=== PATIENT | female | born 1985 | race Caucasian/White ===

== ENCOUNTER 2022-05-04 09:18 | Emergency (ER) | payer BC, SELFPAY ==
[2022-05-04] VITALS (9 sets, daily range): BP systolic 116–139; BP diastolic 72–85; PULSE 73–83; RESP 12–21; TEMP 36.2; O2SAT 98–100
--- NOTE | 2022-05-04 09:31 | ED.ALLEREA ---
HPI - Allergic Reaction General Chief complaint: Allergic Reaction Stated complaint: hives Time Seen by Provider: 05/04/22 09:23 History of Present Illness HPI narrative: 36-year-old female presents to the emergency room for evaluation of sudden onset rash. Patient states her symptoms began last night and her face, she took Benadryl and then noticed the rash spread to her chest and extremities. Patient denies any shortness of breath difficulty breathing or oropharyngeal swelling. Patient does admit that she began taking Wellbutrin 3 weeks ago, and that her primary care physician increased her dose on Wednesday. Patient took 1 dose of Benadryl this morning with no symptom resolution. Related Data Home Medications Medication Instructions Recorded Confirmed bupropion HCl 150 mg 24 hr tablet, 150 mg PO QAM 04/29/22 04/29/22 extended release cyanocobalamin (vitamin B-12) 100 mcg subcut MONTHLY 04/29/22 04/29/22 1,000 mcg/mL injection solution etonogestrel 68 mg subdermal 1 implant subdermal ONCE 04/29/22 04/29/22 implant (Nexplanon) magnesium oxide,aspartate,citr mg PO 04/29/22 04/29/22 Allergies Allergy/AdvReac Type Severity Reaction Status Date / Time Sulfa (Sulfonamide Allergy Mild Unknown Verified 04/29/22 09:57 Antibiotics) Penicillins Allergy Unknown Unknown Verified 04/29/22 09:57 Review of Systems Review of Systems: CONSTITUTIONAL: Denies fever, chills, or sweats. EYES: Denies visual changes, redness, or discharge. ENT: Denies rhinorrhea, congestion, sore throat, or otalgia. CARDIOVASCULAR: Denies chest pain, palpitations, or edema. RESPIRATORY: Denies cough or dyspnea. GASTROINTESTINAL: Denies abdominal pain, nausea, vomiting, or diarrhea. GENITOURINARY: Denies dysuria or hematuria. SKIN: Reports rash MUSCULOSKELETAL: Denies back pain, joint pain, or myalgia. NEUROLOGIC: Denies headache, numbness, dizziness, or weakness. PSYCHIATRIC: Denies anxiety or depression. 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 HEAD: Normocephalic, atraumatic. EYES: Conjunctivae normal, PERRLA and EOMI. ENT: External nose normal, Nares clear, no rhinorrhea or epistaxis. Mucous membranes moist. Oropharynx without tonsillar hypertrophy exudate or other lesions. NECK: Supple. No adenopathy or masses. CHEST: Clear to auscultation. No respiratory distress. No wheezes rales or rhonchi. No tenderness. HEART: Regular rate and rhythm. No murmur heard. Normal peripheral pulses. EXTREMITIES: Normal range of motion. No edema. No clubbing or cyanosis SKIN: Urticaria noted to neck, chest, abdomen, upper and lower extremities NEURO: No focal deficits. Alert and oriented x3. MAEW. CN's II-XI intact bilaterally, normal gait PSYCH: Cooperative. Normal mood and affect. Course Vital Signs Vital signs: Vital Signs Temperature 36.2 C L 05/04/22 09:25 Pulse Rate 83 05/04/22 09:25 Respiratory Rate 14 05/04/22 09:25 Blood Pressure 139/85 05/04/22 09:25 Pulse Oximetry 100 05/04/22 09:25 Oxygen Delivery Room Air 05/04/22 09:25 Temperature 36.2 C L 05/04/22 09:25 Pulse Rate 77 05/04/22 10:15 Respiratory Rate 12 05/04/22 10:15 Blood Pressure 121/78 05/04/22 09:46 Pulse Oximetry 10
[2022-05-04] MEDS: SODIUM CHLORIDE 0.9% IV 1,000 ML 999 ML IV CONT (10:06)
[2022-05-04] MEDS: diphenhydrAMINE HCl INJ 50 MG/ML VIAL 25 MG IV PUSH (10:10)
[2022-05-04] MEDS: methylPREDNISolone SOD SUCC 125 MG VIAL IV PUSH (10:10)
[2022-05-04] MEDS: FAMOTIDINE 20 MG/2 ML VIAL IV PUSH (10:11)
== END 2022-05-04 11:12 | disposition home or self-care (01) ==
PROVIDERS: Emergency Provider Nurse Practitioner Family; PCP Nurse Practitioner Family
DX: L50.0 Allergic urticaria (principal); Z87.891 Personal history of nicotine dependence
CPT/HCPCS: 96361; 96374; 96375; 99284; J1200; J2930; J7030

== ENCOUNTER 2022-09-11 13:12 | Emergency (ER) | payer BC, SELFPAY ==
--- NOTE | 2022-09-11 13:29 | ED.URI ---
HPI - URI/Sore Throat General Chief Complaint: Upper Respiratory Infection Stated Complaint: sinus pressure, nausea, dizziness Time Seen by Provider: 09/11/22 14:28 Source: patient and RN notes reviewed Mode of arrival: ambulatory Limitations: no limitations History of Present Illness HPI Narrative: 37-year-old female presents concern for 2 week history of sinus drainage, cough, pressure, headache. Reports she is again having pressure above her left eye, she started having left dental pain. She thought she had a dental infection so she went to the dentist, he said she does not have a dental infection. She reports she called her ENT today and was unable to get an appointment and while she was here she was notified a center in [facility], she has not started that yet. She reports recent chills, denies fever MD elicited complaint: cough and sore throat Related Data Home Medications Medication Instructions Recorded Confirmed bupropion HCl 150 mg 24 hr tablet, 150 mg PO QAM 04/29/22 04/29/22 extended release cyanocobalamin (vitamin B-12) 100 mcg subcut MONTHLY 04/29/22 04/29/22 1,000 mcg/mL injection solution etonogestrel 68 mg subdermal 1 implant subdermal ONCE 04/29/22 04/29/22 implant (Nexplanon) magnesium oxide,aspartate,citr mg PO 04/29/22 04/29/22 epinephrine 0.3 mg/0.3 mL 09/11/22 injection, auto-injector (Auvi-Q) Allergies Allergy/AdvReac Type Severity Reaction Status Date / Time Sulfa (Sulfonamide Allergy Mild Unknown Verified 09/11/22 13:48 Antibiotics) Penicillins Allergy Unknown Unknown Verified 09/11/22 13:48 Review of Systems Review of Systems: CONSTITUTIONAL: Reports malaise, chills. Denies sweats, or fever. EYES: Denies visual changes, redness, or discharge. ENT: Reports rhinorrhea, congestion, sinus pain, left facial pressure and pain, left dental pain. Denies otalgia and sore throat. CARDIOVASCULAR: Denies chest pain, palpitations, or edema. RESPIRATORY: Reports cough. Denies dyspnea. GASTROINTESTINAL: Denies abdominal pain, nausea, vomiting, diarrhea SKIN: Denies rash or itching. MUSCULOSKELETAL: Denies myalgia. NEUROLOGIC: He reports headache. 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 There is no relevant family history pertinent to the presenting complaint 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 HEAD: Normocephalic EYES: PERRLA, conjunctivae clear ENT: Nares clear, turbinates edematous and erythematous, green discharge, sinus tenderness. Mucous membranes moist. TM pearly finney with dull light reflex bilaterally; no tragal tenderness. Oropharynx not erythematous without lesions. Tonsils not enlarged and without exudate, no drooling, no hoarseness, no trismus, uvula midline. NECK: Supple. No lymphadenopathy CHEST: Clear to auscultation, breath sounds equal. No wheezing, rhonchi, rales, or stridor. No respiratory distress, speaks in full sentences. HEART: Regular rate and rhythm. No murmur heard. SKIN: Warm, dry, no rash. NEURO: Alert and oriented x3. PSYCH: Normal mood and affect
[2022-09-11 13:39] VITALS: BP 136/78; PULSE 79; RESP 12; TEMP 37.8; O2SAT 100
== END 2022-09-11 14:42 | disposition home or self-care (01) ==
PROVIDERS: Emergency Provider Nurse Practitioner
DX: J32.9 Chronic sinusitis, unspecified (principal); J40 Bronchitis, not specified as acute or chronic
CPT/HCPCS: 99213; G0463

== ENCOUNTER 2022-10-06 17:34 | Emergency (ER) | payer BC, SELFPAY ==
--- NOTE | ~2022-10-06 | XR_ITS ---
EXAM: XR shoulder RT min 2V DATE: 10/06/2022 18:10 HISTORY: rt shoulder pain X 2 DAYS, SHARP PAIN RADIATING TO FINGERS . COMPARISON: None available. FINDINGS: Normal mineralization. No fracture or dislocation. No lytic or blastic lesion. Mild degene rative change at the AC joint and glenohumeral joint. No erosion or periosteal change. Amorphous calc ification at the tip of the acromion at the origin of the deltoid musculature, likely calcific tendin itis. IMPRESSION: No acute osseous finding in the right shoulder. Reviewed, dictated and finalized at location K. [employer]OR[employer] FORMULATOR
[2022-10-06 17:36] VITALS: BP 146/98; PULSE 80; RESP 18; TEMP 36.6; O2SAT 100
[2022-10-06 20:09] VITALS: BP 148/87; PULSE 79; RESP 18; O2SAT 98
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
[2022-10-06] MEDS: KETOROLAC (*BKC) 60 MG/2 ML VIAL IM (21:11)
[2022-10-06 21:16] VITALS: BP 111/69; PULSE 69; RESP 18; TEMP 36.6; O2SAT 99
== END 2022-10-06 21:17 | disposition home or self-care (01) ==
PROVIDERS: Emergency Provider Physician Assistant; PCP Nurse Practitioner Family
DX: S43.401A Unspecified sprain of right shoulder joint, initial encounter (principal); X50.0XXA Overexertion from strenuous movement or load, initial encounter
CPT/HCPCS: 73030; 96372; 99283; A4565; J1885

== ENCOUNTER 2023-04-05 18:19 | Emergency (ER) | payer OTHER, SELFPAY ==
--- NOTE | ~2023-04-05 | XR_ITS ---
AP, oblique, and lateral views of the left great toe CLINICAL HISTORY: Injury FINDINGS: No fracture or dislocation seen. Joint spaces are preserved. Soft tissues are unremarkable. IMPRESSION: No significant abnormality seen. Reviewed, dictated and finalized at location .
--- NOTE | 2023-04-05 18:36 | ED.LOWEXIN ---
HPI - Extremity Injury (Lower) General Chief Complaint: Extremity Injury, Lower Stated Complaint: left great toe injury Time Seen by Provider: 04/05/23 18:30 History of Present Illness HPI Narrative: Patient presents to the emergency department from home. She was playing outside with her kids when one of her children dropped a PVC pipe on her first great toe of the left foot. Injury happened an hour and half prior to arrival. She has not taken anything for pain prior to arrival. Patient did place ice on the toe. She wants to ensure that it is not broken. Patient denies all other injuries. She is generally healthy. Very pleasant and exam is in no distress. No deformity on exam mild first toe tenderness Related Data Home Medications Medication Instructions Recorded Confirmed bupropion HCl 150 mg 24 hr tablet, 150 mg PO QAM 04/29/22 04/29/22 extended release cyanocobalamin (vitamin B-12) 100 mcg subcut MONTHLY 04/29/22 04/29/22 1,000 mcg/mL injection solution etonogestrel 68 mg subdermal 1 implant subdermal ONCE 04/29/22 04/29/22 implant (Nexplanon) magnesium oxide,aspartate,citr mg PO 04/29/22 04/29/22 epinephrine 0.3 mg/0.3 mL 09/11/22 injection, auto-injector (Auvi-Q) Allergies Allergy/AdvReac Type Severity Reaction Status Date / Time Sulfa (Sulfonamide Allergy Mild Unknown Verified 10/06/22 17:39 Antibiotics) Penicillins Allergy Unknown Unknown Verified 10/06/22 17:39 Review of Systems Review of Systems: All systems reviewed & are unremarkable except as noted in HPI and below 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 HEAD: Normocephalic, atraumatic. ENT: Nares clear, no rhinorrhea or epistaxis. Mucous membranes moist. NECK: Normal ROM CHEST: No respiratory distress. EXTREMITIES: Normal range of motion. Mild tenderness left first toe, no deformity or bruising SKIN: Warm, dry, no rash. NEURO: No focal deficits. Alert and oriented x3. PSYCH: Normal mood and affect. Course Course Emergency Course: X-ray result pending however upon evaluation by myself no obvious fracture noted. Will order ibuprofen Discharge Plan Discharge Clinical Impression: Crush injury of toe Patient Disposition: Home, Self-Care Condition: Stable Instructions: Antibiotic Form, Foot Contusion (ED) Additional Instructions: Ibuprofen and Tylenol for pain Keep foot elevated Ice for swelling and pain Follow-up with your primary care provider for persistent discomfort for possible repeat x-rays Prescriptions: No Action epinephrine [Auvi-Q] 0.3 mg/0.3 mL auto-injector pseudoephedrine HCl [12 Hour Decongestant] 120 mg tablet extended release 120 mg PO Q12H PRN (Reason: nasal congestion) Qty: 12 0RF promethazine-DM 6.25-15 mg/5 mL syrup 5 ml PO Q4-6H PRN (Reason: cough) Qty: 120 0RF magnesium oxide,aspartate,citr 400 mg magnesium capsule PO bupropion HCl 150 mg tablet extended release 24 hr 150 mg PO QAM cyanocobalamin (vitamin B-12) 1,000 mc
[2023-04-05] MEDS: IBUPROFEN 600 MG TABLET PO (19:02)
[2023-04-05 19:30] VITALS: BP 137/73; PULSE 86; RESP 20; O2SAT 99
== END 2023-04-05 19:25 | disposition home or self-care (01) ==
PROVIDERS: Emergency Provider Emergency Medicine; PCP Nurse Practitioner Family
DX: S97.112A Crushing injury of left great toe, initial encounter (principal); W20.8XXA Other cause of strike by thrown, projected or falling object, initial encounter
CPT/HCPCS: 73660; 99283; A9270

== ENCOUNTER 2023-07-27 09:41 | Outpatient (CLI) | payer OTHER, SELFPAY ==
--- NOTE | ~2023-07-27 | MMUS_ITS ---
EXAMINATION: MM diagnostic nilo BI w tio, US breast LT limited HISTORY: Left breast pain TECHNIQUE: Additional 3-D tomosynthesis images of the breasts were performed and synthetic 2-D images were generated. CAD analysis was submitted and interpreted. High resolution Limited left breast ultr asound was performed. COMPARISON: 01/31/2021 BREAST PARENCHYMAL COMPOSITION: Breast composed of scattered areas of fibroglandular density FINDINGS: MAMMOGRAPHIC FINDINGS: The breasts are stable. There are benign intramammary lymph nodes bilaterally. The lymph node in the upper outer quadrant of the left breast is slightly increased in size, although there is retention of normal fatty hilum. ULTRASOUND: Limited left breast ultrasound: There is a normal 9 mm lymph node at 2:00, 6 cm from the nipple corre sponding to the mammographic finding. No suspicious masses in the left breast to suggest malignancy. IMPRESSION: 1. No evidence for malignancy in either breast. 2. Routine yearly screening mammogram and regular clinical breast examination are recommended. BI-RADS Category 2: Benign finding(s). Reviewed, dictated and finalized at location L. ETING TEAM LEAD IMPRESSION: 1. No evidence for malignancy in either breast. 2. Routine yearly screening mammogram and regular clinical breast examination a re recommended. BI-RADS Category 2: Benign finding(s).
== END 2023-07-27 09:42 ==
LOC: MICIMG 09:42
PROVIDERS: PCP Nurse Practitioner Family; Visit Provider Nurse Practitioner
DX: N64.4 Mastodynia (principal)
CPT/HCPCS: 76642; 77062; 77066; G0279

== ENCOUNTER 2024-02-04 16:06 | Emergency (ER) | payer OTHER, SELFPAY ==
--- NOTE | 2024-02-04 16:09 | ED.URI ---
HPI - URI/Sore Throat General Chief Complaint: Upper Respiratory Infection Stated Complaint: stuffy nose,cough,fatigue,congestion Time Seen by Provider: 02/04/24 16:37 Source: patient, RN notes reviewed and old records reviewed Mode of arrival: ambulatory Limitations: no limitations History of Present Illness HPI Narrative: 38-year-old female presents to the [facility] with complaints of stuffy nose, cough, fatigue and congestion, decreased smell and taste. Symptoms started Wednesday, 3 days ago Related Data Home Medications Medication Instructions Recorded Confirmed bupropion HCl 150 mg 24 hr tablet, 150 mg PO QAM 04/29/22 02/04/24 extended release cyanocobalamin (vitamin B-12) 100 mcg subcut MONTHLY 04/29/22 02/04/24 1,000 mcg/mL injection solution etonogestrel 68 mg subdermal 1 implant subdermal ONCE 04/29/22 02/04/24 implant (Nexplanon) magnesium aspart,citrate,oxide 400 mg PO DAILY 04/29/22 02/04/24 epinephrine 0.3 mg/0.3 mL 0.3 ml IM ONCE allergic reaction 09/11/22 02/04/24 injection, auto-injector (Auvi-Q) Allergies Allergy/AdvReac Type Severity Reaction Status Date / Time Sulfa (Sulfonamide Allergy Mild Unknown Verified 02/04/24 16:13 Antibiotics) Penicillins Allergy Unknown Unknown Verified 02/04/24 16:13 Review of Systems Review of Systems: All systems reviewed & are unremarkable except as noted in HPI and below Constitutional: Constitutional: Reports no additional constitutional complaints Eyes: Eyes: Reports no additional eye complaints ENT: Reports as per HPI Cardiovascular: Cardiovascular: Reports no additional cardiovascular complaints, Denies chest pain and Denies dyspnea Respiratory: Respiratory: Reports no additional respiratory complaints, Denies chest congestion, Denies cough and Denies dyspnea Gastrointestinal: Gastrointestinal: Reports no additional gastrointestinal complaints, Denies abdominal pain, Denies nausea and Denies vomiting Musculoskeletal: Musculoskeletal: Reports no additional musculoskeletal complaints Integumentary/Breasts: Skin/Breast: Reports system reviewed and no additional complaints, except as docu Neurologic: Reports system reviewed and no additional complaints, except as documented Psychiatric: Psychiatric: Reports no additional psychiatric complaints Allergic/Immunologic: Allergic/Immunologic: Reports no additional allergic/immunologic complaints PMFSH Past Medical History Medical History No pertinent past medical history Surgical History Surgical History History of cardiac radiofrequency ablation (RFA) History of nasal surgery History of tonsillectomy Family History Family History Father Hypertension Mother Cancer Depression Anxiety Grandparent Diabetes mellitus Grandparent Alcoholism Cancer Social History Social History Smoking status: Never smoker Smoking end date: 08/02/12 Alcohol intake: never Substance use: never Living arrangements: with family Occupation/Education: occupation 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 There is no relevant family history pertinent to the patient complaint. Exam Const: General: cooperative, healthy appearing, comfortable, no acute distress, well developed, alert and well nourished Nutritional Appearance: well nourished Orientation/consciousness: patient oriented x3 Limitations: no limitations HENMT: Head: normal to inspection Ears: hearing grossly normal bilaterally, external ears normal, TM's normal bilaterally, EAC's normal, mastoids normal and no periauricular adenopathy Face/Nose/Sinus: Normal external nos
[2024-02-04 16:27] VITALS: BP 122/73; PULSE 71; RESP 16; TEMP 36.4; O2SAT 100
[2024-02-04 16:52] LABS: EDINFLUASCREEN Negative; EDINFLUBSCREEN Negative
== END 2024-02-04 16:50 | disposition home or self-care (01) ==
PROVIDERS: Emergency Provider Nurse Practitioner
DX: J06.9 Acute upper respiratory infection, unspecified (principal); Z20.822 Contact with and (suspected) exposure to COVID-19; Z87.891 Personal history of nicotine dependence
CPT/HCPCS: 87426; 87804; 99213; G0463

== ENCOUNTER 2024-05-23 13:01 | Emergency (ER) | payer OTHER, SELFPAY ==
--- NOTE | ~2024-05-23 | XR_ITS ---
EXAMINATION: XR chest 2V DATE: 05/23/2024 14:15 INDICATION: 2 days of cough. Pneumonia exposure. TECHNIQUE: PA and lateral views of the chest were obtained. COMPARISON: None FINDINGS: The lungs are clear with no focal airspace opacities, pulmonary edema, pleural effusion or pneumothor ax. The cardiomediastinal silhouette is normal. Cholecystectomy clips in the right upper quadrant. IMPRESSION: 1. No acute cardiopulmonary disease. Reviewed, dictated and finalized at location A.
[2024-05-23 13:23] VITALS: BP 127/73; PULSE 72; RESP 16; TEMP 37; O2SAT 100
--- NOTE | 2024-05-23 13:56 | ED.URI ---
HPI - URI/Sore Throat General Chief Complaint: Upper Respiratory Infection Stated Complaint: Sore Throat/Cough Time Seen by Provider: 05/23/24 13:56 Source: patient, RN notes reviewed and old records reviewed Mode of arrival: ambulatory Limitations: no limitations History of Present Illness HPI Narrative: 38-year-old female presents to the [facility] with complaints of a sore throat and cough that started on Wednesday, 2 days ago. Patient is concerned because her children had pneumonia. Onset (ago): day(s) (2) Treatments prior to arrival: none Related Data Home Medications Medication Instructions Recorded Confirmed bupropion HCl 150 mg 24 hr tablet, 150 mg PO QAM 04/29/22 05/23/24 extended release cyanocobalamin (vitamin B-12) 100 mcg subcut MONTHLY 04/29/22 05/23/24 1,000 mcg/mL injection solution etonogestrel 68 mg subdermal 1 implant subdermal ONCE 04/29/22 05/23/24 implant (Nexplanon) magnesium aspart,citrate,oxide 400 mg PO DAILY 04/29/22 05/23/24 epinephrine 0.3 mg/0.3 mL 0.3 ml IM ONCE allergic reaction 09/11/22 05/23/24 injection, auto-injector (Auvi-Q) Allergies Allergy/AdvReac Type Severity Reaction Status Date / Time Sulfa (Sulfonamide Allergy Mild Unknown Verified 05/23/24 13:03 Antibiotics) Penicillins Allergy Unknown Unknown Verified 05/23/24 13:03 Review of Systems Review of Systems: All systems reviewed & are unremarkable except as noted in HPI and below Constitutional: Constitutional: Reports no additional constitutional complaints ENT: Reports as per HPI and Reports sore throat Cardiovascular: Cardiovascular: Reports no additional cardiovascular complaints, Denies chest pain and Denies dyspnea Respiratory: Respiratory: Reports as per HPI, Denies chest congestion, Reports cough and Denies dyspnea Gastrointestinal: Gastrointestinal: Reports no additional gastrointestinal complaints, Denies abdominal pain, Denies nausea and Denies vomiting Musculoskeletal: Musculoskeletal: Reports no additional musculoskeletal complaints Integumentary/Breasts: Skin/Breast: Reports system reviewed and no additional complaints, except as docu PMFSH Past Medical History Medical History No pertinent past medical history Surgical History Surgical History History of cardiac radiofrequency ablation (RFA) History of nasal surgery History of tonsillectomy Family History Family History Father Hypertension Mother Cancer Depression Anxiety Grandparent Diabetes mellitus Grandparent Alcoholism Cancer Social History Social History Smoking status: Never smoker Smoking end date: 08/02/12 Alcohol intake: never Substance use: never Living arrangements: with family Occupation/Education: occupation 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 There is no relevant family history pertinent to the patient complaint. Exam Const: General: cooperative, healthy appearing, comfortable, no acute distress, well developed, alert and well nourished Nutritional Appearance: well nourished Orientation/consciousness: patient oriented x3 Limitations: no limitations HENMT: Head: normal to inspection Ears: hearing grossly normal bilaterally, external ears normal, TM's normal bilaterally, EAC's normal, mastoids normal and no periauricular adenopathy Face/Nose/Sinus: Normal external nose present, normal facial exam and face symmetric Face and sinus: normal facial exam and face symmetric Mouth: Yes Normal oral and palatal mucosa present, Yes lip normal and Yes tongue normal Throat: uvula midline, postnasal drainage and no uvular edema Eyes:
[2024-05-23 14:07] LABS: EDCOVIDSCREEN Negative (Negative); EDINFLUASCREEN Negative (Negative); EDINFLUBSCREEN Negative (Negative)
== END 2024-05-23 14:35 | disposition home or self-care (01) ==
PROVIDERS: Emergency Provider Nurse Practitioner
DX: J06.9 Acute upper respiratory infection, unspecified (principal); Z20.822 Contact with and (suspected) exposure to COVID-19
CPT/HCPCS: 71046; 87426; 87804; 99213; G0463

== ENCOUNTER 2024-12-07 10:03 | Outpatient (CLI) | payer OTHER, SELFPAY ==
--- NOTE | ~2024-12-07 | CT_ITS ---
CT sinus wo con Ordering provider: Brynn Cervantes MD History: . J32.2 - Chronic ethmoidal sinusitis . Comparison: None. Technique: Thin slice Scans CT of the paranasal sinuses was performed with coronal and sagittal refor matted images. No IV contrast. . Automated exposure control and iterative reconstruction technique w ere employed. The dose-length product was 284.29 mGy-cm. Findings: NASAL SEPTUM: Mild right nasal septal deviation. 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 Otherwise, Normal. PARANASAL SINUSES: Bilateral maxillary and ethmoid sinus disease. Otherwise, Well aerated. VISUALIZED MASTOIDS: Normal as visualized. Possible dehiscent right superior semicircular canal. Clin ical correlation advised. BONES: Normal. SUPERFICIAL SOFT TISSUES/VISUALIZED BRAIN PARENCHYMA: Normal. IMPRESSION: Bilateral maxillary sinus disease. Mild right nasal septal deviation. Obliterated both ostiomeatal complexes. Reviewed, dictated and finalized at location A.
--- OUTSIDE RECORDS SUMMARY | 2024-12-07 10:22 | XMS_ITS | Clinical Summary ---
Author Organization [facility] Address [address] [place] [address] Care Team Providers Care Sterile Supervisor Name Role Phone Unavailable Primary Care Provider Unavailabl e Immunizations Immunization Administration Dates Next Due Covid-19, Mrna, Lnp-s, Pf, 30 Mcg/0.3 Ml Dose (P fizer) 04/24/2021 Social History Tobacco Use Types Packs/Day Years Used Date Smoking Tobacco: Never Assessed Comments Unknown Sex and Gender Information Value Date Recorded Sex Assigned at Not on file Legal Sex Female 2:06 PM CDT Gender Identity Not on file Sexual Orientation Not on file Plan of Treatment Health Maintenance Due Date Last Done Comments Hepatitis C Virus (HCV) Screening 1986 TdaP Immunization 1986 Hepatitis B Immunization (1 of 3 - 19+ 3-dose series) 2005 Influenza Immunization (#1) 2024 SARS-COV-2 Immunization (2023- season) 2024 04/24/2021 Respiratory Syncytial Virus (RSV) Immunization (Adult) (1 - 1-dose 75+ series) 2061 Meningococcal Immunization (ACWY) Aged Out No longer eligible based on patient's age to complete this topic Pneumococcal Immunization Combined Aged Out No longer eligible based on patient's age to complete this topic Rotavirus Immunization Aged Out No lo nger eligible based on patient's age to complete this topic
--- OUTSIDE RECORDS SUMMARY | 2024-12-07 10:22 | XMS_ITS | Clinical Summary ---
Author Organization [facility] Address [address] [place] [address] Care Team Providers Care Events And Promotions Assistant Name Role Phone Sol Arvizu MD Primary Care Provider Source Comments [facility],non-owned Affiliates and Associated Physician Practices is amultiple site organization consisting of ambulatory clinics and hospital sitesin [place], [place], [place] and [place]. This disclosure is being madepursuant to the Care Everywhere program and may not contain all information available regarding this patient. Last updated 18.[facility] Allergies Active Allergy Reactions Criticality Noted Date Comments Penicillins Urticaria Medium 04/19/2019 Sulfa Drugs Urticaria Medium 04/01/2016 Medications * Be aware that medications may not be up to date on this document. Alwaysverify current medications with the patient. Vit-Fe Fumarate-FA ( VITAMIN) 28-0.8 MG tabletIndicatio ns: Take 1 tablet by mouth once daily Reasons: Active magnesium oxide (MAG-OX) 400 MG tabletIndicatio ns:palpitations Take 400 mg by mouth once daily Reasons: palpitations Active [place]-3 Fatty Acids (FISH OIL) 1000 MG capsule Take 1,000 mg by mouth Active Inulin (FIBER CHOICE FRUITY BITES PO)Indications: Constipation Take 2 tablets by mouth Reasons: Constipation Active Active Problems Problem Noted Date Diagnosed Date Elevated liver enzymes 05/17/2019 Overview (05/17/2019): Reports intermittent history of elevated liver enzymes this . Following with GI and primary OB. Shares that GI suggested a scope procedure under anesthesia but her symptoms with the biliary duct and stones have not been problematic, so she has not done this procedure. Care everywhere review: 04/05/19 CMP: ALT: 57, AST: 45, t bili: 0.4, creatinine: 0.6, BUN: 9 Assessment & Plan (05/17/2019 10:19 AM CDT): Reports intermittent history of elevated liver enzymes this . Following with GI and primary OB. Shares that GI suggested a scope procedure under anesthesia, but her symptoms with the biliary duct and stones have not been problematic, so she has not done this procedure. Mild flare only in April, has significantly changed her diet. She shares that she has had an acute Hepatitis work up for this problem and it was negative. She denies any rashes, RUQ abdominal pain, or jaundice. Plan: If Clinical Biochemist would like us to follow her for this ongoing, we certainly will. Roberta shares that it is hard for her to have two offices to see for care. Please let us know if you would like our continued management of her . Sent with order for CMP. Instructed to always seek evaluation if having recurrence of symptoms. reports history of decreased platelets 9 Assessment & Plan (05/17/2019 12:22 PM CDT): Reports today history of platelets in the 110-120,000 range currently; states she has had lower platelets outside of too. No current labs to review. Denies history of autoimmune disorder or clotting disorder. Care everywhere review: CBC 04/05/19: H/H/P: 12.2/36.1/125 Platelets noted on 03/2017: 150,000 Plan: Sent with order for CBC today. If you would like our input with this reported history, please let us know. I have also encouraged Roberta to let us know if she plans to follow up, given she shares two places for care and it is quite difficult with her work schedule. Reviewed possibility of gestational thrombocytopenia, but she states it happens outside of also, although normal platelet count noted in 03/2017. History of chorioamnionitis 04/19/2019 Overview (05/03/2019): Baseline GC/ chlamydia/trich negative 2013 (records reviewed): GBS positive. Was ruptured for 11 hr. Had internal monitoring placed. Maternal fever in labor [100.7]. Treated with ampicillin & gentamicin. Apgars 9/9. blood culture (drawn on 1st day of life) was negative. Placental evaluation (2013): Severe acute chorioamnionitis, severe acute funisitis. Microscopy significant for moderate intervillous fibrin deposition, neutrophils in the membranes and Pershing's jelly of the umbilical cord. Assessment & Plan (05/17/2019 10:33 AM CDT): Baseline GC/ chlamydia/trich negative 2013 (records reviewed): GBS positive. Was ruptured for 11 hr. Had internal monitoring placed. Maternal fever in labor [100.7]. Treated with ampicillin & gentamicin. Apgars 9/9. blood culture (drawn on 1st day of life) was negative. Placental evaluation (2013): Severe acute chorioamnionitis, severe acute funisitis. Microscopy significant for moderate intervillous fibrin deposition, neutrophils in the membranes and Pershing's jelly of the umbilical cord. Plan: Reviewed today that her history of chorioamnionitis was an acute process during that labor and delivery. Reassurance given that unlikely to be a recurrent event this . Reviewed Group B strep, how it is assessed and treated. Encouraged to seek evaluation for any changes in vaginal discharge, or suspicion of leakage of amniotic fluid. Recommend to minimize labor interventions that can promote the occurrence of chorioamnionitis during labor. Assessment & Plan (04/19/2019 12:57 PM CDT): Requesting patient records from [facility] from 2012 Will give final recommendations at follow-up consultation session after records have been received Supervision of high-risk of elie collier 04/11/2019 Overview (04/11/2019): Negative sequential screen Obesity affecting , antepartum 04/11/20 19 Assessment & Plan (04/19/2019 12:56 PM CDT): Recommend serial growth every four weeks Immunizations Immunization Administration Dates Next Due INFLUENZA VACCINE, QUADR. (F LUZONE; FLULAVAL; FLUARIX; AFLURIA QUADRIVALENT; 6MO+), 0.5 ML (IIV4) 05/31/2023 MMR 04/08/2016 TDAP (7yrs+) 04/08/2016 VARICELLA 04/08/2016 Family History Medical History Relation Name Comments Hypertension Father Diabetes - Type 2 Maternal Grandfather Hypertension Maternal Grandfather Aneurysm, Brain Maternal Grandmother Diabetes - Type 2 Mother Diabetes - Type 2 Paternal Grandfather Other Paternal Grandfather Diabetes - Type 2 Paternal Grandmother Renal Disease Paternal Grandmother Relation Name Status Comments Father Maternal Grandfather (Age 70's) Maternal Grandmother (Age 50) Mother Paternal Grandfather (Age 79) Di ed of sepsis complication from DM Paternal Grandmother Social History Tobacco Use Types Packs/Day Years Used Date Smoking Tobacco: Former Cigarettes 0 10/09/2008 - 10/09/2013 Smokeless Tobacco: Never Alcohol Use Standard Drinks/Week Comments Yes 0 (1 standard drink = 0.6 oz pur e alcohol) occasionally Comments No Sex and Gender Information Value Date Recorded Sex Assigned at Not on file Legal Sex Female 8:31 PM CDT Gender Identity Not on file Sexual Orientation Not on file Last Filed Vital Signs Vital Sign Reading Time Taken Comments Blood Pressure 115/67 08/23/2019 3:34 PM PRODUCT DEMONSTRATOR Pulse 75 08/23/2019 3:34 PM PRODUCT DEMONSTRATOR Temperature 37.1 C (98.7 F) 01/26/2018 10:12 PM CDT Respiratory Rate 16 08/23/2019 3:34 PM PRODUCT DEMONSTRATOR Oxygen Saturation 100% 01/26/2018 10:12 PM CDT Inhaled Oxygen Concentration - - Weight 94.8 kg (209 lb) 05/17/2019 8:44 AM CDT Height 160 cm (5' 3 ) 04/19/2019 11:56 AM CDT Body Mass Index 37.02 04/19/2019 11:56 AM CDT Plan of Treatment Health Maintenance Due Date Last Done Comments HIV SCREENING 2001 HEPATITIS C SCREENING 06/30/2004 HEPATITIS B VACCINE (1 of 3 - 19+ 3-dose series) 2005 COVID-19 VACCINE ( season) 2024 06/03/2022, 06/05/2021, 04/24/2021 DEPRESSION SCREENING 08/02/2024 DTAP/TDAP/TD VACCINES (2 - Td or Tdap) 04/08/2026 04/08/2016 PAP SMEAR 05/13/2026 05/13/2023 ZOSTER VACCINE (1 of 2) 2036 INFLUENZA VACCINE Completed 06/08/2024, , 05/21/2022, Additional history exists HIB VACCINE Aged Out No longer eligi ble based on patient's age to complete this topic HPV VACCINE Aged Out No longer eligi ble based on patient's age to complete this topic MENINGOCOCCAL (Group B) VACCINE SHARED DECISION-MAKING Aged Out No longer eligible based on patient's age to complete this topic MENINGOCOCCAL GROUPS A/C/Y/W VACCINE Aged Out No longer eligible based on patient's age to complete this topic PNEUMOCOCCAL VACCINE Aged Out No long er eligible based on patient's age to complete this topic Insurance MEDICAID - [place] [facility] Care Teams Events And Promotions Assistant Relationship Specialty Start Date End Date Sol Arvizu MD [address], [place] [id number] PCP - General Internal Medicine 01/26/18
--- OUTSIDE RECORDS SUMMARY | 2024-12-07 10:22 | XMS_ITS | CONTINUITY OF CARE DOCUMENT ---
Author Name murali carrion Address Unknown Organization [facility] Address [address] [address] [place] [address] Phone [phone] Care Team Providers Care Site Reliability Engineer Name Role Phone Alice Lu MD Unavailable SRINIVASAN DILL Unavailable [phone] SRINIVASAN DILL Unavailable [phone] PROBLEMS Condition Status Date Provider Notes Snoring - JOSSE? active Alice Lu MD SVT active Alice Lu MD Palpitations active Alice Lu MD Shortness of breath active Krishan Chen Systolic murmur mild active Krishan Chen Fatigue active Krishan Chen Exposure to COVID-19 coronavirus active Alice Lu MD COVID-19 evaluation encounte r, exposure ruled out completed - Alice Lu MD Atrioventricular block, 2nd degree active Krishan Chen Coronavirus infection 04/2020 active Krishan Chen ENCOUNTERS Date Type Provider Location Encounter Diag nosis - In-person encounter Office Visit Alice Lu MD [facility] - In-person encounter Office Visit Alice Lu MD [facility] - In-person encounter Office Visit Alice Lu MD [facility] COVID-19 evaluation encounter, exposure ruled outExposure to COVID-19 coronavirus - In-person encounter Office Visit Alice Lu MD [facility] Atrioventricular block, 2nd degree - In-person encounter Office Visit Alice Lu MD [facility] Coronavirus infection 04/2020Shortness of breathSystolic murmur mildFatigue - In-person encounter Office Visit Alice Lu MD [facility] - In-person encounter Office Visit Alice Lu MD [facility] - In-person encounter Office Visit Alice Lu MD [facility] - In-person encounter Office Visit Alice Lu MD [facility] SVTPalpitations VITAL SIGNS Date Observation Value Provider blood pressure, diastolic 77 mm[Hg] Katina nkLogic blood pressure, systolic 127 mm[Hg] Sierra Garciaogyoanna Body Mass Index (Ratio) 39.85 kg/m2 Breezy Abdi blood pressure, cuff size regular Cipriano blood pressure, diastolic 77 mm[Hg] Cipriano et blood pressure, systolic 127 mm[Hg] Jar ret pulse rate 66 /min Tucker y oxygen saturation, oximetry 99 % respiratory rate E&M 14 /min weight E&M 225 [lb_av] y height E&M 63 [in_i] Tucker y Body Mass Index (Ratio) 39.50 kg/m2 Enoch steve Richard blood pressure, diastolic 76 mm[Hg] Katina nkLogic blood pressure, systolic 113 mm[Hg] Sierra kLogic blood pressure, cuff size regular Fa ciara Vogel blood pressure, diastolic 76 mm[Hg] Fa [facility] blood pressure, systolic 113 mm[Hg] Sergio [facility] weight E&M 223 [lb_av] [facility] height E&M 63 [in_i] [facility] respiratory rate E&M 16 /min Radha Jarad iller pulse rate 80 /min [facility] oxygen saturation, oximetry 98 % [facility] Body Mass Index (Ratio) 37.73 kg/m2 Ant Lu MD blood pressure, diastolic 82 mm[Hg] Ke rri Amber blood pressure, systolic 126 mm[Hg] Mckenna Clark blood pressure, cuff size large Ke rri Van oxygen saturation, oximetry 98 % Ebony Clark respiratory rate E&M 16 /min Ebony beckett pulse rate 65 /min Ebony Muñoz [facility] weight E&M 213 [lb_av] Ebony Muñoz [facility] height E&M 63 [in_i] Ebony Muñoz [facility] Body Mass Index (Ratio) 37.90 kg/m2 [place] on Gustavo blood pressure, diastolic 80 mm[Hg] Sh erkeitrupinder Winkler blood pressure, systolic 130 mm[Hg] She rkjocy Winkler blood pressure, resting No Tristian maddy Winkler respiratory rate E&M 18 /min Damion Winkler pulse rate 77 /min Jc dominguez oxygen saturation, oximetry 96 % Jc Winkler weight E&M 214 [lb_av] Jc dominguez height E&M 63 [in_i] Jc dominguez Body Mass Index (Ratio) 37.51 kg/m2 Arie Chen blood pressure, diastolic 66 mm[Hg] Maurice Weaver blood pressure, systolic 122 mm[Hg] Camilla Weaver oxygen saturation, oximetry 98 % Ally Weaver respiratory rate E&M 18 /min Wendy aviles Weaver pulse rate 72 /min Ally oPp nson weight E&M 211.8 [lb_av] Ally Everett enson height E&M 63 [in_i] Ally Pop nson Body Mass Index (Ratio) 38.61 kg/m2 Heron Anthony blood pressure, cuff size regular Kr isty [place] blood pressure, diastolic 70 mm[Hg] Kr isty [place] blood pressure, systolic 130 mm[Hg] Kri sty [place] respiratory rate E&M 17 /min Kassi Mei oxygen saturation, oximetry 99 % Kassi [place] pulse rate 86 /min Kassi [place] weight E&M 218 [lb_av] Kassi [place] height E&M 63 [in_i] Kassi Mei Body Mass Index (Ratio) 37.73 kg/m2 Gorge Matute blood pressure, cuff size regular Cy ofe Stoll blood pressure, diastolic 70 mm[Hg] Cy ofe Stoll blood pressure, systolic 120 mm[Hg] Kanchan Stoll oxygen saturation, oximetry 98 % Sylwia Stoll respiratory rate E&M 16 /min Sylwia Stoll pulse rate 87 /min Sylwia wright weight E&M 213 [lb_av] Sylwia wright height E&M 63 [in_i] Sylwia wright Body Mass Index (Ratio) 40.56 kg/m2 Ant Lu MD blood pressure, cuff size large Ke scotti [place] blood pressure, diastolic 80 mm[Hg] Ke rri [place] blood pressure, systolic 130 mm[Hg] Mckenna joyner Amber oxygen saturation, oximetry 98 % Ebony Amber respiratory rate E&M 16 /min Ebony beckett pulse rate 71 /min Ebony Toni lder weight E&M 229 [lb_av] Ebony Diazpoonam lder height E&M 63 [in_i] Ebony Joeamriklidiakelsy er Body Mass Index (Ratio) 40.38 kg/m2 Bijan Tomsa blood pressure, diastolic 70 mm[Hg] Ke rri Joeamnaprasanthalfie blood pressure, systolic 120 mm[Hg] Mckenna joyner Amber blood pressure, resting No Wand a Holbrook blood pressure, cuff size large Wa nda Holbrook blood pressure, diastolic 76 mm[Hg] Wa nda Holbrook blood pressure, systolic 123 mm[Hg] Wan da Holbrook oxygen saturation, oximetry 98 % Eduarda Holbrook respiratory rate E&M 12 /min Eduarda H arper pulse rate 66 /min Eduarda Holbrook weight E&M 228 [lb_av] Eduarda Holbrook height E&M 63 [in_i] Eduarda Holbrook ALLERGIES Allergy Name Onset Date Reaction Criticality Status PENICILLIN High Criticality active SULFA HIves HIves Low Criticality active HISTORY OF MEDICATION USE Medication Status Instructions Dates Provider Indications Com ments escitalopram oxalate 10 mg tablet active 15 mg DAILY Maeve Luong NP Nexplanon 68 mg implant active 8 Maeve Luong NP albuterol sulfate 0.63 mg/3 mL solution for nebulization active 8 Maeve Luong NP [facility] completed take one tablet by mouth once laguna 4 - 8 Jc Winkler TABLET completed take one tablet by mouth one daily 4 - 6 Ally Weaver magnesium oxide 400 mg (241.3 mg magnesium) tablet active 1 tablet by mouth twice a day 6 Maeve Luong NP NEXPLANON IMPLANT completed 6 - 4 Kassi Peresby METOPROLOL SUCCINATE ER 50 MG ORAL TABLET EXTENDED RELEASE 24 HOUR completed one tab. daily 0 - 6 Michelet Matute SOCIAL HISTORY Date Observation Value Provider smoking, year quit 2012 Maeve Luong NEUROSURGERY PHYSICIAN number of years as a smoker 5 a Maeve Cherise NEUROSURGERY PHYSICIAN smoking history, tot al pack/day 1-1.5 Maeve Cherise NEUROSURGERY PHYSICIAN cigarette use yes Maeve Fuentesdl er NEUROSURGERY PHYSICIAN smoking status Former smoker Maeve Gina garciaer NEUROSURGERY PHYSICIAN Exercise counseling Yes Maeve Luong NP number of years as a smoker 5 a Maeve Cherise NEUROSURGERY PHYSICIAN smoking history, tot al pack/day 1-1.5 Maeve Villalbar NEUROSURGERY PHYSICIAN cigarette use yes Maeve Fendl er NEUROSURGERY PHYSICIAN smoking status Former smoker Maeve Fen dler NEUROSURGERY PHYSICIAN Exercise counseling Yes Maeve Luong NP social history E&M S moking History: Lucas boyer is a former smoker. Breezy Abdi social history reviewed E&M revi ewed - no changes required Breezy Abdi cigarette use yes Ebony Camarilloprasanth elder smoking status Former smoker Ebony Camarillo [facility] social history E&M S moking History: Lucas boyer is a former smoker. Krishan Gustavo social history reviewed E&M revi ewed - no changes required Arieon Gustavo cigarette use yes Jc allred smoking status Former smoker Jc mims social history E&M S moking History: Lucas boyer is a former smoker. Krishan Gustavo social history reviewed E&M revi ewed - no changes required Krishan Gustavo cigarette use yes Ally hopper smoking status Former smoker Ally Richard social history reviewed E&M revi ewed - no changes required Edmar Anthony cigarette use yes Kassi Peresby smoking status Former smoker Kassi Hurley social history reviewed E&M revi ewed - no changes required Michelet Matute social history E&M S moking History: Lucas boyer is a former smoker. Michelet Matute cigarette use yes Sylwia Marcie faustin smoking status Former smoker Sylwia Bueno rajinder social history E&M S moking History: Lucas boyer is a former smoker. [facility] smoking status Former smoker [facility] social history reviewed E&M revi ewed - no changes required [facility] cigarette use yes Ebony Camarilloprsaanth [facility] social history E&M S moking History: Lucas boyer is a former smoker. [facility] social history reviewed E&M revi ewed - no changes required [facility] smoking status Former smoker Ebony Camarillo [facility] number of grandchildren Alice Holbrook cigarette use yes Eduarda Hoblrook smoking status Former smoker Eduarda Holbrook FUNCTIONAL STATUS Date Observation Value Provider periodic limb movement index absent (0) Sandra Machado MD FAMILY HISTORY Family Member Condition Maternal Grandfather Family History of D iabetes: Paternal Grandmother Family History of D iabetes: Paternal Grandfather Family History of D iabetes: INSURANCE PROVIDERS Payer name Policy type / Coverage type Get red republican ID [facility] [id number] Other [id number] ADVANCE DIRECTIVES Name Date DISCUSSED - NO DECISION MADE TREATMENT PLAN Date Name Performer [id number],B, O rders: 9 9214 MOD 30-39min (CPT-20494) C ovid Antibody Igg (90705) C OMPREHENSIVE METABOLIC PANEL, W/EGFR (33706) L IPID PANEL (7600) H EMOGLOBIN A1c (496) C BC (INCLUDES DIFF/PLT) (6399) C omplete Echo (CPT-61830) Alice Lu MD [id number],B, O rders: 9 14 MOD 30-39min (CPT-84541) C ovid Antibody Igg (24264) C OMPREHENSIVE METABOLIC PANEL, W/EGFR (53494) L IPID PANEL (7600) H EMOGLOBIN A1c (496) C BC (INCLUDES DIFF/PLT) (6399) C omplete Echo (CPT-83024) Breezy Abdi [id number],C,S inus rhythm today on EKG. 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 T he average heart rate was 73bpm with a maximum rate of 120bpm and a minimum rate of 48bpm. O rders: E KG (CPT-66194) 9 9214 MOD 30-39min (CPT-62639) C ovid Antibody Igg (60246) C OMPREHENSIVE METABOLIC PANEL, W/EGFR (70681) L IPID PANEL (7600) H EMOGLOBIN A1c (496) C BC (INCLUDES DIFF/PLT) (6399) C omplete Echo (CPT-19104) Breezy Ahmedzai [id number],C,A symptomatic She wore a stockroom supervisor 02/16 showing Sinus Rhythm with rare Supraventricular ectopics. T he average heart rate was 73bpm with a maximum rate of 120bpm and a minimum rate of 48bpm. O rders: 9213 MOD 30-39min (CPT-84023) C ovid Antibody Igg (44837) C OMPREHENSIVE METABOLIC PANEL, W/EGFR (95233) L IPID PANEL (7600) H EMOGLOBIN A1c (496) C BC (INCLUDES DIFF/PLT) (6399) C omplete Echo (CPT-33234) Breezy Abdi [id number],C,m ildy SOB with exertion, attributable to her hx of covid infection. will check lab work and echo O rders: 9213 MOD 30-39min (CPT-19200) C ovid Antibody Igg (59108) C OMPREHENSIVE METABOLIC PANEL, W/EGFR (99105) L IPID PANEL (7600) H EMOGLOBIN A1c (496) C BC (INCLUDES DIFF/PLT) (6399) C omplete Echo (CPT-12140) Breezyamy Montañokeri [id number],B, O rders: M onitor - Telemetry (Mobile Cardiac) (CPT-71890) Krishan Chen [id number],B, s leep study negative for JOSSE. Krishan Chen [id number],C, M onitor 07/2020: R hythm: Sinus Rhythm with intermittent 2 AV Block Type 1. 2 AV Block Type 1 was documented as intermittently dropped complexes occurring in the overnight and lsw hours. M inimum Heart Rate was 39 bpm, Average Heart Rate was 74 bpm, and Maximum Heart Rate was 129 bpm. V entricular Ectopy was 9, with 0 V-Pairs and 0 V-Runs. Krishan Chen [id number],B, s /p ablation twice, last in 2013 Monitor 07/2020: R hythm: Sinus Rhythm with intermittent 2 AV Block Type 1. 2 AV Block Type 1 was documented as intermittently dropped complexes occurring in the overnight and lsw hours. M inimum Heart Rate was 39 bpm, Average Heart Rate was 74 bpm, and Maximum Heart Rate was 129 bpm. V entricular Ectopy was 9, with 0 V-Pairs and 0 V-Runs. Krishan Chen Electrophysiology:pt states that her work has been very stressful. she states that her palpitations 'may be a little better.' pt had ECHO: EF 65%, no significant valvular abnormalities. pt was unable to do stress test, d/t insurance issues. 'I have not met my deductible yet and I was not able to afford the davis of the test.' 09/28/23 tele: Sinus Rhythm with rare Supraventricular ectopics. The average heart rate was 73bpm with a maximum rate of 146bpm and a minimum rate of 52bpm. SVE?s were documented as a couplet and isolated beats will increase magnesium oxide 400mg BID. Maeve Luong NP Electrophysiology:ol low up for palpitations. pt was last seen 02/27/22 and had been doing well until about 12 months ago, when she began experieincing progressively worsening palpitations in frequency and intensity. pt does report that she has been under more stress recently. Pt tovar drink caffeine 1-2 servings per day. denies any CP, SOB, dizziness, increased BLE edema, orthopnea, PND or syncope. EKG today. SR. pt has been having trouble sleeping. last telesentry monitor 02/16/22 Sinus Rhythm with rare Supraventricular ectopics. The average heart rate was 73bpm with a maximum rate of 120bpm and a minimum rate of 48bpm. SVE?s were documented a couplet and isolated beats. will check 1 week telesentry. will check ECHO, will check routine stress test to assess HR response to exercise. p t could not tolerate mag ox 400mg BID. if any tachycardia, will consider adding propranlol 10mg BID. Maeve Luong NEUROSURGERY PHYSICIAN Electrophysiology: O rders: 9 9214 MOD 30-39min (CPT-73734) C ovid Antibody Igg (03153) C OMPREHENSIVE METABOLIC PANEL, W/EGFR (09199) L IPID PANEL (7600) H EMOGLOBIN A1c (496) C BC (INCLUDES DIFF/PLT) (6399) C omplete Echo (CPT-56878) Alice Lu MD Electrophysiology: O rders: 9 9214 MOD 30-39min (CPT-69499) C ovid Antibody Igg (07276) C OMPREHENSIVE METABOLIC PANEL, W/EGFR (35760) L IPID PANEL (7600) H EMOGLOBIN A1c (496) C BC (INCLUDES DIFF/PLT) (6399) C omplete Echo (CPT-11533) Alice Lu MD Electrophysiology:Si nus rhythm today on EKG. 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 T he average heart rate was 73bpm with a maximum rate of 120bpm and a minimum rate of 48bpm. 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 T he average heart rate was 73bpm with a maximum rate of 120bpm and a minimum rate of 48bpm. O rders: 9 14 MOD 30-39min (CPT-10080) C ovid Antibody Igg (84316) C OMPREHENSIVE METABOLIC PANEL, W/EGFR (99423) L IPID PANEL (7600) H EMOGLOBIN A1c (496) C BC (INCLUDES DIFF/PLT) (6399) C omplete Echo (CPT-56149) Alice Lu MD Electrophysiology:mi ldy SOB with exertion, attributable to her hx of covid infection. will check lab work and echo O rders: 9 9214 MOD 30-39min (CPT-07322) C ovid Antibody Igg (07005) C OMPREHENSIVE METABOLIC PANEL, W/EGFR (56119) L IPID PANEL (7600) H EMOGLOBIN A1c (496) C BC (INCLUDES DIFF/PLT) (6399) C omplete Echo (CPT-17187) Alice uL MD Cardiology: O rders: M onitor - Telemetry (Mobile Cardiac) (CPT-62050) Krishan Chen Cardiology: s leep study negative for JOSSE. celina Chen Cardiology: M onitor 07/2020: R hythm: Sinus Rhythm with intermittent 2 AV Block Type 1. 2 AV Block Type 1 was documented as intermittently dropped complexes occurring in the overnight and lsw hours. M inimum Heart Rate was 39 bpm, Average Heart Rate was 74 bpm, and Maximum Heart Rate was 129 bpm. V entricular Ectopy was 9, with 0 V-Pairs and 0 V-Runs. Krishan Chen Cardiology: s /p ablation twice, last in 2013 Monitor 07/2020: R hythm: Sinus Rhythm with intermittent 2 AV Block Type 1. 2 AV Block Type 1 was documented as intermittently dropped complexes occurring in the overnight and lsw hours. M inimum Heart Rate was 39 bpm, Average Heart Rate was 74 bpm, and Maximum Heart Rate was 129 bpm. V entricular Ectopy was 9, with 0 V-Pairs and 0 V-Runs. Krishan Chen Electrophysiology - 6 month fu: O rders: M obile Cardiac Tele (CPT-75199) Orders: E KG (CPT-40558) obile Cardiac Tele (CPT-35139) 9 9215 HIGH Complex (CPT-86456) Arielorena Gustavo Electrophysiology - 6 month fu: O rders: F VC - 64535 (62745) F RC - 66967 (69298) D LCO - 64659 (76596) PFTs today largely normal. Krishan Chen Electrophysiology - 6 month fu: O rders: M obile Cardiac Tele (CPT-19278) Krishan Chen Electrophysiology Edmar Anthony Electrophysiology Edmar Anthony Electrophysiology fo llow up : N ow having rare episodes of palpitations, at most 1x per month. She has since stopped her Metoprolol and reports feeling significantly improved and lost 10 lbs. Orders: E KG (CPT-83685) 9 9214 MOD Complex (CPT-41591) S chedule Followup (*) M obile Cardiac Tele (CPT-30302) The following medications were removed from the medication list: Metoprolol Succinate Er 50 Mg Oral Tablet Extended Release 24 Hour (Metoprolol succinate) ..... One tab. daily Michelet Matute Electrophysiology fo llow up : 1 -week Telesentry monitor 01/2017: R hythm: Sinus Rhythm T he average heart rate was 82BPM with a maximum heart rate of 109BPM. T he minimum heart rate was 55BPM. Her updated medication list for this problem includes: Metoprolol Succinate 50 Mg Tb24 (Metoprolol succinate) ..... One tab. daily Orders: 9 9214 MOD Complex (CPT-95402) S chedule Followup (*) M obile Cardiac Tele (CPT-67639) The following medications were removed from the medication list: Metoprolol Succinate Er 50 Mg Oral Tablet Extended Release 24 Hour (Metoprolol succinate) ..... One tab. daily Michelet Giovani Electrophysiology Follow up Bijan Tomas Electrophysiology Fo llow up :TeleSentry monitor report: R hythm: Sinus Rhythm T he average heart rate was 82BPM with a maximum heart rate of 109BPM. T he minimum heart rate was 55BPM. R eport Date: 02/09/17 //AC Her updated medication list for this problem includes: Metoprolol Succinate 50 Mg Tb24 (Metoprolol succinate) ..... One tab. daily Valeria Tomas EP: H er updated medication list for this problem includes: Metoprolol Succinate 50 Mg Tb24 (Metoprolol succinate) ..... One tab. daily Orders: E KG (CPT-08089) 9 9245 HIGH Complex (CPT-87232) C omplete Echo (CPT-48657) S TR - Routine (CPT-03058) Valeria Tomas EP: H er updated medication list for this problem includes: Metoprolol Succinate 50 Mg Tb24 (Metoprolol succinate) ..... One tab. daily Orders: E KG (CPT-50442) 9 9245 HIGH Complex (CPT-33926) C omplete Echo (CPT-84559) M obile Cardiac Tele (CPT-35760) S TR - Routine (CPT-04537) Valeria Tomas Date Name Stress Routine Complete Echo Monitor - Telemetry (Mobile Cardiac) Complete Echo CBC (INCLUDES DIFF/P LT) HEMOGLOBIN A1c LIPID PANEL COMPREHENSIVE METABO LIC PANEL, W/EGFR Monitor - Telemetry (Mobile Cardiac) COVID19 High Affinit y Antibodies (LC) Covid Antibody Igg Covid Antibody IgM ( LC) Covid Antibody IgA ( LC) Sleep Study Home Complete Echo Mobile Cardiac Tele DLCO - 06936 FRC - 99259 FVC - 09555 Holter Monitor 48 hr Complete Echo Mobile Cardiac Tele Holter Monitor 24 Hr STR - Routine Mobile Cardiac Tele Complete Echo HISTORY OF PROCEDURES Procedure Date Procedure Name Provider Procedure Notes S tatus Schedule Followup Alice de luna MD [address] Magallon completed EKG Alice garcia MD completed EKG Alice garcia MD completed EKG Alice garcia MD completed Schedule Followup Alice de luna MD 6 momths completed FVC / MVV with bronchodilator - 15696 Alice Lu MD completed FRC - 24812 Alice garcia MD completed SpO2 w/o 6min walk/titration Alice Lu MD completed DLCO - 91790 Alice garcia MD completed EKG Alice garcia MD completed EKG Alice garcia MD completed Schedule Followup Alice de luna MD in 1 yr completed EKG Alice garcia MD completed Schedule Followup Alice de luna MD 1 year completed EKG Alice garcia MD completed SNOMED-CT: [id number] Current Medications Documented Alice Lu MD completed Stress EKG Sandra Machado MD completed Event Monitor Leonie Fierro completed EKG Alice garcia MD completed SNOMED-CT: [id number] Current Medications Documented Alice Lu MD completed
--- OUTSIDE RECORDS SUMMARY | 2024-12-07 10:22 | XMS_ITS | Clinical Summary ---
Author Organization [facility] Address [address] [place] [address] Care Team Providers Care Padding Gluer Name Role Phone DawoodChristin dunne Zulema MARIBEL Primary Care Provider [phone] Allergies Active Allergy Reactions Criticality Noted Date Comments Sulfa (Sulfonamide Antibiotics) Active Problems Problem Noted Date Diagnosed Date Supraventricular tachycardia 03/22/2014 Family History Medical History Relation Name Comments Hypertension Father Family history of hypertension - (Added by TW Conv) Relation Name Status Comments Father Social History Tobacco Use Types Packs/Day Years Used Date Smoking Tobacco: Former Personal Safety Answer Date Recorded Getting School Help Needed Not on file 10/15 Comments No Sex and Gender Information Value Date Recorded Sex Assigned at Not on file Legal Sex Female 5:12 AM 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 Gender Identity Not on file Sexual Orientation Not on file Obstetrics History Para Term AB IAB SAB Ectopic Multiple Livin g Live Births 4 2 2 Date Outcome GA Total Labor Labor/2nd/3rd Weight Sex Type Anes PTL Analia A1 A5 Name Clin Term Term Last Filed Vital Signs Vital Sign Reading Time Taken Comments Blood Pressure 106/59 09/08/2019 7:44 AM 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 Pulse 78 09/08/2019 7:44 AM 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 Temperature 36.7 C (98.1 F) 09/08/2019 7:44 AM 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 Respiratory Rate - - Oxygen Saturation 98% 09/08/2019 7:44 AM 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 Inhaled Oxygen Concentration - - Weight 97.5 kg (215 lb) 09/08/2019 7:44 AM 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 Height 160 cm (5' 3 ) 09/08/2019 7:44 AM 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 Body Mass Index 38.09 09/08/2019 7:44 AM 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 Plan of Treatment Not on file Insurance [employer] IDPA Care Teams Padding Gluer Relationship Specialty Start Date End Date Christin Mejia NP PCP - General 08/07/19
--- OUTSIDE RECORDS SUMMARY | 2024-12-07 10:22 | XMS_ITS | Data Portability ---
Author Organization [place] - [facility], Main Office Address [address] [place] [address] Assessment Encounter Date Assessment Date Assessment LastModified by Organization Details LastModified Time 03/05/2023 03/05/2023 [facility]- 03/19/22 Call office if worse, ER if life threatening illness RTC 1 month She does voice understanding of plan and agrees [email or web address] Not available 12/05/2022 20:04:04 04/09/2023 04/09/[address] [facility]- 03/19/22 Call office if worse, ER if life threatening illness RTC 6 months and PRN She does voice understanding of plan and agrees [email or web address] Not available 04/09/2023 17:10:37 Plan of Treatment Reminders Order Date Submit Date Provider Last Modified By Organization Details Last Modified Time Details Appointments Any 15 2024 01:30P M Saba Johnson APRN Not available Not available Not available Lab hepatitis C virus Ab, serum 2023 024 [facility], [address] [place] [address], [address], 07/17/2024 14:11:40 vitamin B12 + folate, serum or blood 2023 024 [facility], [address] [place] [address], [address], 07/17/2024 14:11:39 CBC w/ auto diff [address] [facility] ([facility] [address] [place], [address], 11/18/2023 14:01:57 CMP, serum or plasma [address] [facility] (Lab), [address] [place], [address], 11/18/2023 14:01:58 lipid panel, serum [address] [facility] (Lab), [address] [place], [address], 11/18/2023 14:01:57 TSH + free T4, serum [address] (Lab), [address] [place], [address], 09/30/2023 17:39:18 HbA1c (hemoglob in A1c), blood [address] [facility] (Lab), [address] [place], [address], 11/18/2023 14:01:57 Referral None recorded. Procedures None recorded. Surgeries None recorded. Imaging None recorded. Medication Orders EpiPen 2-Thomas 0.3 mg/0.3 mL injection , auto-inje ctor 2023 024 [id number], [address] [facility] [facility], [place], [place], [id number], 06/26/2024 15:12:59 cyanocoba emily (vit B-12) 1,000 mcg/mL injection solution 2023 [facility], [address] , [place], [place], [id number], 01/03/2024 12:19:27 cyanocoba emily (vit B-12) 1,000 mcg/mL injection solution 2023 024 [email or web address] Not available 10/05/2023 14:35:40 fluticaso ne propionat e 50 mcg/actua tion nasal spray,constanza pension 2023 024 [facility] #60114, [address], [place], [place], [id number], 09/30/2023 17:28:35 cyanocoba emily (vit B-12) 1,000 mcg/mL injection solution [address] [facility]99365, [address], [place], [place], [id number], 04/09/2023 16:25:14 albuterol sulfate HFA 90 mcg/actua tion aerosol inhaler 2022 023 [facility] [employer] [facility] #52749, [address], [place], [place], [id number], 03/05/2023 15:22:41 bupropion HCl XL 150 mg 24 hr tablet, extended release [address] [facility] [employer] [facility] #67643, [address], [place], [place], [id number], 03/23/2023 10:28:38 fluticaso ne propionat e 50 mcg/actua tion nasal spray,[facility] pension 2022 023 [facility] [employer] [facility] #78111, [address], [place], [place], [id number], 03/05/2023 15:22:40 Patient TargetsNo targets recorded. Patient Instructions Encounter Date Encounter Id Patient Instructions Last Modified By Organization Details Last Modified Time 09/30/2023 [id number] Follow up in 3 months Labs as ordered Continue medications as previous Continue with psychiatry Vitamin B12 injection Not available 09/30/2023 17:28:06 01/03/2024 [id number] Follow up in 6 months and as needed Vitamin B12 injection in office Not available 01/03/2024 12:03:56 06/26/2024 [id number] Follow up in 6 months Prescription sent to pharmacy Obtain labs Tests: Referral: Recommend: [email or web address] Not available 06/26/2024 15:12:53 Reason for Referral None Reported. Results Created Date Observation Date Name Description Value Unit Range Abnormal Flag Note LastModifiedBy Organization Detail LastModifiedTime 04/05/20 23 04/05/2023 XR, toe(s ) No observ ation record ed. [address], [place], [address], 04/07/2023 11:24:07 07/27/20 23 07/27/2023 MAMMO , scree deep, digit al, bilat eral No observ ation record ed. [address], [place], [address], 07/28/2023 14:21:56 10/08/19 24 10/08/2023 US, echoc ardio gram No observ ation record ed. [email or web address] [address], [place], [address], 11/03/2023 16:04:12 12/02/19 25 12/01/2024 XR, cervi ambreen spine , 4 or 5 view [facility] [address] [address] Patien t Name: MORE JIMENEZErendira Dunne Access ion #: [id number] Sex: F : 1984 7 Dictat ed By: Siena Weber Attend ing Physic missy: RAFITA SNYDER [facility] Physic missy: RAFITA SNYDER Exam Date: 2024 12:11 PM Exam Name: XR C SPINE 4-5V Admitt ing Diagno sis(es ): ACCESS ION #: [id number] INDICA TION: neck pain COMPAR MICHELE: None TECHNI QUE: 5 views of the cervic al spine were obtain ed. FINDIN GS: The cervic al verteb ral alignm ent is normal . The preden ashlie space is normal . The interv ertebr al disc spaces are well-m aintai adán. No signif icant facet arthro liberty is noted. No acute fractu re, verteb ral compre ssion deform ity or aggres sive osseou s lesion s. The imaged lung apices are unrema rkable . IMPRES ADAMS: No acute fractu re. Electr onical ly Signed by: Siena Weber at 2024 13:11: 16 PM Page 1 INTERFACE [facility] (Imaging) [address] [place], [address], 12/01/2024 14:13:37 Result Notes None recorded. Problems Name Problem SNOMED Code Status Onset Date Resolution Date Notes Provider Name and Address Organization Details Recorded Time Acute sinusitis 06814871 Active 2021 Not Available [facility] 3 17:07:10 Cobalamin deficienc y 033718235 Active 2021 Saba Johnson APRN [address] [facility], [facility] [address], [place], [address] , [employer] [facility] [employer] [facility] 4 17:08:30 Pain in left knee Active 2019 Not Available [facility] 3 17:07:10 Anxiety 67349320 Active 2021 Saba Johnson APRN [address] [facility], [facility] [address], [place], [address] , [employer] [facility] [employer] [facility] 4 17:08:11 Liver enzymes level above reference range 304839795 Active 2021 Not Available [facility] 3 17:07:10 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 Not Available [facility] 3 17:07:10 Iron deficienc y anemia 72165899 Active 2021 Not Available [facility] 3 17:07:10 Allergic urticaria 37646425 Completed 202209/30/2023 Saba Johnson APRN [address], [address], [place], [address] , [employer] [facility] [employer] [facility] 4 17:08:03 Iron deficienc y 24403371 Active 2022 Saba Johnson APRN [address], [address], [place], [address] , [email or web address] [facility] 4 17:08:37 Vitamin D deficienc y 92639210 Active 2022 Saba Johnson APRN [address], [address], [place], [address] , [facility] [employer] [facility] 4 17:08:53 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 Not Available [facility] 3 17:07:10 Chronic sinusitis 13616912 Active 2022 Not Available [facility] 3 17:07:10 Obesity 977327391 Active 2022 Saba Johnson APRN [address], [facility] [address], [place], [address] , [facility] [employer] [facility] 4 17:08:45 Carpal tunnel syndrome 81232651 Active 2022 Saba Johnson APRN [address], [facility] [address], [place], [address] , [employer] [facility] [employer] [facility] 4 17:08:25 Pain of right shoulder joint [id number] 562453 Active 2022 Not Available [facility] 3 17:07:10 Insomnia 638680535 Active 2022 Not Available [facility] 3 17:07:10 Benign gestation al thrombocy topenia 785715663 Active 2022 Not Available [facility] 3 17:07:10 Thrombocy topenic disorder 102934810 Active 2022 Not Available [facility] 3 17:07:10 Asthma 422920992 Active 2022 Saba Johnson APRN [address], [place], [address] , [employer] 4 17:08:59 Localized superfici al swelling of skin 870589991 Active 2022 Not Available [facility] 3 17:07:10 Pain in toe 632435139 Active 2022 Not Available [facility] 3 17:07:10 Upper respirato ry infection 98894544 Active 2022 Not Available [facility] 3 17:07:10 Initial insomnia 68208186 Active 2023 Saba Johnson APRN [address], [place], [address] , [employer] 4 17:18:27 Vitamin B12 deficienc y (non anemic) 55626996 Active 2023 Saba Johnson APRN [address], [place], [address] , [employer] 4 17:22:28 Allergic rhinitis 62605754 Active 2023 Saba Johnson APRN [address], [place], [address] , [employer] 4 17:26:16 Acute upper respirato ry infection 10620690 Active Saba Johnson APRN [address], [address], [place], [address] , [employer] 4 08:50:25 Problem Notes None recorded. Procedures Surgical History Date Name Laterality Status Provider Name and Address Organization Details Recorded Time 12/28/19 21 ENDOSCOPY, NASAL/SINUS, W/ MAXILLARY ANTROSTOMY & TISSUE REMOVAL (SURG) completed Not Available [facility] 09/30/2022 00:51:13 tonsillectomy completed Not Available [facility] 09/30/2022 00:43:19 procedure on heart completed Not Available [facility] 09/30/2022 00:43:19 cholecystectomy completed Not Available [facility] 09/30/2022 00:43:19 Imaging Results Imaging Date Name Status LastModified by Organization Details LastModified Time 04/05/2023 XR, toe(s) completed [address], [place], [address], 04/07/2023 11:24:07 07/27/2023 MAMMO, screening, digital, bilateral completed [address] [facility] [address], [place], [address], 07/28/2023 14:21:56 10/08/2023 US, echocardiogram completed [facility] [address], [place], [address], 11/03/2023 16:04:12 12/01/2024 XR, cervical spine, 4 or 5 view active INTERFACE [facility] (Imaging) [address] [place], [address], 12/01/2024 14:13:37 Procedure Notes None recorded. Medical Equipment None Reported. Allergies Allergen ID Allergen Name Allergen Category Reaction Reaction Severity Criticality Documentation Date Start Date Code Code System Note Provider Name and Address Organization Details Recorded Time 297 Substance with sulfonami de structure and antibacte rial mechanism of action (substanc e) medicatio n hives Not available Not available 09/30/2022 86903 8003 SNOMED Not Available formerly [facility] 3 00:50:57 298 Product containin g penicilli n (product) medicatio n Not available Not available Not available 09/30/2022 14194 8001 SNOMED Not Available formerly [facility] 3 00:50:57 51719 bupropion Not available hives Not available Not available 03/23/2023 27892 RxNorm LORENZO Rubio [address], [place], [address] , [facility] [employer] 3 10:28:32 31538 methylpre dnisolone medicatio n Not available Not available Not available 12/22/2023 6902 RxNorm Other react ions and sever ities : 'Adve rse react ion to subst ance' . Saba Johnson, [employer] [address], [facility] [address], [place], [address], [facility] [employer] [facility] 4 08:49:20 31977 penicilli n V Not available hives Not available Not available 12/22/2023 7984 RxNorm Saba Johnson, [employer] [address], [facility] [address], [place], [address], [facility] [employer] [facility] 4 08:49:20 49806 prazosin medicatio n vomiting Not available Not available 06/26/2024 8629 RxNorm Orly Girard MA [facility] [employer] [facility] 4 14:49:56 Medications Name Sig Start Date Stop Date Status Note LastModified by Organization Details LastModified Time doxycycline hyclate 100 mg capsule Take 1 capsule twice a day by oral route for 10 days. active Not Available Not Available No t Available clindamycin HCl 300 mg capsule TAKE ONE CAPSULE BY MOUTH EVERY 6 HOURS UNTIL ALL CAPSULES ARE GONE 09/02 completed Not Available Not Available Not Available trazodone 50 mg tablet TAKE 1/2 TO 1 TABLET BY MOUTH AT BEDTIME NEEDED completed Not Available Not Available Not Available azithromyci n 250 mg tablet TAKE 2 TABLETS (500 MG) BY ORAL ROUTE ONCE DAILY FOR 1 DAY THEN 1 TABLET (250 MG) BY ORAL ROUTE ONCE DAILY FOR 4 DAYS completed Not Available Not Available Not Available Lidocaine Viscous 2 % mucosal solution GARGLE AND SPIT 5 ML PO THROAT Q 4 H PRF PAIN 10/28 completed Not Available Not Available Not Available hydrocodone 5 mg-acetamin ophen 325 mg tablet TK 1 T PO Q 4 TO 6 H PRN P 10/28 completed Not Available Not Available Not Available prazosin 1 mg capsule TAKE 1 CAPSULE BY MOUTH DAILY AT BEDTIME 06/26 completed Not Available Not Available Not Available prednisone 20 mg tablet TAKE 3 TABLETS BY MOUTH DAILY FOR 5 DAYS 07/10 completed Not Available Not Available Not Available penicillin V potassium 500 mg tablet TK 1 T PO TID. 10/28 completed Not Available Not Available Not Available acetaminoph en 300 mg-codeine 30 mg tablet TK 1 T PO Q 6 H PRN 09/13 completed Not Available Not Available Not Available ciprofloxac in 500 mg tablet TK 1 T PO Q 12 H TAT 10/28 completed Not Available Not Available Not Available magnesium oxide 400 mg (241.3 mg magnesium) tablet TAKE 1 TABLET BY MOUTH TWICE DAILY active Not Available Not Available No t Available Kenalog 10 mg/mL suspension for injection In office injection administe red by the provider 09/02 completed [facility]: 0003- 0494- 20 Not Available Not Available Not Available meclizine 25 mg tablet Take 1 tablet 3 times a day by oral route as needed. active Not Available Not Available No t Available hydrocodone 7.5 mg-acetamin ophen 325 mg tablet TAKE 1 TABLET BY MOUTH EVERY 4 HOURS NEEDED 01/27 completed Not Available Not Available Not Available cephalexin 500 mg capsule TK ONE C PO QID TAT active Not Available Not Available No t Available cyanocobala min (vit B-12) 1,000 mcg/mL injection solution Inject 1 mL every month by subcutane ous route as directed. 2023 active Not Available Not Available Not Avai lable triamcinolo ne acetonide 0.1 % topical ointment APPLY TOPICALLY TO THE AFFECTED AREA EVERY 12 HOURS NEEDED 10/28 completed Not Available Not Available Not Available ropinirole 0.5 mg tablet 01/02 completed Not Available Not Available Not Available diclofenac sodium 75 mg tablet,nahed yed release TK 1 T PO BID PRN active Not Available Not Available No t Available mupirocin 2 % topical ointment 01/02 completed Not Available Not Available Not Available fluvoxamine 50 mg tablet TAKE 1/2 TABLET BY MOUTH DAILY AT BEDTIME FOR 1 WEEK. INCREASE TO 1 TABLET BY MOUTH DAILY AT BEDTIME THEREAFTE R active Not Available Not Available No t Available lorazepam 1 mg tablet take 1 tablet 45mins prior to MRI , may repeat if needed 01/02 completed Not Available Not Available Not Available methylpredn isolone 4 mg tablets in a dose pack FOLLOW PACKAGE DIRECTION S completed Not Available Not Available Not Available albuterol sulfate HFA 90 mcg/actuati on aerosol inhaler INHALE 2 PUFFS BY MOUTH EVERY 4 HOURS NEEDED active Not Available Not Available No t Available cefdinir 300 mg capsule TAKE 1 CAPSULE BY MOUTH EVERY 12 HOURS FOR 7 DAYS active Not Available Not Available No t Available doxycycline hyclate 100 mg tablet completed Not Available Not Available Not Available loratadine 10 mg tablet Take 1 tablet every day by oral route. active Not Available Not Available No t Available naproxen 500 mg tablet TAKE 1 TABLET BY MOUTH TWICE DAILY NEEDED FOR PAIN completed Not Available Not Available Not Available mometasone 0.1 % topical cream 01/02 completed Not Available Not Available Not Available magnesium 200 mg tablet Take 1 tablet by oral route. 01/02 completed Not Available Not Available Not Available escitalopra m 10 mg tablet TAKE 1 TABLET BY MOUTH DAILY active Not Available Not Available No t Available cyclobenzap rine 5 mg tablet TAKE 1 TABLET BY MOUTH THREE TIMES DAILY NEEDED FOR MUSCLE SPASM 11/06 completed Not Available Not Available Not Available Premarin 0.625 mg/gram vaginal cream INSERT 08/03 APPLICATO RFUL VAGINALLY EVERY DAY 02/13 completed Not Available Not Available Not Available Ciprodex 0.3 %-0.1 % ear drops,suspe nsion INSTILL 4 DROPS INTO AFFECTED EAR(S) BY OTIC ROUTE 2 TIMES PER DAY FOR 7 DAYS active Not Available Not Available No t Available bupropion HCl XL 300 mg 24 hr tablet, extended release TAKE 1 TABLET BY MOUTH EVERY DAY IN THE MORNING active Not Available Not Available No t Available bupropion HCl XL 150 mg 24 hr tablet, extended release TAKE 1 TABLET BY MOUTH EVERY DAY IN THE MORNING 03/23 completed Not Available Not Available Not Available escitalopra m 5 mg tablet TAKE 1 TABLET BY MOUTH DAILY FOR 2 WEEKS THEN TAKE 2 TABLETS BY MOUTH DAILY completed Not Available Not Available Not Available magnesium 01/02 completed Not Available Not Available Not Available Fish Oil 1 PO daily 01/02 completed Not Available Not Available Not Available 04/26 completed Not Available Not Available Not Available lidocaine (PF) 10 mg/mL (1 %) injection solution In office injection administe red by the provider 09/02 completed [facility]: 0409- 4276- 17 Not Available Not Available Not Available Xopenex HFA 45 mcg/actuati on aerosol inhaler 01/02 completed Not Available Not Available Not Available Symbicort 160 mcg-4.5 mcg/actuati on HFA aerosol inhaler INHALE 2 PUFFS BY MOUTH TWICE DAILY completed Not Available Not Available Not Available FeroSul 325 mg (65 mg iron) tablet 01/02 completed Not Available Not Available Not Available Nexplanon 68 mg subdermal implant medicatio n:Nexplan on 68 mg Implant d ose:0.0 route: f requency: DAILY active Not Available Not Available No t Available EpiPen 2-Thomas 0.3 mg/0.3 mL injection, auto-inject or Take 1 auto every day by injection route as needed, for allergic reaction. 2023 active Not Available Not Available Not Avai lable Flonase Allergy Relief 50 mcg/actuati on nasal spray,suspe nsion 2 spys by nasal route. active Not Available Not Available No t Available Wixela Inhub 250 mcg-50 mcg/dose powder for inhalation INHALE 1 PUFF BY MOUTH TWICE DAILY active Not Available Not Available No t Available Fluzone Quad (PF) 60 mcg (15 mcg x 4)/0.5 mL IM syringe ADM 0.5ML IM UTD 09/10 completed Not Available Not Available Not Available Vitals Date Recorded Body height Body mass index (BMI) Body weight Body temperature Heart rate Oxygen saturation Oxygen saturation in Arterial blood by Pulse oximetry Systolic blood pressure Diastolic blood pressure Provider Name and Address Organization Details Last Updated DateTime 3 160.02 cm 39.5 kg/m2 956624. 1 g 97.8 [degF] 72 /min 98 % 98 % 126 mm[Hg] 74 mm[Hg] OMERO Galeana - S [facility] 3 15:05:10 Date Recorded Body height Body mass index (BMI) Body weight Body temperature Heart rate Oxygen saturation Oxygen saturation in Arterial blood by Pulse oximetry Systolic blood pressure Diastolic blood pressure Provider Name and Address Organization Details Last Updated DateTime 3 160.02 cm 39.3 kg/m2 620670. 51 g 98 [degF] 74 /min 98 % 98 % 128 mm[Hg] 74 mm[Hg] Pebbles Mclean MA [facility] 3 16:14:42 Date Recorded Body height Body mass index (BMI) Body weight Body temperature Heart rate Oxygen saturation Oxygen saturation in Arterial blood by Pulse oximetry Systolic blood pressure Diastolic blood pressure Provider Name and Address Organization Details Last Updated DateTime 4 160.02 cm 39.7 kg/m2 114861. 69 g 96 [degF] 78 /min 100 % 100 % 118 mm[Hg] 70 mm[Hg] Daphne Hines CMA [facility] 4 17:11:28 Date Recorded Body height Body mass index (BMI) Body weight Body temperature Heart rate Oxygen saturation Oxygen saturation in Arterial blood by Pulse oximetry Systolic blood pressure Diastolic blood pressure Provider Name and Address Organization Details Last Updated DateTime 4 160.02 cm 39.9 kg/m2 157246. 08 g 97.8 [degF] 76 /min 97 % 97 % 116 mm[Hg] 68 mm[Hg] Orly Girard MA [facility] 4 11:40:02 Date Recorded Body height Body mass index (BMI) Body weight Body temperature Heart rate Oxygen saturation Oxygen saturation in Arterial blood by Pulse oximetry Pain severity - 0-10 verbal numeric rating [Score] - Reported Systolic blood pressure Diastolic blood pressure Provider Name and Address Organization Details Last Updated DateTime 4 160.02 cm 40.1 kg/m2 564845. 67 g 98.3 [degF] 77 /min 98 % 98 % 0 112 mm[Hg] 60 mm[Hg] Orly Girard MA [facility] 4 14:46:29 Social History Question Answer Notes LastModified by Organization Details LastModified Time Tobacco Smoking Status Former Smoker Orly Girard MA [facility] 01/03/2024 11:42:14 Do You Have An Advance Directive? No [id number] Information not available 09/30/2022 What Is Your Level Of Alcohol Consumption? Occasional [id number] Information not available 09/30/2022 What Is Your Level Of Caffeine Consumption? Moderate [id number] Information not available 09/30/2022 In The 14 Days Before Symptom Onset, Have You Had Close Contact With A Laboratory-confi rmed COVID-19 While That Case Was Ill? No Information not available 03/05/2023 In The 14 Days Before Symptom Onset, Have You Had Close Contact With A Person Who Is Under Investigation For COVID-19 While That Person Was Ill? 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 REGULAR [id number] Information not available 09/30/2022 What Is The Highest Grade Or Level Of School You Have Completed Or The Highest Degree You Have Received? [id number] Information not available 03/05/2023 Have There Been Any Changes To Your Family Or Social Situation? No Information not available 03/05/2023 What Is The Fluoride Status Of Your Home? Unknown Information not available 03/05/2023 When Did You Quit Smoking? 11-15yearssincelast cigarette Information not available 01/03/2024 Are There Any Guns Present In Your Home? No Information not available 03/05/2023 Do You Use Insect Repellent Routinely? No Information not available 03/05/2023 Where Do You Live? SingleLevelHouse Information not available 03/05/2023 Do You Have A Medical Power Of Postal Superintendent? No Information not available 03/05/2023 What Was The Date Of Your Most Recent Tobacco Screening? 06/26/2024 Information not available 06/26/2024 How Many Children Do You Have? 2 Information not available 01/03/2024 Do You Have Any Pets? Yes Information not available 03/05/2023 What Is Your Relationship Status? [id number] Information not available 09/30/2022 Do You Use Your Seat Belt Or Car Seat Routinely? Yes Information not available 03/05/2023 Do You Have Smoke And Carbon Monoxide Detectors In Your Home? Yes Information not available 03/05/2023 Are You Passively Exposed To Smoke? No Information not available 03/05/2023 Are There Any Smokers In Your House? No Information not available 03/05/2023 Do You Feel Stressed (tense, Restless, Nervous, Or Anxious, Or Unable To Sleep At Night)? [id number] Information not available 03/05/2023 Do You Use Any Illicit Or Recreational Drugs? No Information not available 03/05/2023 Do You Use Sunscreen Routinely? Yes Information not available 03/05/2023 Have You Recently Traveled Abroad? No Information not available 03/05/2023 Do You Have Any Dietary Restrictions? No Information not available 03/05/2023 Do You Or Have You Ever Used Any Other Forms Of Tobacco Or Nicotine? No Information not available 03/05/2023 Sex: Unknown Functional Status Question Answer Note LastModified by Organizat ion Details LastModified Time What is your exercise level? Occasional [id number] Information not available 09/30/2022 Mental Status None recorded. Family History Relationship Description Onset Age of this Age Resolved Age Notes LastModified by Organization Details LastModified Time Unspecified Relation Complication of anesthesia [email or web address] Not available 14:39:10 Mother Diabetes mellitus 50 Not available 2023 08:52:08 Medical History No medical history recorded. Gynecological History Statement/Question Response How many live births 2 Date of Last Pap Current Control Method Implant Date of LMP Obstetrics History GPAL:G 4 P 2 0 2 2 Type Value Multiple Births 0 Full Term 2 Induced 0 Spontaneous 2 Premature 0 Living 2 Ectopics 0 Total 4 Immunizations Vaccine Type Date Status Note Provider Nam e and Address Organization Details Recorded Time COVID-19, mRNA, LNP-S, bivalent, PF, 30 mcg/0.3 mL dose 2 completed Saba Johnson, JACI [address] [facility], [facility] [address], [place], [address], [facility] [employer] [facility] 12/22/2023 08:49:08 COVID-19, mRNA, LNP-S, PF, denny-sucrose, 30 mcg/0.3 mL 3 completed Saba Johnson APRN [address], [address], [place], [address], [employer] [facility] 12/22/2023 08:49:08 Tdap 9 completed Saba Johnson APRN [address], [address], [place], [address], [employer] [facility] 12/22/2023 08:49:08 Influenza, split virus, quadrivalent, PF 9 completed Saba Johnson APRN [address], [address], [place], [address], [employer] [facility] [employer] [facility] 12/22/2023 08:49:08 Influenza, split virus, quadrivalent, PF 7 completed Saba Johnson APRN [address], [address], [place], [address], [employer] [facility] 12/22/2023 08:49:08 Influenza, split virus, quadrivalent, PF 0 completed Saba Johnson APRN [address], [address], [place], [address], [employer] [facility] 12/22/2023 08:49:08 Influenza, split virus, quadrivalent, PF 3 completed Saba Johnson APRN [address], [address], [place], [address], [employer] [facility] 12/22/2023 08:49:08 COVID-19, mRNA, LNP-S, PF, denny-sucrose, 30 mcg/0.3 mL 4 completed Saba Johnson APRN [address], [address], [place], [address], [employer] [facility] [employer] [facility] 06/26/2024 14:55:44 Influenza, split virus, quadrivalent, preservative 0 completed Saba Johnson APRN [address], [address], [place], [address], [employer] [facility] [employer] [facility] 12/22/2023 08:49:08 COVID-19, mRNA, LNP-S, PF, 30 mcg/0.3 mL dose 1 completed Saba Johnson APRN [address], [address], [place], [address], [facility] [employer] [facility] 12/22/2023 08:49:08 COVID-19, mRNA, LNP-S, PF, 30 mcg/0.3 mL dose 1 completed Saba Johnson APRN [address], [address], [place], [address], [facility] [employer] [facility] 12/22/2023 08:49:08 Influenza, split virus, quadrivalent, PF 2 completed Not Available [facility] 05/06/2023 01:21:13 Influenza, split virus, trivalent, PF 4 completed Saba Johnson APRN [address], [address], [place], [address], [facility] [employer] [facility] 05/31/2024 10:54:56 Past Encounters Encounter ID Performer Location Encounter Start Date Encounter Closed Date Diagnosis/Indication Diagnosis SNOMED-CT Code Diagnosis ICD10 Code Diagnosis Note [id number] MD SARINA Rodríguez_BEVERLY [address] [address] 10/03/2020 00:00:00 10/03/2020 10:27:23 [id number] MD MELLY [facility] [place] [address] [place] [address] 10/24/2020 00:00:00 10/24/2020 12:27:54 [id number] MD MELLY Rodríguez [address] [address] 01/02/2021 00:00:00 01/02/2021 15:38:13 [id number] MD MELLY [facility] [place] [address] [place] [address] 01/07/2021 00:00:00 01/07/2021 10:18:22 [id number] Te Shepherd MD [facility] [place] [address] [place] [address] 01/27/2021 00:00:00 01/27/2021 14:11:10 [id number] MD DIANN RodríguezS_[facility] [place] [address] [place] [address] 01/30/2021 00:00:00 01/30/2021 12:47:02 [id number] MD DIANN JerezS_[facility] [place] [address] [place] [address] 03/18/2021 00:00:00 03/18/2021 17:27:15 [id number] MD SARINA Jerez[facility] [place] [address] [facility] [address] [place] [address] 09/02/2021 00:00:00 09/02/2021 20:54:03 [id number] MD DIANN JerezS[facility] [place] [address] [facility] [address] [place] [address] 12/12/2021 00:00:00 12/12/2021 13:54:25 [id number] Chanda dunne MD [facility] [place] [address] [place] [address] 02/13/2022 00:00:00 02/13/2022 15:01:16 [id number] MD DIANN JreezS_[facility] [place] [address] [facility] [address] [place] [address] 03/19/2022 00:00:00 03/19/2022 12:04:31 [id number] MD DIANN JerezS[facility] [place] [address] [facility] [address] [place] [address] 04/30/2022 00:00:00 04/30/2022 13:07:14 [id number] Chanda dunne MD [facility] [address] [facility] [address] [place] [address] 05/08/2022 00:00:00 05/08/2022 12:24:38 [id number] Chanda dunne MD [facility] Internal Med [facility] [address] [facility] [address] [place] [address] 07/10/2022 00:00:00 07/10/2022 14:29:39 [id number] Chanda dunne MD [facility] Internal Med [facility] [address] [facility] [address] [place] [address] 11/06/2022 10:54:27 11/06/2022 11:24:17 Anxiety 73128238 F41.9 fluvoxamin e caused n/vshe self stopped the wellbutrin - is currently stable off medscounti nue counseling call office if any change in mood or behaviorSh e declines psychiatry referral Allergic urticaria 37563 009 L50.0 Now following manager fiber- Dr. 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 Montes De Oca Obesity 367849885 E66.9 recommend healthy, well balanced mealsfocus on lean meats, fresh vegetables , fresh fruits, whole grainsredu ce fast/proce ssed foods or eating out to no more than 1-2 times per weekaim to get 30 min of exercise most days of the week- walking is a great choice Hyperlipid emia screening 254844159 Z13.220 Diabetes m ellitus screening 819794590 Z13.1 Thyroid di sorder screening 603149082 Z13.29 Insomnia 080995039 G47.0 0 start trazodone- she is aware side effects, risks, and benefits No alcohol, driving, or mix with other sedating meds Call office if any change in mood or behavior [id number] Raheem Sage MD [facility] [place] [address] [place] [address] 11/05/2022 09:57:31 11/05/2022 11:07:47 Pain of right shoulder joint 4683837156 4116208 M25.511 [id number] Chanda dunne MD [facility] [place] [address] [place] [address] 03/05/2023 14:56:51 03/05/2023 15:23:03 Asthma 323567553 J45.909 On albuterol p.r.n.on Symbicort p.r.n.- she is aware to rinse and spit after use Anxiety 03632096 F41.9 fluvoxamin e caused n/vRestart the Wellbutrin -she is aware of side effects, risks, and benefitsco ntinue counseling call office if any change in mood or behaviorSh e declines psychiatry referral Allergic urticaria 20279 009 L50.0 Now following manager fiber- Dr. Mendozaback to ER if worse/any facial swelling Cobalamin deficiency 190 812954 E53.8 on monthly injections Iron deficiency 35750603 E61.1 on supplement Vitamin D deficiency 347 01777 E55.9 on supplement History of supraventricular tachycardia 4444698994 4841472 Z86.79 S/p cardiac ablation x2, on magnesium, follows [facility] ([facility] ) annually Carpal steve jennifer syndrome 68917559 G56.00 following ortho Eczema of external auditory canal 41310837 H60.549 now following ENT Chronic sinusitis 402022 00 J32.9 Now following ENT- Dr. Montes De Oca Obesity 372671157 E66.9 recommend healthy, well balanced mealsfocus on lean meats, fresh vegetables , fresh fruits, whole grainsredu ce fast/proce ssed foods or eating out to no more than 1-2 times per weekaim to get 30 min of exercise most days of the week- walking is a great choice Insomnia G47.0 0 start trazodone- she is aware side effects, risks, and benefitsNo alcohol, driving, or mix with other sedating medsCall office if any change in mood or behavior Recommend she try a half pill on days when the insomnia is particular ly bad so we can see if this med works for her [id number] Chanda dunne MD [facility] [place] [address] [facility], [address] [place] [address] 04/09/2023 16:05:55 04/09/2023 16:39:53 Cobalamin deficiency 945339905 E53.8 on monthly injections Anxiety 67990824 F41.9 fluvoxamin e caused n/vwellbut rin gave her a rashcontin ue counseling call office if any change in mood or behaviorke ep appt with psychiatry later this month- Dr. Munson Allergic urticaria 23949 009 L50.0 Now following manager fiber- Dr. Mendozaback to ER if worse/any facial swelling Iron deficiency 17079543 E61.1 on supplement Vitamin D deficiency 347 73532 E55.9 on supplement History of supraventricular tachycardia 1950030179 6653000 Z86.79 S/p cardiac ablation x2, on magnesium, follows [facility] ([facility] ) annually Carpal steve jennifer syndrome 46581338 G56.00 following ortho Eczema of external auditory canal 80465674 H60.549 now following ENT Chronic sinusitis 860953 00 J32.9 Now following ENT- Dr. Montes De Oca Obesity 792626200 E66.9 recommend healthy, well balanced mealsfocus on lean meats, fresh vegetables , fresh fruits, whole grainsredu ce fast/proce ssed foods or eating out to no more than 1-2 times per weekaim to get 30 min of exercise most days of the week- walking is a great choice Insomnia 980648796 G47.0 0 on trazodone- she is aware side effects, risks, and benefitsNo alcohol, driving, or mix with other sedating medsCall office if any change in mood or behavior now will follow psych for this Asthma 443094924 J45.90 9 On albuterol p.r.n.on Symbicort p.r.n.- she is aware to rinse and spit after use Pain in toe 522948032 M7 9.675 xrays negative at the ERpain is improvingc ontinue supportive care, call if symptoms do not resolve Localized superficial swelling of skin 828067601 R22.9 Very tiny nodule noted an area of concernRec maxime we monitor this as this may be related to her bumping her armCall office if no improvemen t in a week or 2 or if it gets larger or becomes painful [id number] Chanda dunne MD [facility] Internal Med [place] [address] [place] [address] 09/30/2023 16:58:52 09/30/2023 17:39:53 Vitamin B12 deficiency (non anemic) 72013131 E53.8 Insomnia 950842640 G47.0 0 Diabetes m ellitus screening 330173830 Z13.1 Hyperlipid emia screening 765060301 Z13.220 Screening for disorder 678360462 Z13.9 Thyroid di sorder screening 189422662 Z13.29 Allergic rhinitis 214747 04 J30.9 [id number] Chanda dunne MD [facility] [place] [address] [place] [address] 01/03/2024 11:31:23 01/03/2024 12:14:39 Cobalamin deficiency 342990716 E53.8 [id number] Chanda dunne MD [facility] Internal Med [facility] [address] [place] [address] 06/26/2024 14:37:42 06/26/2024 15:16:47 Hepatitis C screening 563409735 Z11.59 Carries ep inephrine preloaded injection pen 471336024 Z78.9 Cobalamin deficiency 190 784862 E53.8 Health Concerns Section Related Observation LastModified by Organization Detai ls LastModified Time None Recorded Concern Status LastModified by Organization Details LastModified Time None Recorded Advance Directives Directive N: Payers Encounter Date Sequence Insurance Name Policy Number Policy Valentin Covered Member ID Valentin Member ID Guarantor Name 03/05/2023 2 [facility] (MEDICAID REPLACEMENT - HMO) [id number] Belinda Garibay [id number] Belinda Jimenez 03/05/2023 1 [facility] [id number] Babar Jimenez [id number] Belinda Jimenez 04/09/2023 1 [facility] [id number] Babar Jimenez [id number] Belinda Jimenez 09/30/2023 1 [facility] [id number] Babar Jimenez [id number] Belinda Jimenez 01/03/2024 1 [facility] [id number] Babar Jimenez [id number] Belinda Jimenez 06/26/2024 1 [facility] [id number] Babar Jimenez [id number] Belinda Jimenez Notes Date Note Type Note Provider Name and Address Organization Details Recorded Time 03/05/2023 text/html Belinda presents today for follow-up. She missed her last appointment and has been lost to follow-up since October. Last visit, we started her on the trazodone for sleep. She reports she has not tried it yet. She feels like a lot of her sleep issues are related to her anxiety being out of control. She is seeing her counselor. She had previously stopped her Wellbutrin. She feels like that did work for her when she was on it and she would like to go back on it. She denies any SI or HI today. She reports her asthma tends to get a little worse when the school year starts and she usually picks up some viral infections. She would like a refill of her albuterol. She reports otherwise her asthma has been under good control lately. She is requesting refill on her Flonase. She was seeing ENT but has not seen them recently. She does plan to go back soon. Has not had any further episodes of the SVT. She continues to follow cardiology. She reports her fatigue has been better since we started her on the B12 shots. Christin Mejia, TIMOTHY-Erendira [address] [place] [address], [facility] [address], [place], [address], [facility] 03/05/2023 16:24:13 04/09/2023 text/html Belinda presents today for follow-up. She also needs a B12 today. She was seen in the ER about a week ago after her 3-year-old dropped a metal pipe on her left foot. She had x-rays because she had pain in her left great toe. Those were negative. She reports she has some bruising on the toe but that the pain is improving. She had another allergic reaction to the trial of Wellbutrin. I think it is safe to say that she does have in fact an allergy to the Wellbutrin. We stopped that and her symptoms resolved. She is feeling much better. She does have an appointment with the psychiatrist in a couple weeks. She denies any SI or HI today. She has a small lump that she has on the inside of her right forearm. She reports it has been there for about a week. She thinks she hit her arm on something. It is not painful. LORENZO Rubio [address] [facility], [facility] [address], [place], [address], [employer] 04/09/2023 17:11:08 09/30/2023 text/html 09/30/2023ebec a presents today to establish care and to receive her vitamin B12 injection. She states that she is having insomnia for the past couple of months and most recently since she has not had her B-12. 04/09/2023Rebecrebekah presents today for follow-up. She also needs a B12 today. She was seen in the ER about a week ago after her 4-year-old dropped a metal pipe on her left foot. She had x-rays because she had pain in her left great toe. Those were negative. She reports she has some bruising on the toe but that the pain is improving. She had another allergic reaction to the trial of Wellbutrin. I think it is safe to say that she does have in fact an allergy to the Wellbutrin. We stopped that and her symptoms resolved. She is feeling much better. She does have an appointment with the psychiatrist in a couple weeks. She denies any SI or HI today. She has a small lump that she has on the inside of her right forearm. She reports it has been there for about a week. She thinks she hit her arm on something. It is not painful. Saba Johnson APRN [address], [place], [address], [employer] 09/30/2023 17:28:37 01/03/2024 text/html Belinda presents today for 3 month follow up. She requests her vitamin B12 shot. She illnesses or injuries since last visit She states that she does not see a body service team member for her asthma as she only has flairs when she has a virus or cold, she rarely uses her inhaler. 09/30/2023rissa presents today to establish care and to receive her vitamin B12 injection. She states that she is having insomnia for the past couple of months and most recently since she has not had her B-12. Saba Johnson APRN [address], [address], [place], [address], [employer] 01/03/2024 13:18:51 06/26/2024 text/html Belinda presents today for 6 month follow up. She states that she will be losing her insurance at the end of the week. She states that she has been under a lot of stress lately. She also states that she will be involved in the study regarding weight loss. 01/03/2024rissa presents today for 3 month follow up. She requests her vitamin B12 shot. She denies illnesses or injuries since last visit She states that she does not see a body service team member for her asthma as she only has flairs when she has a virus or cold, she rarely uses her inhaler. 09/30/2023rissa presents today to establish care and to receive her vitamin B12 injection. She states that she is having insomnia for the past couple of months and most recently since she has not had her B-12. Saba Johnson APRN [address], [address], [place], [address], [employer] 06/26/2024 15:13:15 OBGyn Episode No OBEpisode recorded.
--- OUTSIDE RECORDS SUMMARY | 2024-12-07 10:22 | XMS_ITS | Data Portability ---
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 she says she is up-to-date on flu and COVID shots healthy lifestyle care instructions [email or web address] Not available 10/22/2024 15:33:19 Plan of Treatment Reminders Order Date Submit Date Provider Last Modified By Organization Details Last Modified Time Details Appointments ANY 15 2024 10:00A M Charlotte Sidhu MD Not available Not available Not available Lab lipid panel, serum 2024 025 [facility], [address] [place] [address], [address], [place], [address], 09/20/2024 06:20:28 HbA1c (hemoglo bin A1c), blood 2024 025 [facility], [address] [facility] [address], [address], [place], [address], 09/20/2024 11:11:59 TSH + free T4, serum 2024 025 [facility], [facility] [address], [address], [place], [address], 09/20/2024 11:11:57 CBC w/ auto diff 2024 025 [facility], [address] [place] [address] [address], [address], [place], [address], 09/20/2024 06:20:30 T3, free, serum or plasma 2024 025 [facility], [address] [place], [place] [address], [address], [place], [address], 09/20/2024 11:12:00 CMP, serum or plasma 2024 025 [facility], [address] [place], [place] [address], [address], [place], [address], 09/20/2024 06:20:29 vitamin D, 25-hydro xy, total, serum 2024 025 [facility], [address] [place], [place] [address], [address], [place], [address], 09/20/2024 11:12:02 cobalami n and folate panel, serum 2024 025 [facility], [address] [place], [place] [address], [address], [place], [address], 09/20/2024 11:11:58 pap, IG + HPV 2020 021 [facility], [address] [place], [place] [address], [address], [place], [address], 01/10/2021 12:19:41 pregnanc y test, urine 2019 020 tank In-Office Order, Internal Use Only DO Not Attach Compendium DO Not Attach Compendium, Do Not Delete/merge, [id number] 10/26/2019 14:18:17 urinalys is, dipstick 2019 020 tank In-Office Order, Internal Use Only DO Not Attach Compendium DO Not Attach Compendium, Do Not Delete/merge, [id number] 09/06/2019 17:03:21 Referral None recorded . Procedures None recorded . Surgeries None recorded . Imaging MAMMO, diagnost ic, digital, bilatera l - left lateral intermit tent breast pain bilater dx mmg with u/s if needed [facility] location 2020 021 [facility] Patient Access Centralized Scheduling, Centralized Scheduling, [address] [facility] , [place], [address], 01/31/2021 14:19:45 Medication Orders doxycycl ine hyclate 100 mg capsule 2024 025 [email or web address] [facility][id number], [address] , [place], [place], [id number], 09/19/2024 13:04:57 Nexplano n 68 mg subderma l implant 2019 020 [facility] #[id number], [address] , [place], [place], [id number], 01/03/2021 14:36:54 Patient TargetsNo targets recorded. Patient Instructions Encounter Date Encounter Id Patient Instructions Last Modified By Organization Details Last Modified Time 09/06/2019 [id number] Labor and preeclamptic precautions. Kick counts. Induction scheduled per your request on 09/08/2019. tank Not available 09/06/2019 17:03:20 10/26/2019 [id number] Remove pressure dressing in AM--keep arm dry until then. Remove steri-strips in 3 days. Call if redness or worsening pain. Take Tylenol or Motrin as needed for pain. Continue condoms for the next 2 weeks. Return in one year for annual exam. Call as needed. tank Not available 10/26/2019 14:17:17 01/03/2021 [id number] A healthy lifestyle: care instructions tank Not available 01/03/2021 14:51:54 Pap results will be sent to you. Breast imaging will be scheduled. tank Not available 01/03/2021 18:56:36 09/19/2024 [id number] A healthy lifestyle: care instructions [email or web address] Not available 09/19/2024 13:04:57 Reason for Referral None Reported. Results Created Date Observation Date Name Description Value Unit Range Abnormal Flag Note LastModifiedBy Organization Detail LastModifiedTime 08/10/1908/10/2019 urina lysis , dipst ick Leukocytes Small Not Available In-Offi ce Order Internal Use Only DO Not Attach Compendium DO Not Attach Compendium, Do Not Delete/merge, [id number] 08/10/2019 11:28:53 08/10/19 20 08/10/2019 urina lysis , dipst ick Nitrite negati ve Not Available In-Office Order Internal Use Only DO Not Attach Compendium DO Not Attach Compendium, Do Not Delete/merge, [id number] 08/10/2019 11:28:53 08/10/19 20 08/10/2019 urina lysis , dipst ick Urobilinogen .2 Not Available In-Of fice Order Internal Use Only DO Not Attach Compendium DO Not Attach Compendium, Do Not Delete/merge, [id number] 08/10/2019 11:28:53 08/10/19 20 08/10/2019 urina lysis , dipst ick Protein Negati ve Not Available In-Office Order Internal Use Only DO Not Attach Compendium DO Not Attach Compendium, Do Not Delete/merge, 08/10/2019 11:28:53 08/10/19 20 08/10/2019 urina lysis , dipst ick pH 7.0 Not Available In-Office Order Internal Use Only DO Not Attach Compendium DO Not Attach Compendium, Do Not Delete/merge, [id number] 08/10/2019 11:28:53 08/10/19 20 08/10/2019 urina lysis , dipst ick Blood Negati ve Not Available In-Office Order Internal Use Only DO Not Attach Compendium DO Not Attach Compendium, Do Not Delete/merge, [id number] 08/10/2019 11:28:53 08/10/19 20 08/10/2019 urina lysis , dipst ick Specific Alexis 1.025 Not Available In-Off ice Order Internal Use Only DO Not Attach Compendium DO Not Attach Compendium, Do Not Delete/merge, [id number] 08/10/2019 11:28:53 08/10/19 20 08/10/2019 urina lysis , dipst ick Ketone Negati ve Not Available In-Office Order Internal Use Only DO Not Attach Compendium DO Not Attach Compendium, Do Not Delete/merge, [id number] 08/10/2019 11:28:53 08/10/19 20 08/10/2019 urina lysis , dipst ick Bilirubin Negati ve Not Available In-Office Order Internal Use Only DO Not Attach Compendium DO Not Attach Compendium, Do Not Delete/merge, [id number] 08/10/2019 11:28:53 08/10/19 20 08/10/2019 urina lysis , dipst ick Glucose Negati ve Not Available In-Office Order Internal Use Only DO Not Attach Compendium DO Not Attach Compendium, Do Not Delete/merge, [id number] 08/10/2019 11:28:53 08/17/19 20 08/18/2019 CT + NG + TV, DNA, urine /swab chlamydia by RADHIKA NEGATI VE negati ve Not Available [facility] ([facility]) [address] [place], [address], 08/22/2019 11:09:18 08/17/1908/18/2019 CT + NG + TV, DNA, urine /swab gonococcus by RADHIKA NEGATI VE negati ve Not Available [facility] ([facility]) [address] [place], [address], 08/22/2019 11:09:18 0108/18/2019 CT + NG + TV, DNA, urine /swab trich vag by RADHIKA NEGATI VE negati ve Not Available [facility] ([facility]) [address] [facility], [place], [address], 08/22/2019 11:09:18 08/17/19 20 08/19/2019 cultu re, vagin al/re ctal, strep tococ cus group B strep gp B RADHIKA+rflx POSITI VE negati ve abnormal [facility] rs [facility] Disea se Contr ol and Preve ntion ([facility]) and Ameri can Congr ess of Obste trici ans and Gynec ologi sts (AC ) guide lines for preve ntion of perin atal group B strep tococ ambreen (GBS) disea se speci fy co-co llect ion of a vagin al and recta l swab speci men to maxim ize sensi tivit y of GBS detec tion. Per the [facility] and ACOG, swabb ing both the lower vagin a and rectu m subst antia lly incre ases the yield of detec tion cassy red with sampl ing the vagin a alone . Penic illin G, ampic illin , or cefaz andra are indic ated for intra partu m proph ylaxi s of perin atal GBS colon izati on. Refle x susce ptibi lity testi ng shoul d be perfo rmed prior to use of clind amyci n only on GBS isola maribel from penic illin -braden rgic women who are consi dered a high risk for anaph ylaxi s. Treat ment with vanco mycin witho ut addit ional testi ng is warra nted if resis tance to clind amyci n is noted . Not Available [facility] ([facility]) [address] [facility], [place], [address], 08/22/2019 11:09:19 08/17/19 20 08/22/2019 cultu re, vagin al/re ctal, strep tococ cus group B organism identificati on COMMEN T Beta hemol ytic Strep tococ cus, group B Not Available [facility] ([facility]) [address] [facility], [place], [address], 08/22/2019 11:09:19 08/17/1908/22/2019 cultu re, vagin al/re ctal, strep tococ cus group B clindamycin SUSCEP TIBLE Testi ng for induc ible clind amyci n resis tance was perfo rmed using eryth romyc in and clind amyci n in the D-zon e test. Per the [facility]a se Contr ol and Preve ntion ([facility]) , eryth romyc in is no longe r an accep table alter nativ e for intra partu m group B Strep tococ cus (GBS) proph ylaxi s for penic illin -braden rgic women at high risk for anaph ylaxi s. Not Available [facility] ([facility]) [address] [facility], [place], [address], 08/22/2019 11:09:19 08/17/1908/17/2019 urina lysis , dipst ick Leukocytes Negati ve Not Available In-Office Order Internal Use Only DO Not Attach Compendium DO Not Attach Compendium, Do Not Delete/merge, 08/17/2019 12:33:48 08/17/1908/17/2019 urina lysis , dipst ick Nitrite negati ve Not Available In-Office Order Internal Use Only DO Not Attach Compendium DO Not Attach Compendium, Do Not Delete/merge, 08/17/2019 12:33:48 08/17/1908/17/2019 urina lysis , dipst ick Urobilinogen .2 Not Available In-Of fice Order Internal Use Only DO Not Attach Compendium DO Not Attach Compendium, Do Not Delete/merge, 08/17/2019 12:33:48 08/17/1908/17/2019 urina lysis , dipst ick Protein Negati ve Not Available In-Office Order Internal Use Only DO Not Attach Compendium DO Not Attach Compendium, Do Not Delete/merge, 08/17/2019 12:33:48 08/17/1908/17/2019 urina lysis , dipst ick pH 7.0 Not Available In-Office Order Internal Use Only DO Not Attach Compendium DO Not Attach Compendium, Do Not Delete/merge, 08/17/2019 12:33:48 08/17/1908/17/2019 urina lysis , dipst ick Blood Negati ve Not Available In-Office Order Internal Use Only DO Not Attach Compendium DO Not Attach Compendium, Do Not Delete/merge, 08/17/2019 12:33:48 08/17/1908/17/2019 urina lysis , dipst ick Specific Alexis 1.015 Not Available In-Off ice Order Internal Use Only DO Not Attach Compendium DO Not Attach Compendium, Do Not Delete/merge, 08/17/2019 12:33:48 08/17/1908/17/2019 urina lysis , dipst ick Ketone Negati ve Not Available In-Office Order Internal Use Only DO Not Attach Compendium DO Not Attach Compendium, Do Not Delete/merge, 08/17/2019 12:33:48 08/17/1908/17/2019 urina lysis , dipst ick Bilirubin Negati ve Not Available In-Office Order Internal Use Only DO Not Attach Compendium DO Not Attach Compendium, Do Not Delete/merge, 08/17/2019 12:33:48 08/17/1908/17/2019 urina lysis , dipst ick Glucose Negati ve Not Available In-Office Order Internal Use Only DO Not Attach Compendium DO Not Attach Compendium, Do Not Delete/merge, 08/17/2019 12:33:48 08/23/1908/23/2019 urina lysis , dipst ick Leukocytes Small Not Available In-Offi ce Order Internal Use Only DO Not Attach Compendium DO Not Attach Compendium, Do Not Delete/merge, 08/23/2019 14:27:25 08/23/1908/23/2019 urina lysis , dipst ick Nitrite negati ve Not Available In-Office Order Internal Use Only DO Not Attach Compendium DO Not Attach Compendium, Do Not Delete/merge, 08/23/2019 14:27:25 08/23/19 20 08/23/2019 urina lysis , dipst ick Urobilinogen .2 Not Available In-Of fice Order Internal Use Only DO Not Attach Compendium DO Not Attach Compendium, Do Not Delete/merge, 08/23/2019 14:27:25 08/23/19 20 08/23/2019 urina lysis , dipst ick Protein Negati ve Not Available In-Office Order Internal Use Only DO Not Attach Compendium DO Not Attach Compendium, Do Not Delete/merge, 08/23/2019 14:27:25 08/23/19 20 08/23/2019 urina lysis , dipst ick pH 7.0 Not Available In-Office Order Internal Use Only DO Not Attach Compendium DO Not Attach Compendium, Do Not Delete/merge, 08/23/2019 14:27:25 08/23/19 20 08/23/2019 urina lysis , dipst ick Blood Negati ve Not Available In-Office Order Internal Use Only DO Not Attach Compendium DO Not Attach Compendium, Do Not Delete/merge, 08/23/2019 14:27:25 08/23/19 20 08/23/2019 urina lysis , dipst ick Specific Alexis 1.020 Not Available In-Off ice Order Internal Use Only DO Not Attach Compendium DO Not Attach Compendium, Do Not Delete/merge, 08/23/2019 14:27:25 08/23/19 20 08/23/2019 urina lysis , dipst ick Ketone Negati ve Not Available In-Office Order Internal Use Only DO Not Attach Compendium DO Not Attach Compendium, Do Not Delete/merge, 08/23/2019 14:27:25 08/23/19 20 08/23/2019 urina lysis , dipst ick Bilirubin Negati ve Not Available In-Office Order Internal Use Only DO Not Attach Compendium DO Not Attach Compendium, Do Not Delete/merge, 08/23/2019 14:27:25 08/23/19 20 08/23/2019 urina lysis , dipst ick Glucose Negati ve Not Available In-Office Order Internal Use Only DO Not Attach Compendium DO Not Attach Compendium, Do Not Delete/merge, 08/23/2019 14:27:25 08/28/19 20 08/28/2019 urina lysis , dipst ick Leukocytes Negati ve Not Available In-Office Order Internal Use Only DO Not Attach Compendium DO Not Attach Compendium, Do Not Delete/merge, 08/28/2019 15:35:36 08/28/19 20 08/28/2019 urina lysis , dipst ick Nitrite negati ve Not Available In-Office Order Internal Use Only DO Not Attach Compendium DO Not Attach Compendium, Do Not Delete/merge, 08/28/2019 15:35:36 08/28/19 20 08/28/2019 urina lysis , dipst ick Urobilinogen .2 Not Available In-Of fice Order Internal Use Only DO Not Attach Compendium DO Not Attach Compendium, Do Not Delete/merge, 08/28/2019 15:35:36 08/28/19 20 08/28/2019 urina lysis , dipst ick Protein Negati ve Not Available In-Office Order Internal Use Only DO Not Attach Compendium DO Not Attach Compendium, Do Not Delete/merge, 08/28/2019 15:35:36 08/28/19 20 08/28/2019 urina lysis , dipst ick pH 7.0 Not Available In-Office Order Internal Use Only DO Not Attach Compendium DO Not Attach Compendium, Do Not Delete/merge, 08/28/2019 15:35:36 08/28/19 20 08/28/2019 urina lysis , dipst ick Blood Negati ve Not Available In-Office Order Internal Use Only DO Not Attach Compendium DO Not Attach Compendium, Do Not Delete/merge, 08/28/2019 15:35:36 08/28/19 20 08/28/2019 urina lysis , dipst ick Specific Alexis 1.020 Not Available In-Off ice Order Internal Use Only DO Not Attach Compendium DO Not Attach Compendium, Do Not Delete/merge, 08/28/2019 15:35:36 08/28/19 20 08/28/2019 urina lysis , dipst ick Ketone Negati ve Not Available In-Office Order Internal Use Only DO Not Attach Compendium DO Not Attach Compendium, Do Not Delete/merge, 08/28/2019 15:35:36 08/28/19 20 08/28/2019 urina lysis , dipst ick Bilirubin Negati ve Not Available In-Office Order Internal Use Only DO Not Attach Compendium DO Not Attach Compendium, Do Not Delete/merge, 08/28/2019 15:35:36 08/28/19 20 08/28/2019 urina lysis , dipst ick Glucose Negati ve Not Available In-Office Order Internal Use Only DO Not Attach Compendium DO Not Attach Compendium, Do Not Delete/merge, 08/28/2019 15:35:36 09/06/19 20 09/06/2019 urina lysis , dipst ick Leukocytes Negati ve Not Available In-Office Order Internal Use Only DO Not Attach Compendium DO Not Attach Compendium, Do Not Delete/merge, 09/06/2019 14:12:07 09/06/19 20 09/06/2019 urina lysis , dipst ick Nitrite negati ve Not Available In-Office Order Internal Use Only DO Not Attach Compendium DO Not Attach Compendium, Do Not Delete/merge, 09/06/2019 14:12:07 09/06/19 20 09/06/2019 urina lysis , dipst ick Urobilinogen .2 Not Available In-Of fice Order Internal Use Only DO Not Attach Compendium DO Not Attach Compendium, Do Not Delete/merge, 09/06/2019 14:12:07 09/06/19 20 09/06/2019 urina lysis , dipst ick Protein Negati ve Not Available In-Office Order Internal Use Only DO Not Attach Compendium DO Not Attach Compendium, Do Not Delete/merge, 09/06/2019 14:12:07 09/06/19 20 09/06/2019 urina lysis , dipst ick pH 7.0 Not Available In-Office Order Internal Use Only DO Not Attach Compendium DO Not Attach Compendium, Do Not Delete/merge, 09/06/2019 14:12:07 09/06/19 20 09/06/2019 urina lysis , dipst ick Blood Negati ve Not Available In-Office Order Internal Use Only DO Not Attach Compendium DO Not Attach Compendium, Do Not Delete/merge, [id number] 09/06/2019 14:12:07 09/06/19 20 09/06/2019 urina lysis , dipst ick Specific Alexis 1.010 Not Available In-Off ice Order Internal Use Only DO Not Attach Compendium DO Not Attach Compendium, Do Not Delete/merge, [id number] 09/06/2019 14:12:07 09/06/19 20 09/06/2019 urina lysis , dipst ick Ketone Negati ve Not Available In-Office Order Internal Use Only DO Not Attach Compendium DO Not Attach Compendium, Do Not Delete/merge, [id number] 09/06/2019 14:12:07 09/06/19 20 09/06/2019 urina lysis , dipst ick Bilirubin Negati ve Not Available In-Office Order Internal Use Only DO Not Attach Compendium DO Not Attach Compendium, Do Not Delete/merge, [id number] 09/06/2019 14:12:07 09/06/19 20 09/06/2019 urina lysis , dipst ick Glucose Negati ve Not Available In-Office Order Internal Use Only DO Not Attach Compendium DO Not Attach Compendium, Do Not Delete/merge, [id number] 09/06/2019 14:12:07 10/26/19 20 10/26/2019 pregn yanci test, urine HCG negati ve Not Available In-Office Order Internal Use Only DO Not Attach Compendium DO Not Attach Compendium, Do Not Delete/merge, [id number] 10/26/2019 11:15:05 01/04/20 21 01/07/2021 pap, IG + HPV HPV aptima Negati ve negati ve This nucle ic acid ampli ficat ion test detec ts fourt een high- risk HPV types (16,1 8,31, 33,35 ,39,4 5,51, 52,56 ,58,5 9,66, 68) witho ut diffe renti ation . Not Available [facility] [address] [place] [address] [address], [place], [address], 01/10/2021 09:13:41 01/04/20 21 01/08/2021 pap, IG + HPV diagnosis: Angus duarte NEGAT TREVOR FOR INTRA EPITH ELIAL LESIO N OR MARICEL SCHULTZ . REACT TREVOR CELLU LAR COLLIER ES AND/O R REPAI R ARE PRESE NT. Not Available [facility] [address] [facility] [address], [place], [address], 01/10/2021 09:13:41 01/04/20 21 01/08/2021 pap, IG + HPV specimen adequacy: Angus duarte Satis facto ry for evalu ation . Endoc ervic al and/o r squam ous metap lasti c cells (endo cervi ambreen compo nent) are prese nt. Not Available [facility] [address] [facility] [address], [place], [address], 01/10/2021 09:13:41 01/04/20 21 01/08/2021 pap, IG + HPV clinician provided ICD10: Angus duarte Z12.4 Not Available [facility] [address] [facility] [address], [place], [address], 01/10/2021 09:13:41 01/04/20 21 01/08/2021 pap, IG + HPV performed by: Angus Rios ws, Cytot echno logis t (AS[facility] ) Not Available [facility] [address] [facility] [address], [place], [address], 01/10/2021 09:13:41 01/04/2001/08/2021 pap, IG + HPV electronical ly signed by: Angus garcia MD, Patho logis t Not Available [facility] [address] [facility] [address], [place], [address], 01/10/2021 09:13:41 01/04/20 21 01/08/2021 pap, IG + HPV . . Not Available [facility] [address] [facility] [address], [place], [address], 01/10/2021 09:13:41 01/04/20 21 01/08/2021 pap, IG + HPV note: Commen t The Pap smear is a scree deep test desig adán to aid in the detec tion of theodore ligna nt and malig nant condi tions of the uteri ne cervi x. It is not a diagn ostic proce dure and shoul d not be used as the sole means of detec ting cervi ambreen cance r. Both false -posi tive and false -nega tive repor ts do occur . Not Available [facility] [address] [facility] [address], [place], [address], 01/10/2021 09:13:41 01/04/20 21 01/08/2021 pap, IG + HPV test methodology: Commen t This liqui d based ThinP rep(R ) pap test was scree adán with the use of an image guide d syste m. Not Available [facility] [address] [facility] [address], [place], [address], 01/10/2021 09:13:41 09/01/19 22 09/01/2021 Bacte rial vagin osis and vagin itis DNA panel - Vagin al fluid by Probe with signa l ampli ficat ion shabnam sp. detection, direct probe Negati ve ciaran da sp. detec tion, direc t probe Not Available Not Available 09/27/2024 11:22:32 09/01/19 22 09/01/2021 Bacte rial vagin osis and vagin itis DNA panel - Vagin al fluid by Probe with signa l ampli ficat ion gardnerella vag. detection, direct probe Negati ve gardn erell a vag. detec tion, direc t probe Not Available Not Available 09/27/2024 11:22:32 09/01/19 22 09/01/2021 Bacte rial vagin osis and vagin itis DNA panel - Vagin al fluid by Probe with signa l ampli ficat ion trichomonas vag. detection, direct probe Negati ve trich omona s vag. detec tion, direc t probe Not Available Not Available 09/27/2024 11:22:32 05/13/20 23 05/13/2023 Chlam ydia trach omati s and Neiss eria gonor rhoea e rRNA panel - Speci men by RADHIKA with probe detec tion chlamydia trachomatis, PCR Negati ve chlam ydia trach omati s, PCR Not Available Not Available 09/27/2024 11:22:32 05/13/2005/13/2023 Chlam ydia trach omati s and Neiss eria gonor rhoea e rRNA panel - Speci men by RADHIKA with probe detec tion neisseria gonorrhoeae, PCR Negati ve neiss eria gonor rhoea e, PCR Not Available Not Available 09/27/2024 11:22:32 05/13/2005/13/2023 Trich omona s vagin sharon rRNA [Pres ence] in Speci men by RADHIKA with probe detec tion trichomonas vaginalis ribosomal RNA (rrna) Negati ve trich omona s vagin sharon ribos omal RNA (rrna ) Not Available Not Available 09/27/2024 11:22:32 09/19/1909/19/2024 LIPID PANEL cholesterol, total 122 mg/dL 100-[address] [facility] [address] [place], [address], 09/20/2024 06:20:28 09/19/19 25 09/19/2024 LIPID PANEL triglyceride s 169 mg/dL 0-149 above high normal Not Available [facility] [address] [place], [address], 09/20/2024 06:20:28 09/19/19 25 09/19/2024 LIPID PANEL HDL cholesterol 31 mg/dL 40-999 below low normal Not Available [facility] [address] [place], [address], 09/20/2024 06:20:28 09/19/19 25 09/19/2024 LIPID PANEL VLDL cholesterol ambreen 34 mg/dL 5-40 Not Available [facility] [address] [place] [address], [address], 09/20/2024 06:20:28 09/19/19 25 09/19/2024 LIPID PANEL LDL chol calc (nih) 82 mg/dL 0-99 Not Available [facility] [address] [place] [address], [address], 09/20/2024 06:20:28 09/19/19 25 09/19/2024 COMP. METAB OLIC PANEL (14) glucose 85 mg/dL 70-[address] [facility] [address] [place] [address], [address], 09/20/2024 06:20:29 09/19/19 25 09/19/2024 COMP. METAB OLIC PANEL (14) BUN 13 mg/dL 6-[address] [facility] [address] [place] [address], [address], 09/20/2024 06:20:29 09/19/19 25 09/19/2024 COMP. METAB OLIC PANEL (14) creatinine 0.80 mg/dL 0.76-[address] [facility] [address] [place] [address], [address], 09/20/2024 06:20:29 09/19/19 25 09/19/2024 COMP. METAB OLIC PANEL (14) eGFR 97 >=60 Units for eGFR value s are mL/mi n/1.7 3 The eGFR Calcu latio n has not been valid ated for patie nts under the age of 18. If test resul ts are displ ayed for a patie nt under the age of 18, disre eusebia that value . Not Available [facility] [address] [place] [address], [address], 09/20/2024 06:20:29 09/19/19 25 09/19/2024 COMP. METAB OLIC PANEL (14) BUN/creatini ne ratio 16 9-23 Not Available [facility] [address] [place], [address], 09/20/2024 06:20:29 09/19/19 25 09/19/2024 COMP. METAB OLIC PANEL (14) sodium 141 mmol/ L 134-[address] [facility] [address] [place], [address], 09/20/2024 06:20:29 09/19/19 25 09/19/2024 COMP. METAB OLIC PANEL (14) potassium 4.2 mmol/ L 3.5-5. [address] [facility] [address] [place] [address], [address], 09/20/2024 06:20:29 09/19/19 25 09/19/2024 COMP. METAB OLIC PANEL (14) chloride 103 mmol/ L 96-[address] [facility] [address] [place], [address], 09/20/2024 06:20:29 09/19/19 25 09/19/2024 COMP. METAB OLIC PANEL (14) carbon dioxide, total 29 mmol/ L 20-[address] [facility] [address] [place], [address], 09/20/2024 06:20:29 09/19/19 25 09/19/2024 COMP. METAB OLIC PANEL (14) calcium 9.5 mg/dL 8.7-[address] [facility] [address] [place], [address], 09/20/2024 06:20:29 09/19/19 25 09/19/2024 COMP. METAB OLIC PANEL (14) protein, total 7.4 g/dL 6.0-8. [address] [facility] [address] [place] [address], [address], 09/20/2024 06:20:29 09/19/19 25 09/19/2024 COMP. METAB OLIC PANEL (14) albumin 4.5 g/dL 3.9-4. [address] [facility] [address] [place], [address], 09/20/2024 06:20:29 09/19/19 25 09/19/2024 COMP. METAB OLIC PANEL (14) globulin, total 2.9 g/dL 1.5-4. [address] [facility] [address] [place] [address], [address], 09/20/2024 06:20:29 09/19/19 25 09/19/2024 COMP. METAB OLIC PANEL (14) A/G ratio 2.0 1.2-2. [address] [facility] [address] [place], [address], 09/20/2024 06:20:29 09/19/19 25 09/19/2024 COMP. METAB OLIC PANEL (14) bilirubin, total 0.2 mg/dL 0.0-1. [address] [facility] [address] [place], [address], 09/20/2024 06:20:29 09/19/19 25 09/19/2024 COMP. METAB OLIC PANEL (14) alkaline phosphatase 96 IU/L 44-121 Not Available [facility] [address] [place], [address], 09/20/2024 06:20:29 09/19/19 25 09/19/2024 COMP. METAB OLIC PANEL (14) AST (SGOT) 19 IU/L 0-40 Not Available [facility] Department [address] [place], [address], 09/20/2024 06:20:29 09/19/19 25 09/19/2024 COMP. METAB OLIC PANEL (14) ALT (SGPT) 17 IU/L 0-32 Not Available [facility] Department [address] [place], [address], 09/20/2024 06:20:29 09/19/19 25 09/19/2024 CBC WITH DIFFE RENTI AL/PL ATELE T WBC 12.0 x10e3 /uL 3.4-10 .8 above high normal Not Available [facility] [address] [place], [address], 09/20/2024 06:20:30 09/19/1909/19/2024 CBC WITH DIFFE RENTI AL/PL ATELE T RBC 4.58 x10e6 /uL 3.77-[address] [facility] [address] [place], [address], 09/20/2024 06:20:30 09/19/19 25 09/19/2024 CBC WITH DIFFE RENTI AL/PL ATELE T hemoglobin 12.8 g/dL 11.1-[address] [facility] [address] [place], [address], 09/20/2024 06:20:30 09/19/1909/19/2024 CBC WITH DIFFE RENTI AL/PL ATELE T hematocrit 40.8 % 34.0-[address] [facility] [address] [place], [address], 09/20/2024 06:20:30 09/19/19 25 09/19/2024 CBC WITH DIFFE RENTI AL/PL ATELE T MCV 89 fL 79-[address] [facility] [address] [place], [address], 09/20/2024 06:20:30 09/19/19 25 09/19/2024 CBC WITH DIFFE RENTI AL/PL ATELE T MCH 27.9 pg 26.6-[address] [facility] [address] [place], [address], 09/20/2024 06:20:30 09/19/1909/19/2024 CBC WITH DIFFE RENTI AL/PL ATELE T MCHC 31.4 g/dL 31.5-3 5.7 below low normal Not Available [facility] [address] [place], [address], 09/20/2024 06:20:30 09/19/19 25 09/19/2024 CBC WITH DIFFE RENTI AL/PL ATELE T RDW 12.4 % 11.5-[address] [facility] [address] [place], [address], 09/20/2024 06:20:30 09/19/19 25 09/19/2024 CBC WITH DIFFE RENTI AL/PL ATELE T platelets 163 x10e3 /uL 150-[address] [facility] [address] [place], [address], 09/20/2024 06:20:30 09/19/1909/19/2024 CBC WITH DIFFE RENTI AL/PL ATELE T neutrophils 68 % notest b. Not Available [facility] [address] [place], [address], 09/20/2024 06:20:30 09/19/19 25 09/19/2024 CBC WITH DIFFE RENTI AL/PL ATELE T lymphs 23 % notest b. Not Available [facility] [address] [place], [address], 09/20/2024 06:20:30 09/19/19 25 09/19/2024 CBC WITH DIFFE RENTI AL/PL ATELE T monocytes 6 % notest b. Not Available [facility] [address] [place], [address], 09/20/2024 06:20:30 02/18/20 25 09/19/2024 CBC WITH DIFFE RENTI AL/PL ATELE T eos 2 % notest b. Not Available [facility] [address] [place], [address], 09/20/2024 06:20:30 09/19/19 25 09/19/2024 CBC WITH DIFFE RENTI AL/PL ATELE T basos 0 % notest b. Not Available [facility] [address] [place], [address], 09/20/2024 06:20:30 09/19/1909/19/2024 CBC WITH DIFFE RENTI AL/PL ATELE T neutrophils (absolute) 8.1 x10e3 /uL 1.4-7. 0 above high normal Not Available [facility] [address] [place], [address], 09/20/2024 06:20:30 09/19/1909/19/2024 CBC WITH DIFFE RENTI AL/PL ATELE T lymphs (absolute) 2.8 x10e3 /uL 0.7-3. [address] [facility] [address] [place], [address], 09/20/2024 06:20:30 09/19/1909/19/2024 CBC WITH DIFFE RENTI AL/PL ATELE T monocytes(ab solute) 0.8 x10e3 /uL 0.1-0. [address] [facility] [address] [place], [address], 09/20/2024 06:20:30 09/19/1909/19/2024 CBC WITH DIFFE RENTI AL/PL ATELE T eos (absolute) 0.2 x10e3 /uL 0.0-0. [address] [facility] [address] [place], [address], 09/20/2024 06:20:30 09/19/19 25 09/19/2024 CBC WITH DIFFE RENTI AL/PL ATELE T baso (absolute) 0.0 x10e3 /uL 0.0-0. [address] [facility] [address] [place], [address], 09/20/2024 06:20:30 09/19/19 25 09/19/2024 CBC WITH DIFFE RENTI AL/PL ATELE T immature granulocytes 0.4 % notest b. Not Available [facility] [address] [place], [address], 09/20/2024 06:20:30 09/19/19 25 09/19/2024 CBC WITH DIFFE RENTI AL/PL ATELE T immature grans (abs) 0.1 x10e3 /uL 0.0-0. [address] [facility] [address] [place], [address], 09/20/2024 06:20:30 09/19/19 25 09/19/2024 CBC WITH DIFFE RENTI AL/PL ATELE T NRBC 0 % 0-[address] [facility] [address] [place], [address], 09/20/2024 06:20:30 09/19/19 25 09/20/2024 TSH+F REE T4 TSH 2.130 uIU/m L 0.450- 4.500 Not Available [facility] ([facility]) [address], [place], [address], 09/20/2024 11:11:56 09/19/19 25 09/20/2024 TSH+F REE T4 T4,free(dire ct) 0.95 NG/dL 0.82-1 .77 Not Available [facility] ([facility]) [address], [place], [address], 09/20/2024 11:11:56 09/19/19 25 09/20/2024 VITAM IN B12 AND FOLAT E vitamin B12 553 pg/mL 232-12 45 Not Available [facility] ([facility]) [address], [place], [address], 09/20/2024 11:11:58 09/19/19 25 09/20/2024 VITAM IN B12 AND FOLAT E folate (folic acid), serum 14.0 NG/mL >3.0 A serum folat e kali ntrat ion of less than 3.1 ng/mL is consi dered to repre sent clini ambreen defic iency . Not Available [facility] ([facility]) [address], [place], [address], 09/20/2024 11:11:58 09/19/1909/20/2024 HEMOG LOBIN A1C hemoglobin A1C 5.5 % 4.8-5. 6 Predi abete s: 5.7 - 6.4 Diabe maribel: >6.4 Glyce rhys contr ol for adult s with diabe maribel: <7.0 Not Available [facility] ([facility]) [address], [place], [address], 09/20/2024 11:11:59 09/19/1909/20/2024 TRIIO DOTHY CARMEN E (T3), FREE triiodothyro nine (T3), free 3.2 pg/mL 2.0-4. 4 Not Available [facility] ([facility]) [address], [place], [address], 09/20/2024 11:12:00 09/19/19 25 09/20/2024 VITAM IN D, 25-HY DROXY vitamin D, 25-hydroxy 34.5 NG/mL 30.0-1 00.0 Vitam in D defic iency has been defin ed by the Insti juan carlos of Medic ine and an Endoc rine Socie ty pract ice guide line as a level of serum 25-OH vitam in D less than 20 ng/mL (1,2) . The Endoc rine Socie ty went on to furth er defin e vitam in D insuf ficie ncy as a level betwe en 21 and 29 ng/mL (2). 1. IOM (Inst itute of Medic ine). 2010. Dieta ry refer ence intyou es for calci um and D. Jose Antonio roberts [place]: The [facility] . 2. Jalen k MF, Binkl ey [place], Bisch off-F errar i MARK, et al. Evalu ation , treat ment, and preve ntion of vitam in D defic iency : an Endoc rine Socie ty clini ambreen pract ice guide line. JCEM. 2010; 96(7) :1911 -30. Not Available [facility] ([facility]) [address], [place], [address], 09/20/2024 11:12:01 08/15/19 20 08/15/2019 US, obste tric, 3rd trime ster No observ ation record ed. [facility] [address], [address], 08/17/2019 13:07:16 08/24/19 20 08/23/2019 US, obste tric, bioph ysica l profi le + non-s tress test No observ ation record ed. [facility] [address] [place], [address], 08/28/2019 16:23:52 09/06/19 20 08/30/2019 US, obste tric, 3rd trime ster No observ ation record ed. [facility] [address] [place] [address], [address], 09/06/2019 19:48:55 02/01/20 21 01/31/2021 MAMMO , diagn ostic , digit al, bilat eral No observ ation record ed. [facility] [address] [facility] [address], [place], [address], 01/31/2021 14:18:21 12/02/19 25 12/01/2024 XR, cervi ambreen spine No observ ation record ed. [facility] [address] [place], [address], 12/06/2024 16:45:31 Result Notes None recorded. Problems Name Problem SNOMED Code Status Onset Date Resolution Date Notes Provider Name and Address Organization Details Recorded Time Pregnanc y 77019946 Completed 201810/26/2019 OMERO [place], [place] - [facility] 0 11:11:06 Maternal obesity complica ting pregnanc y, childbir th and the puerperi um, antepart um 15147209675 7 Completed 2018 pre pregnanc y BMI 38.3--SS M recommen ds repeat growth every 4 weeks but didn't schedule a f/u--rep eat 0 shows possible reduced growth velocity --to have repeat BPP/dopp lers in one week OMERO [place], [place] - [facility] 0 11:11:03 Thromboc ytopenic disorder 965863352 Completed lowest in 110s around , had been sick in September with URI/ear infectio ns, Platelet s 145k at 1st visit, 166k at 26wks and 168k at 33wks OMERO [place], [place] - [facility] 0 11:11:03 Common bile duct calculus 675673740 Completed 2018 Prior cholecys tectomy and prior common bile duct stone retrieva l prior to pregnanc y but had some pain around 17 weeks this pregnanc y consiste nt with recurren ce, saw GI and they wanted to do a scope but pt changed diet and began OTC fiber and pain has resolved so she prefers to avoid scope/hendricks rgery at this time, knows to return to ER if severe pain, did have elevated LFTs in ER 04/05/19 AST 45, ALT 57, normal LFTs 06/07/19 and 08/07/2019 in L&D OMERO [place], [place] - [facility] 0 11:11:03 Antenata l care: poor obstetri c history 295723174 Completed 2018 History of chorioam nionitis in 1st pregnanc y/ hospital ized x 8d--seen by [facility] this pregnanc y per their order after anatomy ultrasou nd done there--s ee consult notes Alida Dozier MA null, [place] [facility] 0 11:11:03 Female steriliz ation Completed 2018 Consider ing PPTL--bu t likes no menses with Nexplano n--has [employer] insuranc e Alida Dozier [place] null, [place] [facility] 0 11:11:03 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 14641414797 9107 Completed 2019 +GBS suscepti ble to clindamy donovan Alida Dozier [place], [place] [facility] 0 11:11:03 Obesity 820846463 Active 2024 Charlotte Sidhu MD Attn: Jovana spencer,[address] [place], [address], [place] [facility] 5 15:33:52 Fatigue 91195718 Active 2024 Charlotte Sidhu MD Attn: Jovana g,[address] [place], [address], [place] [facility] 5 15:33:55 Supraven tricular tachycar jayne 7240073 Active 2024 ablation Charlotte Sidhu MD Attn: Jovana spencer,[address] [place], [address], [place] [facility] 5 15:34:12 Asthma 404156011 Active 2024 Charlotte Sidhu MD Attn: Jovana g,[address] [facility], [place], [address], [place] [facility] 5 15:34:02 Neck pain 45326866 Active 2024 Luzmaria Baker MA null, [place] [facility] 5 12:52:08 Insertio n of subcutan eous contrace ptive done 76410111033 9103 Active Daniel Emileeeljocesar null, [place] - [facility] 6 18:04:47 Problem Notes None recorded. Procedures Surgical History Date Name Laterality Status Provider Name and Address Organization Details Recorded Time 02/01/20 21 Most Recent Mammogram completed Daniel Emileeeljocesar CT - [facility] 01/31/2021 14:20:25 01/04/20 21 Date of Last Pap Smear completed Daniel Emileeeljocesar CT - [facility] 01/03/2021 14:08:16 12/28/19 21 Nsl/sins ndsc surg bx polypc completed Alida Dozier MA CT - [facility] 01/03/2021 14:21:11 10/26/19 20 Control Implant Insertion completed Alida Dozier MA CT - [facility] 10/26/2019 11:15:12 07/13/20 18 Control Implant Removal completed Daniel Tomjocesar CT - [facility] 07/13/2018 14:32:27 02/10/20 16 Control Implant Replacement completed Daniel Tomjocesar CT - [facility] 02/10/2016 18:04:48 08/02/19 12 Cholecystectomy completed Daniel Emileeeljocesar CT - [facility] 07/31/2015 15:05:54 Tonsillectomy completed Sol Arvizu MD Attn: Accounting,[address] [place], [address], [place] - [facility] 11/02/2016 14:16:27 Imaging Results Imaging Date Name Status LastModified by Organiz ation Details LastModified Time 08/15/2019 US, obstetric, 3rd trimester completed [facility] [address] [place], [address], 08/17/2019 13:07:16 08/23/2019 US, obstetric, biophysical profile + non-stress test completed [facility] [place], [address], 08/28/2019 16:23:52 08/30/2019 US, obstetric, 3rd trimester completed [facility] [address] [place], [address], 09/06/2019 19:48:55 01/31/2021 MAMMO, diagnostic, digital, bilateral completed [facility] [address] [facility] [address], [place], [address], 01/31/2021 14:18:21 12/01/2024 XR, cervical spine active [facility] [address] [place], [address], 12/06/2024 16:45:31 Procedure Notes None recorded. Medical Equipment None Reported. Allergies Allergen ID Allergen Name Allergen Category Reaction Reaction Severity Criticality Documentation Date Start Date Code Code System Note Provider Name and Address Organization Details Recorded Time 185025 Product containin g penicilli n (product) medicatio n hives moderate Not available 04/14/20182017 25952 8001 SNOMED HARRIS Sanchez, [place] - [facility] 8 14:17:31 10344 Substance with sulfonami de structure and antibacte rial mechanism of action (substanc e) medicatio n hives Not available Not available 07/31/2015 62712 8003 SNOMED Sharmin dykes, [place] - [facility] 5 14:45:52 Medications Name Sig Start Date Stop Date Status Note LastModified by Organization Details LastModified Time doxycycli ne hyclate 100 mg capsule TAKE 2 CAPSULES BY MOUTH ON THE 1ST DAY AND 1 CAPSULE DAILY FOR 20 DAYS active Not Available Not Available No t Available clindamyc in HCl 300 mg capsule 04/14 completed Not Available Not Available Not Available azithromy donovan 250 mg tablet TAKE 2 TABLETS (500 MG) BY ORAL ROUTE ONCE DAILY FOR 1 DAY THEN 1 TABLET (250 MG) BY ORAL ROUTE ONCE DAILY FOR 4 DAYS active Not Available Not Available No t Available Lidocaine Viscous 2 % mucosal solution 12/07 completed Not Available Not Available Not Available tizanidin e 4 mg tablet Take 1 tablet every day by oral route at bedtime. 2024 active Not Available Not Available Not Avai lable fluconazo le 150 mg tablet Take 1 tablet every 72 hours by oral route. 07/13 completed Not Available Not Available Not Available metoprolo l succinate ER 50 mg tablet,ex tended release 24 hr Take 1 tablet every day by oral route. 07/13 completed Not Available Not Available Not Available hydrocodo ne 5 mg-acetam inophen 325 mg tablet 07/13 completed Not Available Not Available Not Available prazosin 1 mg capsule TAKE 1 CAPSULE BY MOUTH DAILY AT BEDTIME 09/19 completed Not Available Not Available Not Available ondansetr on HCl 4 mg tablet 11/22 completed Not Available Not Available Not Available prednison e 20 mg tablet Take 2 tablets every day by oral route for 5 days. 2024 active Not Available Not Available Not Avai lable penicilli n V potassium 500 mg tablet 04/14 completed Not Available Not Available Not Available acetamino phen 300 mg-codein e 30 mg tablet 12/07 completed Not Available Not Available Not Available ciproflox acin 500 mg tablet 12/07 completed Not Available Not Available Not Available magnesium oxide 400 mg (241.3 mg magnesium ) tablet TAKE 1 TABLET BY MOUTH TWICE DAILY active Not Available Not Available No t Available lorazepam 0.5 mg tablet Take 1 tablet as needed by oral route as directed . 12/07 completed Not Available Not Available Not Available methocarb isaac 750 mg tablet 12/07 completed Not Available Not Available Not Available meclizine 25 mg tablet TAKE 1 TABLET BY MOUTH THREE TIMES DAILY NEEDED 01/03 completed Not Available Not Available Not Available hydrocodo ne 7.5 mg-acetam inophen 325 mg tablet TAKE 1 TABLET BY MOUTH EVERY 4 HOURS NEEDED 09/19 completed Not Available Not Available Not Available cephalexi n 500 mg capsule TK ONE C PO QID TAT 01/03 completed Not Available Not Available Not Available triamcino lone acetonide 0.1 % topical ointment 04/14 completed Not Available Not Available Not Available ropinirol e 0.5 mg tablet TAKE 1 TABLET BY MOUTH EVERY DAY AT BEDTIME 09/19 completed Not Available Not Available Not Available gabapenti n 100 mg capsule 11/22 completed Not Available Not Available Not Available metoprolo l succinate ER 25 mg tablet,ex tended release 24 hr Take 1 tablet every day by oral route in the evening. 11/02 completed Not Available Not Available Not Available lorazepam 1 mg tablet 01/03 completed Not Available Not Available Not Available epinephri ne 0.3 mg/0.3 mL injection , auto-inje ctor INJECT 1 PEN IN THE MUSCLE ONE TIME DIRECTED active Not Available Not Available No t Available ibuprofen 600 mg tablet 11/22 completed Not Available Not Available Not Available levofloxa donovan 500 mg tablet Take 1 tablet every 24 hours by oral route for 3 days. 07/13 completed Not Available Not Available Not Available methylpre dnisolone 4 mg tablets in a dose pack 12/07 completed Not Available Not Available Not Available cefdinir 300 mg capsule TAKE 1 CAPSULE BY MOUTH EVERY 12 HOURS FOR 7 DAYS 01/03 completed Not Available Not Available Not Available fluticaso ne propionat e 50 mcg/actua tion nasal spray,[employer] SHAKE LIQUID AND USE 2 SPRAYS IN EACH NOSTRIL EVERY DAY NEEDED active Not Available Not Available No t Available loratadin e 10 mg tablet TAKE 1 TABLET BY MOUTH EVERY DAY 01/03 completed Not Available Not Available Not Available naproxen 500 mg tablet TK 1 T PO BID WF 01/03 completed Not Available Not Available Not Available escitalop josselyn 10 mg tablet TAKE 1 AND 1/2 TABLETS BY MOUTH DAILY active Not Available Not Available No t Available Ciprodex 0.3 %-0.1 % ear drops,[employer] 03/08 completed Not Available Not Available Not Available levalbute rol HFA 45 mcg/actua tion aerosol inhaler INHALE 2 PUFFS BY MOUTH EVERY 6 HOURS NEEDED active Not Available Not Available No t Available Fish Oil 01/03 completed Not Available Not Available Not Available Nexplanon 68 mg subdermal implant Inject 1 implant by subcutan eous route. 2019 active INSERTIO N 0 Not Available Not Available Not Available 28 mg iron-800 mcg tablet TAKE 1 TABLET BY MOUTH EVERY DAY 01/03 completed Not Available Not Available Not Available Fluarix Quad 0719-6339 (PF) 60 mcg (15 mcg x 4)/0.5 mL IM syringe 11/22 completed Not Available Not Available Not Available Wixela Inhub 250 mcg-50 mcg/dose powder for inhalatio n INHALE 1 PUFF BY MOUTH TWICE DAILY 01/03 completed Not Available Not Available Not Available Vitals Date Recorded Body height Body mass index (BMI) Systolic blood pressure Diastolic blood pressure Provider Name and Address Organization Details Last Updated DateTime 09/06/2019 160.02 cm 38.2 kg/m2 132 mm[Hg] 82 mm[Hg] Alida Dozier MA [facility] 09/06/2019 14:07:58 Date Recorded Body weight Provider Name an d Address Organization Details Last Updated DateTime 09/06/2019 03545.709831 g Daniel Hubbard [facility] 12/2019 14:10:38 Date Recorded Body height Body mass index (BMI) Body weight Provider Name and Address Organization Details Last Updated DateTime 10/26/2019 160.02 cm 35.6 kg/m2 62956.58497 4 g Alida Dozier MA [facility] 10/26/2019 11:11:04 Date Recorded Systolic blood pressure Diastolic blood pressure Provider Name and Address Organization Details Last Updated DateTime 10/26/2019 132 mm[Hg] 80 mm[Hg] Daniel Hubbard [facility] 10/26/2019 11:26:34 Date Recorded Body height Body mass index (BMI) Body weight Systolic blood pressure Diastolic blood pressure Provider Name and Address Organization Details Last Updated DateTime 01/03/2021 160.02 cm 37.9 kg/m2 15974.77 g 144 mm[Hg] 94 mm[Hg] Alida Dozier MA [facility] 14:24:59 Date Recorded Body height Body mass index (BMI) Body weight Heart rate Oxygen saturation Oxygen saturation in Arterial blood by Pulse oximetry Systolic blood pressure Diastolic blood pressure Provider Name and Address Organization Details Last Updated DateTime 5 160.02 cm 40.6 kg/m2 651010. 65 g 74 /min 100 % 100 % 128 mm[Hg] 80 mm[Hg] Josette Bucio MA [facility] 5 12:07:54 Date Recorded Body height Body mass index (BMI) Body weight Heart rate Oxygen saturation Oxygen saturation in Arterial blood by Pulse oximetry Systolic blood pressure Diastolic blood pressure Provider Name and Address Organization Details Last Updated DateTime 5 160.02 cm 39.8 kg/m2 643160. 21 g 72 /min 98 % 98 % 114 mm[Hg] 70 mm[Hg] Arlette Lloyd MA [facility] 5 11:38:11 Social History Question Answer Notes LastModified by Organizat ion Details LastModified Time Tobacco Smoking Status Former Smoker stopped 2012 Daniel Hubbard donis, [facility] 02/16/2019 13:21:28 What Is Your Level Of Alcohol Consumption? Occasional [email or web address] Information not available 07/31/2015 Are You Blind Or Do You Have Difficulty Seeing? No Information not available 09/19/2024 Is Blood Transfusion Acceptable In An Emergency? Yes [email or web address] Information not available 07/31/2015 What Is Your Level Of Caffeine Consumption? Moderate Information not available 07/31/2015 How Much Tobacco Do You Chew? None [email or web address] Information not available 07/31/2015 In The 14 Days Before Symptom Onset, Have You Had Close Contact With A Laboratory-confir med COVID-19 While That Case Was Ill? No Information not available 09/19/2024 In The 14 Days Before Symptom Onset, Have You Had Close Contact With A Person Who Is Under Investigation For COVID-19 While That Person Was Ill? No Information not available 09/19/2024 Have You Been To An Area Known To Be High Risk For COVID-19? No Information not available 09/19/2024 Are You Currently Employed? Yes [email or web address] Information not available 07/31/2015 Are You Deaf Or Do You Have Serious Difficulty Hearing? No Information not available 09/19/2024 What Type Of Diet Are You Following? REGULAR Information not available 07/31/2015 Which Illicit Or Recreational Drugs Have You Used? 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 No Information no t available 01/03/2021 Live Alone Or With Others? With Others [email or web address] Information not available 07/31/2015 What Was The Date Of Your Most Recent Tobacco Screening? 12/01/2024 Information not available 12/01/2024 How Many Children Do You Have? 1 [email or web address] Information not available 07/31/2015 Performs Monthly Self-breast Exam? No Information no t available 07/31/2015 What Is Your Relationship Status? Single [email or web address] Information not available 07/31/2015 Do You Use Your Seat Belt Or Car Seat Routinely? Yes Information not available 01/03/2021 Seat Belts Used Routinely Yes [email or web address] Information not available 07/31/2015 Are You Sexually Active? No [email or web address] Information not available 07/31/2015 Do You Have Smoke And Carbon Monoxide Detectors In Your Home? Yes Information not available 01/03/2021 At What Age Did You Start Smoking Tobacco? 22 [email or web address] Information not available 07/31/2015 How Much Tobacco Do You Smoke? 1 PPW [email or web address] Information not available 07/31/2015 General Stress Level Low [email or web address] Information not available 07/31/2015 Do You Feel Stressed (tense, Restless, Nervous, Or Anxious, Or Unable To Sleep At Night)? [id number] Information not available 01/03/2021 Do You Use Any Illicit Or Recreational Drugs? No Information not available 01/03/2021 Do You Use Sunscreen Routinely? Yes [email or web address] Information not available 07/31/2015 Has Tobacco Cessation Counseling Been Provided? Yes Information not available 01/03/2021 On What Date Was Tobacco Cessation Counseling Provided? 12/01/2024 Information not available 12/01/2024 How Many Years Have You Smoked Tobacco? 5 [email or web address] Information not available 07/31/2015 Do You Or Have You Ever Used Any Other Forms Of Tobacco Or Nicotine? No Information not available 01/03/2021 Sex: Unknown Functional Status Question Answer Note LastModified by Organizat ion Details LastModified Time Are you able to care for yourself? Yes Information not available 09/19/2024 What is your exercise level? Occasional [email or web address] Information not available 07/31/2015 Mental Status None recorded. Family History Relationship Description Onset Age of this Age Resolved Age Notes LastModified by Organization Details LastModified Time Father Hyperlipidem ia [email or web address] Not available 2015 16:55:44 Father Hypertensive disorder [email or web address] Not available 2015 16:55:44 Maternal Grandfather Diabetes mellitus [email or web address] Not available 2015 16:55:44 Paternal Grandmother Diabetes mellitus [email or web address] Not available 2015 16:55:44 Paternal Grandfather Diabetes mellitus [email or web address] Not available 2015 16:55:44 Mother Hyperlipidem ia [email or web address] Not available 2017 14:09:33 Mother Diabetes mellitus [email or web address] Not available 2017 14:09:41 Daughter Sleep apnea [email or web address] Not av ailable 01/03/2021 14:19:40 Notes:maternal aunt--?primar y but diffuse cancer Medical History Condition Response Other N High Blood Pressure N Breast Cancer N Thyroid Problems N Kidney or Bladder Problems N GI Problems N Depression N Blood Clots N Lung Disease N Acne N Breast Problem N Eating Disorder N Anemia N Anesthesia Complications N Headaches/Migraines N Anxiety Disorder N Diabetes N Ovarian Cancer N Muscle, Joint, or Bone Problems N Blood Transfusions N Seizures/Epilepsy N Polyps N Infertility N Acid Reflux (GERD) N Cancer N Abuse/Domestic Violence N Asthma Y Endometriosis N High Cholesterol N Hepatitis N Liver Disease N Heart Disease Y Pre-Eclampsia N Osteoporosis N Gynecological History Statement/Question Response Abnormal Pap Yes STIs/STDs Yes HPV Vaccine N Most Recent Mammogram 01/31/2021 Age at Menarche 14 Current Control Method Implant Age at First Child 27 Sexually Active? N Menses Monthly No Date of Last Pap Smear 01/03/2021 Sexual Problems? N LMP Unknown Desired Control Method Implant Obstetrics History GPAL:G 4 P 2 0 2 2 Type Value Multiple Births 0 Full Term 2 Induced 0 Spontaneous 2 Premature 0 Living 2 Ectopics 0 Total 4 Immunizations Vaccine Type Date Status Note Provider Nam e and Address Organization Details Recorded Time COVID-19, mRNA, LNP-S, PF, 30 mcg/0.3 mL dose 04/24/2021 completed Josette Bucio, [place] null, [place] - [facility] 09/19/2024 12:09:20 COVID-19, mRNA, LNP-S, PF, 30 mcg/0.3 mL dose 06/05/2021 completed Josette Bucio [place], [place] [facility] 09/19/2024 12:09:20 COVID-19, mRNA, LNP-S, bivalent, PF, 30 mcg/0.3 mL dose 06/03/2022 completed Josette Bucio [place], [place] [facility] 09/19/2024 12:09:20 COVID-19, mRNA, LNP-S, PF, denny-sucrose, 30 mcg/0.3 mL 06/09/2024 completed OMERO [place], [place] - [facility] 09/19/2024 12:09:20 COVID-19, mRNA, LNP-S, PF, denny-sucrose, 30 mcg/0.3 mL 07/01/2023 completed OMERO [place], [place] - [facility] 09/19/2024 12:09:20 Influenza, split virus, trivalent, PF 05/31/2024 completed Josette Bucio [place] [facility] 09/19/2024 12:09:20 Influenza, split virus, quadrivalent, PF 05/09/2017 completed Josette Bucio [place] [facility] 09/19/2024 12:09:20 Influenza, split virus, quadrivalent, PF 05/21/2022 completed Josette Bucio [place] [facility] 09/19/2024 12:09:20 Influenza, split virus, quadrivalent, PF 05/28/2020 completed Josette Bucio [place] [facility] 09/19/2024 12:09:20 Influenza, split virus, quadrivalent, PF 05/31/2023 completed Josette Bucio [place] [facility] 09/19/2024 12:09:20 Influenza, split virus, quadrivalent, PF 04/26/2019 completed [facility] 0 02:38:11 Tdap 06/22/2019 completed Not Available [facility] 08/19/2019 02:40:20 Past Encounters Encounter ID Performer Location Encounter Start Date Encounter Closed Date Diagnosis/Indication Diagnosis SNOMED-CT Code Diagnosis ICD10 Code Diagnosis Note [id number] MD Edmund Earl ([employer]) [address] [place] [address] 07/31/2015 14:28:13 08/01/2015 11:57:07 Gynecologic examination 92611740 Z01.419 Subcutaneo us contraceptive implant present 890359425 Z30.42 [id number] MD Edmund Earl ([employer]) [address] [place] [address] 8 02/10/2016 16:36:08 02/20/2016 03:47:59 Subcutaneous contraceptive implant present 822958222 Z30.42 Insertion of subcutaneous contraceptive done 4526015173 90133 Z30.49 [id number] Sol Arvizu MD [facility] (Adult Med) [address] [place] [address] 0 11/02/2016 13:44:56 11/02/2016 14:50:16 General examination of patient 700026871 Z00.01 History of supraventricular tachycardia [id number] 9224436 Z86.79 Numbness of face 1761231 09 R20.0 [id number] Sol Arvizu MD [facility] (Adult Med) [address] [place] [address] 0 12/07/2016 16:02:54 12/07/2016 16:49:52 Paresthesia 15963894 R20.2 Disorder of vision 79159 002 H53.9 [id number] MD Edmund Earl ([employer]) [address] [place] [address] 8 11/22/2017 11:48:21 11/29/2017 15:12:00 Gynecologic examination 15662131 Z01.419 Contraception care 21100 5005 Z30.46 High risk sexual behavior 546785016 Z72.51 [id number] MD Edmund Earl ([employer]) [address] [place] [address] 04/14/2018 16:33:38 04/22/2018 11:42:05 Increased frequency of urination 066806051 R35.0 Vaginal pain 15546331 R1 0.2 [id number] MD Edmund Earl [facility] ([employer]) [address] [place] [address] 8 07/13/2018 13:46:52 07/14/2018 12:59:10 Removal of subcutaneous contraceptive 951457432 Z30.46 Trying to conceive 25478 9001 Z31.9 [id number] MD Edmund [facility] ([employer]) [address] [place] [address] 8 12/07/2018 18:02:01 12/08/2018 11:32:35 Irregular periods 43880316 N92.6 --menses irregular since Nexplanon removal 07/13/18 but also has been ill, see HPI [id number] MD Edmund Earl [facility] ([employer]) [address] [place] [address] 8 01/11/2019 17:17:22 01/12/2019 09:26:08 Gynecologic examination 81504042 Z01.419 --Pap up to date High risk sexual behavior 376848810 Z72.51 --requests gc/chl/tri ch only, will do other std labs with new OB blood work on return Urine preg deidre test positive 523688414 Z32.01 --no menses since 10/09/18 and now urine test is positive [id number] MD Edmund Earl [facility] ([employer]) [address] [place] [address] 8 02/16/2019 12:12:48 02/17/2019 15:25:49 Routine care 243064663 Z34.81 --new OB at 10w1d Maternal o besity complicating , childbirth and the puerperium, antepartum 4238601427 07 O99.027 [id number] MD Edmund [facility] ([employer]) [address] [place] [address] 8 03/08/2019 18:24:25 03/09/2019 09:20:37 Routine care 857708091 Z34.81 --13w0d [id number] MD Edmund Earl [facility] ([facility]) [address] [place], [place] [address] 04/05/2019 18:38:52 04/06/2019 17:08:10 Routine care 750080549 Z34.82 --17w0d [id number] MD Edmund Earl [facility] ([employer]) [address] [place], [place] [address] 04/26/2019 15:34:00 04/27/2019 09:15:50 Routine care 260607716 Z34.82 --20w0d Administra tion of influenza vaccine 67214061 Z23 Vaginal discharge 230688 006 N89.8 --resolved with Monistat, requesting check [id number] MD Edmund [facility] ([employer]) [address] [place], [place] [address] 8 05/24/2019 18:32:26 05/25/2019 14:54:47 Routine care 133772761 Z34.82 -95o5x--pc thrombocyt openia, plts 145k at 1st visit--hx of elevated LFTs, resolved but will recheck CMP [id number] [facility] [address] [place] [address] 8 06/07/2019 10:25:24 06/09/2019 03:46:40 [id number] MD Edmund [facility] ([employer]) [address] [place] [address] 8 06/22/2019 14:58:27 06/23/2019 14:09:02 Routine care 963797282 Z34.83 -53c5x--uh thrombocyt openia, plts 145k at 1st visit and 166k at 24 weeks--hx of elevated LFTs, resolved and recheck CMP at 24wks wnl Low back p ain in 1979196829 106 O26.899 Active or passive immunization 055612251 Z23 [id number] [facility] [address] [place] [address] 8 07/10/2019 16:02:46 07/11/2019 09:40:36 Routine care 224713473 Z34.83 -28v8y--dc thrombocyt openia, plts 145k at 1st visit and 166k at 24 weeks--hx of elevated LFTs, resolved and recheck CMP at 24wks wnl [id number] Daniel Hubbard MD [facility] ([employer]) [address] [place] [address] 8 07/27/2019 16:11:37 07/28/2019 15:45:32 Routine care 491963293 Z34.83 -69z3x--sa thrombocyt openia, plts 145k at 1st visit and 166k at 24 weeks--hx of elevated LFTs, resolved and recheck CMP at 24wks wnl [id number] MD Edmund Earl ([employer]) [address] [place] [address] 8 08/10/2019 11:06:43 08/11/2019 11:31:16 Routine care 679103039 Z34.83 -40r5c--rf thrombocyt openia, plts 145k at 1st visit, 166k at 24 weeks and 168k at 33 weeks--hx of elevated LFTs, resolved and recheck CMP at 24wks wnl and 34wks wnl Maternal o besity complicating , childbirth and the puerperium, antepartum 8568846076 07 O99.567 [id number] MD Edmund [facility] ([employer]) [address] [place] [address] 8 08/17/2019 12:20:14 08/18/2019 13:14:24 Routine care 975249143 Z34.83 -73g8p--du thrombocyt openia, plts 145k at 1st visit, 166k at 24 weeks and 168k at 33 weeks--hx of elevated LFTs, resolved and recheck CMP at 24wks wnl and 34wks wnl--EFW per ultrasound 08/15/2019 shows possible reduced growth velocity-- to have repeat BPP/dopple rs in one week Maternal o besity complicating , childbirth and the puerperium, antepartum 9160189682 07 O99.738 [id number] MD Edmund Earl ([employer]) [address] [place], [place] [address] 8 08/23/2019 14:21:06 08/25/2019 08:49:48 Routine care 387172704 Z34.83 -56g7e--mv thrombocyt openia, plts 145k at 1st visit, 166k at 24 weeks and 168k at 33 weeks--hx of elevated LFTs, resolved and recheck CMP at 24wks wnl and 34wks wnl--EFW per ultrasound 08/15/2019 shows possible reduced growth velocity-- to have repeat BPP/dopple rs in one week-sched uled later today Maternal o besity complicating , childbirth and the puerperium, antepartum 2088620998 07 O99.833 [id number] [facility] ([employer]) [address] [place], [place] [address] 8 08/28/2019 15:05:26 08/29/2019 12:44:05 Routine care 852115640 Z34.83 -20z8j--ct thrombocyt openia, plts 145k at 1st visit, 166k at 24 weeks and 168k at 33 weeks--hx of elevated LFTs, resolved and recheck CMP at 24wks wnl and 34wks wnl--EFW per ultrasound 08/15/2019 shows possible reduced growth velocity-- has repeat ultrasound on 08/30/2019 Maternal o besity complicating , childbirth and the puerperium, antepartum 6477926270 07 O99.088 [id number] MD Edmund Earl ([employer]) [address] [place] [address] 8 09/06/2019 14:03:34 09/07/2019 09:09:16 Routine care 096542331 Z34.83 -67y7e--uj thrombocyt openia, plts 145k at 1st visit, 166k at 24 weeks and 168k at 33 weeks--hx of elevated LFTs, resolved and recheck CMP at 24wks wnl and 34wks wnl--EFW per ultrasound 08/15/2019 shows possible reduced growth velocity-- repeat ultrasound on 08/30/2019 AGA Maternal o besity complicating , childbirth and the puerperium, antepartum 6954852350 07 O99.295 [id number] Daniel Hubbard MD [facility] ([employer]) [address] [place] [address] 10/26/2019 10:26:32 10/27/2019 11:52:38 care 260896753 Z39.2 --6+ weeks , no complaints , normal exam, doing well but to have ultrasound for possible hip dysplasia Implantati on of subcutaneous contraceptive 047862577 Z30.017 --no menses since delivery, has been using condoms faithfully [id number] Daniel Hubbard MD [facility] ([employer]) [address] [place] [address] 8 01/03/2021 14:05:27 01/08/2021 05:37:29 Gynecologic examination 54359611 Z01.419 --WWE --has primary for routine health issues/scr eenings Screening for malignant neoplasm of cervix 009725020 Z12.4 --last Pap ASCUS -hr HPV 11/22/17 so Pap indicated today Mastodynia of left breast 8318906535 6748524 N64.4 --intermit tent left lateral breast pain --negative exam Obesity 484962056 E66.9 --BMI 37.9 Contraception care 50536 5005 Z30.46 --Nexplano n inserted 10/26/2019 --consider ing , encouraged weight loss prior to - -she will call if she desires Nexplanon removal [id number] MD Guillermo Flaherty (Adult Med) [address] [place] [address] 09/19/2024 11:03:03 09/19/2024 12:57:27 Body mass index 40+ - severely obese 695612889 Z68.41 Obesity 568757828 E66.9 Fatigue 63231475 R53.83 Diabetes m ellitus screening 156034591 Z13.1 Screening for cardiovascular system disease 086659701 Z13.6 Sinusitis 56930896 J32.9 Supraventr icular tachycardia 3654828 I47.10 Asthma 301739969 J45.90 9 Adult heal th examination 953597367 Z00.00 [id number] Charlotte Sidhu MD [facility] (Adult Med) [address] [place] [address] 12/01/2024 11:24:14 12/01/2024 12:49:51 Severe obesity 7374177253 9104 E66.01 Obese class II 772444687 1 84071 E66.812 Neck pain 92188049 M54.2 Health Concerns Section Related Observation LastModified by Organization Detai ls LastModified Time None Recorded Concern Status LastModified by Organization Details LastModified Time None Recorded Advance Directives Directive None Recorded Payers Encounter Date Sequence Insurance Name Policy Number Policy Valentin Covered Member ID Valentin Member ID Guarantor Name 09/06/2019 1 [facility] [id number] Belinda A Cross [id number] Belinda Cross 09/06/2019 1 [place] [facility] [id number] Belinda Cross 10/26/2019 1 [facility] [id number] Belinda A Cross [id number] Belinda Cross 10/26/2019 1 [place] [facility] [id number] Belinda Cross 01/03/2021 1 [facility] [id number] Belinda A Cross [id number] Belinda Cross 01/03/2021 1 [place] [facility] [id number] Belinda Cross 09/19/2024 2 [place] [facility] Belinda Cross [id number] Belinda Cross Notes Date Note Type Note Provider Name and Address Organization Details Recorded Time 09/06/2019 text/html see tim w sheet Daniel Hubbard null, [place] - [facility] 09/06/2019 19:49:58 10/26/2019 text/html VisitReported bypatient.Onset/Timin g:date of delivery:; 09/08/2019 Quality: Context:complications of labor: none; complications: none; feeding choice: bottle; good support from partner/family Associated Symptoms:no abnormal bleeding; no pelvic pain; laceration well healed; no constipation; no fecal incontinence; no dysuria; no urinary incontinence; no fever; no mastitis Daniel Santossuhailcesar donis CT - [facility] 10/26/2019 14:18:43 01/03/2021 text/html Annual GYNReport ed bypatient.Menstrual cycle:no menses with Nexplanon Urinary symptoms:No hematuria; No incontinence Vulva:No genital lesion Vagina:Normal vaginal discharge Breast:No breast lump; No nipple discharge;Breast pain; left lateral breast intermittently over 2 months Current Contraception:Satisfi ed with current contraception; Implanon Sexual complaints:No sexual complaints; No pain during intercourse; Normal libido Menopausal Symptoms:No menopausal symptoms; Normal vaginal lubrication Psychological symptoms:No depression; No anxiety; No PMDD Preventive measures:Encourage self breast examination; Encourage regular exercise; Encourage no tobacco use; History of abnormal pap smear/cervical dysplasiaBreast PainReported bypatient.Location:formerly [facility] Onset/Timing:>1 month; started 2 months ago Duration:rare; once every couple of weeks Quality:dull; can last a couple hours Associated Symptoms:no fever; no chills; no skin redness; no nipple discharge; no sore nipples; breasts not full, sore, unable to express milk; no breast swelling; no arm pain; no arm swelling; no chest pain; no malaise; no breast lump 35yo on Nexplanon now here for an annual exam. She complains of intermittent left lateral breast pain over the last 2 months--see below. Daniel Santossuhailcesar donis CT - [facility] 01/03/2021 19:00:56 09/19/2024 text/html 39-year-old come s in because of switching doctors history of anxiety rhinitis asthma palpitations status post ablation for SVT low B12 level has had headaches in the past as well and those are stable care he has EpiPen had a very severe allergic reaction to she believes BuSpar medications she takes EpiPen generic Lexapro 10 mg 1-1/2 tablet daily fluticasone nasal spray leave albuterol inhaler magnesium oxide 400 b.i.d. has a Nexplanon subdermal implant allergies as listed penicillin hives sulfa hives and severe reaction to BuSpar surgically she has had cholecystectomy tonsillectomy SVT ablation and nasal surgery family history positive for depression diabetes and high blood pressure. Socially denies smoking drinking vaping she is a [id number] mom Charlotte Sidhu MD Attn: Accounting,[address] [facility], [place], [address], [place] - [facility] 10/22/2024 15:35:26 OBGyn Episode Ob Episode Information Episode Created Date Number of Fetuses Patient Bloodtype Patient rh Status Prepregnancy Weight lbs Domestic Partner Domestic Partner Phone Father Name Slot Machine Repairer Status 02/17/20 [address] RUBY D Fetus Data First Name Last Name Admitted to NICU Weight (g) Sex Living Outcome Pediatric Complications Fetus ID Race Codes Race Delivery Type Powell Julien quezada Cross false 3231.84 3 F true Full Term [id number] 2057-6 Afric an Ameri can Vaginal Problems Problem Notes Flu vaccine given 04/26/19, t dap given 06/22/19Prior to found to have low plts and increased liver fxn tests--resolved and was felt due to steroid or recent viral illness--plts on 02/16/19 new OB apt 145k and LFTs on 03/10/19 AST/ALT [facility] Start Date End Date Resolution Snomed Code Note Thrombocytopenic disorder 732951245 lowest in 110s around , had been sick in September with URI/ear infections, Platelets 145k at 1st visit, 166k at 26wks and 168k at 33wks Maternal obesity complicating , childbirth and the puerperium, antepartum 9 712761008262 pre BM I 38.3--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 0 [id number] +GBS susceptible to clindamycin Common bile duct calculus 9 121695660 Prior cholecystectomy and prior common bile duct stone retrieval prior to but had some pain around 17 weeks this consistent with recurrence, saw GI and they wanted to do a scope but pt changed diet and began OTC fiber and pain has resolved so she prefers to avoid scope/surgery at this time, knows to return to ER if severe pain, did have elevated LFTs in ER 04/05/19 AST 45, ALT 57, normal LFTs 06/07/19 and 08/07/2019 in L&D care: poor obstetric history 9 019830277 History of chorioamnionitis in 1st / hospitalized x 8d--seen by [facility] this per their order after anatomy ultrasound done there--see consult notes Female sterilization 9 70195938 Considering PPTL--but likes no menses with Nexplanon--has [employer] insurance Rogelio Calculation Initial Rogelio Date Initial Exam Date Initial Exam Provider Initial Ultrasound Date Last Menstrual Period Date Ultra Sound Weeks Gestation 09/13/2019 02/16/2019 tank 01/24/2019 10/09/2018 6 Eighteen To Twenty Week Rogelio Update Ultra Sound Date Fundal Height At Umbil Quickening Date Ultra Sound Latest Weeks Gestation Final Rogelio Confirmed By Final Rogelio Confirmed Date Final Rogelio Date Ultra Sound Latest Days Gestation 04/19/20 19 19 tank 04/21/2019 020 0 Pre- Flowsheet Flowsheet Date 02/16/2019 Rose Score Blood Edema Fundus Height Fundus Units Glucose Ketones Leukocytes Nitrite Labor Signs Protein Cervic Dilation Cervic Effacement Cervic Station neg none none negative Other (see comments ) neg Type Weight in lbs Pre/Post Dialysis Refused Weight 207.805862163775 BP Diastolic BP Location Tested BP Systolic BP Type 76 124 sitting Fetus Heart Rate Present A 156 Present Fetus Movement Comments 33yo here for new OB appointment. Ultrasound 01/24/19 gives ROGELIO 09/13/19 and EGA now of 10w1d. She reports some nausea/vomiting--mostly nausea keeping her from eating and rare vomiting but feeling much better now. She has used unisom/vit B6 with benefit and declines needing other meds at this time. She also c/o constipation and has increased J1V--negf try increasing fiber. Exam completed 01/11/19 but labs done today. Will do NT ultrasound with aneuploidy screening with [facility]. Flowsheet Date 03/08/2019 Rose Score Blood Edema Fundus Height Fundus Units Glucose Ketones Leukocytes Nitrite Labor Signs Protein Cervic Dilation Cervic Effacement Cervic Station neg none none negative Other (see comments ) neg Type Weight in lbs Pre/Post Dialysis Refused Weight 209.026525755415 BP Diastolic BP Location Tested BP Systolic BP Type 72 112 sitting Fetus Heart Rate Present A 158 Present Fetus Movement Comments Here for KINDRA visit: using un eric/vitamin B6 and is feeling better, constipation is better, reviewed lab results from last visit-will draw CMP today due to previous elevated LFTs, also discussed plt 145k which per pt had previously been lower, having NT ultrasound with [facility] on 03/10/19 Flowsheet Date 04/05/2019 Rose Score Blood Edema Fundus Height Fundus Units Glucose Ketones Leukocytes Nitrite Labor Signs Protein Cervic Dilation Cervic Effacement Cervic Station neg none none negative Other (see comments ) neg Type Weight in lbs Pre/Post Dialysis Refused Weight 206.246510202899 BP Diastolic BP Location Tested BP Systolic BP Type 78 140 sitting 74 132 sitting Fetus Heart Rate Present A 152 Present Fetus Movement A Yes Comments Here for return OB visit: co mplaining of upper abdominal pain starting today, reports no nausea/vomiting for 3 weeks but on awakening this morning she vomited and then began having intermittent upper abdominal pain mostly in LUQ, severe cramping 10 out of 10 for 15 seconds on and off throughout the day and states now feeling pain more consistently between the severe cramping, no fever, states pain is like gallstone pain she had before her cholecystectomy and also with stone removal after cholecystectomy, pt with no hx of hypertension and thinks her BP is up due to the discomfort, she denies headaches, vision changes, edema, she states she will go to the ER for evaluation.She reports having 2nd seq screen drawn yesterday and reports good movement and no pain below her umbilicus. She does have some constipation at times but states that usually causes lower cramping which she hasn't had-she is unsure how many days it has been since her last BM but usually she goes every other day. Flowsheet Date 04/26/2019 Rose Score Blood Edema Fundus Height Fundus Units Glucose Ketones Leukocytes Nitrite Labor Signs Protein Cervic Dilation Cervic Effacement Cervic Station neg none 18 cm none negative Other (see comments ) neg Type Weight in lbs Pre/Post Dialysis Refused Weight 205.178006670628 BP Diastolic BP Location Tested BP Systolic BP Type 76 120 sitting Fetus Heart Rate Present A 144 Present Fetus Movement A Yes Comments Here for return OB visit: re carla good mvt and denies ctxs/LOF/bleeding, did have vaginal discharge with itching but used Monistat and symptoms have now finally subsided-pt still requested exam and exam, wet mount, HADLEY all negative, pt reports RUQ pain has resolved and stays resolved if she avoids spicy food and takes OTC fiber, discussed [facility] seeing her after her 20 wk ultrasound and they have her scheduled to see them again in 4 weeks with ultrasound/consult due to prior history of chorio, staff to call for seq screen results, next visit to have 1hr glucose/cbc/repeat cmp Flowsheet Date 05/24/2019 Rose Score Blood Edema Fundus Height Fundus Units Glucose Ketones Leukocytes Nitrite Labor Signs Protein Cervic Dilation Cervic Effacement Cervic Station neg none 23 cm none moderate none neg Type Weight in lbs Pre/Post Dialysis Refused Weight 207.657954401305 BP Diastolic BP Location Tested BP Systolic BP Type 72 126 sitting Fetus Heart Rate Present A 152 Present Fetus Movement A Yes Comments Here for return OB visit: re portjose good mvt, no ctxs/LOF/bleeding, too late to do blood work today--will return in 2 weeks for lab only: 1hr glucose, cbc and cmp, has repeat u/s scheduled 06/14/19, denies further RUQ pains and discharge is less Flowsheet Date 06/07/2019 Rose Score Blood Edema Fundus Height Fundus Units Glucose Ketones Leukocytes Nitrite Labor Signs Protein Cervic Dilation Cervic Effacement Cervic Station Type Weight in lbs Pre/Post Dialysis Refused BP Diastolic BP Location Tested BP Systolic BP Type Fetus Heart Rate Present Fetus Movement Comments Flowsheet Date 06/22/2019 Rose Score Blood Edema Fundus Height Fundus Units Glucose Ketones Leukocytes Nitrite Labor Signs Protein Cervic Dilation Cervic Effacement Cervic Station neg none 27 cm none negative Backpain neg Type Weight in lbs Pre/Post Dialysis Refused Weight 208.936254026386 BP Diastolic BP Location Tested BP Systolic BP Type 72 128 sitting Fetus Heart Rate Present A 156 Present Fetus Movement A Yes Comments Here for return OB visit: re ports good mvt, no ctxs/LOF/bleeding, only c/o is lower back pain--recs reviewed--supportive shoes, lift with legs, Rx maternity belt, discussed normal lab and ultrasound results, will do tdap today Flowsheet Date 07/10/2019 Rose Score Blood Edema Fundus Height Fundus Units Glucose Ketones Leukocytes Nitrite Labor Signs Protein Cervic Dilation Cervic Effacement Cervic Station neg none 30 cm none negative none neg Type Weight in lbs Pre/Post Dialysis Refused Weight 210.101215346970 BP Diastolic BP Location Tested BP Systolic BP Type 62 112 sitting Fetus Heart Rate Present A 152 Present Fetus Movement A Yes Comments Here for return OB visit: re ports good mvt, no ctxs/LOF/bleeding, asking about PPTL--options reviewed and uptodate information pamphlets provided, also liked no menses with Nexplanon so not sure, got maternity belt and back pain is somewhat better--still wearing flat shoes today Flowsheet Date 07/27/2019 Rose Score Blood Edema Fundus Height Fundus Units Glucose Ketones Leukocytes Nitrite Labor Signs Protein Cervic Dilation Cervic Effacement Cervic Station neg none 31 cm none negative none neg Type Weight in lbs Pre/Post Dialysis Refused With clothes 213.296032825927 BP Diastolic BP Location Tested BP Systolic BP Type 68 130 sitting Fetus Heart Rate Present A 136 Present Fetus Movement A Yes Comments Here for return OB visit: re ports good mvt, no ctxs/LOF/bleeding, will do CBC-HIV-RPR today Flowsheet Date 08/07/2019 Rose Score Blood Edema Fundus Height Fundus Units Glucose Ketones Leukocytes Nitrite Labor Signs Protein Cervic Dilation Cervic Effacement Cervic Station Type Weight in lbs Pre/Post Dialysis Refused BP Diastolic BP Location Tested BP Systolic BP Type Fetus Heart Rate Present Fetus Movement Comments Seen at for right upper q uadrant pain, elevated BPs reported with home wrist cuff. BPs normal over 2 hours in hospital. Plt 145/AST 14/ALT 12/Cr 0.5. P:C 0.13. Likely MSK vs known GI etiology, reassurance provided. Follow up as scheduled. - [place] Flowsheet Date 08/10/2019 Rose Score Blood Edema Fundus Height Fundus Units Glucose Ketones Leukocytes Nitrite Labor Signs Protein Cervic Dilation Cervic Effacement Cervic Station neg none 33 cm none negative none neg Type Weight in lbs Pre/Post Dialysis Refused Weight 215.165682007645 BP Diastolic BP Location Tested BP Systolic BP Type 60 112 sitting Fetus Heart Rate Present A 156 Present Fetus Movement A Yes Comments Here for return OB visit: re ports good mvt, no ctxs/LOF/bleeding, some cramping only, seen in L&D for RUQ pain and elevated home BP 08/07/2019, PIH labs wnl-no further issues, aware of preeclamptic precautions Flowsheet Date 08/17/2019 Rose Score Blood Edema Fundus Height Fundus Units Glucose Ketones Leukocytes Nitrite Labor Signs Protein Cervic Dilation Cervic Effacement Cervic Station neg none 34 cm none negative none neg 0cm 0% - 4 Type Weight in lbs Pre/Post Dialysis Refused Weight 215.221972707333 BP Diastolic BP Location Tested BP Systolic BP Type 82 136 sitting Fetus Heart Rate Present A 140 Present Fetus Movement A Yes Comments Here for return OB visit: re ports good mvt, no ctxs/LOF/bleeding, only rare RUQ pain with turning/twisting occasionally, discussed ultrasound result 08/15/2019 with possible reduced growth velocity--to call and schedule one week f/u for BPP/dopplers, GBS and Gc/chl/trich performed today, SVE closed to FT internal os, thick and high Flowsheet Date 08/23/2019 Rose Score Blood Edema Fundus Height Fundus Units Glucose Ketones Leukocytes Nitrite Labor Signs Protein Cervic Dilation Cervic Effacement Cervic Station neg trace 34.5 cm none negative none neg 1cm 0% -3 Type Weight in lbs Pre/Post Dialysis Refused Weight 217.660527828842 BP Diastolic BP Location Tested BP Systolic BP Type 78 132 sitting Fetus Heart Rate Present A 140 Present Fetus Movement A Yes Comments Here for return OB visit: re ports good mvt, no ctxs/LOF/bleeding, no further RUQ pain, has ultrasound later this afternoon with [facility] due to possible reduced growth velocity, discussed +GBS and Gc/chl/trich results Flowsheet Date 08/28/2019 Rose Score Blood Edema Fundus Height Fundus Units Glucose Ketones Leukocytes Nitrite Labor Signs Protein Cervic Dilation Cervic Effacement Cervic Station neg none 35 cm none negative Cramping neg 2cm 0% -3 Type Weight in lbs Pre/Post Dialysis Refused Weight 218.761599733473 BP Diastolic BP Location Tested BP Systolic BP Type 80 124 sitting Fetus Heart Rate Present A 156 Present Fetus Movement A Yes Comments Here for return OB visit: re ports good mvt, no ctxs/LOF/bleeding, has repeat ultrasound 08/30/2019 Flowsheet Date 09/06/2019 Rose Score Blood Edema Fundus Height Fundus Units Glucose Ketones Leukocytes Nitrite Labor Signs Protein Cervic Dilation Cervic Effacement Cervic Station neg none 36 cm none negative none neg 2cm 0% - 3 Type Weight in lbs Pre/Post Dialysis Refused Weight 215.987165551534 BP Diastolic BP Location Tested BP Systolic BP Type 82 132 sitting Fetus Heart Rate Present A 144 Present Fetus Movement A Yes Comments Here for return OB visit: re ports good mvt, no ctxs/LOF/bleeding, discussed ultrasound result from 08/30/2019 AGA with EFW 7#, now requesting induction so scheduled on 09/08/2019 5a pitocin Flowsheet Date 10/26/2019 Rose Score Blood Edema Fundus Height Fundus Units Glucose Ketones Leukocytes Nitrite Labor Signs Protein Cervic Dilation Cervic Effacement Cervic Station Type Weight in lbs Pre/Post Dialysis Refused Weight 201.543128283826 BP Diastolic BP Location Tested BP Systolic BP Type 80 132 sitting Fetus Heart Rate Present Fetus Movement Comments Menstrual History Last Menstrual Date Menses Monthly On Bcp Conception Prior Menses Frequency Hcg Plus Date Menarche Onset Age 0310/09/2018 false false 08/29/2018 01/12/20 1 9 13 Genetic Screening And Infection History Question Response Note Patient's Age Will Be 35 Yea rs Or Older At Estimated Date of Delivery false Thalassemia (Equatorial Guinean, Yemeni, Mediterranean, Or Background): MCV < 80 false Neural Tube Defect (Meningom yelocele, Spina Bifida, Or Anencephaly) false Congenital Heart Defect false Down Syndrome false Morro-Sachs (eg, Episcopalian, Cajun , [place] Islander-Botswanan) false Derek Disease false Sickle Cell Disease Or Trait () false Hemophilia Or Other Blood Disorders false Muscular Dystrophy false Cystic Fibrosis false Hurley's Chorea false Mental Retardation/Autism false Other Inherited Genetic Or C hromosomal Disorder false Maternal Metabolic Disorder (eg, Type 1 Diabetes, PKU) false Patient Or Baby's Father Had A Child With Defects Not Listed Above false Recurrent Loss, Or A Stillbirth false Medications (including Suppl ements, Vitamins, Herbs, OTC Drugs), Illicit/Recreational Drugs, Alcohol true PNV, fish oil, MgS O4, unisom, vit B6 If Yes, Agent(s) And Strength/Dosage false Any Other Genetic History false Live With Someone With TB Or Exposed To TB false Patient Or Partner Has Histo ry Of Genital Herpes false Rash Or Viral Illness Since Last Menstrual Period false History Of STD, Gonorrhea, C hlamydia, HPV, Syphilis true gonorrhea, ?chlamydia Other Infection History false History of HIV false History of Hepatitis false Prior GBS-infected child false Plans and Education First Trimester Discussed Date Discussion Item Discussion Note Discuss ed By 03/08/2019 Anticipated course o f care [facility] 03/08/2019 Alcohol [facility] 03/08/2019 Intimate partner violence [place] [facility] 03/08/2019 [facility] 03/08/2019 Screening for aneuploidy schedul ed for NT ultrasound with [facility] on 03/10/19 [facility] 03/08/2019 Nutrition counseling ; special diet; dietary precautions (mercury, listeriosis) [facility] 03/08/2019 Childbirth classes/h ospital facilities [facility] 03/08/2019 HIV and other routin e tests [facility] 03/08/2019 Risk factors identif ied by history [facility] 03/08/2019 Weight gain counseling [facility] 03/08/2019 Exercise [facility] 03/08/2019 Teratogens [facility] 03/08/2019 Use of any medicatio ns (including supplements, vitamins, herbs, or OTC drugs) [facility] 03/08/2019 breast [facility] 03/08/2019 Sexual activity [facility] 03/08/2019 Tobacco/smoking cess ation counseling (ask, advise, assess, assist, and arrange) [facility] 03/08/2019 Illicit/recreational drugs d burak 03/08/2019 [facility] 03/[facility]2019 [facility] 03/08/2019 Seat belt use [facility] 03/08/2019 Indications for ultrasonography [facility] 03/08/2019 Avoidance of saunas or hot tubs [facility] 03/08/2019 Toxoplasmosis precau tions (cats/raw meat) no cats [facility] Second Trimester Discussed Date Discussion Item Discussion Note Discuss ed By 06/22/[address] a care provider Dr Morena fu 06/22/2019 family planning/tubal sterilization Nexplanon or BTL/vasectomy [facility] 06/22/2019 Depression screening (when indicated) no history [facility] 06/22/2019 Abnormal lab values discussed robert guerrero 06/22/2019 Signs and symptoms o f labor discussed hanssujey 06/22/2019 Intimate partner violence denies de darius 06/22/2019 Tobacco/smoking cess ation counseling (ask, advise, assess, assist, and arrange) denies [facility] Third Trimester Discussed Date Discussion Item Discussion Note Discuss ed By 06/22/2019 Intimate partner violence denies stanley 06/22/2019 [facility] movement monitoring discussed de darius 06/22/2019 breast [facility] 06/22/2019 [facility] signs [facility] 06/22/2019 depression no history roseline sujey 06/22/2019 Tobacco/smoking cess ation counseling (ask, advise, assess, assist, and arrange) denies tank 06/22/2019 Signs and symptoms of preeclampsia discus sed [facility]ey Delivery Information Delivery Date Delivery Type Labor Anesthesia Weeks Gestation Incision Type Labor Labor Length Hrs Delivered By Post Complications Tubal Sterilization Discharge Date Comments 0 Induce d Regional-Ep idural 39.2 false tank false NVD w ith small 2nd deg lac per Dr Nicholson, +GBS Discharge Information Feeding Method Contraceptive Method Maternal HG B and HCT Levels Bottle Nexplanon 10.3/31.5 Ob Episode Information Episode Created Date Number of Fetuses Patient Bloodtype Patient rh Status Prepregnancy Weight lbs Domestic Partner Domestic Partner Phone Father Name Slot Machine Repairer Status 07/31/20 15 1 CLOSED Fetus Data First Name Last Name Admitted to NICU Weight (g) Sex Living Outcome Pediatric Complications Fetus ID Race Codes Race Delivery Type , [place] o[place] [id number] Rogelio Calculation Initial Rogelio Date Initial Exam Date Initial Exam Provider Initial Ultrasound Date Last Menstrual Period Date Ultra Sound Weeks Gestation 0 Eighteen To Twenty Week Rogelio Update Ultra Sound Date Fundal Height At Umbil Quickening Date Ultra Sound Latest Weeks Gestation Final Rogelio Confirmed By Final Rogelio Confirmed Date Final Rogelio Date Ultra Sound Latest Days Gestation 0 0 Menstrual History Last Menstrual Date Menses Monthly On Bcp Conception Prior Menses Frequency Hcg Plus Date Menarche Onset Age Delivery Information Delivery Date Delivery Type Labor Anesthesia Weeks Gestation Incision Type Labor Labor Length Hrs Delivered By Post Complications Tubal Sterilization Discharge Date Comments 2 7 ?blighte d ovum Discharge Information Feeding Method Contraceptive Method Maternal HG B and HCT Levels Ob Episode Information Episode Created Date Number of Fetuses Patient Bloodtype Patient rh Status Prepregnancy Weight lbs Domestic Partner Domestic Partner Phone Father Name Slot Machine Repairer Status 07/31/20 15 1 CLOSED Fetus Data First Name Last Name Admitted to NICU Weight (g) Sex Living Outcome Pediatric Complications Fetus ID Race Codes Race Delivery Type , [place] ous [id number] Rogelio Calculation Initial Rogelio Date Initial Exam Date Initial Exam Provider Initial Ultrasound Date Last Menstrual Period Date Ultra Sound Weeks Gestation 0 Eighteen To Twenty Week Rogelio Update Ultra Sound Date Fundal Height At Umbil Quickening Date Ultra Sound Latest Weeks Gestation Final Rogelio Confirmed By Final Rogelio Confirmed Date Final Rogelio Date Ultra Sound Latest Days Gestation 0 0 Menstrual History Last Menstrual Date Menses Monthly On Bcp Conception Prior Menses Frequency Hcg Plus Date Menarche Onset Age Delivery Information Delivery Date Delivery Type Labor Anesthesia Weeks Gestation Incision Type Labor Labor Length Hrs Delivered By Post Complications Tubal Sterilization Discharge Date Comments 8 6 Discharge Information Feeding Method Contraceptive Method Maternal HG B and HCT Levels Ob Episode Information Episode Created Date Number of Fetuses Patient Bloodtype Patient rh Status Prepregnancy Weight lbs Domestic Partner Domestic Partner Phone Father Name Slot Machine Repairer Status 07/31/20 15 1 CLOSED Fetus Data First Name Last Name Admitted to NICU Weight (g) Sex Living Outcome Pediatric Complications Fetus ID Race Codes Race Delivery Type [id number] F Full Term [id number] Vaginal Rogelio Calculation Initial Rogelio Date Initial Exam Date Initial Exam Provider Initial Ultrasound Date Last Menstrual Period Date Ultra Sound Weeks Gestation 0 Eighteen To Twenty Week Rogelio Update Ultra Sound Date Fundal Height At Umbil Quickening Date Ultra Sound Latest Weeks Gestation Final Rogelio Confirmed By Final Rogelio Confirmed Date Final Rogelio Date Ultra Sound Latest Days Gestation 0 0 Menstrual History Last Menstrual Date Menses Monthly On Bcp Conception Prior Menses Frequency Hcg Plus Date Menarche Onset Age Delivery Information Delivery Date Delivery Type Labor Anesthesia Weeks Gestation Incision Type Labor Labor Length Hrs Delivered By Post Complications Tubal Sterilization Discharge Date Comments 3 39.4 false E--chorio Discharge Information Feeding Method Contraceptive Method Maternal HG B and HCT Levels
--- OUTSIDE RECORDS SUMMARY | 2024-12-07 10:22 | XMS_ITS | Patient Health Record ---
Author Organization [facility] As [employer] [facility] Address [address] [place] [address] Care Team Providers Care Laboratory Technical Specialist Name Role Phone Darren Sidhu MD Primary Care Provider Unavaila Yessy Rodgers Unavailable [phone] Migration, Provider Unavailable Unavailable Allergies Allergen (clinical drug ingredient) Drug/Non Drug Allergy documented on EMR Reaction Allergy Type Onset Date Status Substance with sulfonamide structure and antibacterial mechanism of action (substance) SULFA (SULFONAMIDE ANTIBIOTICS) (uncoded) Unknown Allergy 11/03/2023 Active Sulfur Dioxide SULFUR DIOXIDE (uncoded) Unknown Allergy 11/03/2023 Active SULFUR HEXAFLUORIDE MICROSPHERES (uncoded) Unknown Allergy 11/03/2023 Active bupropion Bupropion Unknown Drug Allergy 11/03/2023 Active Substance with penicillin structure and antibacterial mechanism of action (substance) Penicillins Unknown Drug Allergy 11/03/2023 Active Reason For Referral No Information Medications Medication SIG (Take, Route, Frequency, Duration) Notes Start Date End Date Status ProAir HFA 108 (90 Base) MCG/ACT Inhalation 11/03/2023 Unknown Nexplanon 68 MG Subcutaneous 11/03/2023 Unknown Cyanocobalamin 1000 MCG/ML Injection 11/03/2023 Unknown Cyclobenzaprine HCl 5 MG Oral 11/03/2023 Unknown Symbicort 160-4.5 MCG/ACT Inhalation 11/03/2023 Unknown Magnesium Oxide (Elemental) 400 MG Oral *Reorder from [employer] for eRx and Interaction Alerts* 11/03/2023 Unknown Lexapro 20 MG 1 tablet Oral Once a day for 30 days Active Mupirocin 2% External 11/03/2023 Unknow n Xopenex HFA 45 MCG/ACT Inhalation 11/03/2023 Unknown rOPINIRole HCl 0.5 MG Oral 11/03/2023 Unknown predniSONE 20 MG Oral 11/03/2023 Un known Auvi-Q 0.3 MG/0.3ML Injection 11/03/2023 Unknown Fluticasone Propionate Diskus 50 MCG/ACT Inhalation *Reorder from [employer] for eRx and Interaction Alerts* 11/03/2023 Unknown Immunizations Vaccine Route Administration Date Status Comme nts Influenza virus vaccine, quadrivalent (IIV4), split virus, 0.25 mL dosage Unknown 05/28/2020 Administered Novel [id number], preservative free Unknown 05/21/2022 Administered Pfizer Biontech Covid-19 Vac cine 2nd dose Unknown 04/24/2021 Administered Pfizer Biontech Covid-19 Vac cine 2nd dose Unknown 06/05/2021 Administered Social History Tobacco Use: Social History Observation Description Date Details (start date - stop date) Former Smoker NA - NA Sex Assigned At : Social History Observation Description Sex Assigned At Female Household Question Answer Notes Marital status: Number of adults in household: 2 Number of children in household: 2 Tobacco Control (Standard) Question Answer Notes Tobacco use: Former smoker Problems Problem Type SNOMED Code ICD Code Onset Dates Problem Status W/U Status Risk Notes Problem Generalized anxiety disorder (99879163) Generalized anxiety disorder (F41.1) Active confirmed Problem Primary insomnia (6928933) Primary insomnia (F51.01) Active confirmed Vital Signs Heart Rate 67 /min 12/05/2024 Height-cm 160.02 cm 12/05/2024 Blood pressure diastolic 82 mm Hg 12/05/2024 Weight-kg 102.06 kg 12/05/2024 Height 63.00 in 12/05/2024 Blood pressure systolic 131 mm Hg 12/05/2024 Weight 225 lbs 12/05/2024 BMI 39.85 kg/m2 12/05/2024 Encounters Encounter Location Date Provider Diagnosis [facility] [employer] [facility] [address] [facility] [address] [place] [address] 01/05/2024 Yessy Hall [facility] [employer] [facility] [address] [facility] [address] [place] [address] 01/14/2024 Yessy Hall Generalized anxiety disorder F41.1 and Primary insomnia F51.[address] [facility] [address] [place] [address] 03/13/2024 Yessy Hall [address] [address] 03/20/2024 Yessy Rafael Generalized anxiety disorder F41.1 and Primary insomnia F51.[address] [address] 04/19/2024 Yessy Rafael Generalized anxiety disorder F41.1 and Primary insomnia F51.[address] [facility] [address] [place] [address] 06/20/2024 Yessy Rafael Generalized anxiety disorder F41.1 and Primary insomnia F51.[address] [address] 12/05/2024 Yessybarney Hall Generalized anxiety disorder F41.1 ; Primary insomnia F51.01 ; Encounter for screening for cardiovascular disorders Z13.6 and Negative depression screening Z13.[address] [address] 12/18/2023 Provider Migration [address] [address] 12/19/2023 Provider Migration [address] [address] 04/25/2024 Yessy Hall [address] [address] 09/12/2024 Yessy Hall Assessments Encounter Date Diagnosis (ICD Code) Assessment Notes Treatment Notes Treatment Clinical Notes Section Notes 01/14/2024 Generalized anxiety disorder (ICD-10 - F41.1) 01/14/2024 Primary insomnia (ICD-10 - F51.01) 03/20/2024 Generalized anxiety disorder (ICD-10 - F41.1) 04/19/2024 Generalized anxiety disorder (ICD-10 - F41.1) Common side effects to SSRI medications include headaches, dry mouth/eye, GI upset (including indigestion, nausea, diarrhea), sleeping problems (insomnia or drowsiness), decreased libido, blurred vision, dizziness. Generally, side effects will subside or lessen with time and are common during drug initiation and dose changes. If they persist please contact the office. 06/20/2024 Generalized anxiety disorder (ICD-10 - F41.1) Common side effects to SSRI medications include headaches, dry mouth/eye, GI upset (including indigestion, nausea, diarrhea), sleeping problems (insomnia or drowsiness), decreased libido, blurred vision, dizziness. Generally, side effects will subside or lessen with time and are common during drug initiation and dose changes. If they persist please contact the office. 1. CHELITA stable -cont escitalopram 15mg daily -encourage non-pharmaceut ical treatments including deep breathing, grounding exercises, physical activity, healthy diet. -discussed [facility] for sliding fee counseling 2. Insomnia/night yousif -cont off of prazosin due to dizziness at 2mg 12/05/2024 Generalized anxiety disorder (ICD-10 - F41.1) Common side effects to SSRI medications include headaches, dry mouth/eye, GI upset (including indigestion, nausea, diarrhea), sleeping problems (insomnia or drowsiness), decreased libido, blurred vision, dizziness. Generally, side effects will subside or lessen with time and are common during drug initiation and dose changes. If they persist please contact the office. 12/05/2024 Primary insomnia (ICD-10 - F51.01) 12/05/2024 Encounter for screening for cardiovascular disorders (ICD-10 - Z13.6) 06/20/2024 Primary insomnia (ICD-10 - F51.01) 1. CHELITA stable -cont escitalopram 15mg daily -encourage non-pharmaceut ical treatments including deep breathing, grounding exercises, physical activity, healthy diet. -discussed [facility] for sliding fee counseling 2. Insomnia/night yousif -cont off of prazosin due to dizziness at 2mg 04/19/2024 Primary insomnia (ICD-10 - F51.01) 03/20/2024 Primary insomnia (ICD-10 - F51.01) 12/05/2024 Negative depression screening (ICD-10 - Z13.31) 01/14/2024 Other Feels stable, continue current medications. Patient educated on all medications including potential benefits, side effects, risks. Educated on proper dosing schedule and importance of compliance. 03/20/2024 Other Start Prazosin 1mg qHS for nightmares. Continue escitalopram 10mg daily for anxiety. Patient educated on all medications including potential benefits, side effects, risks. Educated on proper dosing schedule and importance of compliance. 04/19/2024 Other Increase Prazosin to 2mg nightly for nightmares. Patient educated on all medications including potential benefits, side effects, risks. Educated on proper dosing schedule and importance of compliance. 06/20/2024 Other Overall feels stable, continue escitalopram 15mg daily. Refill sent in. Patient educated on all medications including potential benefits, side effects, risks. Educated on proper dosing schedule and importance of compliance. 1. CHELITA stable -cont escitalopram 15mg daily -encourage non-pharmaceut ical treatments including deep breathing, grounding exercises, physical activity, healthy diet. -discussed [facility] for sliding fee counseling 2. Insomnia/night yousif -cont off of prazosin due to dizziness at 2mg 12/05/2024 Other Increase escitalopram to 20mg daily for anxiety Patient educated on all medications including potential benefits, side effects, risks. Educated on proper dosing schedule and importance of compliance. -Assessment and treatment plan reviewed with patient. -Compliance with treatment plan importance discussed. -Discussed the risks/benefits of this medication -Discussed medication side effects. -Contact office if symptoms worsen. -Discussed that it can take up to 6-8 weeks to see full therapeutic effects of psychotropic medications. -Crisis prevention hotline 842. Plan Of Treatment Next Appt Details Provider Name:Yessy Hall, 01/23/2025 01:30:00 PM, [address] [facility] [facility] [address], [place], [address], Insurance Providers Payer Name Payer Address Payer Phone Subscriber Number Group Number Insured Name Patient Relationship to Insured Coverage Start Date Coverage End Date [facility] [address] [place] [address] [id number] MITUL HOLLINGSWORTH Spouse - patient is the spouse of the insured 4 [employer] Supplement [address] [address] [place] [address] [id number] ROBERTA HOLLINGSWORTH Self - patient is the insured 5 Medical (General) History Medical History History ICD Code Problems: Acute sinusitis Allergic urticaria Anxiety Asthma Benign gestational thrombocytopenia Carpal tunnel syndrome Chronic sinusitis 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
--- OUTSIDE RECORDS SUMMARY | 2024-12-07 10:22 | XMS_ITS | Referral Summary ---
Author Organization [facility] Address [address] [place] [address] Care Team Providers Care Plastic Surgery Coordinator Name Role Phone DawoodChristin dunne Zulema MARIBEL Primary Care Provider [phone] Allergies Active Allergy Reactions Criticality Noted Date Comments Sulfa (Sulfonamide Antibiotics) Active Problems Problem Noted Date Diagnosed Date Supraventricular tachycardia 03/22/2014 Social History Tobacco Use Types Packs/Day Years Used Date Smoking Tobacco: Former Personal Safety Answer Date Recorded Getting School Help Needed Not on file 10/15 Comments No Sex and Gender Information Value Date Recorded Sex Assigned at Not on file Legal Sex Female 5:12 AM [employer]GR[employer]HY [employer] Gender Identity Not on file Sexual Orientation Not on file Last Filed Vital Signs Vital Sign Reading Time Taken Comments Blood Pressure 106/59 09/08/2019 7:44 AM PHOTOGRAPHY SPOTTER Pulse 78 09/08/2019 7:44 AM PHOTOGRAPHY SPOTTER Temperature 36.7 C (98.1 F) 09/08/2019 7:44 AM PHOTOGRAPHY SPOTTER Respiratory Rate - - Oxygen Saturation 98% 09/08/2019 7:44 AM PHOTOGRAPHY SPOTTER Inhaled Oxygen Concentration - - Weight 97.5 kg (215 lb) 09/08/2019 7:44 AM PHOTOGRAPHY SPOTTER Height 160 cm (5' 3 ) 09/08/2019 7:44 AM PHOTOGRAPHY SPOTTER Body Mass Index 38.09 09/08/2019 7:44 AM PHOTOGRAPHY SPOTTER Plan [id number] [facility] Care Teams Plastic Surgery Coordinator Relationship Specialty Start Date End Date Chrsitin Mejia NP PCP - General 08/07/19
--- OUTSIDE RECORDS SUMMARY | 2024-12-07 10:22 | XMS_ITS | Data Portability ---
Author Organization [facility] Address [address] [place] [address] [place] [address] Assessment Encounter Date Assessment Date Assessment LastModified by Organization Details LastModified Time 02/18/2022 02/18/2022 Annual gynecological exam performed. Patient will come back in a year unless there are new symptoms. Suggest Calcium with Vitamin D if not eating in diet. Patient advised to get annual flu shot. Recommend yearly physicals and preform monthly breast exams. Genetic testing is available for patients with family history of cancer. Engage in safe sexual practices, use condoms. Encouraged to have daily exercise. Avoid tobacco and illicit drugs, moderation of alcohol. If BMI greater than 25 dietary consult advised. If you have any questions please call or email. f/u september 2022 for nexplanon replacement, try dream cream for orgasm discussed libido, olive or coconut oil for lubrication Not available 02/18/2022 10:42:10 10/14/2022 10/14/2022 pt jacki well, f/u wwe Not available 10/14/2022 11:03:24 05/13/2023 05/13/2023 Annual gynecological exam performed. Patient will come back in a year unless there are new symptoms. [email or web address] Not available 05/13/2023 14:58:32 Plan of Treatment Reminders Order Date Submit Date Provider Last Modified By Organization Details Last Modified Time Details Appointments None recorded. Lab test, urine 2022 023 [facility] [place], [address], [address], [place], [address], 10:52:54 Referral None recorded. Procedures None recorded. Surgeries None recorded. Imaging MAMMO, diagnostic, digital, bilateral 2022 023 [facility], [address], [place], [address], 3 12:11:49 US, breast, unilateral - left breast pain, bilateral fibrocystic breast 2022 023 [email or web address] [facility], [address], [place], [address], 4 15:07:31 US, pelvis 2021 022 [address], [address], [place], [address], 2 16:25:39 US, transvagina l 2021 022 [address], [address], [place], [address], 2 16:25:39 Medication Orders Nexplanon 68 mg subdermal implant 2022 023 [email or web address] 1 [id number], [address], [place], [place], [id number], 3 10:55:07 Patient TargetsNo targets recorded. Patient InstructionsNo instructions recorded. Reason for Referral None Reported. Results Created Date Observation Date Name Description Value Unit Range Abnormal Flag Note LastModifiedBy Organization Detail LastModifiedTime 09/01/1909/01/2021 VAGIN ITIS/ VAGIN OSIS, DNA PROBE shabnam sp. detection, direct probe Negati ve negati ve Not Available [facility] (Lab) [address], [place], [address], 09/02/2021 19:21:28 09/01/19 22 09/01/2021 VAGIN ITIS/ VAGIN OSIS, DNA PROBE gardnerella vag. detection, direct probe Negati ve negati ve Not Available [facility] (Lab) [address], [place], [address], 09/02/2021 19:21:28 09/01/19 22 09/01/2021 VAGIN ITIS/ VAGIN OSIS, DNA PROBE trichomonas vag. detection, direct probe Negati ve negati ve Not Available [facility] (Lab) [address], [place], [address], 09/02/2021 19:21:28 02/19/20 22 02/18/2022 IMAGE GUIDE D PAP AND HPV REGAR DLESS image guided Pap, HPV regardless of Pap result SEE RESULT S BELOW CASE REPOR T: Cytol ogy Gynec ologi ambreen Repor t Case: [id number] Autho rhea g Provi emma: Stacy Hobbs NP Colle cted: 02/18 1513 Order ing Locat ion: [place] Patho log[facility] Recei shasta: 02/19 0737 First Scree n: Julia Mijares, CT Patho logis t: Gallo Bazan rd, MD Speci men: Beka sharpg Pap - Image d, Cervi x STATE MENT OF ADEQU ACY: Satis facto ry for evalu ation Trans forma tion zone compo nent prese nt FINAL DIAGN OSIS: Negat clara for Intra epith elial Lesio n or Maura jiang (NIL) . Infla mmato ry cell bernabe es (incl udes typic al repai r). Elect cordell akers by Gallo Bazan rd, MD on 2021 at 10:21 AM ----- ----- ----- ----- ----- ----- ----- ----- ----- ----- ----- ----- ----- ----- ----- ----- ----- ---- HPV RESUL TS: HPV mRNA E6/E7 : No HPV mRNA Detec amador NOTE: This high risk HPV mRNA assay detec ts fourt een high- risk HPV types (16, 18, 31, 33, 35, 39, 45, 51, 52, 56, 58, 59, 66, 68) witho ut diffe renti ation . COMME NT: Note: This speci men was revie wed by a Cytot echno logis t and/o r Patho logis t (as indic ated in this repor t) after evalu ation using the Thinp rep Imagi ng Syste m. CLINI AMBREEN INFOR MATIO N: Menst rual Statu s: LMP (if appli cable ): 022 Clini ambreen Histo ry/Pr eviou s Pap: Type of Neopl ye (if appli cable ): Signi fican t Clini ambreen Findi ngs: Other Histo ry: Hormo adela (if appli cable ): PAP EDUCA CHAD L NOTE: The Pap Test is a scree deep test with an inher ent false negat clara rate. Liqui d-bas ed sampl ing may decre ase, but will not elimi prince, false negat clara resul ts. A negat clara resul t does not precl ude the prese nce and/o r devel opmen t of disea se, since the prese nce of abnor mal cells in the sampl e depen ds on the locat ion of the lesio n and sampl ing techn ique. Latosha nued regul ar scree deep is the best metho d of cance r preve ntion . If repor amador cytol ogic findi ng do not corre late with physi ambreen and/o r histo rical findi ngs, furth er inves tigat ion is recom napoleon d, as clini luis fernando franz nted. Not Available [facility] [address] [place], [address], 02/24/2022 11:23:59 02/19/20 22 02/18/2022 TRICH OMONA S VAGIN NASRIN (RRNA ) trichomonas vaginalis ribosomal RNA (rrna) Negati ve negati ve Not Available [facility] [address] [place], [address], 02/24/2022 11:24:00 02/19/20 22 02/18/2022 CT/GC (STEVIE) , THINP REP VIAL chlamydia trachomatis, PCR Negati ve negati ve Not Available [facility] [address] [place], [address], 02/24/2022 11:24:00 02/19/20 22 02/18/2022 CT/GC (STEVIE) , THINP REP VIAL neisseria gonorrhoeae, PCR Negati ve negati ve Not Available [facility] [address] [place], [address], 02/24/2022 11:24:00 05/13/20 23 05/13/2023 IMAGE GUIDE D PAP AND HPV REGAR DLESS image guided Pap, HPV regardless of Pap result SEE RESULT S BELOW CASE REPOR T: Cytol ogy Gynec ologi ambreen Repor t Case: [id number] Autho rhea spencer Provi emma: Meli Palacio, MARIBEL Colle cted: 05/13 1604 Order ing Locat ion: [place] Patho logy Recei shasta: 05/14 1018 First Scree n: Aisha Amador ica Rescr een: Raya Temple, CT Speci men: Scree deep Pap - Image d, Cervi x STATE MENT OF ADEQU ACY: Satis facto ry for evalu ation Trans forma tion zone compo nent prese nt FINAL DIAGN OSIS: Negat clara for Intra epith elial Yanci joya or Maura jiang (NIL) . Elect cordell grant pablo d by Raya Temple, CT on 05/18 at 7:42 PM ----- ----- ----- ----- ----- ----- ----- ----- ----- ----- ----- ----- ----- ----- ----- ----- ----- ---- HPV RESUL TS: HPV mRNA E6/E7 : No HPV mRNA Detec amador NOTE: This high risk HPV mRNA assay detec ts fourt een high- risk HPV types (16, 18, 31, 33, 35, 39, 45, 51, 52, 56, 58, 59, 66, 68) witho ut diffe renti ation . COMME NT: This speci men was revie wed by a Cytot echno logis t and/o r Patho logis t (as indic ated in this repor t) after evalu ation using the Thinp rep Imagi ng Syste m. CLINI AMBREEN INFOR MATIO N: Menst rual Statu s: LMP (if appli cable ): Clini ambreen Histo ry/Pr eviou s Pap: Type of Neopl ye (if appli cable ): Signi fican t Clini ambreen Findi ngs: Other Histo ry: Hormo adela (if appli cable ): PAP EDUCA CHAD L NOTE: The Pap Test is a scree deep test with an inher ent false negat clara rate. Liqui d-bas ed sampl ing may decre ase, but will not elimi prince, false negat clara resul ts. A negat lcara resul t does not precl ude the prese nce and/o r devel opmen t of disea se, since the prese nce of abnor mal cells in the sampl e depen ds on the locat ion of the lesio n and sampl ing techn ique. Latosha nued regul ar scree deep is the best metho d of cance r preve ntion . If repor amador cytol ogic findi ng do not corre late with physi ambreen and/o r histo rical findi ngs, furth er inves tigat ion is recom napoleon d, as clini luis fernando franz nted. Not Available [facility] (Lab) [address], [place], [address], 05/18/2023 20:45:12 05/13/20 23 05/13/2023 TRICH OMONA S VAGIN NASRIN (RRNA ) trichomonas vaginalis ribosomal RNA (rrna) Negati ve negati ve Not Available [facility] (Lab) [address], [place], [address], 05/18/2023 20:45:12 05/13/20 23 05/13/2023 CT/GC (STEVIE) , THINP REP VIAL chlamydia trachomatis, PCR Negati ve negati ve Not Available [facility] (Lab) [address], [place], [address], 05/18/2023 20:45:13 05/13/20 23 05/13/2023 CT/GC (STEVIE) , THINP REP VIAL neisseria gonorrhoeae, PCR Negati ve negati ve Not Available [facility] (Lab) [address], [place], [address], 05/18/2023 20:45:13 09/25/19 22 09/25/2021 US, pelvi s No observ ation record ed. [email or web address] [place] [address], [place], [address], 09/25/2021 11:43:53 09/25/19 22 09/25/2021 US, trans vagin al No observ ation record ed. [email or web address] [place] [address], [place], [address], 09/25/2021 11:44:03 09/25/19 22 09/25/2021 US, pelvi s No observ ation record ed. [facility] [address], [place], [address], 09/29/2021 10:57:56 07/27/20 23 07/27/2023 MAMMO , diagn ostic , digit al, bilat eral No observ ation record ed. [email or web address] [address] [facility], [place], [address], 09/09/2023 14:24:38 Result Notes None recorded. Procedures Surgical History Date Name Laterality Status Provider Name and Address Organization Details Recorded Time 023 Control Implant Removal completed Stacy Lucero CNM [address], [place], [address], [facility] 10/14/2022 11:03:33 023 Control Implant Insertion completed [facility] 10/14/2022 10:42:59 022 Date of Last Pap Smear completed [facility] 02/18/2022 10:24:07 021 Unlisted px accessory sinus completed [facility] 09/01/2021 11:56:10 015 tonsilectomy/adeno ids completed [facility] 09/01/2021 11:55:57 013 catheter ablation of tissue of heart completed [facility] 09/01/2021 11:56:52 013 catheter ablation of tissue of heart completed [facility] 09/01/2021 11:56:56 012 Cholecystectomy completed [facility] 09/01/2021 11:55:52 007 Colposcopy completed [facility] 09/01/2021 12:00:57 007 Colposcopy completed [facility] 09/01/2021 12:03:11 Imaging Results Imaging Date Name Status LastModified by Organization Details LastModified Time 09/25/2021 [email or web address] [place] [address], [place], [address], 09/25/2021 11:43:53 09/25/2021 US, transvaginal completed [email or web address] [facility] [address], [place], [address], 09/25/2021 11:44:03 09/25/2021 US, pelvis completed [facility] [address], [place], [address], 09/29/2021 10:57:56 07/27/2023 MAMMO, diagnostic, digital, bilateral completed [email or web address] [facility] [address], [place], [address], 09/09/2023 14:24:38 Procedure Notes None recorded. Medical Equipment None Reported. Allergies Allergen ID Allergen Name Allergen Category Reaction Reaction Severity Criticality Documentation Date Start Date Code Code System Note Provider Name and Address Organization Details Recorded Time 67152 sulfur medicatio n hives moderate Not available 09/01/2021 42675 [facility] 11:51:32 82120 Penicilli n Not available hives moderate Not available 09/01/2021 51763 [facility] 11:51:32 Medications Name Sig Start Date Stop Date Status Note LastModified by Organization Details LastModified Time doxycycli ne hyclate 100 mg capsule TAKE 1 CAPSULE BY MOUTH TWICE DAILY FOR 10 DAYS 02/18 completed Not Available Not Available Not Available clindamyc in HCl 300 mg capsule TAKE ONE CAPSULE BY MOUTH EVERY 6 HOURS UNTIL ALL CAPSULES ARE GONE 09/01 completed Not Available Not Available Not Available trazodone 50 mg tablet TAKE 1/2 TO 1 TABLET BY MOUTH AT BEDTIME NEEDED 05/13 completed Not Available Not Available Not Available azithromy donovan 250 mg tablet 05/13 completed Not Available Not Available Not Available prednison e 20 mg tablet TAKE 3 TABLETS BY MOUTH DAILY FOR 5 DAYS 10/14 completed Not Available Not Available Not Available meclizine 25 mg tablet TAKE 1 TABLET BY MOUTH THREE TIMES DAILY NEEDED 09/01 completed Not Available Not Available Not Available hydrocodo ne 7.5 mg-acetam inophen 325 mg tablet TAKE 1 TABLET BY MOUTH EVERY 4 HOURS NEEDED 09/01 completed Not Available Not Available Not Available mupirocin 2 % topical ointment APPLY TOPICALL Y TO THE AFFECTED AREA TWICE DAILY active Not Available Not Available No t Available fluvoxami ne 50 mg tablet TAKE 1/2 TABLET BY MOUTH DAILY AT BEDTIME FOR 1 WEEK. INCREASE TO 1 TABLET BY MOUTH DAILY AT BEDTIME THEREAFT ER 10/14 completed Not Available Not Available Not Available lorazepam 1 mg tablet 09/01 completed Not Available Not Available Not Available methylpre dnisolone 4 mg tablets in a dose pack FOLLOW PACKAGE DIRECTIO NS 05/13 completed Not Available Not Available Not Available albuterol sulfate HFA 90 mcg/actua tion aerosol inhaler INHALE 2 PUFFS BY MOUTH EVERY 4 HOURS NEEDED active Not Available Not Available No t Available fluticaso ne propionat e 50 mcg/actua tion nasal spray,[employer] SHAKE LIQUID AND USE 2 SPRAYS IN EACH NOSTRIL EVERY DAY NEEDED active Not Available Not Available No t Available doxycycli ne hyclate 100 mg tablet 10/14 completed Not Available Not Available Not Available naproxen 500 mg tablet TAKE 1 TABLET BY MOUTH TWICE DAILY NEEDED FOR PAIN 10/14 completed Not Available Not Available Not Available mometason e 0.1 % topical cream APPLY THIN LAYER TOPICALL Y TO THE AFFECTED AREA EVERY DAY NEEDED. NO MORE THAN 14 DAYS IN A ROW 05/13 completed Not Available Not Available Not Available cyclobenz aprine 5 mg tablet TAKE 1 TABLET BY MOUTH THREE TIMES DAILY NEEDED FOR MUSCLE SPASM 05/13 completed Not Available Not Available Not Available Magnesium (oxide/AA chelate) 300 mg capsule active Not Available Not Available Not Available Premarin 0.625 mg/gram vaginal cream INSERT 1/2 APPLICAT ORFUL VAGINALL Y EVERY DAY 02/18 completed Not Available Not Available Not Available bupropion HCl XL 300 mg 24 hr tablet, extended release TAKE 1 TABLET BY MOUTH EVERY DAY IN THE MORNING 10/14 completed Not Available Not Available Not Available bupropion HCl XL 150 mg 24 hr tablet, extended release TAKE 1 TABLET BY MOUTH EVERY DAY IN THE MORNING 05/13 completed Not Available Not Available Not Available escitalop josselyn 5 mg tablet TAKE 1 TABLET BY MOUTH DAILY FOR 2 WEEKS THEN TAKE 2 TABLETS BY MOUTH DAILY active Not Available Not Available No t Available levalbute rol HFA 45 mcg/actua tion aerosol inhaler INHALE 2 PUFFS BY MOUTH EVERY 6 HOURS NEEDED 05/13 completed Not Available Not Available Not Available Flonase 02/18 completed Not Available Not Available Not Available Symbicort 160 mcg-4.5 mcg/actua tion HFA aerosol inhaler INHALE 2 PUFFS BY MOUTH TWICE DAILY 10/14 completed Not Available Not Available Not Available FeroSul 325 mg (65 mg iron) tablet TAKE 1 TABLET BY MOUTH EVERY DAY 10/14 completed Not Available Not Available Not Available Nexplanon 68 mg subdermal implant Inject 1 implant by subcutan eous route. 2022 active nexplano n inserted 3 and needs removed by 6 Not Available Not Available Not Available Auvi-Q 0.3 mg/0.3 mL injection , auto-inje ctor INJECT 1 PEN IN THE MUSCLE INTO LATERAL THIGH NEEDED FOR ALLERGY EMERGENC Y active Not Available Not Available No t Available Vitals Date Recorded Body height Body mass index (BMI) Body weight Systolic blood pressure Diastolic blood pressure Provider Name and Address Organization Details Last Updated DateTime 02/18/2022 158.12 cm 38.8 kg/m2 91347.77 g 124 mm[Hg] 81 mm[Hg] Esther Maldonado [facility] 2 10:22:12 Date Recorded Body height Body mass index (BMI) Body weight Systolic blood pressure Diastolic blood pressure Provider Name and Address Organization Details Last Updated DateTime 10/14/2022 158.12 cm 39.2 kg/m2 32420.95 g 127 mm[Hg] 80 mm[Hg] Esther Maldonado [facility] 3 10:31:26 Date Recorded Body height Body mass index (BMI) Body weight Systolic blood pressure Diastolic blood pressure Provider Name and Address Organization Details Last Updated DateTime 05/13/2023 158.12 cm 40.3 kg/m2 329596.5 1 g 126 mm[Hg] 78 mm[Hg] Tasneem Gaby [facility] 14:58:47 Social History Question Answer Notes LastModified by Organizat ion Details LastModified Time Tobacco Smoking Status Former Smoker Elza Joyner donis, [facility] 05/13/2023 14:49:20 Do You Have An Advance Directive? No [email or web address] Information not available 09/01/2021 What Is Your Level Of Alcohol Consumption? Occasional Information not available 09/01/2021 Are You Blind Or Do You Have Difficulty Seeing? No [email or web address] Information not available 09/01/2021 What Is Your Level Of Caffeine Consumption? Moderate Information not available 09/01/2021 How Much Tobacco Do You Chew? None [email or web address] Information not available 09/01/2021 In The 14 Days Before Symptom Onset, Have You Had Close Contact With A Laboratory-confir med COVID-19 While That Case Was Ill? No [email or web address] Information not available 09/01/2021 In The 14 Days Before Symptom Onset, Have You Had Close Contact With A Person Who Is Under Investigation For COVID-19 While That Person Was Ill? No [email or web address] Information not available 09/01/2021 Have You Been To An Area Known To Be High Risk For COVID-19? Yes [email or web address] Information not available 09/01/2021 Are You Deaf Or Do You Have Serious Difficulty Hearing? No Information not available 09/01/2021 What Type Of Diet Are You Following? REGULAR [email or web address] Information not available 09/01/2021 What Is The Highest Grade Or Level Of School You Have Completed Or The Highest Degree You Have Received? 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 No [email or web address] Information not available 09/01/2021 Have You Ever Been Counseled For Unhealthy Alcohol Use? No [email or web address] Information not available 05/13/2023 Do You Use Protection During Sex? No [email or web address] Information not available 09/01/2021 Do You Use Your Seat Belt Or Car Seat Routinely? Yes [email or web address] Information not available 09/01/2021 Do You Have Smoke And Carbon Monoxide Detectors In Your Home? Yes [email or web address] Information not available 09/01/2021 At What Age Did You Start Smoking Tobacco? 22 [email or web address] Information not available 02/18/2022 How Much Tobacco Do You Smoke? No [email or web address] Information not available 09/01/2021 Do You Feel Stressed (tense, Restless, Nervous, Or Anxious, Or Unable To Sleep At Night)? [id number] [email or web address] Information not available 09/01/2021 Do You Use Any Illicit Or Recreational Drugs? No [email or web address] Information not available 09/01/2021 Do You Use Sunscreen Routinely? Yes [email or web address] Information not available 09/01/2021 Has Tobacco Cessation Counseling Been Provided? No [email or web address] Information not available 05/13/2023 How Many Years Have You Smoked Tobacco? 4 [email or web address] Information not available 02/18/2022 Have You Used IV Drugs? No [email or web address] Information not available 09/01/2021 Do You Or Have You Ever Used Any Other Forms Of Tobacco Or Nicotine? No Information not available 05/13/2023 Sex: Unknown Functional Status Question Answer Note LastModified by Organizat ion Details LastModified Time Do you have difficulty walking or climbing stairs? No [email or web address] Information not available 05/13/2023 Are you able to walk? YESWOREST [email or web address] Information not available 09/01/2021 Are you able to care for yourself? Yes [email or web address] Information not available 05/13/2023 Do you have difficulty dressing or bathing? No [email or web address] Information not available 05/13/2023 What is your exercise level? Occasional [email or web address] Information not available 09/01/2021 Mental Status None recorded. Family History Relationship Description Onset Age of this Age Resolved Age Notes LastModified by Organization Details LastModified Time Maternal Aunt Endometrial carcinoma Not available 09/01 11:51:32 Maternal Grandmother Cerebrovascu lar accident [email or web address] Not available 11:51:32 Maternal Grandmother Aneurysm of cerebral artery Not available 2022 14:49:20 Mother Diabetes mellitus [email or web address] Not available 09/01 11:51:32 Mother Endometrial carcinoma [email or web address] Not available 09/01 11:51:32 Mother Depressive disorder [email or web address] Not available 09/01 11:51:32 Medical History Condition Response Allergies (Food, seasonal, environmental ) Y Other N Breast Cancer N Drug/Latex Allergies/Reactions Y Blood Transfusion N Dermatologic Disorders N Lung Disease Y Defects or Inherited Disease N Breast Problem N Gestational Diabetes N Hematologic disorders N Anesthesia Complications N History of STI N Deep Vein Thrombosis N Polycystic ovary syndrome N Anxiety Disorder N Autoimmune disease N Arthritis N Infertility N Polyps Y Acid Reflux (GERD) N History of abnormal pap Y Cancer N Stroke N Varicosities N Neurologic/Epilepsy N Endometriosis N High Cholesterol N Headaches N Fibromyalgia N Kidney Disease N Heart Problems Y Kidney or Bladder Problems N Thyroid Problems N GI Problems N Eating Disorder N Anemia N Art (IVF or FET) N Psychiatric Illness N Ovarian Cancer N Diabetes N Pulmonary (TB, Asthma) Y Hepatitis/Liver Disease N No Past Medical History N Eczema N Urinary Tract Infection N Abuse/Domestic Violence N Asthma Y Trauma/Violence N Depression/ depression N Heart Disease Y Pre-Eclampsia N Hypertension N Osteoporosis N Thrombophilias N Gynecological History Statement/Question Response Date of Last Mammogram Date of LMP 02/05/2022 N Was last menstrual period normal N STIs/STDs N Date of control 10/01/2019 Implant Desired Control Method Implant Abnormal Pap Y On BCP's at Conception? N HPV Vaccine N Colposcopy 08/02/2006 Current Control Method Implant Age at First Child 27 Most Recent Bone Density Sexually Active? Y Age of first menstrual cycle 14 Date of Last Pap Smear 02/18/2022 Sexual Problems? Y LMP Approximate N 12/01/2006 Obstetrics History GPAL:G 4 P 2 0 2 2 Type Value Full Term 2 Spontaneous 2 Living 2 Total 4 Past Encounters Encounter ID Performer Location Encounter Start Date Encounter Closed Date Diagnosis/Indication Diagnosis SNOMED-CT Code Diagnosis ICD10 Code Diagnosis Note [id number] Stacy Lucero [facility] [address],[place] [address] 09/01/2021 11:16:01 09/03/2021 11:30:45 Pain in pelvis 62905245 R10.2 plan wwe in december with nexplanon removal ? Family jovany nning education 555735368 Z30.02 [id number] Stacy Lucero [facility] [address],[place] [address] 10/14/2022 10:22:13 10/14/2022 11:13:06 Implantation of subcutaneous contraceptive 928368221 Z30.9 Screening procedure 2012 5006 Z13.9 [id number] Pietro Ulrich MD [place] [address],[place] [address] 09/25/2021 10:27:09 09/25/2021 11:47:20 Pain in pelvis 94237865 R10.2 N94.10 [id number] Stacy Lucero [facility] [address],[place] [address] 02/18/2022 09:57:35 02/18/2022 10:47:09 Gynecologic examination 98877186 Z01.419 [id number] SUGEY Luevano [place] [address],[place] [address] 05/13/2023 14:48:28 05/13/2023 15:40:30 Gynecologic examination 72000441 Z01.419 [facility] - nexplanon, inserted 10/14/22hap py with nexplanon and would like to continue this method. Will 10/14/2025p ap updatedSTI testing added to papblood STI panel declineddi agnostic nilo with u/s for further evaluation for breast painencour aged to decrease caffeineUT D with PCP for routine labs Take Calcium with Vitamin D 1200mg daily if not receiving in daily diet. It is strongly advised to have an annual flu shot and up can obtain at most pharmacies . If you have not had a TDap shot in the last 10 years you should obtain one as well. Discussed with patient & provided with informatio n regarding Gardisil vaccine to prevent the 4 strains for HPV that cause cervical cancer if under age 26. Encourage safe sexual practices, to use condoms and limit partners if not already in a monogamous relationsh ip. Do monthly self breast exams. Engage in daily exercise of low impact aerobic exercise 45-60 minutes 4-5 times weekly. Avoid tobacco and illicit drugs as well as using moderation with alcohol intake less than 1-2 8 oz beverages daily. This lifestyle behavior pattern will lead to less health conditions and longer life span. If BMI greater than 25 dietary consult advised. Patient received above instructio ns, and questions have been answered. If you have any questions please call or respond to this email. Patient was made aware of the patient portal and may obtain a paper copy of today's plan if desired. Pain of breast [id number] N64.4 Health Concerns Section Related Observation LastModified by Organization Detai ls LastModified Time None Recorded Concern Status LastModified by Organization Details LastModified Time None Recorded Advance Directives Directive N: Payers Encounter Date Sequence Insurance Name Policy Number Policy Valentin Covered Member ID Valentin Member ID Guarantor Name 09/25/2021 1 [facility] [id number] Babar Tony [id number] Belinda Cross 09/25/2021 2 [place] [employer] Belinda Phoenix [id number] Belinda Cross 02/18/2022 2 [place] Belinda Osteen [id number] Belinda Cross 02/18/2022 1 [facility]: (PPO[facility] [id number] Babar Erendira Cross [id number] Belinda Cross 10/14/2022 1 [facility]: (PP[place]) [id number] Babar C Cross [id number] Belinda Cross 10/14/2022 1 [facility] (MEDICAID REPLACEMENT - HMO) [id number] Belinda Osteen [id number] Belinda Cross 05/13/[address] [facility] Babar Jimenez [id number] Belinda Tony Notes Date Note Type Note Provider Name and Address Organization Details Recorded Time 02/18/2022 text/html Annual GYNReport ed bypatient.Menstrual cycle:Normal menses Urinary symptoms:No hematuria; No incontinence Vulva:No genital lesion Vagina:Normal vaginal discharge Breast:No breast pain; No breast lump; No nipple discharge Sexual complaints:No sexual complaints; No pain during intercourse; Normal libido Menopausal Symptoms:No menopausal symptoms; Normal vaginal lubrication Psychological symptoms:No depression; No anxiety; No PMDD Preventive measures:Encourage self breast examination; Encourage regular exercise; Encourage no tobacco use; Encourage regular mammograms starting age 40Notes:requests std testing, discussed and pt has decided not to pursue, would like to keep nexplanon and replace in september. still having decreased libido and dryness, difficult to orgasm Stacy Lucero CNM [address], [place], [address], [facility] 02/18/2022 10:42:17 10/14/2022 text/html nexplanon remova l and insertion, doing well, reviewed se risks and benefits UPT negative Stacy Lucero CNM [address], [place], [address], [facility] 10/14/2022 11:04:28 05/13/2023 text/html Annual GYNReport ed bypatient.Menstrual cycle:Normal menses Urinary symptoms:No hematuria; No incontinence Vulva:No genital lesion Vagina:Normal vaginal discharge Breast:No breast lump; No nipple discharge;Breast pain; left breast pain x 2 weeks Current Contraception:Satis fied with current contraception; Subdermal contraceptive implant; nexplanon, inserted 10/14/22 Sexual complaints:No sexual complaints; No pain during intercourse; Normal libido Menopausal Symptoms:No menopausal symptoms; Normal vaginal lubrication Psychological symptoms:No depression; No anxiety; No PMDD Preventive measures:Encourage self breast examination; Encourage regular exercise; Encourage no tobacco use; Encourage regular mammograms starting age 40Notes:hx of abnormal pap in 2006normal paps since SUGEY Luevano [address], [place], [address], [facility] 05/13/2023 15:21:29 OBGyn Episode Ob Episode Information Episode Created Date Number of Fetuses Patient Bloodtype Patient rh Status Prepregnancy Weight lbs Domestic Partner Domestic Partner Phone Father Name Hair Spring Cutter Status 09/01/19 22 1 CLOSED Fetus Data First Name Last Name Admitted to NICU Weight (g) Sex Living Outcome Pediatric Complications Fetus ID Race Codes Race Delivery Type , Spontane ous [id number] Rogelio Calculation Initial Rogelio Date Initial Exam [...] Complications Tubal Sterilization Discharge Date Comments 0 Discharge Information Feeding Method Contraceptive Method Maternal HG B and HCT Levels Ob Episode Information Episode Created Date Number of Fetuses Patient Bloodtype Patient rh Status Prepregnancy Weight lbs Domestic Partner Domestic Partner Phone Father Name Hair Spring Cutter Status 09/01/19 22 1 CLOSED Fetus Data First Name Last Name Admitted to NICU Weight (g) Sex Living Outcome Pediatric Complications Fetus ID Race Codes Race Delivery Type 3628.73 6 F Full Term 19829 Vaginal Delivery Rogelio Calculation Initial Rogelio Date Initial Exam [...] Complications Tubal Sterilization Discharge Date Comments 3 39 Discharge Information Feeding Method Contraceptive Method Maternal HG B and HCT Levels Ob Episode Information Episode Created Date Number of Fetuses Patient Bloodtype Patient rh Status Prepregnancy Weight lbs Domestic Partner Domestic Partner Phone Father Name Hair Spring Cutter Status 09/01/19 22 1 CLOSED Fetus Data First Name Last Name Admitted to NICU Weight (g) Sex Living Outcome Pediatric Complications Fetus ID Race Codes Race Delivery Type 3175.14 4 F Full Term 52123 Vaginal Delivery Rogelio Calculation Initial Rogelio Date Initial Exam [...] Complications Tubal Sterilization Discharge Date Comments 0 39 Discharge Information Feeding Method Contraceptive Method Maternal HG B and HCT Levels Ob Episode Information Episode Created Date Number of Fetuses Patient Bloodtype Patient rh Status Prepregnancy Weight lbs Domestic Partner Domestic Partner Phone Father Name Hair Spring Cutter Status 09/01/19 22 1 CLOSED Fetus Data First Name Last Name Admitted to NICU Weight (g) Sex Living Outcome Pediatric Complications Fetus ID Race Codes Race Delivery Type , Spontane ous 48590 Rogelio Calculation Initial Rogelio Date Initial Exam [...] Complications Tubal Sterilization Discharge Date Comments 2 Discharge Information Feeding Method Contraceptive Method Maternal HG B and HCT Levels
== END 2024-12-07 10:04 | disposition home or self-care (01) ==
PROVIDERS: PCP Internal Medicine; Visit Provider Otolaryngology Otolaryngology/Facial Plastic Surgery
DX: J32.0 Chronic maxillary sinusitis (principal); J34.2 Deviated nasal septum; J34.829 Nasal valve collapse, unspecified; J32.2 Chronic ethmoidal sinusitis; R09.82 Postnasal drip; R09.81 Nasal congestion
CPT/HCPCS: 70486

== ENCOUNTER 2025-01-24 08:16 | Emergency (ER) | payer OTHER, MEDICAID, SELFPAY ==
--- NOTE | ~2025-01-24 | CT_ITS ---
CT IAC/mastoids BI w con Ordering provider: Lucian Coats Technique: CT temporal bones was performed by obtaining thin slice axial images. Coronal and sagittal reformatted images were also obtained. 75 mL Omnipaque 350 was given IV. .Radiation reduction techni que utilized. The dose-length product was 289.76 mGy-cm. Reason for exam: . right sided pain/dizziness. R occluded sinus. Post R ear janice . Comparison: None. Findings: RIGHT TEMPORAL BONE: The mastoid air cells are normal and well aerated. The external auditory canal is normal and well aerated. The tympanic membrane as visualized is intact and normal. The middle ear (including the epitympanum, mesotympanum and hypotympanum) is normal and well aerated. The tegmen ty mpani is intact. The scutum is normal. The auditory ossicles are normal. The cochlea, vestibule, ve stibular and cochlear aqueduct are normal. The semicircular canals are normal. The facial nerve can al is normal. The internal auditory canal is normal. The carotid canal and jugular foramen are nor mal. The temporomandibular joint is normal. LEFT TEMPORAL BONE: The mastoid air cells are normal and well aerated. The external auditory canal is normal and well aerated. The tympanic membrane as visualized is intact and normal. The middle ear ( including the epitympanum, mesotympanum and hypotympanum) is normal and well aerated. The tegmen tymp ani is intact. The scutum is normal. The auditory ossicles are normal. The cochlea, vestibule, ves tibular and cochlear aqueduct are normal. The semicircular canals are normal. The facial nerve nader l is normal. The internal auditory canal is normal. The carotid canal and jugular foramen are norm al. The temporomandibular joint is normal. The visualized brain parenchyma, paranasal sinuses, and superficial soft tissues are normal for patie nt's age. IMPRESSION: No definite abnormality seen bilaterally Reviewed, dictated and finalized at location A.
[2025-01-24 08:22] VITALS: BP 123/69; PULSE 78; RESP 16; TEMP 36.6; O2SAT 99
[2025-01-24 08:35] VITALS: BP 123/69; PULSE 78
[2025-01-24 08:36] VITALS: BP 112/63; BP 123/80; PULSE 77; PULSE 78
[2025-01-24 09:01] VITALS: BP 106/64; PULSE 72; RESP 16; O2SAT 98
[2025-01-24 09:03] LABS: Basophils Percent Auto 0.2 % (0.2-1.2); Eosinophils Absolute Auto 0.1 K/mm3 (0-0.3); Eosinophils Percent Auto 1.4 % (0-4.4); Hematocrit 36.5 % (37.0-47.0); Hemoglobin 11.4 g/dL (12.0-15.0); Immature Granulocyte Absolute 0.05 K/mm3 (0.00-0.031); Immature Granulocyte Percent A 0.6 % (0-0.5); Lymphocytes Absolute Auto 2.33 K/mm3 (0.9-3.2); Lymphocytes Percent Auto 27.6 % (18.3-44.2); Mean Corpuscular HGB Conc 31.2 g/dl (32-36); Mean Corpuscular Hemoglobin 26.6 pg (26-34); Mean Corpuscular Volume 85.3 fl (80-100); Mean Platelet Volume 12.5 fl (7.4-10.4); Monocytes Absolute Auto 0.5 K/mm3 (0.1-0.6); Monocytes Percent Auto 5.9 % (2.6-8.5); Neutrophils Absolute Auto 5.4 K/mm3 (1.3-6.7); Neutrophils Percent Auto 64.3 % (45.5-73.1); Platelet Count Result 157 k/mm3 (150-375); Red Blood Count 4.28 M/mm3 (4.2-5.4); White Blood Count 8.4 K/mm3 (4.5-10.0)
[2025-01-24 09:12] LABS: Alanine Aminotransferase 29 U/L (6-35); Albumin Level 3.9 g/dL (3.5-5.1); Alkaline Phosphatase 68 U/L (38-126); Anion Gap 9 mmol/L (4-12); Aspartate Amino Transferase 27 U/L (14-36); Bilirubin,Total 0.4 mg/dL (0.2-1.3); Blood Urea Nitrogen 14 mg/dL (7-17); Calcium 8.9 mg/dL (8.4-10.2); Carbon Dioxide 23 mmol/L (22-30); Chloride 108 mmol/L (98-107); Estimated CRCL calculation 104 ml/min; Estimated Glomerular Filt Rate > 60; Glucose 102 mg/dL (65-110); Potassium 4.3 mmol/L (3.4-5.0); Sodium 140 mmol/L (137-145); Total Protein 7.1 g/dL (6.3-8.2)
[2025-01-24] MEDS: SODIUM CHLORIDE 0.9% IV 1,000 ML 999 ML IV CONT (09:27)
[2025-01-24] MEDS: MECLIZINE HCL 25 MG TABLET PO (09:27)
[2025-01-24 10:00] VITALS: BP 110/68; PULSE 70; RESP 16; TEMP 36.6; O2SAT 100
--- NOTE | 2025-01-24 11:41 | ED.GENADULT ---
HPI - General Adult General Chief complaint: Dizziness Stated complaint: Right ear pain with dizziness and nausea Time Seen by Provider: 01/24/25 08:22 History of Present Illness HPI narrative: Patient is a 31-year-old female who presents ER with dizziness. Worse with turning her head, especially to the right. Has known sinus disease and has been evaluated to have a recurrent sinus surgery. She has mild discomfort in the right ear and behind her ear. No fevers or chills or sweats. No drainage from her ear. Related Data Home Medications ?Medication ?Instructions ?Recorded ?Confirmed ?Last Taken ?Type etonogestrel 68 mg subdermal 1 implant subdermal ONCE 04/29/22 11/06/24 Unknown History implant (Nexplanon) magnesium aspart,citrate,oxide 400 mg PO DAILY 04/29/22 11/06/24 Unknown History escitalopram oxalate 10 mg tablet 15 mg PO DAILY 11/06/24 11/06/24 Unknown History (Lexapro) Allergies Allergy/AdvReac Type Severity Reaction Status Date / Time Sulfa (Sulfonamide Allergy Mild Unknown Verified 01/22/25 11:50 Antibiotics) Penicillins Allergy Unknown Unknown Verified 01/22/25 11:50 Review of Systems Review of Systems: All systems reviewed & are unremarkable except as noted in HPI and below Constitutional: Constitutional: Reports no additional constitutional complaints Cardiovascular: Cardiovascular: Reports no additional cardiovascular complaints Respiratory: Respiratory: Reports no additional respiratory complaints Neurologic: Reports system reviewed and no additional complaints, except as documented [facility] Past Medical History Medical History No pertinent past medical history Surgical History Surgical History History of cardiac radiofrequency ablation (RFA) History of nasal surgery History of tonsillectomy Family History Family History Father Hypertension Mother Cancer Depression Anxiety Grandparent Diabetes mellitus Grandparent Alcoholism Cancer Social History Social History Social History: Caffeine-coffee Smoking status: Never smoker Smoking end date: 08/02/12 Alcohol intake: current Alcohol use details: rarely Substance use: never Substance use type: does not use Living arrangements: with family Occupation/Education: occupation 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 HEAD: Normocephalic, atraumatic. Eyes: PERRLA, EOMI ENT: Mucous membranes moist. A canals free of cerumen and TMs normal and translucent. Mild tenderness over the right mastoid area but no swelling redness. NECK: Supple. CHEST: Clear to auscultation. No respiratory distress. HEART: Regular rate and rhythm. Normal peripheral pulses. EXTREMITIES: Normal range of motion. No edema. SKIN: Warm, dry, no rash. NEURO: Alert and oriented x3. PSYCH: Normal mood and affect. Course Course Emergency Course: Dizziness improving with meclizine but still present and worse with turning her head to the right. Valium provided. Recommend follow-up with ENT. Recommend scheduled meclizine. Vital Signs Vital signs: Vital Signs Temperature 97.9 F 01/24/25 08:22 Pulse Rate 78 01/24/25 08:22 Respiratory Rate 16 01/24/25 08:22 Blood Pressure 123/69 01/24/25 08:22 Pulse Oximetry 99 01/24/25 08:22 Oxygen Delivery Room Air 01/24/25 08:22 Temperature 97.8 F 01/24/25 10:00 Pulse Rate 70 01/24/25 10:00 Respiratory Rate 16 01/24/25 10:00 Blood Pressure 110/68 01/24/25 10:00 Pulse Oximetry 100 01/24/25 10:00 Oxygen Delivery Room Air 01/24/25 08:22 Medical Decision Making Vital Signs Vital Signs: Vital Signs Temperature 97.9 F 01/24/25 08:22 Pulse Rate 78 01/24/25 08:22 Respiratory Rate 16 01/24/25 08:22 Blood Pressure 123/69 01/24/25 08:22 Pulse Oximetry 99 01/24/25 08:22 Oxygen Delivery Room Air 01/24/25 08:22 Temperature 97.8 F 01/24/25 10:00 Pulse Rate 70 01/24/25 10:00 Respiratory Rate 16 01/24/25 10:00 Blood Pressure 110/68 01/24/25 10:00 Pulse Oximetry 100 01/24/25 10:00 Oxygen Delivery Room Air 01/24/25 08:22 Lab Data 01/24/25 08:58 01/24/25 08:58 Labs: Lab Results 01/24/25 Range/Units 08:58 WBC 8.4 (4.5-10.0) K/mm3 RBC 4.28 (4.2-5.4) M/mm3 Hgb 11.4 L (12.0-15.0) g/dL Hct 36.5 L (37.0-47.0) % MCV 85.3 (80-100) fl MCH 26.6 (26-34) pg MCHC 31.2 L (32-36) g/dl RDW 14.0 (11.5-14.5) % Plt Count 157 (150-375) k/mm3 MPV 12.5 H (7.4-10.4) fl Immature Gran % (Auto) 0.6 H (0-0.5) % Neut % (Auto) 64.3 (45.5-73.1) % Lymph % (Auto) 27.6 (18.3-44.2) % Sac % (Auto) 5.9 (2.6-8.5) % Eos % (Auto) 1.4 (0-4.4) % Baso % (Auto) 0.2 (0.2-1.2) % Lymph # (Auto) 2.33 (0.9-3.2) K/mm3 Sac # (Auto) 0.5 (0.1-0.6) K/mm3 Eos # (Auto) 0.1 (0-0.3) K/mm3 Baso # (Auto) 0.0 (0.0-0.1) K/mm3 Abs Immat Gran (auto) 0.05 H (0.00-0.031) K/mm3 Absolute Neuts (auto) 5.4 (1.3-6.7) K/mm3 Absolute Nucleated RBC 0.000 (0.0-0.012) K/mm3 Nucleated RBC % 0.0 (0.0-0.2) % Sodium 140 (137-145) mmol/L Potassium 4.3 (3.4-5.0) mmol/L Chloride 108 H (98-107) mmol/L Carbon Dioxide 23 (22-30) mmol/L Anion Gap 9 (4-12) mmol/L BUN 14 (7-17) mg/dL Creatinine 0.72 (0.7-1.0) mg/dL Estim Creat Clear Calc 104 ml/min Estimated GFR > 60 (59 - ) Glucose 102 (65-110) mg/dL Calcium 8.9 (8.4-10.2) mg/dL Total Bilirubin 0.4 (0.2-1.3) mg/dL AST 27 (14-36) U/L ALT 29 (6-35) U/L Alkaline Phosphatase 68 (38-126) U/L Total Protein 7.1 (6.3-8.2) g/dL Albumin 3.9 (3.5-5.1) g/dL Imaging Data Radiologist's impression: ITS Impressions Internal Auditory Canal CT 01/24/25 10:19 IMPRESSION: No definite abnormality seen bilaterally Discharge Plan Discharge Clinical Impression: Vertigo Patient Disposition: Home Condition: Stable Instructions: Vertigo (ED) Additional Instructions: Return the ER if you have worsening dizziness, chest pain shortness of breath, you cannot down food water, or you have additional concerns. Patient Language: Bahraini Prescriptions: No Action magnesium aspart,citrate,oxide 400 mg magnesium capsule 400 mg PO DAILY Nexplanon 68 mg implant 1 implant subdermal ONCE Rx Instructions: as a single dose escitalopram oxalate [Lexapro] 10 mg tablet 15 mg PO DAILY Follow-up/Referrals: Nahum,MD Darren [Primary Care Provider] - 1 Week Brynn Cervantes MD [Physician] - 1 Week
[2025-01-24] MEDS: diazePAM INJ (*CRX) 10 MG/2 ML SYRINGE 5 MG IV PUSH (11:48)
== END 2025-01-24 12:23 | disposition home or self-care (01) ==
PROVIDERS: Emergency Provider Emergency Medicine; PCP Internal Medicine
DX: R42 Dizziness and giddiness (principal)
CPT/HCPCS: 36415; 70481; 80053; 85025; 96361; 96374; 99284; A9270; J3360; J7030; Q9967

== ENCOUNTER 2025-02-20 08:55 | Outpatient (CLI) | payer OTHER, MEDICAID, SELFPAY ==
--- OUTSIDE RECORDS SUMMARY | 2025-02-20 08:59 | XMS_ITS | Patient Health Record ---
Author Organization [facility] As [facility] Address [address] [place] [address] Care Team Providers Care Insulation And Flooring Assembler Name Role Phone Darren Sidhu MD Primary Care Provider Yessy Mendoza Unavailable [phone] Allergies Allergen (clinical drug ingredient) Drug/Non Drug [...] Oxide (Elemental) 400 MG Oral *Reorder from [employer] for eRx and Interaction Alerts* 11/03/2023 Unknown Lexapro 20 MG 1 tablet Oral Once a day; Duration: 30 days Active Mupirocin 2% External 11/03/2023 Unknow n Xopenex HFA 45 MCG/ACT Inhalation 11/03/2023 Unknown rOPINIRole HCl 0.5 MG Oral 11/03/2023 Unknown predniSONE 20 MG Oral 11/03/2023 Un known Auvi-Q 0.3 MG/0.3ML Injection 11/03/2023 Unknown Fluticasone Propionate Diskus 50 MCG/ACT Inhalation *Reorder from [employer] for eRx and Interaction Alerts* 11/03/2023 Unknown Immunizations Vaccine Route Administration Date Status Comme nts Influenza virus vaccine, quadrivalent (IIV4), split virus, 0.25 mL dosage Unknown 05/28/2020 Administered Novel [id number], preservative free Unknown 05/21/2022 Administered Pfizer Biontech [...] Status Risk Notes Problem Generalized anxiety disorder (F41.1) Active confirmed Problem Primary insomnia (3497480) Primary insomnia (F51.01) Active confirmed Vital Signs Heart Rate 67 /min 12/05/2024 Height-cm 160.02 cm 12/05/2024 Blood pressure diastolic 82 mm Hg 12/05/2024 Weight-kg 102.06 kg 12/05/2024 Height 63.00 in 12/05/2024 Blood pressure systolic 131 mm Hg 12/05/2024 Weight 225 lbs 12/05/2024 BMI 39.85 kg/m2 12/05/2024 Encounters Encounter Location Date Provider Diagnosis [facility] [address] [facility] [address] [place] [address] 03/13/2024 Yessy Galan [facility] [address] [facility] [address] [place] [address] 03/20/2024 Yessy Galan Generalized anxiety disorder F41.1 and Primary insomnia F51.01 [facility] [address] [facility] [address] [place] [address] 04/19/2024 Yessy Adama Generalized anxiety disorder F41.1 and Primary insomnia F51.01 [facility] [address] [place] [address] 06/20/2024 Yessy Adama Generalized anxiety disorder F41.1 and Primary insomnia F51.01 [facility] [address] [facility] [address] [place] [address] 12/05/2024 Yessybarney Galan Generalized anxiety disorder F41.1 ; Primary insomnia F51.01 ; Encounter for screening for cardiovascular disorders Z13.6 and Negative depression screening Z13.31 [place] [address] [facility] [address] [place] [address] 04/25/2024 Yessy Galan [place] [address] [facility] [address] [place] [address] 09/12/2024 Yessy Galan [place] [address] [facility] [address] [place] [address] 02/18/2025 Yessy Galan [place] [address] [facility] [address] [place] [address] 01/20/2025 Yessy Galan [facility], [facility] [address] [facility] [address] [place] [address] 01/20/2025 Yessy Galan [place] [address] [facility] [address] [place] [address] 02/18/2025 Yessy Galan Assessments Encounter Date Diagnosis (ICD Code) Assessment Notes Treatment Notes Treatment Clinical Notes Section Notes 04/19/2024 Generalized anxiety disorder (ICD-10 - F41.1) Common side effects to SSRI medications include headaches, dry mouth/eye, GI upset (including indigestion, nausea, diarrhea), sleeping problems (insomnia or drowsiness), decreased libido, blurred vision, dizziness. Generally, side effects will subside or lessen with time and are common during drug initiation and dose changes. If they persist please contact the office. 12/05/2024 Generalized anxiety disorder (ICD-10 - F41.1) [...] office. 12/05/2024 Primary insomnia (ICD-10 - F51.01) 06/20/2024 Generalized anxiety disorder (ICD-10 - F41.1) [...] grounding exercises, physical activity, healthy diet. -discussed Ary for sliding fee counseling 2. Insomnia/night yousif -cont off of prazosin due to dizziness at 2mg 03/20/2024 Generalized anxiety disorder (ICD-10 - F41.1) 03/20/2024 Primary insomnia (ICD-10 - F51.01) 06/20/2024 Primary insomnia (ICD-10 - F51.01) 1. CHELITA stable -cont escitalopram 15mg daily -encourage non-pharmaceut ical treatments including deep breathing, grounding exercises, physical activity, healthy diet. -discussed Ary for sliding fee counseling 2. Insomnia/night yousif -cont off of prazosin due to dizziness at 2mg 12/05/2024 Encounter for screening for cardiovascular disorders (ICD-10 - Z13.6) 04/19/2024 Primary insomnia (ICD-10 - F51.01) 12/05/2024 Negative depression screening (ICD-10 - Z13.31) 03/20/2024 Other Start Prazosin 1mg qHS for [...] grounding exercises, physical activity, healthy diet. -discussed Ary for sliding fee counseling 2. Insomnia/night yousif [...] effects of psychotropic medications. -Crisis prevention hotline 168. Plan Of Treatment Next Appt Details Provider Name:Yessy shanks, 02/21/2025 02:45:00 PM, [address] [address], [facility] [address], [place], [address], Insurance Providers Payer Name Payer Address Payer Phone Subscriber Number Group Number Insured Name Patient Relationship to Insured Coverage Start Date Coverage End Date [facility] [address] [place] [address] [id number] MITUL HOLLINGSWORTH Spouse - patient is the spouse of the insured 4 [employer] Medicare Supplement [address] [address] [place] [address] [id number] ROBERTA HOLLINGSWORTH Self - patient is the [...] Any surgical history 09/11/2013 Removal of gallbladder (26219) 2 Sinus surgery 12/19/2020 Tonsilectomy/adenoids 07/02/2005
--- OUTSIDE RECORDS SUMMARY | 2025-02-20 08:59 | XMS_ITS | Clinical Summary ---
Author Organization [facility] Address [address] [place] [address] Care Team Providers Care Betting Agency Manager Name Role Phone Sol Arivzu MD Primary Care Provider Source Comments [facility],non-owned Affiliates and Associated Physician Practices is amultiple site organization consisting of ambulatory clinics and hospital sitesin [place], [place], [place] and [place]. This disclosure is being madepursuant to the Care Everywhere program and may not contain all information available regarding this patient. Last updated 18.[facility] Allergies Active Allergy Reactions Criticality Noted Date [...] by mouth once daily Reasons: palpitations Active [place]-3 Fatty Acids (FISH OIL) 1000 MG capsule [...] RUQ abdominal pain, or jaundice. Plan: If Ring Conductor would like us to follow her for [...] fibrin deposition, neutrophils in the membranes and [place]'s jelly of the umbilical cord. Assessment & [...] fibrin deposition, neutrophils in the membranes and [place]'s jelly of the umbilical cord. Plan: Reviewed [...] 12:57 PM CDT): Requesting patient records from [facility] from 2012 Will give final recommendations [...] Comments Blood Pressure 115/67 08/23/2019 3:34 PM CATIA DESIGNER Pulse 75 08/23/2019 3:34 PM CATIA DESIGNER Temperature 37.1 C (98.7 F) 01/26/2018 10:12 PM CDT Respiratory Rate 16 08/23/2019 3:34 PM CATIA DESIGNER Oxygen Saturation 100% 01/26/2018 10:12 PM CDT Inhaled Oxygen Concentration - - Weight 94.8 kg (209 lb) 05/17/2019 8:44 AM CDT Height 160 cm (5' 3) 04/19/2019 11:56 AM CDT Body Mass Index 37.02 04/19/2019 11:56 AM CDT Plan of Treatment Health Maintenance Due Date Last Done Comments HIV SCREENING 2001 HEPATITIS C SCREENING 06/30/2004 HEPATITIS B VACCINE (1 of 3 - 19+ 3-dose series) 2005 HPV VACCINE (1 - 3-dose SCDM series) 2013 COVID-19 VACCINE ( season) 2024 06/03/2022, 06/05/2021, 04/24/2021 DEPRESSION SCREENING 08/02/2024 INFLUENZA VACCINE (#1) 2025 , 05/31/2023, 05/21/2022, Additional history exists DTAP/TDAP/TD VACCINES (2 - Td or Tdap) 04/08/2026 04/08/2016 PAP SMEAR 05/13/2026 05/13/2023, 05/13/2023 ZOSTER VACCINE (1 of 2) 2036 HIB VACCINE Aged Out No longer eligi [...] complete this topic Insurance MEDICAID - [place] [facility] Care Teams Betting Agency Manager Relationship Specialty Start Date End Date Sol Arvizu MD [address] [place], [place] [id number] PCP - General Internal Medicine 01/26/18
--- OUTSIDE RECORDS SUMMARY | 2025-02-20 09:00 | XMS_ITS | Data Portability ---
Author Organization [facility] Address [address] [place] [address] Assessment Encounter Date Assessment Date Assessment LastModified [...] libido, olive or coconut oil for lubrication [email or web address] Not available 02/18/2022 10:42:10 10/14/2022 10/14/2022 pt jacki well, f/u wwe [email or web address] Not available 10/14/2022 11:03:24 05/13/2023 05/13/2023 Annual gynecological exam performed. Patient will come back in a year unless there are new symptoms. [email or web address] Not available 05/13/2023 14:58:32 Plan of Treatment Reminders Order Date Submit Date Provider Last Modified By Organization Details Last Modified Time Details Appointments None recorded. Lab test, urine 2022 023 [facility], [address], [place], [address], 03/15/202 3 10:52:54 Referral None recorded. Procedures None recorded. Surgeries None recorded. Imaging MAMMO, diagnostic, digital, bilateral 2022 023 [facility], [address], [place], [address], 3 12:11:49 US, breast, unilateral - left breast pain, bilateral fibrocystic breast 2022 023 [email or web address] [facility], [address], [place], [address], 4 15:07:31 US, pelvis 2021 022 [address], [address], [place], [address], 2 16:25:39 US, transvagina l 2021 [address], [address], [place], [address], 2 16:25:39 Medication Orders Nexplanon 68 mg subdermal implant 2022 023 [email or web address] 1 [id number], [address], [place], [place], [id number], 3 10:55:07 Patient TargetsNo targets recorded. Patient InstructionsNo instructions recorded. Reason for Referral None Reported. Results Created Date Observation Date Name Description Value Unit Range Abnormal Flag Note LastModifiedBy Organization Detail LastModifiedTime 09/01/19 22 09/01/2021 VAGIN ITIS/ VAGIN OSIS, DNA PROBE shabnam sp. detection, direct probe Negati ve negati ve Not Available [facility] (Lab) [address], [place], [address], 09/02/2021 19:21:28 09/01/19 22 09/01/2021 VAGIN ITIS/ VAGIN OSIS, DNA PROBE gardnerella vag. detection, direct probe Negati ve negati ve Not Available [facility] (Lab) [address], [place], [address], 09/02/2021 19:21:28 09/01/19 22 09/01/2021 VAGIN ITIS/ VAGIN OSIS, DNA PROBE trichomonas vag. detection, direct probe Negati ve negati ve Not Available [facility] (Lab) [address], [place], [address], 09/02/2021 19:21:28 02/19/20 22 02/18/2022 IMAGE GUIDE D PAP AND HPV REGAR DLESS image guided Pap, HPV regardless of Pap result SEE RESULT S BELOW CASE REPOR T: Cytol ogy Gynec ologi ambreen Repor t Case: [id number] Autho richarleen g Provi emma: Stacy Hobbs NP Colle cted: 02/18 1513 Order ing Locat ion: [place] [facility] Recei shasta: 02/19 0737 First Scree n: Julia Mijares, CT Patho logis t: Gallo Bazan rd, MD Speci men: Beka adame Pap - Image d, Cervi x STATE [...] franz nted. Not Available [facility] [address] [place], [address], 02/24/2022 11:23:59 02/19/20 22 02/18/2022 TRICH OMONA S VAGIN NASRIN (RRNA ) trichomonas vaginalis ribosomal RNA (rrna) Negati ve negati ve Not Available [facility] [address] [place], [address], 02/24/2022 11:24:00 02/19/20 22 02/18/2022 CT/GC (STEVIE) , THINP REP VIAL chlamydia trachomatis, PCR Negati ve negati ve Not Available [facility] [address] [place], [address], 02/24/2022 11:24:00 02/19/20 22 02/18/2022 CT/GC (STEVIE) , THINP REP VIAL neisseria gonorrhoeae, PCR Negati ve negati ve Not Available [facility] [address] [place] [address], [address], 02/24/2022 11:24:00 05/13/20 23 05/13/2023 IMAGE GUIDE D PAP AND HPV REGAR DLESS image guided Pap, HPV regardless of Pap result SEE RESULT S BELOW CASE REPOR T: Cytol ogy Gynec ologi ambreen Repor t Case: [id number] Autho rhea spencer Provi emma: Meli Palacio NP Colle cted: 05/13 1604 Order ing Locat ion: [place] [facility] [place] Recei shasta: 05/14 1018 First Scree n: Jose Daniel rAisha ica Rescr een: Raya Temple, CT Speci men: Scree deep Pap - Image d, Cervi x STATE MENT OF ADEQU ACY: Satis facto ry for evalu ation Trans forma tion zone compo nent prese nt FINAL DIAGN OSIS: Negat clara for Intra epith elial Lesio n or Maura jiang (NIL) . Elect cordell [...] clini luis fernando franz nted. Not Available [facility] (Lab) [address], [place], [address], 05/18/2023 20:45:12 05/13/20 23 05/13/2023 TRICH OMONA S VAGIN NASRIN (RRNA ) trichomonas vaginalis ribosomal RNA (rrna) Negati ve negati ve Not Available [facility] (Lab) [address], [place], [address], 05/18/2023 20:45:12 05/13/20 23 05/13/2023 CT/GC (STEVIE) , THINP REP VIAL chlamydia trachomatis, PCR Negati ve negati ve Not Available [facility] (Lab) [address], [place], [address], 05/18/2023 20:45:13 05/13/20 23 05/13/2023 CT/GC (STEVIE) , THINP REP VIAL neisseria gonorrhoeae, PCR Negati ve negati ve Not Available [facility] (Lab) [address], [place], [address], 05/18/2023 20:45:13 09/25/19 22 09/25/2021 US, pelvi s No observ ation record ed. [email or web address] [facility] [address], [place], [address], 09/25/2021 11:43:53 09/25/19 22 09/25/2021 US, trans vagin al No observ ation record ed. [email or web address] [facility] [address], [place], [address], 09/25/2021 11:44:03 09/25/19 22 09/25/2021 US, pelvi s No observ ation record ed. [facility] [address], [place], [address], 09/29/2021 10:57:56 07/27/20 23 07/27/2023 MAMMO , diagn ostic , digit al, bilat eral No observ ation record ed. [email or web address] [address] [facility], [place], [address], 09/09/2023 14:24:38 Result Notes None recorded. Procedures Surgical History Date Name Laterality Status Provider Name and Address Organization Details Recorded Time 023 Control Implant Removal completed Stacy Lucero CNM [address], [place], [address], [facility] 10/14/2022 11:03:33 023 Control Implant Insertion completed [facility] 10/14/2022 10:42:59 022 Date of Last Pap Smear completed [facility] 02/18/2022 10:24:07 021 Unlisted px accessory sinus completed [facility] 09/01/2021 11:56:10 015 tonsilectomy/adeno ids completed [facility] 09/01/2021 11:55:57 013 catheter ablation of tissue of heart completed [facility] 09/01/2021 11:56:52 013 catheter ablation of tissue of heart completed [facility] 09/01/2021 11:56:56 012 Cholecystectomy completed [facility] 09/01/2021 11:55:52 007 Colposcopy completed [facility] 09/01/2021 12:00:57 007 Colposcopy completed [facility] 09/01/2021 12:03:11 Imaging Results None recorded. Procedure Notes None recorded. Medical Equipment None Reported. Allergies Allergen ID Allergen Name Allergen Category Reaction Reaction Severity Criticality Documentation Date Start Date Code Code System Note Provider Name and Address Organization Details Recorded Time 22910 sulfur medicatio n hives moderate Not available 09/01/2021 90323 RxNorm Esther Maldonado donis [facility] 11:51:32 88248 Penicilli n Not available hives moderate Not available 09/01/2021 60172 RxNorm Esther Ortizpascale dykes, [facility] 11:51:32 Medications Name Sig Start Date [...] Premarin 0.625 mg/gram vaginal cream INSERT 08/03 APPLICAT ORFUL VAGINALL Y EVERY DAY 02/18 [...] Body mass index (BMI) Body weight Systolic And Diastolic Provider Name and Address Organization Details Last Updated DateTime 10/14/2022 158.12 cm 39.2 kg/m2 38953.95 g 127/80 mm[Hg] Esther Maldonado [facility] 10/14/2022 10:31:26 Date Recorded Body height Body mass index (BMI) Body weight Systolic And Diastolic Provider Name and Address Organization Details Last Updated DateTime 02/18/2022 158.12 cm 38.8 kg/m2 77351.77 g 124/81 mm[Hg] Esther Maldonado [facility] 02/18/2022 10:22:12 Date Recorded Body height Body mass index (BMI) Body weight Systolic And Diastolic Provider Name and Address Organization Details Last Updated DateTime 05/13/2023 158.12 cm 40.3 kg/m2 356110.51 g 126/78 mm[Hg] Tasneem Griffin [facility] 05/13/2023 14:58:47 Social History Question Answer Notes LastModified by Organizat ion Details LastModified Time Tobacco Smoking Status Former Smoker Elza Anya dykes, [facility] 05/13/2023 14:49:20 Do You Have An Advance Directive? No [email or web address] Information n ot available 09/01/2021 Are You Blind Or Do You Have Difficulty Seeing? No [email or web address] Information n ot available 09/01/2021 What Is Your Level Of Caffeine Consumption? Moderate [email or web address] Information not available 09/01/2021 How Much Tobacco Do You Chew? None [email or web address] Information not available 09/01/2021 In The 14 Days Before Symptom Onset, Have You Had Close Contact With A Laboratory-confirm ed COVID-19 While That Case Was Ill? No Information n ot available 09/01/2021 In The 14 Days Before Symptom Onset, Have You Had Close Contact With A Person Who Is Under Investigation For COVID-19 While That Person Was Ill? No [email or web address] Information not available 09/01/2021 Have You Been To An Area Known To Be High Risk For COVID-19? Yes [email or web address] Information not available 09/01/2021 Are You Deaf Or Do You Have Serious Difficulty Hearing? No [email or web address] Information not available 09/01/2021 What Type Of Diet Are You Following? REGULAR [email or web address] Information n ot available 09/01/2021 What Is The Highest Grade Or Level Of School You Have Completed Or The Highest Degree You Have Received? [id number] [email or web address] Information not available 09/01/2021 Are There Any Guns Present In Your Home? No [email or web address] Information not available 09/01/2021 Have You Ever Been Counseled For Unhealthy Alcohol Use? No [email or web address] Information not available 05/13/2023 Do You Use Protection During Sex? No [email or web address] Information not available 09/01/2021 Do You Use Your Seat Belt Or Car Seat Routinely? Yes [email or web address] Information not available 09/01/2021 Do You Have Smoke And Carbon Monoxide Detectors In Your Home? Yes [email or web address] Information not available 09/01/2021 At What Age Did You Start Smoking Tobacco? 22 [email or web address] Information not available 02/18/2022 How Much Tobacco Do You Smoke? No [email or web address] Information not available 09/01/2021 Do You Use Sunscreen Routinely? Yes [email or web address] Information not available 09/01/2021 Has Tobacco Cessation Counseling Been Provided? No [email or web address] Information not available 05/13/2023 How Many Years Have You Smoked Tobacco? 4 [email or web address] Information not available 02/18/2022 Have You Used IV Drugs? No [email or web address] Information not available 09/01/2021 Do You Have Difficulty Walking Or Climbing Stairs? No [email or web address] Information not available 05/13/2023 Sex: Unknown Functional Status Question Answer Note LastModified by Organizat ion Details LastModified Time Do you use any illicit or recreational drugs? No [email or web address] Information not available 09/01/2021 Do you or have you ever used any other forms of tobacco or nicotine? No [email or web address] Information not available 05/13/2023 What is your level of alcohol consumption? Occasional [email or web address] Information not available 09/01/2021 Are you able to walk? YESWOREST [email or web address] Information not available 09/01/2021 Are you able to care for yourself? 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 No Information not available 05/13/2023 What is your exercise level? Occasional Information not available 09/01/2021 Mental Status Question Answer Note LastModified by Organization D etails LastModified Time Do you feel stressed (tense, restless, nervous, or anxious, or unable to sleep at night)? [id number] [email or web address] Information not available 09/01/2021 Family History Relationship Description Onset Age of this Age Resolved Age Notes LastModified by Organization Details LastModified Time Maternal Aunt Endometrial carcinoma [email or web address] Not available 09/01 11:51:32 Maternal Grandmother Cerebrovascu lar accident [email or web address] Not available 11:51:32 Maternal Grandmother Aneurysm of cerebral artery [email or web address] Not available 2022 14:49:20 Mother Diabetes mellitus [email or web address] Not available 09/01 11:51:32 Mother Endometrial carcinoma [email or web address] Not available 09/01 11:51:32 Mother Depressive disorder [email or web address] Not available 09/01 11:51:32 Medical History Condition Response Allergies (Food, seasonal, environmental ) Y Other N Drug/Latex Allergies/Reactions Y Blood Transfusion N Breast Cancer N Dermatologic Disorders N Lung Disease Y Defects or Inherited Disease N Breast Problem N Gestational Diabetes N Hematologic disorders N Anesthesia Complications N History of STI N Deep Vein Thrombosis N Polycystic ovary syndrome N Anxiety Disorder N Autoimmune disease N Arthritis N Polyps Y Infertility N Acid Reflux (GERD) N History of abnormal pap Y Cancer N Varicosities N Stroke N Neurologic/Epilepsy N Endometriosis N High Cholesterol N Fibromyalgia N Headaches N Kidney Disease N Heart Problems Y Thyroid Problems N Kidney or Bladder Problems N GI Problems N Eating Disorder [...] SNOMED-CT Code Diagnosis ICD10 Code Diagnosis Note [id number] Stacy Lucero [facility] [address],[place] [address] 09/01/2021 11:16:01 09/03/2021 11:30:45 Pain in pelvis 33730755 R10.2 plan wwe in december with nexplanon removal ? Family jovany nning education 707091252 Z30.02 88[address] [facility] [address],[place] [address] 10/14/2022 10:22:13 10/14/2022 11:13:06 Implantation of subcutaneous contraceptive 317598640 Z30.9 Screening procedure 2012 5006 Z13.9 55893 Pietro Ulrich MD [facility] [address],[place] [address] 09/25/2021 10:27:09 09/25/2021 11:47:20 Pain in pelvis 10241551 R10.2 N94.10 [id number] Stacy SandovalNancy EscobareSHAHAB [facility] [address] [address] 02/18/2022 09:57:35 02/18/2022 10:47:09 Gynecologic examination 31810012 Z01.419 [id number] Meli Palacio LEANNMARIBEL [facility] [address] [address] 05/13/2023 14:48:28 05/13/2023 15:40:30 Gynecologic examination 21193696 Z01.419 WWEB - nexplanon, inserted 10/14/22hap py with nexplanon [...] today's plan if desired. Pain of breast 55640864 N64.4 Health Concerns Section Related Observation LastModified by Organization Detai ls LastModified Time None Recorded Concern Status LastModified by Organization Details LastModified Time None Recorded Advance Directives Directive N: Payers Insurance Date Sequence Insurance Name Policy Number Policy Valentin Covered Member ID Valentin Member ID Guarantor Name 05/12/2023 1 [facility] Babar Jimenez [id number] Belinda Jimenez 02/16/2022 1 [id number] Babar Jim[facility] [id number] Belinda Jimenez 10/14/2022 2 [place] [facility] Belinda Garibay [id number] Belinda Jimenez 05/10/2023 1 [facility] (PP[facility] [id number] Babar Jimenez [id number] Belinda Jimenez 05/10/2023 1 [facility] (MEDICAID REPLACEMENT - HMO) [id number] Belinda Donahuecalf [id number] Belinda Jimenez Notes Date Note Type Note [...] orgasm Stacy Lucero CNM [address], [place], [address], [facility] 02/18/2022 10:42:17 10/14/2022 text/html nexplanon remova l and insertion, doing well, reviewed se risks and benefits UPT negative Stacy Lucero CNM [address], [place], [address], [facility] 10/14/2022 11:04:28 05/13/2023 text/html Annual GYNReport [...] paps since SUGEY Lue[facility] [address], [place], [address], [place] [facility] 05/13/2023 15:21:29 OBGyn Episode Ob Episode Information Episode Created Date Number of Fetuses Patient Bloodtype Patient rh Status Prepregnancy Weight lbs Domestic Partner Domestic Partner Phone Father Name Dry Starch Supervisor Status 09/01/19 22 1 CLOSED Fetus Data First Name Last Name Admitted to NICU Weight (g) Sex Living Outcome Pediatric Complications Fetus ID Race Codes Race Delivery Type , Spontane ous [id number] Rogelio Calculation Initial Rogelio Date Initial Exam [...] Domestic Partner Domestic Partner Phone Father Name Dry Starch Supervisor Status 09/01/19 22 1 CLOSED Fetus Data First Name Last Name Admitted to NICU Weight (g) Sex Living Outcome Pediatric Complications Fetus ID Race Codes Race Delivery Type 3628.73 6 F Full Term [id number] Vaginal Delivery Rogelio Calculation Initial Rogelio Date [...] Domestic Partner Domestic Partner Phone Father Name Dry Starch Supervisor Status 09/01/19 22 1 CLOSED Fetus Data First Name Last Name Admitted to NICU Weight (g) Sex Living Outcome Pediatric Complications Fetus ID Race Codes Race Delivery Type 3175.14 4 F Full Term [id number] Vaginal Delivery Rogelio Calculation Initial Rogelio Date [...] Domestic Partner Domestic Partner Phone Father Name Dry Starch Supervisor Status 09/01/19 22 1 CLOSED Fetus Data First Name Last Name Admitted to NICU Weight (g) Sex Living Outcome Pediatric Complications Fetus ID Race Codes Race Delivery Type , Spontane ous [id number] Rogelio Calculation Initial Rogelio Date Initial Exam [...]
--- OUTSIDE RECORDS SUMMARY | 2025-02-20 09:00 | XMS_ITS | Data Portability ---
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 Shift Assessment Encounter Date Assessment Date Assessment LastModified [...] year continue to follow up with her dean of instruction regularly she says she is up-to-date on flu and COVID shots healthy lifestyle care instructions Not available 10/22/2024 15:33:19 12/01/2024 12/01/2024 I suspect cervical radiculopathy prednisone 40 mg daily for 5 days tizanidine 4 mg to be taken at night x-ray of the cervical spine and she is going to call us in 2 weeks with update [email or web address] Not available 12/16/2024 22:09:18 02/06/2025 02/06/2025 Obtain MRI brain with and without contrast to include IAC's get ENT note meclizine no help Valium 5 mg 1/2 tablet b.i.d. for vestibular suppression and see me back in a couple of weeks Not available 02/07/2025 22:39:42 Plan of Treatment Reminders Order Date Submit Date Provider Last Modified By Organization Details Last Modified Time Details Appointments ANY 2024 01:15P Jarad Sidhu MD Not available Not available Not available ANY 2024 10:00A Jarad Sidhu MD Not available Not available Not available Lab lipid panel, serum 2024 025 [facility], [address], [address], [place], [address], 09/20/2024 06:20:28 HbA1c (hemoglo bin A1c), blood 2024 025 [facility], [address], [address], [place], [address], 09/20/2024 11:11:59 TSH + free T4, serum 2024 025 [facility], [address] [address], [address], [place], [address], 09/20/2024 11:11:57 CBC w/ auto diff 2024 025 [facility], [address], [address], [place], [address], 09/20/2024 06:20:30 T3, free, serum or plasma 2024 025 [facility], [address] [facility] [address], [address], [place], [address], 09/20/2024 11:12:00 CMP, serum or plasma 2024 025 [facility], [address], [address], [place], [address], 09/20/2024 06:20:29 vitamin D, 25-hydro xy, total, serum 2024 025 [facility], [address] [facility], [address], [place], [address], 09/20/2024 11:12:02 cobalami n and folate panel, serum 2024 025 [facility], [address] [place] [address], [address], [place], [address], 09/20/2024 11:11:58 pap, IG + HPV 2020 021 [facility], [address] [facility], [address], [place], [address], 01/10/2021 12:19:41 pregnanc y test, urine 2019 020 tank In-Office Order, Internal Use Only DO Not Attach Compendium DO Not Attach Compendium, Do Not Delete/merge, [id number] 10/26/2019 14:18:17 Referral None recorded . Procedures None recorded . Surgeries None recorded . Imaging MRI, brain + internal auditory canal, w/wo contrast 2024 025 [facility], [address] [facility] [address], [place], [address], 02/13/2025 12:20:44 XR, cervical spine 2024 025 [facility] [place] (Radiology), [address] [place], [address], 12/01/2024 14:15:49 MAMMO, diagnost ic, digital, bilatera l - left lateral intermit tent breast pain bilater dx mmg with u/s if needed E location 2020 021 [facility], Centralized Scheduling, [address] [facility] , [place], [address], 01/31/2021 14:19:45 Medication Orders predniso ne 20 mg tablet [address] [id number], [address] , [place], [place], [id number], 12/01/2024 14:01:26 tizanidi ne 4 mg tablet [address] [facility], [address] , [place], [place], [id number], 12/01/2024 14:01:26 doxycycl ine hyclate 100 mg capsule 2024 025 [email or web address] [facility], [address] , [place], [place], [id number], 09/19/2024 13:04:57 Nexplano n 68 mg subderma l implant 2019 020 [email or web address] [id number], [address] , [place], [place], [id number], 01/03/2021 14:36:54 Patient TargetsNo targets recorded. Patient Instructions Encounter Date Encounter Id Patient Instructions Last Modified By Organization Details Last Modified Time 10/26/2019 [id number] Remove pressure dressing in AM--keep arm dry until then. Remove steri-strips in 3 days. Call if redness or worsening pain. Take Tylenol or Motrin as needed for pain. Continue condoms for the next 2 weeks. Return in one year for annual exam. Call as needed. tank Not available 10/26/2019 14:17:17 01/03/2021 [id number] A healthy lifestyle: care instructions tank Not available 01/03/2021 14:51:54 Pap results will be sent to you. Breast imaging will be scheduled. tank Not available 01/03/2021 18:56:36 09/19/2024 [id number] A healthy lifestyle: care instructions Not available 09/19/2024 13:04:57 12/01/2024 [id number] A healthy lifestyle: care instructions Not available 12/01/2024 12:25:43 02/06/2025 [id number] A healthy lifestyle: care instructions [email or web address] Not available 02/06/2025 17:54:44 Reason for Referral None Reported. Results Created Date Observation Date Name Description Value Unit Range Abnormal Flag Note LastModifiedBy Organization Detail LastModifiedTime 10/26/19 20 10/26/2019 pregn yanci test, urine HCG negati ve Not Available In-Office Order Internal Use Only DO Not Attach Compendium DO Not Attach Compendium, Do Not Delete/merge, [id number] 10/26/2019 11:15:05 01/04/20 21 01/07/2021 pap, IG + HPV HPV aptima Negati ve negati ve This nucle ic acid ampli ficat ion test detec ts fourt een high- risk HPV types (16,1 8,31, 33,35 ,39,4 5,51, 52,56 ,58,5 9,66, 68) witho ut diffe renti ation . Not Available [facility] [address] [facility] [address], [place], [address], 01/10/2021 09:13:41 01/04/20 21 01/08/2021 pap, IG + HPV diagnosis: Commen t NEGAT TREVOR FOR INTRA EPITH ELIAL LESIO N OR MARICEL SCHULTZ . REACT TREVOR CELLU LAR COLLIER ES AND/O R REPAI R ARE PRESE NT. Not Available [facility] [address] [facility] [address], [place], [address], 01/10/2021 09:13:41 01/04/20 21 01/08/2021 pap, IG + HPV specimen adequacy: Commen t Satis facto ry for evalu ation . Endoc ervic al and/o r squam ous metap lasti c cells (endo cervi ambreen compo nent) are prese nt. Not Available [facility] [address] [facility], [place], [address], 01/10/2021 09:13:41 01/04/20 21 01/08/2021 pap, IG + HPV clinician provided ICD10: Angus duarte Z12.4 Not Available [facility] [address], [place], [address], 01/10/2021 09:13:41 01/04/20 21 01/08/2021 pap, IG + HPV performed by: Angus Rios ws, Cytot echno logis t (ASCP ) Not Available [facility] [address] [facility] [address], [place], [address], 01/10/2021 09:13:41 01/04/2001/08/2021 pap, IG + HPV electronical ly signed by: Angus garcia MD, Patho logis t Not Available [facility] [address] [facility] [address], [place], [address], 01/10/2021 09:13:41 01/04/20 21 01/08/2021 pap, IG + HPV . . Not Available [facility] [address] [facility] [address], [place], [address], 01/10/2021 09:13:41 01/04/2001/08/2021 pap, IG + HPV note: Angus duarte The Pap smear is a scree deep [...] do occur . Not Available [facility] [address] [facility] [address], [place], [address], 01/10/2021 09:13:41 01/04/20 21 01/08/2021 pap, IG + HPV test methodology: Niraven t This liqui d based ThinP rep(R ) pap test was lucy mccain with the use of an image guide delphine perera Not Available [facility] [address] [address], [place], [address], 01/10/2021 09:13:41 09/01/19 22 09/01/2021 Bacte rial [...] PCR Not Available Not Available 09/27/2024 11:22:32 05/13/20 23 05/13/2023 Chlam ydia trach omati s and Neiss eria gonor rhoea e rRNA panel - Speci men by RADHIKA with probe detec tion neisseria gonorrhoeae, PCR Negati ve neiss eria gonor rhoea e, PCR Not Available Not Available 09/27/2024 11:22:32 05/13/20 23 05/13/2023 Trich omona s vagin sharon rRNA [Pres ence] in Speci men by RADHIKA with probe detec tion trichomonas vaginalis ribosomal RNA (rrna) Negati ve trich omona s vagin sharon ribos omal RNA (rrna ) Not Available Not Available 09/27/2024 11:22:32 09/19/19 25 09/19/2024 LIPID PANEL cholesterol, total 122 mg/dL 100-19 9 Not Available [facility] Department [address] [place], [address], 09/20/2024 06:20:28 09/19/19 25 09/19/2024 LIPID PANEL triglyceride s 169 mg/dL 0-149 above high normal Not Available [facility] Department [address] [place], [address], 09/20/2024 06:20:28 09/19/19 25 09/19/2024 LIPID PANEL HDL cholesterol 31 mg/dL 40-999 below low normal Not Available [facility] Department [address] [place], [address], 09/20/2024 06:20:28 09/19/19 25 09/19/2024 LIPID PANEL VLDL cholesterol ambreen 34 mg/dL 5-40 Not Available [facility] Department [address] [place], [address], 09/20/2024 06:20:28 09/19/19 25 09/19/2024 LIPID PANEL LDL chol calc ([facility]) 82 mg/dL 0-99 Not Available [facility] Department [address] [place], [address], 09/20/2024 06:20:28 09/19/19 25 09/19/2024 COMP. METAB OLIC PANEL (14) glucose 85 mg/dL 70-99 Not Available [facility] Department [address] [place], [address], 09/20/2024 06:20:29 09/19/19 25 09/19/2024 COMP. METAB OLIC PANEL (14) BUN 13 mg/dL 6-20 Not Available [facility] Department [address] [place], [address], 09/20/2024 06:20:29 09/19/19 25 09/19/2024 COMP. METAB OLIC PANEL (14) creatinine 0.80 mg/dL 0.76-1 .27 Not Available [facility] Department [address] [place], [address], 09/20/2024 06:20:29 09/19/19 25 09/19/2024 COMP. METAB OLIC PANEL (14) eGFR 97 >=60 Units for eGFR value s are mL/mi n/1.7 3 The eGFR Calcu latio n has not been valid ated for patie nts under the age of 18. If test resul ts are displ ayed for a patie nt under the age of 18, disre eusebia that value . Not Available [facility] Department [address] [place] [address], [address], 09/20/2024 06:20:29 09/19/19 25 09/19/2024 COMP. METAB OLIC PANEL (14) BUN/creatini ne ratio 16 9-23 Not Available [facility] Department [address] [place] [address], [address], 09/20/2024 06:20:29 09/19/19 25 09/19/2024 COMP. METAB OLIC PANEL (14) sodium 141 mmol/ L 134-14 4 Not Available [facility] Department [address] [place], [address], 09/20/2024 06:20:29 09/19/19 25 09/19/2024 COMP. METAB OLIC PANEL (14) potassium 4.2 mmol/ L 3.5-5. 2 Not Available [facility] Department [address] [place] [address], [address], 09/20/2024 06:20:29 09/19/19 25 09/19/2024 COMP. METAB OLIC PANEL (14) chloride 103 mmol/ L 96-106 Not Available [facility] Department [address] [place], [address], 09/20/2024 06:20:29 09/19/19 25 09/19/2024 COMP. METAB OLIC PANEL (14) carbon dioxide, total 29 mmol/ L 20-29 Not Available [facility] Department [address] [place], [address], 09/20/2024 06:20:29 09/19/19 25 09/19/2024 COMP. METAB OLIC PANEL (14) calcium 9.5 mg/dL 8.7-10 .2 Not Available [facility] Department [address] [place], [address], 09/20/2024 06:20:29 09/19/19 25 09/19/2024 COMP. METAB OLIC PANEL (14) protein, total 7.4 g/dL 6.0-8. 5 Not Available [facility] Department [address] [place], [address], 09/20/2024 06:20:29 09/19/19 25 09/19/2024 COMP. METAB OLIC PANEL (14) albumin 4.5 g/dL 3.9-4. 9 Not Available [facility] Department [address] [place], [address], 09/20/2024 06:20:29 09/19/19 25 09/19/2024 COMP. METAB OLIC PANEL (14) globulin, total 2.9 g/dL 1.5-4. 5 Not Available [facility] Department [address] [place], [address], 09/20/2024 06:20:29 09/19/19 25 09/19/2024 COMP. METAB OLIC PANEL (14) A/G ratio 2.0 1.2-2. 2 Not Available [facility] Department [address] [place], [address], 09/20/2024 06:20:29 09/19/19 25 09/19/2024 COMP. METAB OLIC PANEL (14) bilirubin, total 0.2 mg/dL 0.0-1. 2 Not Available [facility] Department [address] [place], [address], 09/20/2024 06:20:29 09/19/19 25 09/19/2024 COMP. METAB OLIC PANEL (14) alkaline phosphatase 96 IU/L 44-121 Not Available [facility] Department [address] [place], [address], 09/20/2024 06:20:29 09/19/19 25 09/19/2024 COMP. METAB OLIC PANEL (14) AST (SGOT) 19 IU/L 0-40 Not Available [facility] Department [address] [place], [address], 09/20/2024 06:20:29 09/19/19 25 09/19/2024 COMP. METAB OLIC PANEL (14) ALT (SGPT) 17 IU/L 0-32 Not Available [facility] Department [address] [place], [address], 09/20/2024 06:20:29 09/19/19 25 09/19/2024 CBC WITH DIFFE RENTI AL/PL ATELE T WBC 12.0 x10e3 /uL 3.4-10 .8 above high normal Not Available [facility] Department [address] [place], [address], 09/20/2024 06:20:30 09/19/19 25 09/19/2024 CBC WITH DIFFE RENTI AL/PL ATELE T RBC 4.58 x10e6 /uL 3.77-5 .28 Not Available [facility] Department [address] [place], [address], 09/20/2024 06:20:30 09/19/19 25 09/19/2024 CBC WITH DIFFE RENTI AL/PL ATELE T hemoglobin 12.8 g/dL 11.1-1 5.9 Not Available [facility] Department [address] [place], [address], 09/20/2024 06:20:30 09/19/1909/19/2024 CBC WITH DIFFE RENTI AL/PL ATELE T hematocrit 40.8 % 34.0-4 6.6 Not Available [facility] Department [address] [place], [address], 09/20/2024 06:20:30 09/19/1909/19/2024 CBC WITH DIFFE RENTI AL/PL ATELE T MCV 89 fL 79-97 Not Available [facility] Department [address] [place], [address], 09/20/2024 06:20:30 09/19/1909/19/2024 CBC WITH DIFFE RENTI AL/PL ATELE T MCH 27.9 pg 26.6-3 3.0 Not Available [facility] Department [address] [place], [address], 09/20/2024 06:20:30 09/19/1909/19/2024 CBC WITH DIFFE RENTI AL/PL ATELE T MCHC 31.4 g/dL 31.5-3 5.7 below low normal Not Available [facility] Department [address] [place], [address], 09/20/2024 06:20:30 09/19/1909/19/2024 CBC WITH DIFFE RENTI AL/PL ATELE T RDW 12.4 % 11.5-1 4.5 Not Available [facility] Department [address] [place], [address], 09/20/2024 06:20:30 09/19/19 25 09/19/2024 CBC WITH DIFFE RENTI AL/PL ATELE T platelets 163 x10e3 /uL 150-45 0 Not Available [facility] Department [address] [place], [address], 09/20/2024 06:20:30 09/19/19 25 09/19/2024 CBC WITH DIFFE RENTI AL/PL ATELE T neutrophils 68 % notest b. Not Available [facility] Department [address] [place], [address], 09/20/2024 06:20:30 09/19/19 25 09/19/2024 CBC WITH DIFFE RENTI AL/PL ATELE T lymphs 23 % notest b. Not Available [facility] Department [address] [place], [address], 09/20/2024 06:20:30 09/19/19 25 09/19/2024 CBC WITH DIFFE RENTI AL/PL ATELE T monocytes 6 % notest b. Not Available [facility] Department [address] [place], [address], 09/20/2024 06:20:30 09/19/19 25 09/19/2024 CBC WITH DIFFE RENTI AL/PL ATELE T eos 2 % notest b. Not Available [facility] Department [address] [place], [address], 09/20/2024 06:20:30 09/19/1909/19/2024 CBC WITH DIFFE RENTI AL/PL ATELE T basos 0 % notest b. Not Available [facility] Department [address] [place], [address], 09/20/2024 06:20:30 09/19/19 25 09/19/2024 CBC WITH DIFFE RENTI AL/PL ATELE T neutrophils (absolute) 8.1 x10e3 /uL 1.4-7. 0 above high normal Not Available [facility] Department [address] [place], [address], 09/20/2024 06:20:30 09/19/19 25 09/19/2024 CBC WITH DIFFE RENTI AL/PL ATELE T lymphs (absolute) 2.8 x10e3 /uL 0.7-3. 1 Not Available [facility] Department [address] [place], [address], 09/20/2024 06:20:30 09/19/19 25 09/19/2024 CBC WITH DIFFE RENTI AL/PL ATELE T monocytes(ab solute) 0.8 x10e3 /uL 0.1-0. 9 Not Available [facility] Department [address] [place], [address], 09/20/2024 06:20:30 09/19/19 25 09/19/2024 CBC WITH DIFFE RENTI AL/PL ATELE T eos (absolute) 0.2 x10e3 /uL 0.0-0. 4 Not Available [facility] Department [address] [place], [address], 09/20/2024 06:20:30 09/19/19 25 09/19/2024 CBC WITH DIFFE RENTI AL/PL ATELE T baso (absolute) 0.0 x10e3 /uL 0.0-0. 2 Not Available [facility] Department [address] [place], [address], 09/20/2024 06:20:30 09/19/19 25 09/19/2024 CBC WITH DIFFE RENTI AL/PL ATELE T immature granulocytes 0.4 % notest b. Not Available [facility] Department [address] [place], [address], 09/20/2024 06:20:30 09/19/19 25 09/19/2024 CBC WITH DIFFE RENTI AL/PL ATELE T immature grans (abs) 0.1 x10e3 /uL 0.0-0. 1 Not Available [facility] Department [address] [place], [address], 09/20/2024 06:20:30 09/19/19 25 09/19/2024 CBC WITH DIFFE RENTI AL/PL ATELE T NRBC 0 % 0-0 Not Available [facility] Department [address] [place], [address], 09/20/2024 06:20:30 09/19/19 25 09/20/2024 TSH+F REE T4 TSH 2.130 uIU/m L 0.450- 4.500 Not Available [facility]) [address] [facility] [address], [place], [address], 09/20/2024 11:11:56 09/19/19 25 09/20/2024 TSH+F REE T4 T4,free(dire ct) 0.95 NG/dL 0.82-1 .77 Not Available [facility]) [address] [place], [address], 09/20/2024 11:11:56 09/19/19 25 09/20/2024 VITAM IN B12 AND FOLAT E vitamin B12 553 pg/mL 232-12 45 Not Available [facility]) [address] [facility], [place], [address], 09/20/2024 11:11:58 09/19/19 25 09/20/2024 VITAM IN B12 AND FOLAT E folate (folic acid), serum 14.0 NG/mL >3.0 A serum folat e kali ntrat ion of less than 3.1 ng/mL is consi dered to repre sent clini ambreen defic iency . Not Available [facility]) [address] [facility], [place], [address], 09/20/2024 11:11:58 09/19/19 25 09/20/2024 HEMOG LOBIN A1C hemoglobin A1C 5.5 % 4.8-5. 6 Predi abete s: 5.7 - 6.4 Diabe maribel: >6.4 Glyce rhys contr ol for adult s with diabe maribel: <7.0 Not Available [facility]) [address] [place], [address], 09/20/2024 11:11:59 09/19/19 25 09/20/2024 TRIIO DOTHY CARMEN E (T3), FREE triiodothyro nine (T3), free 3.2 pg/mL 2.0-4. 4 Not Available [facility]) [address] [facility], [place], [address], 09/20/2024 11:12:00 09/19/19 25 09/20/2024 VITAM IN D, 25-HY DROXY vitamin D, 25-hydroxy 34.5 NG/mL 30.0-1 00.0 Vitam in D defic iency has been defin ed by the Insti tute of Medic ine and an Endoc rine Socie ty pract ice guide line as a level of serum 25-OH vitam in D less than 20 ng/mL (1,2) . The Endoc rine Socie ty went on to [facility] defin e vitam in D insuf ficie ncy as a level betwe en 21 and 29 ng/mL (2). 1. IOM (Inst itute of Medic ine). 2009. Dieta ry refer ence intak es for calci um and D. Jose Antonio roberts [place]: The [facility] Press . 2. Jalen bowman MF, Duncan daniels [place], Danni off-F errcherise i MARK, et al. Evalu ation , treat ment, and preve ntion of vitam in D defic iency : an Endoc rine Socie ty clini ambreen pract ice guide line. JCEM. 2010; 96(7) :1911 -30. Not Available [facility]) [address] [facility], [place], [address], 09/20/2024 11:12:01 02/01/20 21 01/31/2021 MAMMO , diagn ostic , digit al, bilat eral No observ ation record ed. [facility] [address] [facility] [address], [place], [address], 01/31/2021 14:18:21 12/02/19 25 12/01/2024 XR, cervi ambreen spine No observ ation record ed. [facility] [address] [place], [address], 12/07/2024 21:16:46 12/08/19 25 12/07/2024 CT, sinus es, w/o contr ast No observ ation record ed. [address], [place], [address], 12/08/2024 10:17:06 01/25/20 25 01/24/2025 imagi ng/di agnos tic resul t No observ ation record ed. [id number] [facility] [address], [place], [address], 01/30/2025 11:06:15 Result Notes None recorded. Problems Name Problem SNOMED Code Status Onset Date Resolution Date Notes Provider Name and Address Organization Details Recorded Time Thromboc ytopenic disorder 342440846 Completed lowest in 110s around , had been sick in September with URI/ear infectio ns, Platelet s 145k at 1st visit, 166k at 26wks and 168k at 33wks OMERO [place], [place] [facility] 0 11:11:03 Insertio n of subcutan eous contrace ptive done 88784247385 9103 Active Daniel Hubbard null, [place] - [facility] 6 18:04:47 Pregnanc y 62738398 Completed 201810/26/2019 OM[place], [place] [facility] 0 11:11:06 Maternal obesity complica ting pregnanc y, childbir th and the puerperi um, antepart um 50883946572 7 Completed 2018 pre pregnanc y BMI 38.3--SS M recommen ds repeat growth every 4 weeks but didn't schedule a f/u--rep eat 0 shows possible reduced growth velocity --to have repeat BPP/dopp lers in one week OMERO [place], [place] - [facility] 0 11:11:03 Common bile duct calculus 987992500 Completed 2018 Prior cholecys tectomy and prior [...] Antenata l care: poor obstetri c history 800325019 Completed 2018 History of chorioam nionitis in 1st pregnanc y/ hospital ized x 8d--seen by [facility] this pregnanc y per their order after anatomy ultrasou nd done there--s ee consult notes OM[facility] [place], [place] [facility] 0 11:11:03 Female steriliz ation Completed 2018 Consider ing PPTL--bu t likes no menses with Nexplano n--has [employer] insuranc e OMERO [place], [place] [facility] 0 11:11:03 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 86250450022 9107 Completed 2019 +GBS suscepti ble to clindamy donovan [facility] [place] [facility] 0 11:11:03 Obesity 536130248 Active 2024 Charlotte Sidhu MD Attn: Jovana spencer,[address] [facility], [place], [address], [place] [facility] 15:33:52 Fatigue 57309036 Active 2024 Charlotte Sidhu MD Attn: Jovana spencer,[address] [facility], [place], [address], [place] - [facility] 5 15:33:55 Supraven tricular tachycar jayne 6712251 Active 2024 ablation Charlotte Sidhu MD Attn: Jovana spencer,[address] [facility], [place], [address], [place] [facility] 15:34:12 Asthma 631396988 Active 2024 Charlotte Sidhu MD Attn: Jovana spencer,[address] [facility], [place], [address], [place] [facility] 15:34:02 Neck pain 55877526 Active 2024 Luzmaria Baker MA null, [place] [facility] 12:52:08 Problem Notes None recorded. Procedures Surgical History Date Name Laterality Status Provider Name and Address Organization Details Recorded Time 02/01/20 21 Most Recent Mammogram completed Daniel Haydee [place] - [facility] 01/31/2021 14:20:25 01/04/20 21 Date of Last Pap Smear completed Daniel Kelleneljocesar [place] - [facility] 01/03/2021 14:08:16 12/28/19 21 Nsl/sins ndsc surg bx polypc completed OMERO Bonds - [facility] 01/03/2021 14:21:11 10/26/19 20 Control Implant Insertion completed Alida Dozier [place] [facility] 10/26/2019 11:15:12 07/13/20 18 Control Implant Removal completed Daniel [place] [facility] 07/13/2018 14:32:27 02/10/20 16 Control Implant Replacement completed Daniel [place]dee [place] [facility] 02/10/2016 18:04:48 08/02/19 12 Cholecystectomy completed Daniel Haydee [place] - [facility] 07/31/2015 15:05:54 Tonsillectomy completed Sol Arvizu MD Attn: Accounting,[address], [place], [address], [facility] - [facility] 11/02/2016 14:16:27 Imaging Results None recorded. Procedure Notes None recorded. Medical Equipment None Reported. Allergies Allergen ID Allergen Name Allergen Category Reaction Reaction Severity Criticality Documentation Date Start Date Code Code System Note Provider Name and Address Organization Details Recorded Time 062807 Product containin g penicilli n (product) medicatio n hives moderate Not available 04/14/20182017 75932 8001 SNOMED Parvin Shipley LPN null, [place] - [facility] 8 14:17:31 48618 Substance with sulfonami de structure and antibacte rial mechanism of action (substanc e) medicatio n hives Not available Not available 07/31/2015 02638 8003 SNOMED Sharmin Crow null, [facility] 5 14:45:52 Medications Name Sig Start Date [...] Not Available tizanidin e 4 mg tablet TAKE 1 TABLET BY MOUTH EVERY DAY AT BEDTIME active Not Available Not Available No t Available fluconazo le 150 mg tablet Take 1 [...] completed Not Available Not Available Not Available diazepam 5 mg tablet TAKE 1/2 TABLET BY MOUTH TWICE DAILY active Not Available Not Available No t Available escitalop josselyn 10 mg tablet TAKE [...] Not Available Not Available Not Available meclizine take 2 tablets every 4 to 6 hours active Not Available Not Available No t Available Nexplanon 68 mg subdermal implant Inject 1 implant by subcutan eous route. 2019 active INSERTIO N 0 Not Available Not Available Not Available 28 mg iron-800 mcg tablet TAKE 1 TABLET BY MOUTH EVERY DAY 01/03 completed Not Available Not Available Not Available Fluarix Quad 7125-9157 (PF) 60 mcg (15 mcg x 4)/0.5 [...] in Arterial blood by Pulse oximetry Systolic And Diastolic Provider Name and Address Organization Details Last Updated DateTime 5 160.02 cm 40.6 kg/m2 584668. 65 g 74 /min 100 % 100 % 128/80 mm[Hg] Josette Bucio MA [facility] 5 12:07:54 Date Recorded Body height Body mass index (BMI) Body weight Provider Name and Address Organization Details Last Updated DateTime 10/26/2019 160.02 cm 35.6 kg/m2 52494.22951 4 g Alida Dozier MA [facility] 10/26/2019 11:11:04 Date Recorded Systolic And Diastolic Provider Name and Address Organization Details Last Updated DateTime 10/26/2019 132/80 mm[Hg] Daniel Hubbard [facility] 10/25 11:26:34 Date Recorded Body height Body mass index (BMI) Body weight Heart rate Oxygen saturation Oxygen saturation in Arterial blood by Pulse oximetry Systolic And Diastolic Provider Name and Address Organization Details Last Updated DateTime 5 160.02 cm 39.8 kg/m2 877149. 21 g 72 /min 98 % 98 % 114/70 mm[Hg] Arlette Lloyd MA [facility] 5 11:38:11 Date Recorded Body height Body mass index (BMI) Body weight Systolic And Diastolic Provider Name and Address Organization Details Last Updated DateTime 01/03/2021 160.02 cm 37.9 kg/m2 36604.77 g 144/94 mm[Hg] Alida Dozier MA [facility] 01/03/2021 14:24:59 Date Recorded Body height Body mass index (BMI) Body weight Heart rate Oxygen saturation Oxygen saturation in Arterial blood by Pulse oximetry Systolic And Diastolic Provider Name and Address Organization Details Last Updated DateTime 5 160.02 cm 40 kg/m2 684296. 44 g 86 /min 97 % 97 % 112/64 mm[Hg] Arlette Lloyd MA [facility] 5 15:39:59 Social History Question Answer Notes LastModified by Organizat ion Details LastModified Time Tobacco Smoking Status Former Smoker stopped 2012 [facility] 02/16/2019 13:21:28 Are You Blind Or Do You Have Difficulty Seeing? No Information not available 09/19/2024 Is Blood Transfusion Acceptable In An Emergency? Yes [email or web address] Information not available 07/31/2015 What Is Your Level Of Caffeine Consumption? Moderate [email or web address] Information not available 07/31/2015 How Much Tobacco Do You Chew? None [email or web address] Information not available 07/31/2015 In The 14 [...] No Information not available 09/19/2024 Are You Deaf Or Do You Have Serious Difficulty Hearing? No Information not available 09/19/2024 What Type Of Diet Are You Following? REGULAR [email or web address] Information not available 07/31/2015 Which Illicit Or Recreational Drugs Have You Used? None Information not available 07/31/2015 Education 2 Year College [email or web address] Information not available 07/31/2015 Have There Been Any Changes To Your Family Or Social Situation? No Information no t available 01/03/2021 Live Alone Or With Others? With Others [email or web address] Information not available 07/31/2015 What Was The Date Of Your Most Recent Tobacco Screening? 02/06/2025 Information not available 02/06/2025 How Many Children Do You Have? 1 [email or web address] Information not available 07/31/2015 Performs Monthly Self-breast Exam? No [email or web address] Information no t available 07/31/2015 What Is Your Relationship Status? Single Information not available 07/31/2015 Do You Use Your Seat Belt Or Car Seat Routinely? Yes Information not available 01/03/2021 Seat Belts Used Routinely Yes Information not available 07/31/2015 Are You Sexually Active? No [email or web address] Information not available 07/31/2015 Do You Have Smoke And Carbon Monoxide Detectors In Your Home? Yes Information not available 01/03/2021 At What Age Did You Start Smoking Tobacco? 22 [email or web address] Information not available 07/31/2015 How Much Tobacco Do You Smoke? 1 PPW [email or web address] Information not available 07/31/2015 General Stress Level Low [email or web address] Information not available 07/31/2015 Do You Use Sunscreen Routinely? Yes [email or web address] Information not available 07/31/2015 Has Tobacco Cessation Counseling Been Provided? No Information not available 02/06/2025 On What Date Was Tobacco Cessation Counseling Provided? 02/06/2025 Information not available 02/06/2025 How Many Years Have You Smoked Tobacco? 5 [email or web address] Information not available 07/31/2015 Sex: Unknown Functional Status Question Answer Note LastModified by Organizat ion Details LastModified Time Do you use any illicit or recreational drugs? No Information not available 01/03/2021 Do you or have you ever used any other forms of tobacco or nicotine? No Information not available 01/03/2021 What is your level of alcohol consumption? Occasional [email or web address] Information not available 07/31/2015 Are you currently employed? Yes [email or web address] Information not available 07/31/2015 Are you able to care for yourself? 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 Occasional Information not available 07/31/2015 Mental Status Question Answer Note LastModified by Organization D etails LastModified Time Do you feel stressed (tense, restless, nervous, or anxious, or unable to sleep at night)? [id number] Information not available 01/03/2021 Family History Relationship Description Onset Age of [...] High Blood Pressure N Breast Cancer N Lung Disease N Depression N Blood Clots N Breast Problem N Anesthesia Complications N Headaches/Migraines N Anxiety Disorder N Muscle, Joint, or Bone Problems N Polyps N Infertility N Acid Reflux (GERD) N Cancer N Endometriosis N High Cholesterol N Liver Disease N Kidney or Bladder Problems N Thyroid Problems N GI Problems N Acne N Eating Disorder N Anemia N Ovarian Cancer N Diabetes N Blood Transfusions N Seizures/Epilepsy N Abuse/Domestic Violence N Asthma Y Hepatitis N Heart Disease Y Pre-Eclampsia N Osteoporosis [...] 30 mcg/0.3 mL dose 04/24/2021 completed Josette Bucio [place], [place] [facility] 09/19/2024 12:09:20 COVID-19, mRNA, LNP-S, PF, 30 mcg/0.3 mL dose 06/05/2021 completed Josette Bucio [place] [facility] 09/19/2024 12:09:20 COVID-19, mRNA, LNP-S, bivalent, PF, 30 mcg/0.3 mL dose 06/03/2022 completed Josette Bucio [place] [facility] 09/19/2024 12:09:20 COVID-19, mRNA, LNP-S, PF, denny-sucrose, 30 mcg/0.3 mL 06/09/2024 completed Josette Bucio [place] [facility] 09/19/2024 12:09:20 COVID-19, mRNA, LNP-S, PF, denny-sucrose, 30 mcg/0.3 mL 07/01/2023 completed Josette Bucio [place], [place] - [...] virus, quadrivalent, PF 04/26/2019 completed Not Available [facility] 0 02:38:11 Tdap 06/22/2019 completed Not Available [facility] 08/19/2019 02:40:20 Past Encounters Encounter ID Performer Location Encounter Start Date Encounter Closed Date Diagnosis/Indication Diagnosis SNOMED-CT Code Diagnosis ICD10 Code Diagnosis Note [id number] MD Edmund Earl [facility] ([employer]) [address] [place] [address] 07/31/2015 14:28:13 08/01/2015 11:57:07 Gynecologic examination 00870407 Z01.419 Subcutaneo us contraceptive implant present 440644354 Z30.42 [id number] MD Edmund Earl ([employer]) [address] [place] [address] 02/10/2016 16:36:08 02/20/2016 03:47:59 Subcutaneous contraceptive implant present 432508509 Z30.42 Insertion of subcutaneous contraceptive done 3391991307 24217 Z30.49 [id number] [facility] [address] [place] [address] 11/02/2016 13:44:56 11/02/2016 14:50:16 General examination of patient 438679435 Z00.01 History of supraventricular tachycardia 2006849830 8649711 Z86.79 Numbness of face 6643892 09 R20.0 [id number] Sol Arvizu MD [facility] (Adult Med) [address] [place] [address] 12/07/2016 16:02:54 12/07/2016 16:49:52 Paresthesia 18210018 R20.2 Disorder of vision 85068 002 H53.9 [id number] MD Edmund Earl ([employer]) [address] [place] [address] 11/22/2017 11:48:21 11/29/2017 15:12:00 Gynecologic examination 03843239 Z01.419 Contraception care 63624 5005 Z30.46 High risk sexual behavior 327035201 Z72.51 [id number] [facility] [employer] [address] [place] [address] 04/14/2018 16:33:38 04/22/2018 11:42:05 Increased frequency of urination 707744091 R35.0 Vaginal pain 76851231 R1 0.2 [id number] MD Edmund Earl ([employer]) [address] [place] [address] 07/13/2018 13:46:52 07/14/2018 12:59:10 Removal of subcutaneous contraceptive 383023076 Z30.46 Trying to conceive 82617 9001 Z31.9 [id number] MD Edmund Earl ([employer]) [address] [place] [address] 12/07/2018 18:02:01 12/08/2018 11:32:35 Irregular periods 14124444 N92.6 --menses irregular since Nexplanon removal 07/13/18 but also has been ill, see HPI [id number] MD Edmund Earl [facility] ([employer]) [address] [place] [address] 01/11/2019 17:17:22 01/12/2019 09:26:08 Gynecologic examination 96989536 Z01.419 --Pap up to date High risk sexual behavior 574219621 Z72.51 --requests gc/chl/tri ch only, will do other std labs with new OB blood work on return Urine preg deidre test positive 971194540 Z32.01 --no menses since 10/09/18 and now urine test is positive [id number] MD Edmund Earl [facility] ([employer]) [address] [place] [address] 02/16/2019 12:12:48 02/17/2019 15:25:49 Routine care 936517140 Z34.81 --new OB at 10w1d Maternal o besity complicating , childbirth and the puerperium, antepartum 2917808005 07 O99.811 [id number] MD Edmund Earl [facility] ([employer]) [address] [place] [address] 03/08/2019 18:24:25 03/09/2019 09:20:37 Routine care 485130301 Z34.81 --13w0d [id number] MD Edmund Earl [facility] ([employer]) [address] [place] [address] 04/05/2019 18:38:52 04/06/2019 17:08:10 Routine care 905410362 Z34.82 --17w0d [id number] MD Edmund Earl [facility] ([employer]) [address] [place] [address] 04/26/2019 15:34:00 04/27/2019 09:15:50 Routine care 258065088 Z34.82 --20w0d Administra tion of influenza vaccine 74495369 Z23 Vaginal discharge 668033 006 N89.8 --resolved with Monistat, requesting check [id number] Daniel Hubbard MD [facility] ([employer]) [address] [place] [address] 05/24/2019 18:32:26 05/25/2019 14:54:47 Routine care 897277647 Z34.82 -00l6y--yf thrombocyt openia, plts 145k at 1st visit--hx of elevated LFTs, resolved but will recheck CMP [id number] MD Edmund Earl [facility] ([employer]) [address] [place] [address] 06/07/2019 10:25:24 06/09/2019 03:46:40 [id number] MD Edmund Earl [facility] ([employer]) [address] [place] [address] 06/22/2019 14:58:27 06/23/2019 14:09:02 Routine care 836813756 Z34.83 -98i3r--nd thrombocyt openia, plts 145k at 1st visit and 166k at 24 weeks--hx of elevated LFTs, resolved and recheck CMP at 24wks wnl Low back p ain in 3119472318 106 O26.899 Active or passive immunization 291542512 Z23 [id number] [facility] [address] [place] [address] 07/10/2019 16:02:46 07/11/2019 09:40:36 Routine care 641920604 Z34.83 -13h7l--sj thrombocyt openia, plts 145k at 1st visit and 166k at 24 weeks--hx of elevated LFTs, resolved and recheck CMP at 24wks wnl [id number] DanielMD Edmund Godoy ([employer]) [address] [place] [address] 07/27/2019 16:11:37 07/28/2019 15:45:32 Routine care 306310650 Z34.83 -53u1l--jj thrombocyt openia, plts 145k at 1st visit and 166k at 24 weeks--hx of elevated LFTs, resolved and recheck CMP at 24wks wnl [id number] MD Edmund Earl [facility] ([employer]) [address] [place] [address] 08/10/2019 11:06:43 08/11/2019 11:31:16 Routine care 335584006 Z34.83 -54b7q--vj thrombocyt openia, plts 145k at 1st visit, 166k at 24 weeks and 168k at 33 weeks--hx of elevated LFTs, resolved and recheck CMP at 24wks wnl and 34wks wnl Maternal o besity complicating , childbirth and the puerperium, antepartum 0611632325 07 O99.237 [id number] MD Edmund Earl [facility] ([employer]) [address] [place] [address] 08/17/2019 12:20:14 08/18/2019 13:14:24 Routine care 329464374 Z34.83 -58q4y--di thrombocyt openia, plts 145k at 1st visit, 166k at 24 weeks and 168k at 33 weeks--hx of elevated LFTs, resolved and recheck CMP at 24wks wnl and 34wks wnl--EFW per ultrasound 08/15/2019 shows possible reduced growth velocity-- to have repeat BPP/dopple rs in one week Maternal o besity complicating , childbirth and the puerperium, antepartum 6283107911 07 O99.816 [id number] MD Edmund Earl [facility] ([employer]) [address] [place] [address] 08/23/2019 14:21:06 08/25/2019 08:49:48 Routine care 604368428 Z34.83 -96q8p--ig thrombocyt openia, plts 145k at 1st visit, 166k at 24 weeks and 168k at 33 weeks--hx of elevated LFTs, resolved and recheck CMP at 24wks wnl and 34wks wnl--EFW per ultrasound 08/15/2019 shows possible reduced growth velocity-- to have repeat BPP/dopple rs in one week-sched uled later today Maternal o besity complicating , childbirth and the puerperium, antepartum 9590365780 07 O99.838 [id number] Daniel Hubbard MD [facility] ([employer]) [address] [place] [address] 8 08/28/2019 15:05:26 08/29/2019 12:44:05 Routine care 152239248 Z34.83 -94b6i--ry thrombocyt openia, plts 145k at 1st visit, 166k at 24 weeks and 168k at 33 weeks--hx of elevated LFTs, resolved and recheck CMP at 24wks wnl and 34wks wnl--EFW per ultrasound 08/15/2019 shows possible reduced growth velocity-- has repeat ultrasound on 08/30/2019 Maternal o besity complicating , childbirth and the puerperium, antepartum 6553753977 07 O99.821 [id number] Daniel Hubbard MD [facility] ([employer]) [address] [place] [address] 09/06/2019 14:03:34 09/07/2019 09:09:16 Routine care 161624121 Z34.83 -61i4z--sp thrombocyt openia, plts 145k at 1st visit, 166k at 24 weeks and 168k at 33 weeks--hx of elevated LFTs, resolved and recheck CMP at 24wks wnl and 34wks wnl--EFW per ultrasound 08/15/2019 shows possible reduced growth velocity-- repeat ultrasound on 08/30/2019 AGA Maternal o besity complicating , childbirth and the puerperium, antepartum 6036413211 07 O99.490 [id number] MD Edmund Earl [facility] ([employer]) [address] [place] [address] 10/26/2019 10:26:32 10/27/2019 11:52:38 care 007432609 Z39.2 --6+ weeks , no complaints , normal exam, doing well but to have ultrasound for possible hip dysplasia Implantati on of subcutaneous contraceptive 507287380 Z30.017 --no menses since delivery, has been using condoms faithfully [id number] MD Edmund Earl [facility] ([employer]) [address] [place] [address] 01/03/2021 14:05:27 01/08/2021 05:37:29 Gynecologic examination 32769253 Z01.419 --WWE --has primary for routine health issues/scr eenings Screening for malignant neoplasm of cervix 854650290 Z12.4 --last Pap ASCUS -hr HPV 11/22/17 so Pap indicated today Mastodynia of left breast 4987034691 0365682 N64.4 --intermit tent left lateral breast pain --negative exam Obesity 806983060 E66.9 --BMI 37.9 Contraception care 65473 5005 Z30.46 --Nexplano n inserted 10/26/2019 --consider ing , encouraged weight loss prior to - -she will call if she desires Nexplanon removal [id number] [facility] [address] [place] [address] 09/19/2024 11:03:03 09/19/2024 12:57:27 Body mass index 40+ - severely obese 941557295 Z68.41 Obesity 467217131 E66.9 Fatigue 68527861 R53.83 Diabetes m ellitus screening 775806715 Z13.1 Screening for cardiovascular system disease 430984695 Z13.6 Sinusitis 38601088 J32.9 Supraventr icular tachycardia 7034668 I47.10 Asthma 211163195 J45.90 9 Adult heal th examination 297859634 Z00.00 [id number] MD Guillermo Flaherty (Adult Med) [address] [place] [address] 12/01/2024 11:24:14 12/01/2024 12:49:51 Severe obesity 8248943014 9104 E66.01 Obese class II 183379381 1 46207 E66.812 Neck pain 82159645 M54.2 [id number] MD Guillermo Flaherty (Adult Med) [address] [place] [address] 02/06/2025 15:09:44 02/06/2025 16:54:58 Obese class III 287167947 E66.813 BMI 40 Vertigo 330762247 R42 Health Concerns Section Related Observation LastModified by Organization Detai ls LastModified Time None Recorded Concern Status LastModified by Organization Details LastModified Time None Recorded Advance Directives Directive None Recorded Payers Insurance Date Sequence Insurance Name Policy Number Policy Valentin Covered Member ID Valentin Member ID Guarantor Name 02/05/2025 2 [place] [facility] Belinda Jimenez [id number] Belinda Jimenez 09/19/2024 1 [facility] (MEDICAID REPLACEMENT - HMO) [id number] Belinda Jimenez [id number] Belinda Jimenez 07/19/2024 1 [employer] [id number] Belinda Jimenez [id number] Belinda Jimenez 06/07/2019 1 [facility] PRIOR TO 2021 (MEDICAID REPLACEMENT - HMO) Belinda Garibay [id number] Belinda Jimenez 07/19/2024 1 [place] [employer] [employer] [place] [employer] Belinda Phoenix [id number] Belinda Jimenez 11/29/2016 1 [facility] ([facility] [id number] Belinda Phoenix [id number] Belinda Jimenez 11/29/2016 1 [place] [employer] Belinda Blair [id number] Belinda Jimenez 11/22/2017 1 [facility] (MEDICAID HMO) Belinda Blair [id number] Belinda Jimenez 02/03/2025 1 [employer] (POS II) Babar Jimenez [id number] Belinda Jimenez Notes Date Note Type Note Provider Name and Address Organization Details Recorded Time 10/26/2019 text/html VisitReported bypatient.Onset/Timin g:date of delivery:; 09/08/2019 Quality: Context:complications of labor: none; complications: none; feeding choice: bottle; good support from partner/family Associated Symptoms:no abnormal bleeding; no pelvic pain; laceration well healed; no constipation; no fecal incontinence; no dysuria; no urinary incontinence; no fever; no mastitis Daniel dykes [place] [facility] 10/26/2019 14:18:43 01/03/2021 text/html Annual GYNReport ed [...] History of abnormal pap smear/cervical dysplasiaBreast PainReported bypatient.Location:[facility] Onset/Timing:>1 month; started 2 months ago [...] pain over the last 2 months--see below. PAMELA Edward SIPrashanth 01/03/2021 19:00:56 09/19/2024 text/html 39-year-old come s [...] denies smoking drinking vaping she is a obwd-ct-cecx mom Charlotte Sidhu MD Attn: Accounting,[address] [place], [address], [facility] - [facility] 10/22/2024 15:35:26 12/01/2024 text/html Off and on pain for a week right side of neck that goes down into her fingertips no weakness wakes her up sometimes at night when she tosses and turns no specific injury to the neck has not really tried to take anything moderate pain Charlotte Sidhu MD Attn: Accounting[address] [place], [address], [facility] 12/16/2024 22:09:42 02/06/2025 text/html She continues to have intense vertigo worse when she rolls over particularly on her right side also when she breaks her horizontal gaze and looks straight up she has been seen by ENT they told her to use meclizine but not for more the a week she gets some nausea sometimes with it there is no headache or blurred vision Arlette Lloyd MA null, [place] - [facility] 02/09/2025 13:31:34 OBGyn Episode Ob Episode Information Episode Created Date Number of Fetuses Patient Bloodtype Patient rh Status Prepregnancy Weight lbs Domestic Partner Domestic Partner Phone Father Name Radiation Control Specialist Status 02/17/20 [address] [place] Fetus Data First Name Last Name Admitted to NICU Weight (g) Sex Living Outcome Pediatric Complications Fetus ID Race Codes Race Delivery Type Fischer Julien ine Cross false 3231.84 3 F true Full Term [address]11 2057-6 Afric an Ameri can Vaginal Problems Problem Notes Flu vaccine given 04/26/19, t dap given 06/22/19Prior to found to have low plts and increased liver fxn tests--resolved and was felt due to steroid or recent viral illness--plts on 02/16/19 new OB apt 145k and LFTs on 03/10/19 AST/ALT [facility] Problem [facility] Start Date End Date Resolution Snomed Code Note Thrombocytopenic disorder 794052189 lowest in 110s around , had been sick in September with URI/ear infections, Platelets 145k at 1st visit, 166k at 26wks and 168k at 33wks Maternal obesity complicating , childbirth and the puerperium, antepartum 9 044299313863 pre BM I 38.3--M recommends repeat growth every 4 weeks but didn't schedule a f/u--repeat 08/15/2019 shows possible reduced growth velocity--to have repeat BPP/dopplers in one week 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 0 [id number] +GBS susceptible to clindamycin Common bile duct calculus 9 436731123 Prior cholecystectomy and prior common bile duct [...] in L&D care: poor obstetric history 9 270590375 History of chorioamnionitis in 1st / hospitalized x 8d--seen by [facility] this per their order after anatomy ultrasound done there--see consult notes Female sterilization 9 25021228 Considering PPTL--but likes no menses with Nexplanon--has [employer] insurance Rogelio Calculation Initial Rogelio Date Initial Exam Date Initial Exam Provider Initial Ultrasound Date Last Menstrual Period Date Ultra Sound Weeks Gestation 09/13/2019 02/16/2019 [email or web address] 01/24/2019 10/09/2018 6 Eighteen To Twenty Week Rogelio Update Ultra Sound Date Fundal Height At Umbil Quickening Date Ultra Sound Latest Weeks Gestation Final Rogelio Confirmed By Final Rogelio Confirmed Date Final Rogelio Date Ultra Sound Latest Days Gestation 04/19/20 19 [email or web address] 04/21/2019 020 0 Pre-mau Flowsheet Flowsheet Date 02/16/2019 Rose Score Blood Edema Fundus Height Fundus Units Glucose Ketones Leukocytes Nitrite Labor Signs Protein Cervic Dilation Cervic Effacement Cervic Station neg none none negative Other (see comments ) neg Type Weight in lbs Pre/Post Dialysis Refused Weight 207.838269964891 BP Diastolic BP Location Tested BP Systolic [...] She also c/o constipation and has increased G4Z--blsc try increasing fiber. Exam completed 01/11/19 but labs done today. Will do NT ultrasound with aneuploidy screening with [facility]. Flowsheet Date 03/08/2019 Rose Score Blood Edema Fundus Height Fundus Units Glucose Ketones Leukocytes Nitrite Labor Signs Protein Cervic Dilation Cervic Effacement Cervic Station neg none none negative Other (see comments ) neg Type Weight in lbs Pre/Post Dialysis Refused Weight 209.911317137416 BP Diastolic BP Location Tested BP Systolic [...] Weight in lbs Pre/Post Dialysis Refused Weight 206.948536891257 BP Diastolic BP Location Tested BP Systolic [...] Weight in lbs Pre/Post Dialysis Refused Weight 205.612402367063 BP Diastolic BP Location Tested BP Systolic BP Type 76 120 sitting Fetus Heart Rate Present A 144 Present Fetus Movement A Yes Comments Here for return OB visit: re ports good mvt and denies ctxs/LOF/bleeding, did have [...] Weight in lbs Pre/Post Dialysis Refused Weight 207.272181518370 BP Diastolic BP Location Tested BP Systolic [...] Weight in lbs Pre/Post Dialysis Refused Weight 208.389515143976 BP Diastolic BP Location Tested BP Systolic BP Type 72 128 sitting Fetus Heart Rate Present A 156 Present Fetus Movement A Yes Comments Here for return OB visit: re portjose good mvt, no ctxs/LOF/bleeding, only c/o is [...] Weight in lbs Pre/Post Dialysis Refused Weight 210.163452411089 BP Diastolic BP Location Tested BP Systolic [...] in lbs Pre/Post Dialysis Refused With clothes 213.666058698050 BP Diastolic BP Location Tested BP Systolic [...] Weight in lbs Pre/Post Dialysis Refused Weight 215.328505618307 BP Diastolic BP Location Tested BP Systolic [...] Weight in lbs Pre/Post Dialysis Refused Weight 215.793380043712 BP Diastolic BP Location Tested BP Systolic [...] Weight in lbs Pre/Post Dialysis Refused Weight 217.423589110595 BP Diastolic BP Location Tested BP Systolic [...] Weight in lbs Pre/Post Dialysis Refused Weight 218.129393189548 BP Diastolic BP Location Tested BP Systolic [...] Weight in lbs Pre/Post Dialysis Refused Weight 215.500463146525 BP Diastolic BP Location Tested BP Systolic [...] Weight in lbs Pre/Post Dialysis Refused Weight 201.053202328213 BP Diastolic BP Location Tested BP Systolic [...] At Estimated Date of Delivery false Thalassemia (Cymraes, Macedonian, Mediterranean, Or Background): MCV < 80 false Neural Tube Defect (Meningom yelocele, Spina Bifida, Or Anencephaly) false Congenital Heart Defect false Down Syndrome false Morro-Sachs (eg, Scientology, Cajun , Persian-[place]) false Derek Disease false Sickle Cell Disease Or Trait () false Hemophilia Or Other Blood Disorders false Muscular Dystrophy false Cystic Fibrosis false Luna's Chorea false Mental Retardation/Autism false Other Inherited [...] By 03/08/2019 Anticipated course o f care tank 03/08/2019 Alcohol tank 03/08/2019 [facility] Screening for aneuploidy schedul ed for NT ultrasound with [facility] on 03/10/19 [facility] 03/08/2019 Nutrition counseling ; special diet; dietary precautions (mercury, listeriosis) [facility] 03/08/2019 Childbirth classes/h ospital facilities [facility] 03/08/2019 HIV and other routin e tests [facility] 03/08/2019 Risk factors identif ied by history [facility] 03/08/2019 Weight gain counseling david wright 03/08/2019 Exercise [facility] 03/08/2019 Teratogens [facility] 03/08/2019 Use of any medicatio ns (including supplements, vitamins, herbs, or OTC drugs) [facility] 03/08/2019 breast [facility] 03/08/2019 Sexual activity [facility] 03/08/2019 Tobacco/smoking cess ation counseling (ask, advise, assess, assist, and arrange) [facility] 03/08/2019 Illicit/recreational drugs [facility] 03/08/2019 Dental care [facility] 03/08/2019 Travel [facility] 03/08/2019 Seat belt use [facility] 03/08/2019 Indications for ultrasonography [facility] 03/08/2019 Avoidance of saunas or hot tubs [facility] 03/08/2019 Toxoplasmosis precau tions (cats/raw meat) no cats [facility] Second Trimester Discussed Date Discussion Item Discussion Note Discuss ed By 06/22/2019 [address] a care provider Dr Morena fu 06/22/2019 family planning/tubal sterilization Nexplanon or BTL[facility] 06/22/2019 Depression screening (when indicated) [facility] 06/22/2019 Abnormal lab values discussed robert guerrero 06/22/2019 Signs and symptoms o f [facility] Intimate partner violence denies stanley 06/22/2019 Tobacco/smoking cess ation counseling (ask, advise, assess, assist, and arrange) [facility] Third Trimester Discussed Date Discussion Item Discussion Note Discuss ed By 06/22/2019 Intimate partner violence denies de darius 06/22/2019 Anesthesia plans epidural tank 06/22/2019 movement monitoring discussed de darius 06/22/2019 breast tank 06/22/2019 Labor signs discussed tank 06/22/2019 depression no history roseline rm 06/22/2019 Tobacco/smoking cess ation counseling (ask, advise, assess, assist, and arrange) denies tank 06/22/2019 Signs and symptoms of preeclampsia discus sed tank Delivery Information Delivery Date Delivery Type Labor Anesthesia Weeks Gestation Incision Type Labor Labor Length Hrs Delivered By Post Complications Tubal Sterilization Discharge Date Comments 0 Induce d Regional-Ep idural 39.2 false tank false NVD w ith small 2nd deg lac per Dr Nicholson, +GBS Discharge Information Feeding Method Contraceptive Method Maternal HG B and HCT Levels Bottle Nexplanon 10.331.5 Ob Episode Information Episode Created Date Number of Fetuses Patient Bloodtype Patient rh Status Prepregnancy Weight lbs Domestic Partner Domestic Partner Phone Father Name Radiation Control Specialist Status 07/31/20 15 1 CLOSED Fetus Data First Name Last Name Admitted to NICU Weight (g) Sex Living Outcome Pediatric Complications Fetus ID Race Codes Race Delivery Type , Spontane ous [id number] Rogelio Calculation Initial Rogelio Date Initial Exam [...] Domestic Partner Domestic Partner Phone Father Name Radiation Control Specialist Status 07/31/20 15 1 CLOSED Fetus Data First Name Last Name Admitted to NICU Weight (g) Sex Living Outcome Pediatric Complications Fetus ID Race Codes Race Delivery Type , Spontane ous [id number] Rogelio Calculation Initial Rogelio Date Initial Exam [...] Domestic Partner Domestic Partner Phone Father Name Radiation Control Specialist Status 07/31/20 15 1 CLOSED Fetus Data First Name Last Name Admitted to NICU Weight (g) Sex Living Outcome Pediatric Complications Fetus ID Race Codes Race Delivery Type 3628.73 6 F Full Term [id number] Vaginal Rogelio Calculation Initial Rogelio Date Initial [...]
--- OUTSIDE RECORDS SUMMARY | 2025-02-20 09:00 | XMS_ITS | Clinical Summary ---
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[employer] Gender Identity Not on file Sexual Orientation Not on file Obstetrics History Para Term AB IAB SAB Ectopic Multiple Livin g Live Births 4 2 2 Date Outcome GA Total Labor Labor/2nd/3rd Weight Sex Type Anes PTL Analia A1 A5 Name Clin Term Term Last Filed Vital Signs Vital Sign Reading Time Taken Comments Blood Pressure 106/59 09/08/2019 7:44 AM 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
--- OUTSIDE RECORDS SUMMARY | 2025-02-20 09:00 | XMS_ITS | Clinical Summary ---
Author Organization [facility] Address [address] [place] [address] Care Team Providers Care Personnel Counselor Name Role Phone Unavailable Primary Care Provider [...] Virus (HCV) Screening 1986 TdaP Immunization 1986 Human Papillomavirus (HPV) Immunization (1 - 3-dose series) 2001 Hepatitis B Immunization (1 of 3 - 19+ 3-dose series) 2005 Pap Smear 2007 Cervical Cancer Screening (CCS) 2016 HPV/Cotest 2016 SARS-COV-2 Immunization ( season) 2024 04/24/2021 Influenza Immunization (#1) 2025 Respiratory Syncytial Virus (RSV) Immunization (Adult) (1 [...]
--- OUTSIDE RECORDS SUMMARY | 2025-02-20 09:00 | XMS_ITS | Data Portability ---
Author Organization [facility], Main Office Address [address] [place] [address] Assessment Encounter Date Assessment Date Assessment LastModified by Organization Details LastModified Time 03/05/2023 03/05/2023 [facility]- 03/19/22 Call office if worse, ER if life threatening illness RTC 1 month She does voice understanding of plan and agrees [email or web address] Not available 12/05/2022 20:04:04 04/09/2023 04/09/2023 [facility]- 03/19/22 Call office if worse, ER if life threatening illness RTC 6 months and PRN She does voice understanding of plan and agrees [email or web address] Not available 04/09/2023 17:10:37 Plan of Treatment Reminders Order Date Submit Date Provider Last Modified By Organization Details Last Modified Time Details Appointments None recorded. Lab hepatitis C virus Ab, serum 2023 [facility], [address], [address], 4 14:11:40 vitamin B12 + folate, serum or blood 2023 024 [facility], 102 [facility], [place], [address], 4 14:11:39 CBC w/ auto diff 2023 024 [facility] (Lab), [address] [place], [address], 4 14:01:57 CMP, serum or plasma 2023 024 [facility] (Lab), [address] [place], [address], 4 14:01:58 lipid panel, serum 2023 024 [facility] (Lab), [address] [place], [address], 4 14:01:57 TSH + free T4, serum [address] (Lab), [address] [place], [address], 4 17:39:18 HbA1c (hemoglobi n A1c), blood 2023 024 [facility] (Lab), [address] [place], [address], 4 14:01:57 Referral None recorded. Procedures None recorded. Surgeries None recorded. Imaging None recorded. Medication Orders EpiPen 2-Thomas 0.3 mg/0.3 mL injection, auto-injec tor 2023 [facility] #03162, [address], [place], [id number], 4 15:12:59 cyanocobal rodriguez (vit B-12) 1,000 mcg/mL injection solution 2023 024 [facility], [address], [place], [id number], 4 12:19:27 cyanocobal rodriguez (vit B-12) 1,000 mcg/mL injection solution 2023 024 [email or web address] Not available 4 14:35:40 fluticason e propionate 50 mcg/actuat ion nasal spray,susp ension 2023 024 [facility] #18304, [address], [place], [place], [id number], 4 17:28:35 cyanocobal rodriguez (vit B-12) 1,000 mcg/mL injection solution [address] [facility] #63005, [address], [place], [place], [id number], 3 16:25:14 albuterol sulfate HFA 90 mcg/actuat ion aerosol inhaler 2022 023 [facility] [facility] #47766, [address], [place], [place], [id number], 3 15:22:41 bupropion HCl XL 150 mg 24 hr tablet, extended release [address]90, [address], [place], [place], [id number], 3 10:28:38 fluticason e propionate 50 mcg/actuat ion nasal spray,susp ension 2022 023 [facility] [employer] [facility] #35074, [address], [place], [place], [id number], 3 15:22:40 Patient TargetsNo targets recorded. Patient Instructions Encounter Date Encounter Id Patient Instructions Last Modified By Organization Details Last Modified Time 09/30/2023 [id number] Follow up in 3 months Labs as ordered Continue medications as previous Continue with psychiatry Vitamin B12 injection Not available 09/30/2023 17:28:06 01/03/2024 [id number] Follow up in 6 months and as needed Vitamin B12 injection in office Not available 01/03/2024 12:03:56 06/26/2024 [id number] Follow up in 6 months Prescription sent to pharmacy Obtain labs Tests: Referral: Recommend: Not available 06/26/2024 15:12:53 Reason for Referral None Reported. Results Created Date Observation Date Name Description Value Unit Range Abnormal Flag Note LastModifiedBy Organization Detail LastModifiedTime 04/05/20 23 04/05/2023 XR, toe(s ) No observ ation record ed. [address], [place], [address], 04/07/2023 11:24:07 07/27/20 23 07/27/2023 MAMMO , scree deep, digit al, bilat eral No observ ation record ed. [address], [place], [address], 07/28/2023 14:21:56 10/08/19 24 10/08/2023 , echoc ardio gram No observ ation record ed. [facility] [address], [place], [address], 11/03/2023 16:04:12 12/02/19 25 12/01/2024 XR, cervi ambreen spine , 4 or 5 view [facility] [address] [id number] Patien t Name: SHARON JIMENEZ Access ion #: [id number] Sex: F : 1984 7 Dictat ed By: Siena Weber Attend ing Physic missy: RAFITA SNYDER Orderi Physic missy: RAFITA SNYDER Exam Date: 2024 12:11 PM Exam Name: XR C SPINE 4-5V Admitt ing Diagno sis(es ): ACCESS ION #: [id number] INDICA TION: neck pain COMPAR MICHELE: [...] 2024 13:11: 16 PM Page 1 INTERFACE [facility] (Imaging) [address] [place], [address], 12/01/2024 14:13:37 Result Notes Documentation Provider Name and Address Organization Details Recorded Time Xr, Cervical Spine, 4 Or 5 View : [facility] [address] [place] [address] Patient Name: ROBERTA JIMENEZ Sex: F : 1985 Dictated By: Siena Weber Attending Physician: CHARLOTTE SNYDER Ordering Physician: CHARLOTTE SNYDER Exam Date: 12/01/2024 12:11 PM Exam Name: XR C SPINE 4-5V Admitting Diagnosis(es): ACCESSION #: [id number] INDICATION: neck pain COMPARISON: None TECHNIQUE: 5 views of the cervical spine were obtained. FINDINGS: The cervical vertebral alignment is normal. The predental space is normal. The intervertebral disc spaces are well-maintained. No significant facet arthropathy is noted. No acute fracture, vertebral compression deformity or aggressive osseous lesions. The imaged lung apices are unremarkable. IMPRESSION: No acute fracture. Page 1 Not Available [facility] 12/01/2024 14:13:37 Problems Name Problem SNOMED Code Status Onset Date Resolution Date Notes Provider Name and Address Organization Details Recorded Time Acute upper respirato ry infection 59209864 Active Saba Johnson APRN [address] [facility], [address], [place], [address] , [place] [facility] [place] [facility] 4 08:50:25 Pain in left knee Active 2019 Not Available [facility] 3 17:07:10 Liver enzymes level above reference range 428840895 Active 2021 Not Available [employer] 3 17:07:10 Acute sinusitis 08545075 Active 2021 Not Available [facility] 3 17:07:10 Iron deficienc y anemia 20852514 Active 2021 Not Available [facility] 3 17:07:10 Cobalamin deficienc y 390339106 Active 2021 Saba Johnson APRN [address], [address], [place], [address] , [facility] 4 17:08:30 Anxiety 95452739 Active 2021 Saba Johnson APRN [address], [address], [place], [address] , [place] [facility] 4 17:08:11 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 Not Available [facility] 3 17:07:10 Allergic urticaria 76212756 Completed 202209/30/2023 Saba Johnson APRN [address], [place], [address] , [place] [facility] 4 17:08:03 Iron deficienc y 84239612 Active 2022 Saba Johnson APRN [address], [address], [place], [address] , [place] [facility] 4 17:08:37 Vitamin D deficienc y 47438648 Active 2022 Saba Johnson APRN [address], [place], [address] , [place] [facility] [place] [facility] 4 17:08:53 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 Not Available [facility] 3 17:07:10 Chronic sinusitis 69059123 Active 2022 Not Available [employer] 3 17:07:10 Obesity 525184598 Active 2022 Saba Johnson APRN [address], [place], [address] , [employer] [facility] 4 17:08:45 Carpal tunnel syndrome 77507647 Active 2022 Saba Johnson APRN [address], [place], [address] , [employer] [facility] 4 17:08:25 Pain of right shoulder joint 13853405060 376325 Active 2022 Not Available [employer] 3 17:07:10 Insomnia 351191425 Active 2022 Not Available [employer] 3 17:07:10 Benign gestation al thrombocy topenia 382875627 Active 2022 Not Available [employer] 3 17:07:10 Thrombocy topenic disorder 942566252 Active 2022 Not Available [employer] 3 17:07:10 Asthma 380727678 Active 2022 Saba Johnson APRN [address], [place], [address] , [employer] [facility] 4 17:08:59 Localized superfici al swelling of skin 361238142 Active 2022 Not Available [facility] 3 17:07:10 Pain in toe 894903440 Active 2022 Not Available [facility] 3 17:07:10 Upper respirato ry infection 30037346 Active 2022 Not Available [facility] 3 17:07:10 Initial insomnia 59986712 Active 2023 Saba Johnson APRN [address], [place], [address] , [employer] [facility] 4 17:18:27 Vitamin B12 deficienc y (non anemic) 87488658 Active 2023 Saba Johnson, [employer] [address] [facility] [address], [place], [address] , [facility] [employer] [facility] [employer] [facility] 4 17:22:28 Allergic rhinitis 94426262 Active 2023 Saba Johnson, [employer] [address] [address], [place], [address] , [facility] [facility] [employer] [facility] 4 17:26:16 Problem Notes None recorded. Procedures Surgical History Date Name Laterality Status Provider Name and Address Organization Details Recorded Time 12/28/19 21 ENDOSCOPY, NASAL/SINUS, W/ MAXILLARY ANTROSTOMY & TISSUE REMOVAL (SURG) completed Not Available [facility] 09/30/2022 00:51:13 tonsillectomy completed Not Available [facility] 09/30/2022 00:43:19 procedure on heart completed Not Available [facility] 09/30/2022 00:43:19 cholecystectomy completed Not Available [facility] 09/30/2022 00:43:19 Imaging Results None recorded. Procedure Notes None recorded. Medical Equipment None Reported. Allergies Allergen ID Allergen Name Allergen Category Reaction Reaction Severity Criticality Documentation Date Start Date Code Code System Note Provider Name and Address Organization Details Recorded Time 297 Substance with sulfonami de structure and antibacte rial mechanism of action (substanc e) medicatio n hives Not available Not available 09/30/2022 45559 8003 SNOMED Not Available [facility] 3 00:50:57 298 Product containin g penicilli n (product) medicatio n Not available Not available Not available 09/30/2022 33627 8001 SNOMED Not Available [facility] 3 00:50:57 88165 bupropion Not available hives Not available Not available 03/23/2023 09536 RxNorm LORENZO Rubio [address], [facility] [address], [place], [address], [facility] [employer] [facility] 3 10:28:32 [address] methylpre dnisolone medicatio n Not available Not available Not available 12/22/2023 6902 RxNorm Other react ions and sever ities : 'Adve rse react ion to subst ance' . Saba Johnson, [employer]ATER [address], [facility] [address], [place], [address], [facility] [employer] [facility] 4 08:49:20 21283 penicilli n V Not available hives Not available Not available 12/22/2023 7984 RxNorm Saba Johnson, [employer]DER [employer]ATER [address], [facility] [address], [place], [address], [facility] [employer] [facility] 4 08:49:20 51811 prazosin medicatio n vomiting Not available Not available 06/26/2024 8629 RxNorm Orly Girard MA [facility], [facility] [employer] [facility] 4 14:49:56 Medications Name Sig Start [...] the provider 09/02 completed [facility]: 0003- 0494- 20 Not Available Not Available [...] Available Premarin 0.625 mg/gram vaginal cream INSERT /2 APPLICATO RFUL VAGINALLY EVERY DAY 02/13 completed [...] administe red by the provider 09/02 completed [facility]: 0409- 4276- 17 Not Available Not Available [...] Updated DateTime 4 160.02 cm 39.7 kg/m2 373158. 69 g 96 [degF] 78 /min 100 % 100 % 118/70 mm[Hg] Daphne Hines CMA [place] [facility] 4 17:11:28 Date Recorded Body height Body mass index (BMI) Body weight Body temperature Heart rate Oxygen saturation Oxygen saturation in Arterial blood by Pulse oximetry Systolic And Diastolic Provider Name and Address Organization Details Last Updated DateTime 4 160.02 cm 39.9 kg/m2 329542. 08 g 97.8 [degF] 76 /min 97 % 97 % 116/68 mm[Hg] Orly Girard MA [facility] [employer] [facility] 4 11:40:02 Date Recorded Body height Body mass index (BMI) Body weight Body temperature Heart rate Oxygen saturation Oxygen saturation in Arterial blood by Pulse oximetry Systolic And Diastolic Provider Name and Address Organization Details Last Updated DateTime 3 160.02 cm 39.5 kg/m2 481453. 1 g 97.8 [degF] 72 /min 98 % 98 % 126/74 mm[Hg] Pebbles Mclean MA [facility] [employer] [facility] 3 15:05:10 Date Recorded Body height Body mass index (BMI) Body weight Body temperature Heart rate Oxygen saturation Oxygen saturation in Arterial blood by Pulse oximetry Systolic And Diastolic Provider Name and Address Organization Details Last Updated DateTime 3 160.02 cm 39.3 kg/m2 829752. 51 g 98 [degF] 74 /min 98 % 98 % 128/74 mm[Hg] Pebbles Mclean MA [facility] [employer] [facility] 3 16:14:42 Date Recorded Body height Body mass index (BMI) Body weight Body temperature Heart rate Oxygen saturation Oxygen saturation in Arterial blood by Pulse oximetry Systolic And Diastolic Provider Name and Address Organization Details Last Updated DateTime 4 160.02 cm 40.1 kg/m2 786541. 67 g 98.3 [degF] 77 /min 98 % 98 % 112/60 mm[Hg] Orly Girard MA [facility] [employer] [facility] 4 14:46:29 Social History Question Answer Notes LastModified by Organizat ion Details LastModified Time Tobacco Smoking Status Former Smoker Orly Girard MA [facility] [employer] [facility] 01/03/2024 11:42:14 Do You Have An Advance Directive? No [id number] Information not available 09/30/2022 What Is Your Level Of Caffeine Consumption? Moderate [id number] Information not available 09/30/2022 In The 14 Days Before Symptom Onset, Have You Had Close Contact With A Laboratory-rodericki rmed COVID-19 While That Case Was Ill? No Information not available 03/05/2023 In The 14 Days Before Symptom Onset, Have You Had Close Contact With A Person Who Is Under Investigation For COVID-19 While That Person Was Ill? No Information not available 03/05/2023 What Type Of Diet Are You Following? REGULAR [id number] Information not available 09/30/2022 What Is The Highest Grade Or Level Of School You Have Completed Or The Highest Degree You Have Received? [id number] Information not available 03/05/2023 Have There Been [...] Do You Have A Medical Power Of Medical Appointment Clerk? No Information not available 03/05/2023 What Was The Date Of Your Most Recent Tobacco Screening? 06/26/2024 Information not available 06/26/2024 How Many Children Do You Have? 2 Information not available 01/03/2024 Do You Have Any Pets? Yes Information not available 03/05/2023 What Is Your Relationship Status? [id number] Information not available 09/30/2022 Do You Use [...] Dietary Restrictions? No Information not available 03/05/2023 Sex: Unknown Functional Status Question Answer Note LastModified by Organizat ion Details LastModified Time Do you use any illicit or recreational drugs? No Information not available 03/05/2023 Do you or have you ever used any other forms of tobacco or nicotine? No Information not available 03/05/2023 What is your level of alcohol consumption? Occasional [id number] Information not available 09/30/2022 Are you currently employed? No Stay at home cal cash Information not available 06/26/2024 What is your exercise level? Occasional [id number] Information not available 09/30/2022 Mental Status Question Answer Note LastModified by Organization D etails LastModified Time Do you feel stressed (tense, restless, nervous, or anxious, or unable to sleep at night)? [id number] Information not available 03/05/2023 Family History Relationship Description Onset Age of this Age Resolved Age Notes LastModified by Organization Details LastModified Time Unspecified Relation Complication of anesthesia [id number] Not available 14:39:10 Mother Diabetes mellitus 50 [...] 30 mcg/0.3 mL dose 2 completed Saba Johnson APRN [address], [address], [place], [address], [employer] 12/22/2023 08:49:08 COVID-19, mRNA, LNP-S, PF, denny-sucrose, 30 mcg/0.3 mL 3 completed Saba Johnson APRN [address], [address], [place], [address], [employer] 12/22/2023 08:49:08 Tdap 9 completed Saba Johnson APRN [address], [address], [place], [address], [facility] [employer] [facility] 12/22/2023 08:49:08 Influenza, split virus, quadrivalent, PF 9 completed Saba Johnson APRN [address], [address], [place], [address], [facility] [employer] [facility] 12/22/2023 08:49:08 Influenza, split virus, quadrivalent, PF 7 completed Saba Johnson APRN [address], [address], [place], [address], [facility] [employer] [facility] 12/22/2023 08:49:08 Influenza, split virus, quadrivalent, PF [address], [place], [address], [facility] [employer] [facility] 12/22/2023 08:49:08 Influenza, split virus, quadrivalent, PF 3 completed Saba Johnson APRN [address], [address], [place], [address], [facility] [employer] [facility] 12/22/2023 08:49:08 COVID-19, mRNA, LNP-S, PF, denny-sucrose, 30 mcg/0.3 mL 4 [address], [place], [address], [facility] [employer] [facility] 06/26/2024 14:55:44 Influenza, split virus, quadrivalent, preservative 0 [address]I Mckee [address], [place], [address], [facility] [employer] [facility] 12/22/2023 08:49:08 COVID-19, mRNA, LNP-S, PF, 30 mcg/0.3 mL dose 1 completed Saba Johnson APRN [address], [address], [place], [address], [employer] 12/22/2023 08:49:08 COVID-19, mRNA, LNP-S, PF, 30 mcg/0.3 mL dose 1 completed Saba Johnson APRN [address], [address], [place], [address], [employer] [facility] 12/22/2023 08:49:08 Influenza, split virus, quadrivalent, PF 2 completed Not Available [employer] 05/06/2023 01:21:13 Influenza, split virus, trivalent, PF 4 completed Saba Johnson APRN [address], [address], [place], [address], [employer] 05/31/2024 10:54:56 Past Encounters Encounter ID Performer Location Encounter Start Date Encounter Closed Date Diagnosis/Indication Diagnosis SNOMED-CT Code Diagnosis ICD10 Code Diagnosis Note [id number] MD MELLY Rodríguez [address] [address] 10/03/2020 00:00:00 10/03/2020 10:27:23 [id number] MD SARINA [facility] [place] [address] [place] [address] 10/24/2020 00:00:00 10/24/2020 12:27:54 [id number] MD MELLY Rodríguez [address] [address] 01/02/2021 00:00:00 01/02/2021 15:38:13 [id number] MD MELLY Gil [facility] [place] [address] [place] [address] 01/07/2021 00:00:00 01/07/2021 10:18:22 [id number] MD MELLY Gil [facility] [place] [address] [place] [address] 01/27/2021 00:00:00 01/27/2021 14:11:10 [id number] MD DIANN RodríguezS_[facility] [address] [address] 01/30/2021 00:00:00 01/30/2021 12:47:02 [id number] MD SARINA Jerez_[facility] [address] [facility] [address] [place] [address] 03/18/2021 00:00:00 03/18/2021 17:27:15 [id number] MD DIANN JerezS_[facility] [address] [address] 09/02/2021 00:00:00 09/02/2021 20:54:03 [id number] MD SARINA Jerez_[facility] [address] [address] 12/12/2021 00:00:00 12/12/2021 13:54:25 [id number] MD DIANN JerezS_[facility] [address] [address] 02/13/2022 00:00:00 02/13/2022 15:01:16 [id number] MD DIANN JerezS_[facility] [address] [address] 03/19/2022 00:00:00 03/19/2022 12:04:31 [id number] MD SARINA Jerez_[facility] [address] [address] 04/30/2022 00:00:00 04/30/2022 13:07:14 [id number] MD SARINA Jerez[facility] [address] [address] 05/08/2022 00:00:00 05/08/2022 12:24:38 [id number] Chanda dunne MD [facility] Internal Med [facility] [address] [facility], [facility] [address] [place] [address] 07/10/2022 00:00:00 07/10/2022 14:29:39 [id number] Chanda dunne MD [facility] Internal Med [facility] [address] [facility] [address] [place] [address] 11/06/2022 10:54:27 11/06/2022 11:24:17 Anxiety 94780885 F41.9 fluvoxamin e caused n/vshe self stopped the wellbutrin - is currently stable off medscounti nue counseling call office if any change in mood or behaviorSh e declines psychiatry referral Allergic urticaria 30568 009 L50.0 Now following solar project engineer- Dr. Mendozaback to ER if worse/any facial swelling Cobalamin deficiency 190 991832 E53.8 on monthly injections Iron deficiency 12988263 E61.1 on supplement Vitamin D deficiency 347 59350 E55.9 on supplement History of supraventricular tachycardia 3079338590 7381042 Z86.79 S/p cardiac ablation x2, on magnesium, follows [facility] ([facility] ) annually Carpal steve jennifer syndrome 21682644 G56.00 following ortho Eczema of external auditory canal 64193412 H60.549 now following ENT Chronic sinusitis 106874 00 J32.9 Now following ENT- Dr. Montes De Oca Obesity 721679436 E66.9 recommend healthy, well balanced mealsfocus on lean meats, fresh vegetables , fresh fruits, whole grainsredu ce fast/proce ssed foods or eating out to no more than 1-2 times per weekaim to get 30 min of exercise most days of the week- walking is a great choice Hyperlipid emia screening 596043321 Z13.220 Diabetes m ellitus screening 720713176 Z13.1 Thyroid di sorder screening 886035889 Z13.29 Insomnia 520667009 G47.0 0 start trazodone- she is aware side effects, risks, and benefits No alcohol, driving, or mix with other sedating meds Call office if any change in mood or behavior [id number] Raheem Sage MD [facility] [place] [address] [place] [address] 11/05/2022 09:57:31 11/05/2022 11:07:47 Pain of right shoulder joint 7329855899 6992996 M25.511 [id number] Chanda dunne MD [facility] Internal Med [facility] [address] [facility], [facility] [address] [place] [address] 03/05/2023 14:56:51 03/05/2023 15:23:03 Asthma 262196777 J45.909 On albuterol p.r.n.on Symbicort p.r.n.- she is aware to rinse and spit after use Anxiety 67791054 F41.9 fluvoxamin e caused n/vRestart the Wellbutrin -she is aware of side effects, risks, and benefitsco ntinue counseling call office if any change in mood or behaviorSh e declines psychiatry referral Allergic urticaria 27422 009 L50.0 Now following solar project engineer- Dr. Mendozaback to ER if worse/any facial swelling Cobalamin deficiency 190 302589 E53.8 on monthly injections Iron deficiency 18504255 E61.1 on supplement Vitamin D deficiency 347 08475 E55.9 on supplement History of supraventricular tachycardia [id number] 5100485 Z86.79 S/p cardiac ablation x2, on magnesium, follows [facility] ([facility] ) annually Carpal steve jennifer syndrome 00105593 G56.00 following ortho Eczema of external auditory canal 88454166 H60.549 now following ENT Chronic sinusitis 235785 00 J32.9 Now following ENT- Dr. Montes De Oca Obesity 388701805 E66.9 recommend healthy, well balanced mealsfocus on lean meats, fresh vegetables , fresh fruits, whole grainsredu ce fast/proce ssed foods or eating out to no more than 1-2 times per weekaim to get 30 min of exercise most days of the week- walking is a great choice Insomnia 256924475 G47.0 0 start trazodone- she is aware side effects, risks, and benefitsNo alcohol, driving, or mix with other sedating medsCall office if any change in mood or behavior Recommend she try a half pill on days when the insomnia is particular ly bad so we can see if this med works for her [id number] Chanda dunne MD [facility] Internal Med [facility] [address] [facility] [place] [address] 04/09/2023 16:05:55 04/09/2023 16:39:53 Cobalamin deficiency 173211689 E53.8 on monthly injections Anxiety 73257890 F41.9 fluvoxamin e caused n/vwellbut rin gave her a rashcontin ue counseling call office if any change in mood or behaviorke ep appt with psychiatry later this month- Dr. Munson Allergic urticaria 37306 009 L50.0 Now following solar project engineer- Dr. Mendozaback to ER if worse/any facial swelling Iron deficiency 25427077 E61.1 on supplement Vitamin D deficiency 347 91338 E55.9 on supplement History of supraventricular tachycardia 6176530351 0143104 Z86.79 S/p cardiac ablation x2, on magnesium, follows [facility] ([facility] ) annually Carpal steve jennifer syndrome 78357360 G56.00 following ortho Eczema of external auditory canal 06085526 H60.549 now following ENT Chronic sinusitis 651347 00 J32.9 Now following ENT- Dr. Montes De Oca Obesity 185200351 E66.9 recommend healthy, well balanced mealsfocus on lean meats, fresh vegetables , fresh fruits, whole grainsredu ce fast/proce ssed foods or eating out to no more than 1-2 times per weekaim to get 30 min of exercise most days of the week- walking is a great choice Insomnia 575788222 G47.0 0 on trazodone- she is aware side effects, risks, and benefitsNo alcohol, driving, or mix with other sedating medsCall office if any change in mood or behavior now will follow psych for this Asthma 324158701 J45.90 9 On albuterol p.r.n.on Symbicort p.r.n.- she is aware to rinse and spit after use Pain in toe 164782396 M7 9.675 xrays negative at the ERpain is improvingc ontinue supportive care, call if symptoms do not resolve Localized superficial swelling of skin 027004141 R22.9 Very tiny nodule noted an area of concernRec mariyad we monitor this as this may be related to her bumping her armCall office if no improvemen t in a week or 2 or if it gets larger or becomes painful [id number] Chanda dunne MD [facility] Internal Med [facility] [address] [address] 09/30/2023 16:58:52 09/30/2023 17:39:53 Vitamin B12 deficiency (non anemic) 74750606 E53.8 Insomnia 830728554 G47.0 0 Diabetes m ellitus screening 039213375 Z13.1 Hyperlipid emia screening 965435346 Z13.220 Screening for disorder 798105445 Z13.9 Thyroid di sorder screening 505010795 Z13.29 Allergic rhinitis 830983 04 J30.9 [id number] Chanda dunne MD [facility] Internal Med [facility] [address] [address] 01/03/2024 11:31:23 01/03/2024 12:14:39 Cobalamin deficiency 712135078 E53.8 [id number] Chanda dunne MD [facility] Internal Med [facility] [address] [address] 06/26/2024 14:37:42 06/26/2024 15:16:47 Hepatitis C screening 262159560 Z11.59 Carries ep inephrine preloaded injection pen 535312471 Z78.9 Cobalamin deficiency 190 288215 E53.8 Health Concerns Section Related Observation LastModified by Organization Detai ls LastModified Time None Recorded Concern Status LastModified by Organization Details LastModified Time None Recorded Advance Directives Directive N: Payers Insurance Date Sequence Insurance Name Policy Number Policy Valentin Covered Member ID Valentin Member ID Guarantor Name 12/07/2024 1 [facility] [id number] Babar Jimenez [id number] Roberta Jimenez 03/02/2023 1 [employer] [id number] Babar Jimenez [id number] Roberta Jimenez 06/26/2024 2 [facility] (MEDICAID REPLACEMENT - HMO) [id number] Roberta Garibay [id number] Roberta Jimenez 06/26/2024 [facility] Roberta Jimenez SELF SELF Roberta Jimenez 06/26/2023 2 UNSPECIFIED REMIT PAYOR Roberta Jimenez Notes Date Note Type Note Provider Name and Address Organization Details Recorded Time 03/05/2023 text/html Roberta presents today for follow-up. She missed her [...] her on the B12 shots. Christin Mejia, OUTBOARD MOTORBOAT RIGGER-C [address] [place] [address], [phone], [facility] 03/05/2023 16:24:13 04/09/2023 text/html Roberta presents today for follow-up. She also needs [...] arm on something. It is not painful. Christin Mejia, TIMOTHY-C [address], [address], [place], [address], [facility] 04/09/2023 17:11:08 09/30/2023 text/html 09/30/2023ebroxic vibha presents today to establish care and to receive her vitamin B12 injection. She states that she is having insomnia for the past couple of months and most recently since she has not had her B-12. 04/09/2023Roberta presents today for follow-up. She also needs [...] is not painful. Saba Johnson APRN [address] [facility], [address], [place], [address], [facility] 09/30/2023 17:28:37 01/03/2024 text/html Roberta presents today for 3 month follow up. She requests her vitamin B12 shot. She illnesses or injuries since last visit She states that she does not see a rotary rig engine operator for her asthma as she only has flairs when she has a virus or cold, she rarely uses her inhaler. 09/30/2023rissa presents today to establish care and to receive her vitamin B12 injection. She states that she is having insomnia for the past couple of months and most recently since she has not had her B-12. Saba Johnson APRN [address], [facility] [address], [place], [address], [employer] 01/03/2024 13:18:51 06/26/2024 text/html Roberta presents today for 6 month follow up. [...] states that she does not see a rotary rig engine operator for her asthma as she only has flairs when she has a virus or cold, she rarely uses her inhaler. 09/30/2023rissa presents today to establish care and to receive her vitamin B12 injection. She states that she is having insomnia for the past couple of months and most recently since she has not had her B-12. Saba Johnson APRN [address], [facility] [address], [place], [address], [employer] 06/26/2024 15:13:15 OBGyn Episode No OBEpisode recorded.
--- OUTSIDE RECORDS SUMMARY | 2025-02-20 09:00 | XMS_ITS | Referral Summary ---
Author Organization [facility] Address [address] [place] [address] Care Team Providers Care Corporate Bond Trader Name Role Phone DawoodChristin dunne Zulema MARIBEL Primary Care Provider [phone] Allergies Active Allergy Reactions Criticality Noted Date [...] on file Legal Sex Female 5:12 AM DIAGNOSTIC TECHNOLOGIST Gender Identity Not on file Sexual Orientation Not on file Last Filed Vital Signs Vital Sign Reading Time Taken Comments Blood Pressure 106/59 09/08/2019 7:44 AM DIAGNOSTIC TECHNOLOGIST Pulse 78 09/08/2019 7:44 AM DIAGNOSTIC TECHNOLOGIST Temperature 36.7 C (98.1 F) 09/08/2019 7:44 AM DIAGNOSTIC TECHNOLOGIST Respiratory Rate - - Oxygen Saturation 98% 09/08/2019 7:44 AM DIAGNOSTIC TECHNOLOGIST Inhaled Oxygen Concentration - - Weight 97.5 kg (215 lb) 09/08/2019 7:44 AM DIAGNOSTIC TECHNOLOGIST Height 160 cm (5' 3) 09/08/2019 7:44 AM DIAGNOSTIC TECHNOLOGIST Body Mass Index 38.09 09/08/2019 7:44 AM DIAGNOSTIC TECHNOLOGIST Plan [id number] [facility] Care Teams Corporate Bond Trader Relationship Specialty Start Date End Date Christin Mejia NP PCP - General 08/07/19
== END 2025-02-20 08:56 | disposition home or self-care (01) ==
LOC: ANHAUDIO 08:55
PROVIDERS: PCP Internal Medicine; Visit Provider Otolaryngology Otolaryngology/Facial Plastic Surgery
DX: H93.8X9 Other specified disorders of ear, unspecified ear (principal); H92.09 Otalgia, unspecified ear; R42 Dizziness and giddiness; H91.93 Unspecified hearing loss, bilateral; Z82.2 Family history of deafness and hearing loss
CPT/HCPCS: 92557; 92567

== ENCOUNTER 2025-03-16 08:47 | Day surgery (SDC) | payer OTHER, MEDICAID, SELFPAY ==
[2025-01-30 11:21] VITALS: BMI 40.0
[2025-02-28 09:12] VITALS: BMI 40.6
[2025-03-16] VITALS (9 sets, daily range): BP systolic 113–140; BP diastolic 72–91; PULSE 66–97; RESP 10–20; TEMP 37–37.1; O2SAT 92–99
--- NOTE | 2025-03-16 07:15 | PM.IMHP ---
H&P: HPI History of Present Illness Date/Time: 03/16/25 07:15 Chief Complaint: chronic sinusitis Narrative: 39 -year-old female status post bilateral maxillary balloon dilation, with chronic nasal congestion hypertrophy of nasal turbinates and recurrent acute sinusitis coming for follow-up Patient reports that she has used the antibiotic as well as the topical nasal sprays without significant improvement she still has headache between the eyes, that increases when she is congested. Patient also reports postnasal drip PMFSH Past Medical History Medical History No pertinent past medical history Surgical History Surgical History History of cardiac radiofrequency ablation (RFA) History of nasal surgery History of tonsillectomy Family History Family History Father Hypertension Mother Cancer Depression Anxiety Grandparent Diabetes mellitus Grandparent Alcoholism Cancer Social History Social History Social History: Caffeine-coffee Smoking packs per day: 1 Smoking cigarettes per day: 20.0 Years smoked: 5 Smoking pack-years: 5.00 Smoking status: Former smoker Tobacco type: cigarettes Second hand tobacco smoke exposure: Yes Smoking end date: 08/02/11 Alcohol intake: current Drinks per week: 0 Alcohol use details: ONE A MONTH Substance use: never Substance use type: does not use Living arrangements: with family Occupation/Education: occupation 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 Spiritual care concerns: No Meds Home Medications and Allergies Home Medications ?Medication ?Instructions ?Recorded ?Confirmed ?Type etonogestrel 68 mg subdermal 1 implant subdermal ONCE 04/29/22 02/28/25 History implant (Nexplanon) magnesium aspart,citrate,oxide 400 mg PO DAILY 04/29/22 02/28/25 History escitalopram oxalate 10 mg tablet 15 mg PO DAILY 11/06/24 02/28/25 History (Lexapro) Allergies Allergy/AdvReac Type Severity Reaction Status Date / Time Sulfa (Sulfonamide Allergy Severe Hives Verified 02/28/25 09:10 Antibiotics) Penicillins Allergy Intermediate Hives Verified 02/28/25 09:10 Assessment and Plan Assessment and plan (1) Chronic sinusitis: Qualifiers: Sinusitis location: ethmoidal Qualified Code(s): J32.2 - Chronic ethmoidal sinusitis Code(s): J32.9 - Chronic sinusitis, unspecified Status: Acute Plan HPI Comments Details: 39 -year-old female status post bilateral maxillary balloon dilation, with chronic nasal congestion hypertrophy of nasal turbinates and recurrent acute sinusitis coming for follow-up Patient reports that she has used the antibiotic as well as the topical nasal sprays without significant improvement she still has headache between the eyes, that increases when she is congested. Patient also reports postnasal drip Review of Systems Const All systems reviewed & are unremarkable except as noted in HPI and below Reports as per HPI ENT Reports as per HPI Resp Reports as per HPI GI Reports as per HPI Exam Exam Const General: cooperative, healthy appearing, comfortable, no acute distress, well developed, alert, awake and Physically active Orientation/Consciousness: oriented to person, oriented to place, oriented to time and patient oriented x3 HENMT Head: normocephalic and atraumatic Ears: external ears normal and EAC's normal Face/Nose/Sinus: Normal external nose present and Normal nares present Mouth: Normal oral and palatal mucosa present, lip normal and tongue normal Other: deviated nasal septum,hypertrophy of nasal turbinates Eyes General: appearance normal, both eyes and all related structures Neck General: Yes normal visual inspection, Yes full ROM and Yes trachea midline Resp Effort/Inspection: normal respiratory effort and able to speak in complete sentences Cardio Rate: Yes regular rate Neuro General: Yes oriented to person, Yes oriented to place and Yes oriented to time Assessment & Plan (1) Recurrent sinusitis: Code(s): J32.9 - Chronic sinusitis, unspecified Category: Medical Plan 39 -year-old female status post bilateral maxillary balloon dilation, with chronic nasal congestion hypertrophy of nasal turbinates and recurrent acute sinusitis i have personally reviewed the ct scan images and i agree with the ct report i have reviewed the ct images with the patient CT report:12/07/2024: Bilateral maxillary sinus disease. Mild right nasal septal deviation. Obliterated both ostiomeatal complexes. I have discussed the benefits of surgery alternatives and risks at this point patient's prefers to do surgery which will be scheduled in timely fashion Surgery will include: Septoplasty, bilateral inferior turbinate reduction, bilateral maxillary antrostomy, bilateral anterior ethmoidectomy, right-sided frontal sinuotomy,left chetna bullosa reduction with balloon dilation I have provided the patient with instructions for before and after surgery -Risk of septoplasty procedures were discussed with the patient which include but not limited to; Bleeding, infection, septal perforation, saddle nose deformity, intranasal scarring -Risks for sinus surgery: injury to the skull base, injury to the eye, need for further surgery. Risk of recurrent disease is also discussed. All the questions were answered to the best of my ability and the patient wished to proceed. The procedures will be scheduled in a timely fashion.
--- OUTSIDE RECORDS SUMMARY | 2025-03-16 08:52 | XMS_ITS | Clinical Summary ---
Author Organization [facility] Address [address] [place] [address] Care Team Providers Care Ancient Art Curator Name Role Phone DawoodChristin dunne Zulema MARIBEL Primary Care Provider [phone] Allergies Active Allergy Reactions Criticality Noted Date [...] on file Legal Sex Female 5:12 AM ASSISTANT WRESTLING COACH Gender Identity Not on file Sexual Orientation Not on file Obstetrics History Para Term AB IAB SAB Ectopic Multiple Livin g Live Births 4 2 2 Date Outcome GA Total Labor Labor/2nd/3rd Weight Sex Type Anes PTL Analia A1 A5 Name Clin Term Term Last Filed Vital Signs Vital Sign Reading Time Taken Comments Blood Pressure 106/59 09/08/2019 7:44 AM ASSISTANT WRESTLING COACH Pulse 78 09/08/2019 7:44 AM ASSISTANT WRESTLING COACH Temperature 36.7 C (98.1 F) 09/08/2019 7:44 AM ASSISTANT WRESTLING COACH Respiratory Rate - - Oxygen Saturation 98% 09/08/2019 7:44 AM ASSISTANT WRESTLING COACH Inhaled Oxygen Concentration - - Weight 97.5 kg (215 lb) 09/08/2019 7:44 AM ASSISTANT WRESTLING COACH Height 160 cm (5' 3) 09/08/2019 7:44 AM ASSISTANT WRESTLING COACH Body Mass Index 38.09 09/08/2019 7:44 AM ASSISTANT WRESTLING COACH Plan of Treatment Health Maintenance Due Date Last Done Comments Cervical Cancer Screening 1986 Depression Screening 1986 Hepatitis C Screening 1986 Hepatitis B Screening 2004 Regular Well Visit/Exam 18-64 2004 HPV Vaccines (1 - 3-dose SCD M series) 2013 Varicella Vaccines (2 of 2 - 13+ 2-dose series) 05/06/2016 04/08/2016 Influenza Vaccine (#1) 2025 05/28/2020 DTaP/Tdap/Td Vaccine (2 - Td or Tdap) 04/08/2026 04/08/2016 Pneumococcal vaccine <65 Aged Out No longer eligible based on patient's age to complete this topic Insurance [id number] Care Teams Ancient Art Curator Relationship Specialty Start Date End Date Christin Mejia NP PCP - General 1/6/20
--- OUTSIDE RECORDS SUMMARY | 2025-03-16 08:52 | XMS_ITS | Clinical Summary ---
Author Organization [facility] Address [address] [place] [address] Care Team Providers Care Muffle Operator Name Role Phone Sol Arvizu MD Primary Care Provider Source Comments [facility],non-owned Affiliates and Associated Physician Practices is amultiple site organization consisting of ambulatory clinics and hospital sitesin [place], [place], [place] and [place]. This disclosure is being madepursuant to the Care Everywhere program and may not contain all information available regarding this patient. Last updated 18.[facility] Allergies Active Allergy Reactions Criticality Noted Date [...] by mouth once daily Reasons: palpitations Active Diamond-3 Fatty Acids (FISH OIL) 1000 MG capsule [...] RUQ abdominal pain, or jaundice. Plan: If Latex Spooler would like us to follow her for [...] fibrin deposition, neutrophils in the membranes and Estancia's jelly of the umbilical cord. Assessment & [...] fibrin deposition, neutrophils in the membranes and Estancia's jelly of the umbilical cord. Plan: Reviewed [...] 12:57 PM CDT): Requesting patient records from [facility] from 2012 Will give final recommendations at [...] Comments Blood Pressure 115/67 08/23/2019 3:34 PM LITHOGRAPHIC CAMERA OPERATOR Pulse 75 08/23/2019 3:34 PM LITHOGRAPHIC CAMERA OPERATOR Temperature 37.1 C (98.7 F) 01/26/2018 10:12 PM CDT Respiratory Rate 16 08/23/2019 3:34 PM LITHOGRAPHIC CAMERA OPERATOR Oxygen Saturation 100% 01/26/2018 10:12 PM CDT [...] (2 - Td or Tdap) 04/08/2026 04/08/2016 ZOSTER VACCINE (1 of 2) 2036 HIB [...] complete this topic Insurance MEDICAID - [facility] Care Teams Muffle Operator Relationship Specialty Start Date End Date Sol Arvizu MD [address] [place], [place] [phone] PCP - General Internal Medicine 01/26/18
--- OUTSIDE RECORDS SUMMARY | 2025-03-16 08:52 | XMS_ITS | Clinical Summary ---
Author Organization [facility] Address [address] [place] [address] Care Team Providers Care Computer Forensic Specialist Name Role Phone Unavailable Primary Care Provider [...] 19+ 3-dose series) 2005 Pap Smear 2007 Human Papillomavirus (HPV) Immunization (1 - 3-dose SCDM series) 2013 Cervical Cancer Screening (CCS) 2016 HPV/Cotest 2016 [...]
--- OUTSIDE RECORDS SUMMARY | 2025-03-16 08:52 | XMS_ITS | Patient Health Record ---
Author Organization [facility] As Data Symmetry [facility] Address [address] [place] [address] Care Team Providers Care Rag Boiler Name Role Phone Darren Sidhu MD Primary Care Provider Yessy Mendoza Unavailable [phone] Allergies Allergen (clinical drug ingredient) Drug/Non Drug [...] Duration) Notes Start Date End Date Status Mupirocin 2% External 11/03/2023 Unknow n Symbicort 160-4.5 MCG/ACT Inhalation 11/03/2023 Unknown rOPINIRole HCl 0.5 MG Oral 11/03/2023 Unknown predniSONE 20 MG Oral 11/03/2023 Un known Auvi-Q 0.3 MG/0.3ML Injection 11/03/2023 Unknown Lexapro 20 MG 1 tablet Oral Once a day; Duration: 30 days Active Fluticasone Propionate Diskus 50 MCG/ACT Inhalation *[facility]* 11/03/2023 Unknown Magnesium Oxide (Elemental) 400 MG Oral [facility] 11/03/2023 Unknown Nexplanon 68 MG Subcutaneous 11/03/2023 Unknown Cyanocobalamin 1000 MCG/ML Injection 11/03/2023 Unknown Cyclobenzaprine HCl 5 MG Oral 11/03/2023 Unknown Xopenex HFA 45 MCG/ACT Inhalation 11/03/2023 Unknown ProAir HFA 108 (90 Base) MCG/ACT Inhalation 11/03/2023 Unknown Immunizations Vaccine Route Administration Date Status Comme nts Influenza virus vaccine, quadrivalent (IIV4), split virus, 0.25 mL dosage Unknown 05/28/2020 Administered Novel [id number], preservative free Unknown 05/21/2022 Administered Pfizer Biontech [...] disorder (F41.1) Active confirmed Problem Primary insomnia (7764646) Primary insomnia (F51.01) Active confirmed Vital Signs Heart Rate 67 /min 12/05/2024 Blood pressure diastolic 82 mm Hg 12/05/2024 Height-cm 160.02 cm 12/05/2024 Weight-kg 102.06 kg 12/05/2024 Height 63.00 in 12/05/2024 Blood pressure systolic 131 mm Hg 12/05/2024 Weight 225 lbs 12/05/2024 BMI 39.85 kg/m2 12/05/2024 Encounters [facility]counter [facility] Date [facility] [address] [facility] [address] [place] [address] 04/25/2024 Yessy Galan [facility] [address] [facility] [address] [place] [address] 09/12/2024 Yessy Galan [facility] [address] [facility] [address] [place] [address] 01/20/2025 Yessy Galan [facility], [place] [address] [facility] [address] [place] [address] 01/20/2025 Yessy Galan [facility], [place] [address] [facility] [address] [place] [address] 02/18/2025 Yessy Galan [place] [address] [facility] [address] [place] [address] 02/18/2025 Yessy Galan [place] [address] [facility] [address] [place] [address] 03/12/2025 Yessy Galan [place] [address] [facility] [address] [place] [address] 03/20/2024 Yessy Galan Generalized anxiety disorder F41.1 and Primary insomnia F51.01 [place] [address] [facility] [address] [place] [address] 04/19/2024 Yessybarney Galan Generalized anxiety disorder F41.1 and Primary insomnia F51.01 [place] [address] [facility] [address] [place] [address] 06/20/2024 Yessy Kurmanan Generalized anxiety disorder F41.1 and Primary insomnia F51.01 [place] [address] [facility] [address] [place] [address] 12/05/2024 Yessybarney Galan Generalized anxiety disorder F41.1 ; Primary insomnia F51.01 ; Encounter for screening for cardiovascular disorders Z13.6 and Negative depression screening Z13.31 [place] [address] [facility] [address] [place] [address] 02/21/2025 Yessy Galan Assessments Encounter Date Diagnosis (ICD Code) Assessment Notes Treatment Notes Treatment Clinical Notes Section Notes 03/20/2024 Generalized anxiety disorder (ICD-10 - F41.1) 12/05/2024 Generalized anxiety disorder (ICD-10 - F41.1) [...] office. 12/05/2024 Primary insomnia (ICD-10 - F51.01) 04/19/2024 Generalized anxiety disorder (ICD-10 - F41.1) [...] grounding exercises, physical activity, healthy diet. -discussed [facility] for sliding fee counseling 2. Insomnia/night yosuif -cont off of prazosin due to dizziness at 2mg 06/20/2024 Primary insomnia (ICD-10 - F51.01) 1. CHELITA stable -cont escitalopram 15mg daily -encourage non-pharmaceut ical treatments including deep breathing, grounding exercises, physical activity, healthy diet. -discussed [facility] for sliding fee counseling 2. Insomnia/night youisf -cont off of prazosin due to dizziness at 2mg 04/19/2024 Primary insomnia (ICD-10 - F51.01) 12/05/2024 Encounter for screening for cardiovascular disorders (ICD-10 - Z13.6) 03/20/2024 Primary insomnia (ICD-10 - F51.01) 12/05/2024 [...] grounding exercises, physical activity, healthy diet. -discussed [facility] for sliding fee counseling 2. Insomnia/night yousif [...] effects of psychotropic medications. -Crisis prevention hotline 988. 04/19/2024 Other Increase Prazosin to 2mg nightly for nightmares. Patient educated on all medications including potential benefits, side effects, risks. Educated on proper dosing schedule and importance of compliance. Plan Of Treatment Next Appt Details Provider Name:Yessy Portillo Olga shanks, 03/26/2025 02:15:00 PM, [address], [facility] [address], [place], [address], Insurance Providers Payer Name Payer Address Payer Phone Subscriber Number Group Number Insured Name Patient Relationship to Insured Coverage Start Date Coverage End Date [facility] [address] [place] [address] [id number] MITUL HOLLINGSWORTH Spouse - patient is the spouse of the insured 4 [employer] Supplement [address] [address] [place] [address] [id number] ROBERTA HOLLINGSWORTH Self - patient is the [...] Any surgical history 09/11/2013 Removal of gallbladder (57013) 2 Sinus surgery 12/19/2020 Tonsilectomy/adenoids 07/02/2005
[2025-03-16] MEDS: ACETAMINOPHEN 500 MG TABLET 1000 MG PO (09:11)
[2025-03-16] MEDS: LACTATED RINGERS 1,000 ML 30 ML IV CONT ×2 (09:17→15:20)
[2025-03-16] MEDS: OXYMETAZOLINE HCL 0.05% NAS 15 ML BTL (*BKC) 2 SPRAY NASAL ×3 (09:23→09:33)
[2025-03-16] MEDS: TRANEXAMIC ACID 1,000 MG/10 ML AMPUL 1000 MG IV PUSH (12:08)
[2025-03-16] MEDS: ceFAZolin 2 GM in SODIUM CHLORIDE 0.9% IV 50 ML 100 ML IVPB (12:35)
--- NOTE | 2025-03-16 12:38 | P.OP_ITS ---
Procedure Note - Detailed Date of Procedure 03/16/25 Pre-op Diagnosis Chronic Recurrent Sinusitis, Post-op Diagnosis Same Procedure Performed ? Endoscopic septoplasty ? Nasal endoscopy with maxillary antrostomy bilaterally. ? Nasal endoscopy with anterior ethmoidectomy bilaterally. . Left chetna bullosa reduction . ? Bilateral inferior turbinate reduction (intramural (submucosal) ablation of the inferior turbinate.) ? Therapeutic fracture of the inferior turbinates bilaterally. Surgeon Brynn Cervantes MD Anesthesia General Description of Procedure DESCRIPTION OF PROCEDURE: The patient was seen in the preoperative area, informed consent was checked and confirmed. The patient was taken to the operating room, sedated and placed under general anesthesia with an endotracheal tube . Eyes were taped and were prepped and draped in the usual sterile fashion. The nose was examined, and the left anterior septum was injected with 1% lidocaine with 1:100,000 epinephrine. Kunal incision was made and a mucoperichondrial flap was elevated to expose the quadrangular cartilage and bony septum. Incision was then made anteriorly on the quadrangular cartilage to elevate the contralateral mucoperichondrial flap. The deviated quadrangular cartilage was excised with a Chaitanya knife. At least 1 cm of dorsal and caudal strut of quadrangular was left in place. We resected the deviated bony septum with a Seltzer-Cordoba and a pituitary forceps. After adequate resection of the posterior-inferior bony septum, the mucoperichondrial Flap was laid back in anatomic position. We proceeded to the endoscopic sinus procedure starting on the right side. The agger nasi area was injected with 1% lidocaine with 1:100,000 epinephrine. The body of the middle turbinate was injected with 1% lidocaine with 1:100,000 epinephrine. The middle turbinate was gently medialized and the uncinectomy was performed with a pediatric Jean backbiter and the uncinectomy was completed with a shaver from the inferior-posterior attachment to the superior anterior attachment. The ethmoidectomy was performed by shaving the anterior ethmoid bulla and care was taken to protect the skull base in the lamina papyracea. Maxillary antrum was re-examined with a 30-degree scope. A ball probe was passed into the antrum and was further widened with a backbiter in the anterior- inferior aspect. and i proceeded to the left side : The agger nasi area was injected with 1% lidocaine with 1:100,000 epinephrine. The body of the middle turbinate was injected with 1% lidocaine with 1:100,000 epinephrine. The middle turbinate was gently medialized and the uncinectomy was performed with a pediatric Jean backbiter and the uncinectomy was completed with a shaver from the inferior-posterior attachment to the superior anterior attachment. The ethmoidectomy was performed by shaving the anterior ethmoid bulla and care was taken to protect the skull base in the lamina papyracea. Maxillary antrum was re-examined with a 30-degree scope. A ball probe was passed into the antrum and was further widened with a backbiter in the anterior- inferior aspect.left posterior ethmoidectomy was done through the inferio- medial quadrant of basal lamella . The left? ?chetna bullosa was resected with a shaver. The lateral wall of the chetna bullosa was resected with care taken to protect its medial wall and middle turbinate attachment to the lateral nasal wall and the skull base. We proceeded with submucosal inferior turbinate reduction, starting on the right side, a stab incision was made anterior mucosa of inferior turbinate. Submucosal pocket was created along the length of the inferior turbinate and the microdebrider blade 2mm thick was introduced anteriorly and into the whole submucosal pocket. Microdebrider was then used to remove the hypertrophied bony parts of anterior turbinate head and soft tissue with the outer layer intact. The residual inferior turbinate was then out fractured using Boies elevator. We proceeded to the left side. A stab incision was made on the anterior mucosa of inferior turbinate. Submucosal pocket was created along the length of the inferior turbinate and the microdebrider blade 2 mm thick was introduced anteriorly and into the whole submucosal pocket. Microdebrider was then used to remove the hypertrophied bony parts of anterior turbinate head and soft tissue with the outer layer intact. The residual inferior turbinate was then out fractured using Boies elevator. Pledgets were removed from ethmoid cavities, PosiSep X BAM Hemostat Dressing sponges were placed in ethmoid cavities bilaterally and infiltrated with a mixture of kenalog and cefazolin. The nose was then suctioned clean and at this point the care of the patient was then transferred to the anesthesiologist where the patient emerged from general anesthesia without complication. Estimated Blood Loss 50 (ml) Packing Yes (merocel packing ) Complications No immediate complications Condition Stable Disposition PACU [facility] Billing Surgery - Charge Forward: Surgery Billing
[2025-03-16] MEDS: COCAINE HCL (*CRX) 4% TOP SOLN 4 ML VIAL 1 APPLIC (13:05)
--- NOTE | 2025-03-16 13:50 | P.PNAN_ITS ---
Anes - Initial Pre Proc Eval Procedure: Operation Date: 03/16/25 10:45 Proposed Procedures p Septoplasty - Brynn Cervantes MD s Submucous Resection of Inferior Turbinate - Brynn Cervantes MD s Bilateral Maxillary Antrostomy - Brynn Cervantes MD s Bilateral Anterior Ethmoidectomy, Right Frontal Sinusotomy with Balloon Dilation, Left Argenis Bullosa Reduction - Brynn Cervantes MD Date/Time: 03/16/25 13:50 Surgeon: Brynn Cervantes MD Pre Op Diagnosis: Chronic Recurrent Sinusitis, Patient Data Age: 39 Gender: F Height: 1.6 m Weight: 101.4 kg Last Vital Signs Temp 98.7 F 03/16/25 09:04 Pulse 66 03/16/25 09:04 Resp 16 03/16/25 09:04 BP 113/75 03/16/25 09:04 Pulse Ox 99 03/16/25 09:04 O2 Del Method Room Air 03/16/25 09:04 Allergies Allergy/AdvReac Type Severity Reaction Status Date / Time Sulfa (Sulfonamide Allergy Severe Hives Verified 03/16/25 09:02 Antibiotics) Penicillins Allergy Intermediate Hives Verified 03/16/25 09:02 Home Medications ?Medication ?Instructions ?Recorded ?Confirmed ?Type etonogestrel 68 mg subdermal 1 implant subdermal ONCE 04/29/22 03/16/25 History implant (Nexplanon) magnesium aspart,citrate,oxide 400 mg PO DAILY 04/29/22 03/16/25 History escitalopram oxalate 10 mg tablet 15 mg PO DAILY 11/06/24 03/16/25 History (Lexapro) Patient hx anesthesia problems: post op nausea/vomiting Family hx anesthesia problems: none Results Review: All pre-operative results and documents have been reviewed as part of the pre- operative evaluation. [facility] Past Medical History Medical History No pertinent past medical history Surgical History Surgical History History of cardiac radiofrequency ablation (RFA) History of nasal surgery History of tonsillectomy Family History Family History Father Hypertension Mother Cancer Depression Anxiety Grandparent Diabetes mellitus Grandparent Alcoholism Cancer Social History Social History Social History: Caffeine-coffee Smoking status: Never smoker Tobacco type: cigarettes Second hand tobacco smoke exposure: Yes Smoking end date: 08/02/12 Alcohol intake: current Alcohol use details: rarely Substance use: never Substance use type: does not use Living arrangements: with family Occupation/Education: occupation Additional occupation/education comments: 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 Informed Consent: The patient's anesthetic plan and its attendant risks and benefits were discussed with the patient/family/POA. Questions were solicited and answers provided to the satisfaction of the patient/family/POA.
[2025-03-16] MEDS: LIDO 1%/EPINEPHRINE 1:100,000 10 ML VIAL 5 ML INFILTRATE (15:08)
[2025-03-16] MEDS: fentaNYL CITRATE INJ (*CRX) 100 MCG/2 ML VIAL 25 MCG IV PUSH ×3 (15:56→16:05)
[2025-03-16] MEDS: oxyCODONE HCL (*CRX) 5 MG TAB IR PO (16:29)
--- NOTE | 2025-03-25 20:51 | WPDHPUPDATE1 ---
History and Physical Update Update Date/Time: 03/25/25 20:51 History and Physical has been reviewed, including an updated exam of the patient. There are NO changes in the patient's condition. Risks, benefits, and alternatives have been discussed and questions answered. Patient agrees to proceed with procedure.
--- NOTE | 2025-03-25 20:52 | WPDHPUPDATE1 ---
History and Physical Update Update Date/Time: 03/25/25 20:52 History and Physical has been reviewed, including an updated exam of the patient. There are NO changes in the patient's condition. Risks, benefits, and alternatives have been discussed and questions answered. Patient agrees to proceed with procedure.
== END 2025-03-16 17:23 | disposition home or self-care (01) ==
PROVIDERS: PCP Internal Medicine; Visit Provider Otolaryngology Otolaryngology/Facial Plastic Surgery
PROC: (CPT 30520; principal; 2025-03-16 10:45)
PROC: (CPT 31253; 2025-03-16 10:45)
PROC: (CPT 31253; 2025-03-16 10:45)
PROC: (CPT 31253; 2025-03-16 10:45)
DX: J32.9 Chronic sinusitis, unspecified (principal); J34.3 Hypertrophy of nasal turbinates; J34.2 Deviated nasal septum
CPT/HCPCS: 31253; 31256; 61782; 30520; 30140; 31240; 64702

== ENCOUNTER 2025-05-15 19:07 | Emergency (ER) | payer OTHER, SELFPAY ==
--- OUTSIDE RECORDS SUMMARY | 2025-05-15 19:12 | XMS_ITS | Data Portability ---
Author Organization [place] - [facility], Main Office Address [address] [place] [address] Assessment Encounter Date Assessment Date Assessment LastModified by Organization Details LastModified Time 03/05/2023 03/05/[address] [facility]- 03/19/22 Call office if worse, ER if life threatening illness RTC 1 month She does voice understanding of plan and agrees [email or web address] Not available 12/05/2022 20:04:04 04/09/2023 04/09/[address] [facility]- 03/19/22 Call office if worse, ER if life threatening illness RTC 6 months and PRN She does voice understanding of plan and agrees [email or web address] Not available 04/09/2023 17:10:37 Plan of Treatment Reminders Order Date Submit Date Provider Last Modified By Organization Details Last Modified Time Details Appointments None recorded. Lab hepatitis C virus Ab, serum 2023 [facility], [address], [address], 4 14:11:40 vitamin B12 + folate, serum or blood 2023 024 [facility], [address] [facility], [place], [address], 4 14:11:39 CBC w/ auto diff 2023 024 [facility] (Lab), [address] [place], [address], 4 14:01:57 CMP, serum or plasma 2023 024 [facility] (Lab), [address] [place], [address], 4 14:01:58 lipid panel, serum 2023 024 [facility] (Lab), [address] [place], [address], 4 14:01:57 TSH + free T4, serum [address] (Lab), [address] [place], [address], 4 17:39:18 HbA1c (hemoglobi n A1c), blood 2023 024 [facility] (Lab), [address] [place], [address], 4 14:01:57 Referral None recorded. Procedures None recorded. Surgeries None recorded. Imaging None recorded. Medication Orders EpiPen 2-Thomas 0.3 mg/0.3 mL injection, auto-injec tor 2023 [facility] #[id number], [address] [place], [id number], 4 15:12:59 cyanocobal rodriguez (vit B-12) 1,000 mcg/mL injection solution 2023 [facility], [address] [place], [place], [id number], 4 12:19:27 cyanocobal rodriguez (vit B-12) 1,000 mcg/mL injection solution 2023 024 [email or web address] Not available 4 14:35:40 fluticason e propionate 50 mcg/actuat ion nasal spray,susp ension 2023 024 [facility] #47527, [address], [place], [place], [id number], 4 17:28:35 cyanocobal rodriguez (vit B-12) 1,000 mcg/mL injection solution [address] [facility] #08855, [address], [place], [place], [id number], 3 16:25:14 albuterol sulfate HFA 90 mcg/actuat ion aerosol inhaler 2022 023 [facility] #30247, [address], [place], [place], [id number], 3 15:22:41 bupropion HCl XL 150 mg 24 hr tablet, extended release [address]56982, [address], [place], [place], [id number], 3 10:28:38 fluticason e propionate 50 mcg/actuat ion nasal spray,susp ension 2022 023 [facility] [facility] #58436, [address], [place], [place], [id number], 3 15:22:40 Patient TargetsNo targets recorded. Patient Instructions Encounter Date Encounter Id Patient Instructions Last Modified By Organization Details Last Modified Time 09/30/2023 [id number] Follow up in 3 months Labs as ordered Continue medications as previous Continue with psychiatry Vitamin B12 injection Not available 09/30/2023 17:28:06 01/03/2024 [id number] Follow up in 6 months and as needed Vitamin B12 injection in office Not available 01/03/2024 12:03:56 06/26/2024 [id number] Follow up in 6 months Prescription sent to pharmacy Obtain labs Tests: Referral: Recommend: Not available 06/26/2024 15:12:53 Reason for Referral None Reported. Results Created Date Observation Date Name Description Value Unit Range Abnormal Flag Note LastModifiedBy Organization Detail LastModifiedTime 04/05/20 23 04/05/2023 XR, toe(s ) No observ ation record ed. [address], [place], [address], 04/07/2023 11:24:07 07/27/20 23 07/27/2023 MAMMO , scree deep, digit al, bilat eral No observ ation record ed. [address], [place], [address], 07/28/2023 14:21:56 10/08/19 24 10/08/2023 , echoc ardio gram No observ ation record ed. [facility] [address], [place], [address], 11/03/2023 16:04:12 12/02/19 25 12/01/2024 XR, cervi ambreen spine , 4 or 5 view [facility] [address] [id number] Patien t Name: SHARON JIMENEZ Access ion #: [id number] Sex: F : 1984 7 Dictat ed By: Siena Weber Attend ing Physic missy: RAFITA SNYDER Orderi Physic missy: RAFITA SNYDER Exam Date: 2024 12:11 PM Exam Name: XR C SPINE 4-5V Admitt ing Diagno sis(es ): ACCESS ION #: [id number] INDICA TION: neck pain COMPAR MICHELE: [...] 2024 13:11: 16 PM Page 1 INTERFACE [facility] (Imaging) [address] [place], [address], 12/01/2024 14:13:37 Result Notes Documentation Provider Name and Address Organization Details Recorded Time Xr, Cervical Spine, 4 Or 5 View : [facility] [address] [place] [address] Patient Name: ROBERTA JIMENEZ Sex: F : 1985 Dictated By: Siena Weber Attending Physician: CHARLOTTE SNYDER Ordering Physician: CHARLOTTE SNYDER Exam Date: 12/01/2024 12:11 PM Exam Name: XR C SPINE 4-5V Admitting Diagnosis(es): ACCESSION #: [id number] INDICATION: neck pain COMPARISON: None TECHNIQUE: 5 views of the cervical spine were obtained. FINDINGS: The cervical vertebral alignment is normal. The predental space is normal. The intervertebral disc spaces are well-maintained. No significant facet arthropathy is noted. No acute fracture, vertebral compression deformity or aggressive osseous lesions. The imaged lung apices are unremarkable. IMPRESSION: No acute fracture. Page 1 Not Available [facility] 12/01/2024 14:13:37 Problems Name Problem SNOMED Code Status Onset Date Resolution Date Notes Provider Name and Address Organization Details Recorded Time Acute upper respirato ry infection 64209401 Active Saba Johnson APRN [address] [facility], [address], [place], [address] , [place] [facility] [place] [facility] 4 08:50:25 Pain in left knee Active [address] [facility] 3 17:07:10 Liver enzymes level above reference range 373617828 Active 2021 Not Available [facility] 3 17:07:10 Acute sinusitis 02725639 Active [address] [facility] 3 17:07:10 Iron deficienc y anemia 91546400 Active 2021 Not [address] [facility] 3 17:07:10 Cobalamin deficienc y 011725643 Active 2021 Saba Johnson APRN [address], [address], [place], [address] , [facility] 4 17:08:30 Anxiety 24343294 Active 2021 Saba Johnson APRN [address], [address], [place], [address] , [place] [facility] 4 17:08:11 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 Not [address] [facility] 3 17:07:10 Allergic urticaria 13815902 Completed 202209/30/2023 Saba Johnson APRN [address], [address], [place], [address] , [place] [facility] 4 17:08:03 Iron deficienc y 22174430 Active 2022 Saba Johnson APRN [address], [address], [place], [address] , [place] [facility] 4 17:08:37 Vitamin D deficienc y 11264299 Active 2022 Saba Johnson APRN [address], [address], [place], [address] , [place] [facility] [place] [facility] 4 17:08:53 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 Not Available [facility] 3 17:07:10 Chronic sinusitis 71404308 Active 2022 Not Available [facility] 3 17:07:10 Obesity 691987621 Active 2022 Saba Johnson APRN [address], [address], [place], [address] , [email or web address] [facility] 4 17:08:45 Carpal tunnel syndrome 02400317 Active 2022 Saba Johnson APRN [address], [address], [place], [address] , [email or web address] [facility] 4 17:08:25 Pain of right shoulder joint 51104919747 127560 Active 2022 Not Available [facility] 3 17:07:10 Insomnia 918270536 Active 2022 Not Available [facility] 3 17:07:10 Benign gestation al thrombocy topenia 508014594 Active 2022 Not Available [facility] 3 17:07:10 Thrombocy topenic disorder 662851129 Active 2022 Not Available [facility] 3 17:07:10 Asthma 038965803 Active 2022 Saba Johnson APRN [address] [facility], [address], [place], [address] , [email or web address] [facility] 4 17:08:59 Localized superfici al swelling of skin 560888653 Active 2022 Not Available [facility] 3 17:07:10 Pain in toe 400368202 Active 2022 Not Available [facility] 3 17:07:10 Upper respirato ry infection 77134516 Active 2022 Not Available [facility] 3 17:07:10 Initial insomnia 05127173 Active 2023 Saba Johnson APRN [address], [address], [place], [address] , [email or web address] [facility] 4 17:18:27 Vitamin B12 deficienc y (non anemic) 44118378 Active 2023 Saba Johnson, [employer]CYCLE [employer]SEM[employer]ER [address] [facility], [address] [address], [place], [address] , [facility] [employer] [facility] [employer] [facility] 4 17:22:28 Allergic rhinitis 36923614 Active 2023 Saba Johnson, [employer]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 Procedures Surgical History Date Name Laterality Status Provider Name and Address Organization Details Recorded Time 12/28/19 21 ENDOSCOPY, NASAL/SINUS, W/ MAXILLARY ANTROSTOMY & TISSUE REMOVAL (SURG) completed Not Available [facility] 09/30/2022 00:51:13 tonsillectomy completed Not Available [facility] 09/30/2022 00:43:19 procedure on heart completed Not Available [facility] 09/30/2022 00:43:19 cholecystectomy completed Not Available [facility] 09/30/2022 00:43:19 Imaging Results None recorded. Procedure Notes None recorded. Medical Equipment None Reported. Allergies Allergen ID Allergen Name Allergen Category Reaction Reaction Severity Criticality Documentation Date Start Date Code Code System Note Provider Name and Address Organization Details Recorded Time 297 Substance with sulfonami de structure and antibacte rial mechanism of action (substanc e) medicatio n hives Not available Not available 09/30/2022 82767 8003 SNOMED Not Available [facility] 3 00:50:57 298 Product containin g penicilli n (product) medicatio n Not available Not available Not available 09/30/2022 58075 8001 SNOMED Not Available [facility] 3 00:50:57 08191 bupropion Not available hives Not available Not available 03/23/2023 40854 RxNorm LORENZO Rubio [address] [facility], [facility] [address], [place], [address], [facility] 3 10:28:32 05325 methylpre dnisolone medicatio n Not available Not available Not available 12/22/2023 6902 RxNorm Other react ions and sever ities : 'Adve rse react ion to subst ance' . Saba Johnson, MOT[employer]CYCLE ASSEMBLER [address] [facility] [address], [place], [address], [facility] [employer] [facility] 4 08:49:20 92050 penicilli n V Not available hives Not available Not available 12/22/2023 7984 RxNorm Saba Johnson, [employer]ORCYCLE ASSEMBLER [address], [facility] [address], [place], [address], [facility] [employer] [facility] 4 08:49:20 29363 prazosin medicatio n vomiting Not available Not available 06/26/2024 8629 RxNorm Orly Girard [facility], [facility] [employer] [facility] 4 14:49:56 Medications Name Sig Start Date [...] Updated DateTime 4 160.02 cm 39.7 kg/m2 604358. 69 g 96 [degF] 78 /min 100 % 100 % 118/70 mm[Hg] Daphne Hines CMA [place] [facility] 4 17:11:28 Date Recorded Body height Body mass index (BMI) Body weight Body temperature Heart rate Oxygen saturation Oxygen saturation in Arterial blood by Pulse oximetry Systolic And Diastolic Provider Name and Address Organization Details Last Updated DateTime 4 160.02 cm 39.9 kg/m2 642941. 08 g 97.8 [degF] 76 /min 97 % 97 % 116/68 mm[Hg] Orly Girard MA [facility] [employer] [facility] 4 11:40:02 Date Recorded Body height Body mass index (BMI) Body weight Body temperature Heart rate Oxygen saturation Oxygen saturation in Arterial blood by Pulse oximetry Systolic And Diastolic Provider Name and Address Organization Details Last Updated DateTime 3 160.02 cm 39.5 kg/m2 968443. 1 g 97.8 [degF] 72 /min 98 % 98 % 126/74 mm[Hg] Pebbles Mclean MA [facility] [employer] [facility] 3 15:05:10 Date Recorded Body height Body mass index (BMI) Body weight Body temperature Heart rate Oxygen saturation Oxygen saturation in Arterial blood by Pulse oximetry Systolic And Diastolic Provider Name and Address Organization Details Last Updated DateTime 3 160.02 cm 39.3 kg/m2 896023. 51 g 98 [degF] 74 /min 98 % 98 % 128/74 mm[Hg] Pebbles Mclean MA [facility] [employer] [facility] 3 16:14:42 Date Recorded Body height Body mass index (BMI) Body weight Body temperature Heart rate Oxygen saturation Oxygen saturation in Arterial blood by Pulse oximetry Pain severity - 0-10 verbal numeric rating [Score] - Reported Systolic And Diastolic Provider Name and Address Organization Details Last Updated DateTime 4 160.02 cm 40.1 kg/m2 475265. 67 g 98.3 [degF] 77 /min 98 % 98 % 0 112/60 mm[Hg] Orly Girard MA [facility] [employer] [facility] 4 14:46:29 Social History Question Answer Notes LastModified by Organizat ion Details LastModified Time Tobacco Smoking Status Former Smoker Orly Girard MA [facility] [employer] [facility] 01/03/2024 11:42:14 Do You Have An Advance Directive? No [id number] Information not available 09/30/2022 What Is Your Level Of Caffeine Consumption? Moderate [id number] Information not available 09/30/2022 In The 14 Days Before Symptom Onset, Have You Had Close Contact With A [facility] COVID-19 While That Case Was Ill? No Information not available 03/05/2023 In The 14 Days Before Symptom Onset, Have You Had Close Contact With A Person Who Is Under Investigation For COVID-19 While That Person Was Ill? No Information not available 03/05/2023 What Type Of Diet Are You Following? REGULAR [id number] Information not available 09/30/2022 What Is The Highest Grade Or Level Of School You Have Completed Or The Highest Degree You Have Received? [id number] Information not available 03/05/2023 Have There Been [...] Do You Have A Medical Power Of Lithography Contact Worker? No Information not available 03/05/2023 What Was The Date Of Your Most Recent Tobacco Screening? 06/26/2024 Information not available 06/26/2024 How Many Children Do You Have? 2 Information not available 01/03/2024 Do You Have Any Pets? Yes Information not available 03/05/2023 What Is Your Relationship Status? [id number] Information not available 09/30/2022 Do You Use [...] is your level of alcohol consumption? Occasional [id number] Information not available 09/30/2022 Are you currently employed? No Stay at home cal cash Information not available 06/26/2024 What is your exercise level? Occasional [id number] Information not available 09/30/2022 Mental Status Question Answer Note LastModified by Organization D etails LastModified Time Do you feel stressed (tense, restless, nervous, or anxious, or unable to sleep at night)? [id number] Information not available 03/05/2023 Family History Relationship Description Onset Age of this Age Resolved Age Notes LastModified by Organization Details LastModified Time Unspecified Relation Complication of anesthesia [email or web address] Not available 14:39:10 Mother Diabetes mellitus 50 [...] Johnson APRN [address], [address], [place], [address], [facility] 12/22/2023 08:49:08 COVID-19, mRNA, LNP-S, PF, denny-sucrose, 30 mcg/0.3 mL 3 completed Saba Johnson APRN [address], [address], [place], [address], [facility] [employer] [facility] 12/22/2023 08:49:08 Tdap 9 completed Saba Johnson APRN [address], [address], [place], [address], [facility] [employer] [facility] 12/22/2023 08:49:08 Influenza, split virus, quadrivalent, PF 9 completed Saba Johnson APRN [address], [address], [place], [address], [facility] [employer] [facility] 12/22/2023 08:49:08 Influenza, split virus, quadrivalent, PF 7 completed Saba Johnson APRN [address], [address], [place], [address], [facility] [employer] [facility] 12/22/2023 08:49:08 Influenza, split virus, quadrivalent, PF [address] Mc[address], [place], [address], [facility] [employer] [facility] 12/22/2023 08:49:08 Influenza, split virus, quadrivalent, PF 3 completed Saba Johnson APRN [address], [address], [place], [address], [facility] [employer] [facility] 12/22/2023 08:49:08 COVID-19, mRNA, LNP-S, PF, denny-sucrose, 30 mcg/0.3 mL 4 completed Saba Johnson APRN [address], [address], [place], [address], [facility] [employer] [facility] 06/26/2024 14:55:44 Influenza, split virus, quadrivalent, preservative 0 completed Saba Johnson APRN [address], [address], [place], [address], [facility] [employer] [facility] 12/22/2023 08:49:08 COVID-19, mRNA, LNP-S, PF, 30 mcg/0.3 mL dose 1 completed Saba Johnson APRN [address], [address], [place], [address], [facility] 12/22/2023 08:49:08 COVID-19, mRNA, LNP-S, PF, 30 mcg/0.3 mL dose 1 completed Saba Johnson APRN [address], [address], [place], [address], [facility] 12/22/2023 08:49:08 Influenza, split virus, quadrivalent, PF 2 completed Not Available [facility] 05/06/2023 01:21:13 Influenza, split virus, trivalent, PF 4 completed Saba Johnson APRN [address], [address], [place], [address], [facility] 05/31/2024 10:54:56 Past Encounters Encounter ID Performer Location Encounter Start Date Encounter Closed Date Diagnosis/Indication Diagnosis SNOMED-CT Code Diagnosis ICD10 Code Diagnosis IMO Codes Diagnosis Note [id number] MD SARINA Rodríguez_[facility] [address] [place] [address], [address] [address] 10/03/2020 00:00:00 10/03/2020 10:27:23 [id number] MD MELLY [facility] [place] [address] [place] [address] 10/24/2020 00:00:00 10/24/2020 12:27:54 [id number] MD SARINA Rodríguez_[facility] [address] [place] [address], [address] [address] 01/02/2021 00:00:00 01/02/2021 15:38:13 [id number] MD MELLY Gil [facility] [place] [address] [place] [address] 01/07/2021 00:00:00 01/07/2021 10:18:22 [id number] MD MELLY Gil [facility] [place] [address] [place] [address] 01/27/2021 00:00:00 01/27/2021 14:11:10 [id number] MD DIANN RodríguezS_[facility]G [facility] [address] [facility], [address] [place] [address] 01/30/2021 00:00:00 01/30/2021 12:47:02 [id number] MD DIANN JerezS_[facility] Internal Med [facility] [address] [facility] [address] [place] [address] 03/18/2021 00:00:00 03/18/2021 17:27:15 [id number] MD SARINA Jerez_[facility] Internal Med [facility] [address] [facility] 15 [place] [address] 09/02/2021 00:00:00 09/02/2021 20:54:03 [id number] MD DIANN JerezS_[facility] Internal Med [facility] [address] [facility] 15 [place] [address] 12/12/2021 00:00:00 12/12/2021 13:54:25 [id number] MD DIANN JerezS_[facility] Internal Med [facility] [address] [facility] [address] [place] [address] 02/13/2022 00:00:00 02/13/2022 15:01:16 [id number] MD SARINA Jerez_[facility] Internal Med [facility] [address] [facility] [address] [place] [address] 03/19/2022 00:00:00 03/19/2022 12:04:31 [id number] MD SARINA Jerez_[facility]G Internal Med [facility] [address] [facility] [address] [place] [address] 04/30/2022 00:00:00 04/30/2022 13:07:14 [id number] MD SARINA Jerez_[facility]G Internal Med [facility] [address] [place] [address] 05/08/2022 00:00:00 05/08/2022 12:24:38 [id number] Chanda dunne MD [facility] Internal Med [facility] [address] [facility] [place] [address] 07/10/2022 00:00:00 07/10/2022 14:29:39 [id number] Chanda dunne MD [facility] Internal Med [facility] [address] [facility] [address] [place] [address] 11/06/2022 10:54:27 11/06/2022 11:24:17 Anxiety 09984855 F41.9 fluvoxamin e caused n/vshe self stopped the wellbutrin - is currently stable off medscounti nue counseling call office if any change in mood or behaviorSh e declines psychiatry referral Allergic urticaria 55528 009 L50.0 Now following movie producer- Dr. Mendozaback to ER if worse/any facial swelling Cobalamin deficiency 190 668776 E53.8 on monthly injections Iron deficiency 42871122 E61.1 on supplement Vitamin D deficiency 347 07506 E55.9 on supplement History of supraventricular tachycardia 6877861730 9996604 Z86.79 S/p cardiac ablation x2, on magnesium, follows [facility] ([facility] ) annually Carpal steve jennifer syndrome 45421566 G56.00 following ortho Eczema of external auditory canal 08329638 H60.549 now following ENT Chronic sinusitis 160649 00 J32.9 Now following ENT- Dr. Montes De Oca Obesity 774100266 E66.9 recommend healthy, well balanced mealsfocus on lean meats, fresh vegetables , fresh fruits, whole grainsredu ce fast/proce ssed foods or eating out to no more than 1-2 times per weekaim to get 30 min of exercise most days of the week- walking is a great choice Hyperlipid emia screening 196134598 Z13.220 Diabetes m ellitus screening 179948734 Z13.1 Thyroid di sorder screening 922317132 Z13.29 Insomnia 360264137 G47.0 0 start trazodone- she is aware side effects, risks, and benefits No alcohol, driving, or mix with other sedating meds Call office if any change in mood or behavior [id number] Raheem Sage MD [facility] [place] [address] [place] [address], [address] [place] [address] 11/05/2022 09:57:31 11/05/2022 11:07:47 Pain of right shoulder joint 6532786136 7555812 M25.511 [id number] Chanda dunne MD [facility] Internal Med [facility] [address] [facility] [place] [address] 03/05/2023 14:56:51 03/05/2023 15:23:03 Asthma 963892164 J45.909 On albuterol p.r.n.on Symbicort p.r.n.- she is aware to rinse and spit after use Anxiety 92955645 F41.9 fluvoxamin e caused n/vRestart the Wellbutrin -she is aware of side effects, risks, and benefitsco ntinue counseling call office if any change in mood or behaviorSh e declines psychiatry referral Allergic urticaria 42385 009 L50.0 Now following movie producer- Dr. Mendozaback to ER if worse/any facial swelling Cobalamin deficiency 190 514516 E53.8 on monthly injections Iron deficiency 95094733 E61.1 on supplement Vitamin D deficiency 347 47750 E55.9 on supplement History of supraventricular tachycardia [id number] 5229837 Z86.79 S/p cardiac ablation x2, on magnesium, follows [facility] ([facility] ) annually Carpal steve jennifer syndrome 30445517 G56.00 following ortho Eczema of external auditory canal 97658369 H60.549 now following ENT Chronic sinusitis 851308 00 J32.9 Now following ENT- Dr. Montes De Oca Obesity 949634844 E66.9 recommend healthy, well balanced mealsfocus on lean meats, fresh vegetables , fresh fruits, whole grainsredu ce fast/proce ssed foods or eating out to no more than 1-2 times per weekaim to get 30 min of exercise most days of the week- walking is a great choice Insomnia 415111831 G47.0 0 start trazodone- she is aware side effects, risks, and benefitsNo alcohol, driving, or mix with other sedating medsCall office if any change in mood or behavior Recommend she try a half pill on days when the insomnia is particular ly bad so we can see if this med works for her [id number] Chanda dunne MD [facility] [address] [facility] [place] [address] 04/09/2023 16:05:55 04/09/2023 16:39:53 Cobalamin deficiency 797238434 E53.8 on monthly injections Anxiety 54392977 F41.9 fluvoxamin e caused n/vwellbut rin gave her a rashcontin ue counseling call office if any change in mood or behaviorke ep appt with psychiatry later this month- Dr. Munson Allergic urticaria 87531 009 L50.0 Now following movie producer- Dr. Mendozaback to ER if worse/any facial swelling Iron deficiency 94353945 E61.1 on supplement Vitamin D deficiency 347 24412 E55.9 on supplement History of supraventricular tachycardia 6389494515 9400831 Z86.79 S/p cardiac ablation x2, on magnesium, follows [facility] ([facility] ) annually Carpal steve jennifer syndrome 65678209 G56.00 following ortho Eczema of external auditory canal 78715548 H60.549 now following ENT Chronic sinusitis 508703 00 J32.9 Now following ENT- Dr. Montes De Oca Obesity 817411991 E66.9 recommend healthy, well balanced mealsfocus on lean meats, fresh vegetables , fresh fruits, whole grainsredu ce fast/proce ssed foods or eating out to no more than 1-2 times per weekaim to get 30 min of exercise most days of the week- walking is a great choice Insomnia 504599555 G47.0 0 on trazodone- she is aware side effects, risks, and benefitsNo alcohol, driving, or mix with other sedating medsCall office if any change in mood or behavior now will follow psych for this Asthma 456561946 J45.90 9 On albuterol p.r.n.on Symbicort p.r.n.- she is aware to rinse and spit after use Pain in toe 103874469 M7 9.675 [facility], call if symptoms do not resolve Localized superficial swelling of skin 652431634 R22.9 Very tiny nodule noted an area of concernRec maxime we monitor this as this may be related to her bumping her armCall office if no improvemen t in a week or 2 or if it gets larger or becomes painful [id number] Chanda dunne MD [facility] Internal Med [facility] [address] [place] [address] 1 09/30/2023 16:58:52 09/30/2023 17:39:53 Vitamin B12 deficiency (non anemic) 27544170 E53.8 Insomnia 613885598 G47.0 0 Diabetes m ellitus screening 741277025 Z13.1 Hyperlipid emia screening 320273124 Z13.220 Screening for disorder 203601670 Z13.9 Thyroid di sorder screening 324840910 Z13.29 Allergic rhinitis 483795 04 J30.9 [id number] Chanda dunne MD [facility] Internal Med [place] [address] [facility] [address] [place] [address] 1 01/03/2024 11:31:23 01/03/2024 12:14:39 Cobalamin deficiency 322480589 E53.8 [id number] Chanda dunne MD [facility] Internal Med [facility] [address] [facility] [place] [address] 1 06/26/2024 14:37:42 06/26/2024 15:16:47 Hepatitis C screening 657849618 Z11.59 Carries ep inephrine preloaded injection pen 068267857 Z78.9 Cobalamin deficiency 190 659432 E53.8 Health Concerns Section Related Observation LastModified by Organization Detai ls LastModified Time None Recorded Concern Status LastModified by Organization Details LastModified Time None Recorded Advance Directives Directive N: Payers Insurance Date Sequence Insurance Name Policy Number Policy Valentin Covered Member ID Valentin Member ID Guarantor Name 12/07/2024 1 [facility] [id number] Babar Jimenez [id number] Roberta Jimenez 03/02/2023 1 [facility] ([facility] [id number] Babar Jimenez [id number] Roberta Tony 06/26/2024 2 [facility] - DOS PRIOR TO 2025 (MEDICAID REPLACEMENT - HMO) [id number] Roberta Garibay [id number] Roberta Jimenez 06/26/2024 [facility] Roberta Jimenez SELF SELF Roberta Jimenez 06/26/2023 [...] her on the B12 shots. Christin Mejia, [employer] [address] [facility], [facility] [address], [address], [facility] 03/05/2023 16:24:13 04/09/2023 text/html Roberta presents today [...] arm on something. It is not painful. TIMOTHY Rubio-Erendira [address] [facility], [place], [address], [employer] 04/09/2023 17:11:08 09/30/2023 text/html 09/30/2023rissa presents today to establish care and [...] is not painful. Saba Johnson APRN [address], [address], [place], [address], [employer] 09/30/2023 17:28:37 01/03/2024 text/html Roberta presents today for 3 month follow up. She requests her vitamin B12 shot. She illnesses or injuries since last visit She states that she does not see a chemistry manager for her asthma as she only has flairs when she has a virus or cold, she rarely uses her inhaler. 09/30/2023rissa presents today to establish care and to receive her vitamin B12 injection. She states that she is having insomnia for the past couple of months and most recently since she has not had her B-12. Saba Johnson APRN [address], [facility] [address], [place], [address], [employer] 01/03/2024 13:18:51 06/26/2024 text/html Roberta presents today [...] states that she does not see a chemistry manager for her asthma as she only has flairs when she has a virus or cold, she rarely uses her inhaler. 09/30/2023rissa presents today to establish care and to receive her vitamin B12 injection. She states that she is having insomnia for the past couple of months and most recently since she has not had her B-12. Saba Johnson APRN [address], [facility] [address], [place], [address], [employer] 06/26/2024 15:13:15 OBGyn Episode No OBEpisode recorded.
--- OUTSIDE RECORDS SUMMARY | 2025-05-15 19:13 | XMS_ITS | Patient Health Record ---
Author Organization [facility] Address [address] [place] [address] Care Team Providers Care Sample Examiner Name Role Phone Darren Sidhu MD Primary Care Provider Yessy Mendoza Unavailable [phone] Allergies Allergen (clinical drug ingredient) Drug/Non Drug [...] Duration) Notes Start Date End Date Status Magnesium Oxide (Elemental) 400 MG Tablet Oral *Reorder from [email or web address] for eRx and Interaction Alerts* 11/03/2023 Active busPIRone HCl 5 MG Tablet 1 tablet Orally Twice a day; Duration: 30 days 05/07/2025 07/06/2025 Active Auvi-Q 0.3 MG/0.3ML Solution Auto-injector Injection 11/03/2023 Active rOPINIRole HCl 0.5 MG Tablet Oral 11/03/2023 Active Nexplanon 68 MG Implant Subcutaneous 11/03/2023 Active Lexapro 20 MG Tablet 1 tablet Oral Once a day; Duration: 90 days cancel remaining scripts 05/07/2025 Active Immunizations Vaccine Route Administration Date Status Comme nts Influenza virus vaccine, quadrivalent (IIV4), split virus, 0.25 mL dosage Unknown 05/28/2020 Administered Novel [id number]-[id number], preservative free Unknown 05/21/2022 Administered Pfizer Biontech Covid-19 Vac cine 2nd dose Unknown 04/24/2021 Administered Pfizer Biontech Covid-19 Vac cine 2nd dose Unknown 06/05/2021 Administered Social History Tobacco Use: Social History Observation Description Date Details (start date - stop date) Former Smoker NA - NA Sex Assigned At : Social History Observation Description Sex Assigned At Female Social History Miscellaneous: Social Info Question Answer Notes Advance Care Planning Are you your own decision-maker Yes Do you have Power of Program Management Specialist for Health or Medi ambreen? No Household: Social Info Question Answer Notes Household Marital status: Number of adults in household: 2 Number of children in household: 2 Tobacco Use: Social Info Question Answer Notes Tobacco Control (Standard) Tobacco use: Former smoker Additional Details Category Social Info Options Details Miscellaneous: Occupation: works full-ti me Migrated Social History Migrated Social History Alcohol Intake: Moderate 05/18/2023,Tobacco Years: Former smoker 05/18/2023 Problems Problem Type SNOMED Code ICD Code Onset Dates Problem Status W/U Status Risk Notes Problem Generalized anxiety disorder (13835336) Generalized anxiety disorder (F41.1) Active confirmed Problem Primary insomnia (8064254) Primary insomnia (F51.01) Active confirmed Vital Signs Heart Rate 71 /min 05/07/2025 Height-cm 160.02 cm 05/07/2025 Blood pressure diastolic 76 mm Hg 05/07/2025 Weight-kg 101.15 kg 05/07/2025 Height 63.00 in 05/07/2025 Blood pressure systolic 119 mm Hg 05/07/2025 Weight 223 lbs 05/07/2025 BMI 39.5 kg/m2 05/07/2025 Encounters Encounter Location Date Provider Diagnosis [facility] [address] [facility] [address] [place] [address] 06/20/2024 Yessy Galan Generalized anxiety disorder F41.1 and Primary insomnia F51.01 [facility] [address] [facility] [address] [place] [address] 12/05/2024 Yessy Galan Generalized anxiety disorder F41.1 ; Primary insomnia F51.01 ; Encounter for screening for cardiovascular disorders Z13.6 and Negative depression screening Z13.31 [place] [address] [facility] [address] [place] [address] 02/21/2025 Yessy Galan [place] [address] [facility] [address] [place] [address] 03/26/2025 Yessybarney Galan Generalized anxiety disorder F41.1 and Primary insomnia F51.01 [place] [address] [facility] [address] [place] [address] 05/07/2025 Yessy Galan Generalized anxiety disorder F41.1 and Primary insomnia F51.01 [place] [address] [facility] [address] [place] [address] 09/12/2024 Yessy Galan [place] [address] [address] 01/20/2025 Yessy Galan [place] [address] [address] 01/20/2025 Yessy Galan [place] [address] [address] 02/18/2025 Yessy Galan [place] [address] [address] 02/18/2025 Yessy Galan [place] [address] [address] 03/12/2025 Yessy Galan Assessments Encounter Date Diagnosis (ICD Code) Assessment Notes Treatment Notes Treatment Clinical Notes Section Notes 06/20/2024 Generalized anxiety disorder (ICD-10 - F41.1) [...] grounding exercises, physical activity, healthy diet. -discussed [place] for sliding fee counseling 2. Insomnia/night yousif [...] office. 12/05/2024 Primary insomnia (ICD-10 - F51.01) 03/26/2025 Generalized anxiety disorder (ICD-10 - F41.1) Common side effects to SSRI medications include headaches, dry mouth/eye, GI upset (including indigestion, nausea, diarrhea), sleeping problems (insomnia or drowsiness), decreased libido, blurred vision, dizziness. Generally, side effects will subside or lessen with time and are common during drug initiation and dose changes. If they persist please contact the office. 05/07/2025 Generalized anxiety disorder (ICD-10 - F41.1) Common side effects to SSRI medications include headaches, dry mouth/eye, GI upset (including indigestion, nausea, diarrhea), sleeping problems (insomnia or drowsiness), decreased libido, blurred vision, dizziness. Generally, side effects will subside or lessen with time and are common during drug initiation and dose changes. If they persist please contact the office. 05/07/2025 Primary insomnia (ICD-10 - F51.01) 03/26/2025 Primary insomnia (ICD-10 - F51.01) 12/05/2024 Encounter for screening for cardiovascular disorders (ICD-10 - Z13.6) 06/20/2024 Primary insomnia (ICD-10 - F51.01) 1. CHELITA stable -cont escitalopram 15mg daily -encourage non-pharmaceut ical treatments including deep breathing, grounding exercises, physical activity, healthy diet. -discussed [place] for sliding fee counseling 2. Insomnia/night yousif -cont off of prazosin due to dizziness at 2mg 12/05/2024 Negative depression screening (ICD-10 - Z13.31) 06/20/2024 Other Overall feels stable, continue escitalopram 15mg daily. Refill sent in. Patient educated on all medications including potential benefits, side effects, risks. Educated on proper dosing schedule and importance of compliance. 1. CHELITA stable -cont escitalopram 15mg daily -encourage non-pharmaceut ical treatments including deep breathing, grounding exercises, physical activity, healthy diet. -discussed [place] for sliding fee counseling 2. Insomnia/night yousif [...] of psychotropic medications. -Crisis prevention hotline 988. 03/26/2025 Other Increase escitalopram to 20mg daily for [...] of psychotropic medications. -Crisis prevention hotline 988. 05/07/2025 Other Start buspar 5mg BID for anxiety Patient educated on all medications [...] therapeutic effects of psychotropic medications. -[facility] Plan Of Treatment Next Appt Details Provider Name:Yessy shanks, 07/02/2025 02:15:00 PM, [address], [address], [place], [address], Insurance Providers Payer Name Payer Address Payer Phone Subscriber Number Group Number Insured Name Patient Relationship to Insured Coverage Start Date Coverage End Date [facility] [address] [place] [address] [id number] MITUL HOLLINGSWORTH Spouse - patient is the spouse of the insured 4 [employer] Medicare Supplement [address] [address] [place] [address] [id number] ROBERTA HOLLINGSWORTH Self - patient is the [...] Any surgical history 09/11/2013 Removal of gallbladder (90914) 2 Sinus surgery 12/19/2020 Tonsilectomy/adenoids 07/02/2005 nasal surgery 03/16/2025
--- OUTSIDE RECORDS SUMMARY | 2025-05-15 19:13 | XMS_ITS | Clinical Summary ---
Author Organization [facility] Address [address] [facility] [place] [address] Care Team Providers Care Machine Bookkeeper Name Role Phone Sol Arvizu MD Primary Care Provider Source Comments [facility],non-owned Affiliates and Associated Physician Practices is amultiple site organization consisting of ambulatory clinics and hospital sitesin [place], [place], [place] and [place]. This disclosure is being madepursuant to the Care Everywhere program and may not contain all information available regarding this patient. Last updated 18.[facility] Allergies Active Allergy Reactions Criticality Noted Date [...] by mouth once daily Reasons: palpitations Active Buckhead-3 Fatty Acids (FISH OIL) 1000 MG capsule [...] RUQ abdominal pain, or jaundice. Plan: If Lime Sludge Mixer would like us to follow her for this ongoing, we certainly will. Belinda shares that it is hard for her [...] let us know. I have also encouraged Belinda to let us know if she plans [...] fibrin deposition, neutrophils in the membranes and Colbert's jelly of the umbilical cord. Assessment & [...] fibrin deposition, neutrophils in the membranes and Colbert's jelly of the umbilical cord. Plan: Reviewed [...] 12:57 PM CDT): Requesting patient records from [facility] from 2012 Will give final recommendations at [...] Comments Blood Pressure 115/67 08/23/2019 3:34 PM TRACTOR MECHANIC APPRENTICE Pulse 75 08/23/2019 3:34 PM TRACTOR MECHANIC APPRENTICE Temperature 37.1 C (98.7 F) 01/26/2018 10:12 PM CDT Respiratory Rate 16 08/23/2019 3:34 PM TRACTOR MECHANIC APPRENTICE Oxygen Saturation 100% 01/26/2018 10:12 PM CDT [...] VACCINE (1 - 3-dose SCDM series) 2013 DEPRESSION SCREENING 08/02/2024 COVID-19 VACCINE (4 - 5-26 season) 2025 06/03/2022, 06/05/2021, 04/24/2021 INFLUENZA VACCINE (#1) 2025 , 05/31/2023, 05/21/2022, [...] patient's age to complete this topic Insurance [employer] Care Teams Machine Bookkeeper Relationship Specialty [place] [address] [place] [id number] PCP - General Internal Medicine 01/26/18
--- OUTSIDE RECORDS SUMMARY | 2025-05-15 19:13 | XMS_ITS | Data Portability ---
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 for vestibular suppression and see me back in a couple of weeks [email or web address] Not available 02/07/2025 22:39:42 05/04/2025 05/04/2025 Meclizine vestibular therapy a flu shot today see me in 3 months ENT note reviewed [email or web address] Not available 05/04/2025 15:14:18 Plan of Treatment Reminders Order Date Submit Date Provider Last Modified By Organization Details Last Modified Time Details Appointments ANY 15 2025 11:15A M Charlotte Sidhu MD Not available Not available Not available Lab lipid panel, serum 2024 025 [facility], [address], [address], [place], [address], 09/20/2024 06:20:28 HbA1c (hemoglo bin A1c), blood 2024 025 [facility], [address], [address], [place], [address], 09/20/2024 11:11:59 TSH + free T4, serum 2024 025 [facility], [address], [address], [place], [address], 09/20/2024 11:11:57 CBC w/ auto diff 2024 025 [facility], [address], [address], [place], [address], 09/20/2024 06:20:30 T3, free, serum or plasma 2024 025 [facility], [address], [address], [place], [address], 09/20/2024 11:12:00 CMP, serum or plasma 2024 025 [facility], [address], [address], [place], [address], 09/20/2024 06:20:29 vitamin D, 25-hydro xy, total, serum 2024 025 [facility], [address] [place] [address], [address], [place], [address], 09/20/2024 11:12:02 cobalami n and folate panel, serum 2024 025 [facility], [address] [place] [address], [address], [place], [address], 09/20/2024 11:11:58 pap, IG + HPV 2020 021 [facility], [address] [place] [address], [address], [place], [address], 01/10/2021 12:19:41 Referral vestibul ar therapy referral 2024 025 [facility] [place], [address] [facility], [place], [address], 05/07/2025 09:10:44 Procedures None recorded . Surgeries None recorded . Imaging MRI, brain + internal auditory canal, w/wo contrast 2024 025 [facility], [address] [place], [address], 04/17/2025 19:10:13 XR, cervical spine 2024 025 [facility] (Radiology), [address], [place], [address], 12/01/2024 14:15:49 MAMMO, diagnost ic, digital, bilatera l - left lateral intermit tent breast pain bilater dx mmg with u/s if needed E location 2020 021 [facility] Patient Access Centralized Scheduling, Centralized Scheduling, [address] [place], [address], 01/31/2021 14:19:45 Medication Orders predniso ne 20 mg tablet [address] [id number], [address], [place], [place], [phone], 12/01/2024 14:01:26 tizanidi ne 4 mg tablet [address] [id number], [address], [place], [place], [id number], 12/01/2024 14:01:26 doxycycl ine hyclate 100 mg capsule [address] [id number], [address], [place], [place], [id number], 09/19/2024 13:04:57 Patient TargetsNo targets recorded. Patient Instructions Encounter Date Encounter Id Patient Instructions Last Modified By Organization Details Last Modified Time 01/03/2021 [id number] A healthy lifestyle: care instructions [email or web address] Not available 01/03/2021 14:51:54 Pap results will be sent to you. Breast imaging will be scheduled. [email or web address] Not available 01/03/2021 18:56:36 09/19/2024 [id number] A healthy lifestyle: care instructions [email or web address] Not available 09/19/2024 13:04:57 12/01/2024 [id number] A healthy lifestyle: care instructions Not available 12/01/2024 12:25:43 02/06/2025 [id number] A healthy lifestyle: care instructions [email or web address] Not available 02/06/2025 17:54:44 Reason for Referral Vestibular Therapy Referral for Vertigo Referring Physician: Charlotte Sidhu, Internal Medicine, Encounter Date: 05/04/2025 Results Created Date Observation Date Name Description Value Unit Range Abnormal Flag Note LastModifiedBy Organization Detail LastModifiedTime 01/04/20 21 01/07/2021 pap, IG + HPV HPV aptima Negati ve negati ve This nucle ic acid ampli ficat ion test detec ts fourt een high- risk HPV types (16,1 8,31, 33,35 ,39,4 5,51, 52,56 ,58,5 9,66, 68) witho ut diffe renti ation . Not Available [facility] [address], [place], [address], 01/10/2021 09:13:41 01/04/20 21 01/08/2021 pap, IG + HPV diagnosis: Angus duarte NEGAT TREVOR FOR INTRA EPITH ELIAL EDIL N OR MARICEL SCHULTZ . REACT TREVOR CELLU LAR COLLIER ES AND/O R REPAI R ARE PRESE NT. Not Available [facility] [address], [place], [address], 01/10/2021 09:13:41 01/04/20 21 01/08/2021 pap, IG + HPV specimen adequacy: Angus duarte Satis facto ry for evalu ation . Endoc ervic al and/o r squam ous metap lasti c cells (endo cervi ambreen compo nent) are prese nt. Not Available [facility] [address], [place], [address], 01/10/2021 09:13:41 01/04/20 21 01/08/2021 pap, IG + HPV clinician provided ICD10: Angus duarte Z12.4 Not Available [facility] [address], [place], [address], 01/10/2021 09:13:41 01/04/20 21 01/08/2021 pap, IG + HPV performed by: Angus Rios ws, Cytot shon florez t (ASCP ) Not Available [facility] [address], [place], [address], 01/10/2021 09:13:41 01/04/20 21 01/08/2021 pap, IG + HPV electronical ly signed by: Angus garcia MD, Patho vikki t Not Available [facility] [address] [facility] [address], [place], [address], 01/10/2021 09:13:41 01/04/20 21 01/08/2021 pap, IG + HPV . . Not Available [facility] [address] [facility] [address], [place], [address], 01/10/2021 09:13:41 01/04/20 21 01/08/2021 pap, IG + HPV note: Angus duarte [...] ts do occur . Not Available [facility] [address] [place] [address] [address], [place], [address], 01/10/2021 09:13:41 01/04/20 21 01/08/2021 pap, IG + HPV test methodology: Angus duarte This liqui d based ThinP rep(R ) pap test was scree adán with the use of an image guide d systbharat m. Not Available [facility] [address] [place] [address] [address], [place], [address], 01/10/2021 09:13:41 09/01/19 22 09/01/2021 Bacte rial [...] 122 mg/dL 100-[address] [facility] Him Department [address] [place], [address], 09/20/2024 06:20:28 09/19/19 25 09/19/2024 LIPID PANEL triglyceride s 169 mg/dL 0-149 above high normal Not Available [facility] Department [address] [place], [address], 09/20/2024 06:20:28 09/19/19 25 09/19/2024 LIPID PANEL HDL cholesterol 31 mg/dL 40-999 below low normal Not Available [facility] Department [address] [place], [address], 09/20/2024 06:20:28 09/19/19 25 09/19/2024 LIPID PANEL VLDL cholesterol ambreen 34 mg/dL 5-40 Not Available [facility] Department [address] [place], [address], 09/20/2024 06:20:28 09/19/19 25 09/19/2024 LIPID PANEL LDL chol calc (nih) 82 mg/dL 0-99 Not Available [facility] Department [address] [place] [address], [address], 09/20/2024 06:20:28 09/19/19 25 09/19/2024 COMP. METAB OLIC PANEL (14) glucose 85 mg/dL 70-99 Not Available [facility] Department [address] [place], [address], 09/20/2024 06:20:29 09/19/19 25 09/19/2024 COMP. METAB OLIC PANEL (14) BUN 13 mg/dL 6-20 Not Available [facility] Department [address] [place], [address], 09/20/2024 06:20:29 09/19/19 25 09/19/2024 COMP. METAB OLIC PANEL (14) creatinine 0.80 mg/dL 0.76-1 .27 Not Available [facility] Department [address] [place], [address], 09/20/2024 06:20:29 09/19/19 25 09/19/2024 COMP. METAB OLIC PANEL (14) eGFR 97 >=60 Units for eGFR value s are mL/mi n/1.7 3 The eGFR Calcu latio n has not been valid ated for patie nts under the age of 18. If test resul ts are displ ayed for a patie nt under the age of 18, disre eusebia that value . Not Available [facility] Department [address] [place] [address], [address], 09/20/2024 06:20:29 09/19/19 25 09/19/2024 COMP. METAB OLIC PANEL (14) BUN/creatini ne ratio 16 9-23 Not Available [facility] Department [address] [place] [address], [address], 09/20/2024 06:20:29 09/19/19 25 09/19/2024 COMP. METAB OLIC PANEL (14) sodium 141 mmol/ L 134-14 4 Not Available [facility] Department [address] [place] [address], [address], 09/20/2024 06:20:29 09/19/19 25 09/19/2024 COMP. METAB OLIC PANEL (14) potassium 4.2 mmol/ L 3.5-5. 2 Not Available [facility] Department [address] [place] [address], [address], 09/20/2024 06:20:29 09/19/19 25 09/19/2024 COMP. METAB OLIC PANEL (14) chloride 103 mmol/ L 96-106 Not Available [facility] Department [address] [place] [address], [address], 09/20/2024 06:20:29 09/19/19 25 09/19/2024 COMP. METAB OLIC PANEL (14) carbon dioxide, total 29 mmol/ L 20-29 Not Available [facility] Department [address] [place] [address], [address], 09/20/2024 06:20:29 09/19/19 25 09/19/2024 COMP. METAB OLIC PANEL (14) calcium 9.5 mg/dL 8.7-10 .2 Not Available [facility] Department [address] [place], [address], 09/20/2024 06:20:29 09/19/19 25 09/19/2024 COMP. METAB OLIC PANEL (14) protein, total 7.4 g/dL 6.0-8. 5 Not Available [facility] Department [address] [place], [address], 09/20/2024 06:20:29 09/19/19 25 09/19/2024 COMP. METAB OLIC PANEL (14) albumin 4.5 g/dL 3.9-4. 9 Not Available [facility] Department [address] [place], [address], 09/20/2024 06:20:29 09/19/19 25 09/19/2024 COMP. METAB OLIC PANEL (14) globulin, total 2.9 g/dL 1.5-4. 5 Not Available [facility] Department [address] [place], [address], 09/20/2024 06:20:29 09/19/19 25 09/19/2024 COMP. METAB OLIC PANEL (14) A/G ratio 2.0 1.2-2. 2 Not Available [facility] Department [address] [place], [address], 09/20/2024 06:20:29 09/19/19 25 09/19/2024 COMP. METAB OLIC PANEL (14) bilirubin, total 0.2 mg/dL 0.0-1. 2 Not Available [facility] Department [address] [place], [address], 09/20/2024 06:20:29 09/19/19 25 09/19/2024 COMP. METAB OLIC PANEL (14) alkaline phosphatase 96 IU/L 44-121 Not Available [facility] Department [address] [place], [address], 09/20/2024 06:20:29 09/19/19 25 09/19/2024 COMP. METAB OLIC PANEL (14) AST (SGOT) 19 IU/L 0-40 Not Available [facility] Department [address] [place], [address], 09/20/2024 06:20:29 09/19/19 25 09/19/2024 COMP. METAB OLIC PANEL (14) ALT (SGPT) 17 IU/L 0-32 Not Available [facility] Department [address] [place], [address], 09/20/2024 06:20:29 09/19/19 25 09/19/2024 CBC WITH DIFFE RENTI AL/PL ATELE T WBC 12.0 x10e3 /uL 3.4-10 .8 above high normal Not Available [facility] Department [address] [place], [address], 09/20/2024 06:20:30 09/19/19 25 09/19/2024 CBC WITH DIFFE RENTI AL/PL ATELE T RBC 4.58 x10e6 /uL 3.77-5 .28 Not Available [facility] Department [address] [place], [address], 09/20/2024 06:20:30 09/19/19 25 09/19/2024 CBC WITH DIFFE RENTI AL/PL ATELE T hemoglobin 12.8 g/dL 11.1-1 5.9 Not Available [facility] Department [address] [place], [address], 09/20/2024 06:20:30 09/19/19 25 09/19/2024 CBC WITH DIFFE RENTI AL/PL ATELE T hematocrit 40.8 % 34.0-4 6.6 Not Available [facility] Department [address] [place], [address], 09/20/2024 06:20:30 09/19/19 25 09/19/2024 CBC WITH DIFFE RENTI AL/PL ATELE T MCV 89 fL 79-97 Not Available [facility] Department [address] [place], [address], 09/20/2024 06:20:30 09/19/19 25 09/19/2024 CBC WITH DIFFE RENTI AL/PL ATELE T MCH 27.9 pg 26.6-3 3.0 Not Available [facility] Department [address] [place], [address], 09/20/2024 06:20:30 09/19/19 25 09/19/2024 CBC WITH DIFFE RENTI AL/PL ATELE T MCHC 31.4 g/dL 31.5-3 5.7 below low normal Not Available [facility] Department [address] [place], [address], 09/20/2024 06:20:30 09/19/19 25 09/19/2024 CBC WITH DIFFE RENTI AL/PL ATELE T RDW 12.4 % 11.5-1 4.5 Not Available [facility] Department [address] [place], [address], 09/20/2024 06:20:30 09/19/19 25 09/19/2024 CBC WITH DIFFE RENTI AL/PL ATELE T platelets 163 x10e3 /uL 150-45 0 Not Available [facility] Department [address] [place], [address], 09/20/2024 06:20:30 09/19/19 25 09/19/2024 CBC WITH DIFFE RENTI AL/PL ATELE T neutrophils 68 % notest b. Not Available [facility] Department [address] [place], [address], 09/20/2024 06:20:30 09/19/19 25 09/19/2024 CBC WITH DIFFE RENTI AL/PL ATELE T lymphs 23 % notest b. Not Available [facility] Department [address] [place], [address], 09/20/2024 06:20:30 09/19/19 25 09/19/2024 CBC WITH DIFFE RENTI AL/PL ATELE T monocytes 6 % notest b. Not Available [facility] Department [address] [place], [address], 09/20/2024 06:20:30 09/19/19 25 09/19/2024 CBC WITH DIFFE RENTI AL/PL ATELE T eos 2 % notest b. Not Available [facility] Department [address] [place], [address], 09/20/2024 06:20:30 09/19/19 25 09/19/2024 CBC WITH DIFFE RENTI AL/PL ATELE T basos 0 % notest b. Not Available [facility] Department [address] [place], [address], 09/20/2024 06:20:30 09/19/19 25 09/19/2024 CBC WITH DIFFE RENTI AL/PL ATELE T neutrophils (absolute) 8.1 x10e3 /uL 1.4-7. 0 above high normal Not Available [facility] Department [address] [place], [address], 09/20/2024 06:20:30 09/19/19 25 09/19/2024 CBC WITH DIFFE RENTI AL/PL ATELE T lymphs (absolute) 2.8 x10e3 /uL 0.7-3. 1 Not Available [facility] Department [address] [place], [address], 09/20/2024 06:20:30 09/19/19 25 09/19/2024 CBC WITH DIFFE RENTI AL/PL ATELE T monocytes(ab solute) 0.8 x10e3 /uL 0.1-0. 9 Not Available [facility] Department [address] [place], [address], 09/20/2024 06:20:30 09/19/19 25 09/19/2024 CBC WITH DIFFE RENTI AL/PL ATELE T eos (absolute) 0.2 x10e3 /uL 0.0-0. 4 Not Available [facility] Department [address] [place], [address], 09/20/2024 06:20:30 09/19/19 25 09/19/2024 CBC WITH DIFFE RENTI AL/PL ATELE T baso (absolute) 0.0 x10e3 /uL 0.0-0. 2 Not Available [facility] [address] [place], [address], 09/20/2024 06:20:30 09/19/19 25 09/19/2024 CBC WITH DIFFE RENTI AL/PL ATELE T immature granulocytes 0.4 % notest b. Not Available [facility] Department [address] [place], [address], 09/20/2024 06:20:30 09/19/19 25 09/19/2024 CBC WITH DIFFE RENTI AL/PL ATELE T immature grans (abs) 0.1 x10e3 /uL 0.0-0. 1 Not Available [facility] [address] [place], [address], 09/20/2024 06:20:30 09/19/19 25 09/19/2024 CBC WITH DIFFE RENTI AL/PL ATELE T NRBC 0 % 0-0 Not Available [facility] Department [address] [place], [address], 09/20/2024 06:20:30 09/19/1909/20/2024 TSH+F REE T4 TSH 2.130 uIU/m L 0.450- 4.500 Not Available [facility] ([facility]) [address] [facility], [place], [address], 09/20/2024 11:11:56 09/19/19 25 09/20/2024 TSH+F REE T4 T4,free(dire ct) 0.95 NG/dL 0.82-1 .77 Not Available [facility] ([facility]) [address] [place], [address], 09/20/2024 11:11:56 09/19/19 25 09/20/2024 VITAM IN B12 AND FOLAT E vitamin B12 553 pg/mL 232-12 45 Not Available [facility] ([facility]) [address] [place], [address], 09/20/2024 11:11:58 09/19/1909/20/2024 VITAM IN B12 AND FOLAT E folate (folic acid), serum 14.0 NG/mL >3.0 A serum folat e kali ntrat ion of less than 3.1 ng/mL is consi dered to repre sent clini ambreen defic iency . Not Available [facility] ([facility]) [address] [place], [address], 09/20/2024 11:11:58 09/19/1909/20/2024 HEMOG LOBIN A1C hemoglobin A1C 5.5 % 4.8-5. 6 Predi abete s: 5.7 - 6.4 Diabe maribel: >6.4 Glyce rhys contr ol for adult s with diabe maribel: <7.0 Not Available [facility] ([facility]) [address] [place], [address], 09/20/2024 11:11:59 09/19/19 25 09/20/2024 TRIIO DOTHY CARMEN E (T3), FREE triiodothyro nine (T3), free 3.2 pg/mL 2.0-4. 4 Not Available [facility] ([facility]) [address] [place], [address], 09/20/2024 11:12:00 09/19/19 25 09/20/2024 VITAM IN [...] IOM (Inst itute of Medic ine). 2010. Ester ry refer ence intak es for calci um and D. Jose Antonio roberts [place]: [facility] . 2. Jalen bowman MF, Duncan daniels [place], Danni off-F errar i MARK, et al. Evalu ation , treat ment, and preve ntion of vitam in D defic iency : an Endoc rine Socie ty clini ambreen pract ice guide line. JCEM. 2010; 96(7) :1911 -30. Not Available [facility] ([facility]) [address], [place], [address], 09/20/2024 11:12:01 02/01/20 21 01/31/2021 MAMMO , diagn ostic , digit al, bilat eral No observ ation record ed. [facility] [address] [facility], [place], [address], 01/31/2021 14:18:21 12/02/19 25 12/01/2024 XR, cervi ambreen spine No observ ation record ed. [facility] [address] [place], [address], 12/07/2024 21:16:46 12/08/19 25 12/07/2024 CT, sinus es, w/o contr ast No observ ation record ed. [facility] [address], [place], [address], 12/08/2024 10:17:06 01/25/20 25 01/24/2025 imagi ng/di agnos tic resul t No observ ation record ed. [facility] [address], [place], [address], 01/30/2025 11:06:15 04/17/20 25 04/17/2025 MRI, brain + inter nal audit ory canal , w/wo contr ast No observ ation record ed. [address], [place], [address], 04/18/2025 15:43:48 Result Notes None recorded. Problems Name Problem SNOMED Code Status Onset Date Resolution Date Notes Provider Name and Address Organization Details Recorded Time Thromboc ytopenic disorder 036726104 Completed lowest in 110s around , had been sick in September with URI/ear infectio ns, Platelet s 145k at 1st visit, 166k at 26wks and 168k at 33wks Alida Dozier MA null, [place] [facility] 0 11:11:03 Insertio n of subcutan eous contrace ptive done 39672473830 9103 Active Daniel Haydee null, [place] [facility] 6 18:04:47 Pregnanc y 36554967 Completed 201810/26/2019 Alida Dozier [place] null, [place] [facility] 0 11:11:06 Maternal obesity complica ting pregnanc y, childbir th and the puerperi um, antepart um 40336612472 7 Completed 2018 pre pregnanc y BMI 38.3--SS M recommen ds repeat growth every 4 weeks but didn't schedule a f/u--rep eat 0 shows possible reduced growth velocity --to have repeat BPP/dopp lers in one week OMERO Bonds, [place] - [facility] 0 11:11:03 Common bile duct calculus 585528935 Completed 2018 Prior cholecys tectomy and prior [...] Antenata l care: poor obstetri c history 240938227 Completed 2018 History of chorioam nionitis in [...] 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 63702985981 9107 Completed 2019 +GBS suscepti ble to clindamy donovan OMERO [place], [place] - [facility] 0 11:11:03 Obesity 659271311 Active 2024 Charlotte Sidhu MD Attn: Jovana g,[address] [facility], [place], [address], [place] [facility] 5 15:33:52 Fatigue 80565349 Active 2024 Charlotte Sidhu MD Attn: Jovana spencer,[address] [facility], [place], [address], [place] [facility] 5 15:33:55 Supraven tricular tachycar jayne 6348505 Active 2024 ablation Charlotte Sidhu MD Attn: Jovana spencer,[address] [facility], [place], [address], [place] [facility] 5 15:34:12 Asthma 958065052 Active 2024 Charlotte Sidhu MD Attn: Jovana spencer,[address] [facility], [place], [address], [place] - [facility] 5 15:34:02 Neck pain 50052217 Active 2024 Luzmaria Baker [place] null, [place] [facility] 5 12:52:08 Problem Notes None recorded. Procedures Surgical History Date Name Laterality Status Provider Name and Address Organization Details Recorded Time 02/01/20 21 Most Recent Mammogram completed Daniel Engeljohn [place] [facility] 01/31/2021 14:20:25 01/04/20 21 Date of Last Pap Smear completed [place]john [place] [facility] 01/03/2021 14:08:16 12/28/19 21 Nsl/sins ndsc surg bx polypc completed Alida Dozier [place] [facility] 01/03/2021 14:21:11 10/26/19 20 Control Implant Insertion completed Alida [place]zier [place] [facility] 10/26/2019 11:15:12 07/13/20 18 Control Implant Removal completed [place]john [place] [facility] 07/13/2018 14:32:27 02/10/20 16 Control Implant Replacement completed [place] [facility] 02/10/2016 18:04:48 08/02/19 12 Cholecystectomy completed [place]john [place] [facility] 07/31/2015 15:05:54 Tonsillectomy completed Sol Arvizu MD Attn: Accounting,[address] [facility], [place], [address], [place] [facility] 11/02/2016 14:16:27 Imaging Results None recorded. Procedure Notes None recorded. Medical Equipment None Reported. Allergies Allergen ID Allergen Name Allergen Category Reaction Reaction Severity Criticality Documentation Date Start Date Code Code System Note Provider Name and Address Organization Details Recorded Time 836672 Product containin g penicilli n (product) medicatio n hives moderate Not available 04/14/20182017 27641 8001 SNOMED Parvin Shipley LPN [facility], [place] - [facility] 8 14:17:31 25957 Substance with sulfonami de structure and antibacte rial mechanism of action (substanc e) medicatio n hives Not available Not available 07/31/2015 73029 8003 SNOMED Sharmin Crow [facility], [facility] 5 14:45:52 Medications Name Sig Start Date [...] Not Available acetamino phen 300 mg-codein e 15 mg tablet TAKE 1 TABLET BY MOUTH EVERY 8 HRS NEEDED. SEVERE PAIN ONLY FOR MODERATE /MILD US REGULAR TYLENOL active Not Available Not Available No t Available acetamino phen 300 mg-codein e 30 [...] Not Available No t Available escitalop josselyn 20 mg tablet TAKE 1 TABLET BY MOUTH [...] Available Not Available Not Available Fluarix Quad 7449-5761 (PF) 60 mcg (15 mcg x 4)/0.5 [...] Updated DateTime 5 160.02 cm 40.6 kg/m2 942434. 65 g 74 /min 100 % 100 % 128/80 mm[Hg] Josette Bucio MA [facility] 5 12:07:54 Date Recorded Body height Body mass index (BMI) Body weight Heart rate Oxygen saturation Oxygen saturation in Arterial blood by Pulse oximetry Systolic And Diastolic Provider Name and Address Organization Details Last Updated DateTime 5 160.02 cm 39.8 kg/m2 971385. 21 g 72 /min 98 % 98 % 114/70 mm[Hg] Arlette Lloyd MA [facility] 5 11:38:11 Date Recorded Body height Body mass index (BMI) Body weight Systolic And Diastolic Provider Name and Address Organization Details Last Updated DateTime 01/03/2021 160.02 cm 37.9 kg/m2 09431.77 g 144/94 mm[Hg] Alida Dozier MA [facility] 01/03/2021 14:24:59 Date Recorded Body height Body mass index (BMI) Body weight Heart rate Oxygen saturation Oxygen saturation in Arterial blood by Pulse oximetry Systolic And Diastolic Provider Name and Address Organization Details Last Updated DateTime 5 160.02 cm 40 kg/m2 734758. 44 g 86 /min 97 % 97 % 112/64 mm[Hg] Arlette Lloyd MA [facility] 5 15:39:59 Date Recorded Body height Body mass index (BMI) Body weight Heart rate Oxygen saturation Oxygen saturation in Arterial blood by Pulse oximetry Systolic And Diastolic Provider Name and Address Organization Details Last Updated DateTime 5 160.02 cm 39.5 kg/m2 941729. 82 g 73 /min 97 % 97 % 108/68 mm[Hg] Farideh Covington MA [facility] 5 12:39:09 Social History Question Answer Notes LastModified by Organizat ion Details LastModified Time Tobacco Smoking Status Former Smoker stopped 2012 Daniel dykes [facility] 02/16/2019 13:21:28 Are You Blind Or Do You Have Difficulty Seeing? No Information not available 09/19/2024 Is Blood Transfusion Acceptable In An Emergency? Yes Information not available 07/31/2015 What Is Your Level Of Caffeine Consumption? Moderate Information not available 07/31/2015 How Much Tobacco Do You Chew? None [email or web address] Information not available 07/31/2015 In The 14 [...] Type Of Diet Are You Following? REGULAR [email or web address] Information not available 07/31/2015 Which Illicit Or Recreational Drugs Have You Used? None Information not available 07/31/2015 Education 2 Year College [email or web address] Information not available 07/31/2015 Have There Been Any Changes To Your Family Or Social Situation? No Information no t available 01/03/2021 Live Alone Or With Others? With Others Information not available 07/31/2015 What Was The Date Of Your Most Recent Tobacco Screening? 02/06/2025 Information not available 02/06/2025 How Many Children Do You Have? 1 [email or web address] Information not available 07/31/2015 Performs Monthly Self-breast Exam? No [email or web address] Information no t available 07/31/2015 What Is Your Relationship Status? Single Information not available 07/31/2015 Do You Use Your Seat Belt Or Car Seat Routinely? Yes Information not available 01/03/2021 Seat Belts Used Routinely Yes [email or web address] Information not available 07/31/2015 Are You Sexually Active? No [email or web address] Information not available 07/31/2015 Do You Have Smoke And Carbon Monoxide Detectors In Your Home? Yes Information not available 01/03/2021 At What Age Did You Start Smoking Tobacco? 22 Information not available 07/31/2015 How Much Tobacco Do You Smoke? 1 PPW Information not available 07/31/2015 General Stress Level Low [email or web address] Information not available 07/31/2015 Do You Use Sunscreen Routinely? Yes [email or web address] Information not available 07/31/2015 Has Tobacco Cessation Counseling Been Provided? No Information not available 02/06/2025 On What Date Was Tobacco Cessation Counseling Provided? 02/06/2025 Information not available 02/06/2025 How Many Years Have You Smoked Tobacco? 5 [email or web address] Information not available 07/31/2015 Sex: Unknown Functional Status Question Answer Note LastModified by Organizat ion Details LastModified Time Do you use any illicit or recreational drugs? No Information not available 01/03/2021 Do you or have you ever used any other forms of tobacco or nicotine? No Information not available 01/03/2021 What is your level of alcohol consumption? Occasional [email or web address] Information not available 07/31/2015 Are you currently employed? Yes [email or web address] Information not available 07/31/2015 Are you able to care for yourself independently? 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 Occasional [email or web address] Information not available 07/31/2015 Mental Status Question Answer Note LastModified by Organization D etails LastModified Time Do you feel stressed (tense, restless, nervous, or anxious, or unable to sleep at night)? [id number] Information not available 01/03/2021 Family History Relationship [...] PF, 30 mcg/0.3 mL dose 04/24/2021 completed OMERO [place], [place] - [facility] 09/19/2024 12:09:20 COVID-19, mRNA, LNP-S, PF, 30 mcg/0.3 mL dose 06/05/2021 completed Josette Bucio [place] [facility] 09/19/2024 12:09:20 COVID-19, mRNA, LNP-S, bivalent, PF, 30 mcg/0.3 mL dose 06/03/2022 completed OMERO [place], [place] [facility] 09/19/2024 [...] virus, quadrivalent, PF 04/26/2019 completed Not Available [facility] 0 02:38:11 Tdap 06/22/2019 completed Not Available [facility] 08/19/2019 02:40:20 Influenza, split virus, trivalent, PF 05/04/2025 completed Farideh Coving[place], [place] [facility] 05/04/2025 13:35:37 Past Encounters Encounter ID Performer Location Encounter Start Date Encounter Closed Date Diagnosis/Indication Diagnosis SNOMED-CT Code Diagnosis ICD10 Code Diagnosis IMO Codes Diagnosis Note [id number] MD Edmund Earl (ROAD HOGGER OPERATOR) [address] [place] [address] 07/31/2015 14:28:13 08/01/2015 11:57:07 Gynecologic examination 59976459 Z01.419 Subcutaneo us contraceptive implant present 859296500 Z30.42 [id number] MD Edmund Earl (ROAD HOGGER OPERATOR) [address] [place] [address] 02/10/2016 16:36:08 02/20/2016 03:47:59 Subcutaneous contraceptive implant present 586649562 Z30.42 Insertion of subcutaneous contraceptive done 2671633985 54366 Z30.49 [id number] Sol Arvizu MD [facility] (Adult Med) [address] [place] [address] 11/02/2016 13:44:56 11/02/2016 14:50:16 General examination of patient 801442995 Z00.01 History of supraventricular tachycardia 6314943739 7248528 Z86.79 Numbness of face 4751339 09 R20.0 [id number] Sol Arvizu MD [facility] (Adult Med) [address] [place] [address] 12/07/2016 16:02:54 12/07/2016 16:49:52 Paresthesia 51869830 R20.2 Disorder of vision 94027 002 H53.9 [id number] [facility] (ROAD HOGGER OPERATOR) [address] [place] [address] 8 11/22/2017 11:48:21 11/29/2017 15:12:00 Gynecologic examination 69384519 Z01.419 Contraception care 71585 5005 Z30.46 High risk sexual behavior 940512091 Z72.51 [id number] [facility] (ROAD HOGGER OPERATOR) [address] [place] [address] 8 04/14/2018 16:33:38 04/22/2018 11:42:05 Increased frequency of urination 589693363 R35.0 Vaginal pain 70499891 R1 0.2 [id number] MD Edmund Earl Cairozuleima nicholson (ROAD HOGGER OPERATOR) [address] [place] [address] 07/13/2018 13:46:52 07/14/2018 12:59:10 Removal of subcutaneous contraceptive 243746346 Z30.46 Trying to conceive 93222 9001 Z31.9 [id number] MD Edmund Earl (ROAD HOGGER OPERATOR) [address] [place] [address] 8 12/07/2018 18:02:01 12/08/2018 11:32:35 Irregular periods 18335219 N92.6 --menses irregular since Nexplanon removal 07/13/18 but also has been ill, see HPI [id number] MD Edmund Earl [facility] (ROAD HOGGER OPERATOR) [address] [place] [address] 01/11/2019 17:17:22 01/12/2019 09:26:08 Gynecologic examination 13841031 Z01.419 --Pap up to date High risk sexual behavior 155648659 Z72.51 --requests gc/chl/tri ch only, will do other std labs with new OB blood work on return Urine preg deidre test positive 608758178 Z32.01 --no menses since 10/09/18 and now urine test is positive [id number] MD Edmund Earl [facility] (ROAD HOGGER OPERATOR) [address] [place] [address] 8 02/16/2019 12:12:48 02/17/2019 15:25:49 Routine care 798210500 Z34.81 --new OB at 10w1d Maternal o besity complicating , childbirth and the puerperium, antepartum 7224107651 07 O99.362 [id number] MD Edmund Earl [facility] (ROAD HOGGER OPERATOR) [address] [place] [address] 8 03/08/2019 18:24:25 03/09/2019 09:20:37 Routine care 165110372 Z34.81 --13w0d [id number] MD Edmund Earl [facility] (ROAD HOGGER OPERATOR) [address] [place] [address] 8 04/05/2019 18:38:52 04/06/2019 17:08:10 Routine care 218585623 Z34.82 --17w0d [id number] MD Edmund Earl [facility] (ROAD HOGGER OPERATOR) [address] [place] [address] 8 04/26/2019 15:34:00 04/27/2019 09:15:50 Routine care 902604425 Z34.82 --20w0d Administra tion of influenza vaccine 22916256 Z23 Vaginal discharge 546111 006 N89.8 --resolved with Monistat, requesting check [id number] MD Edmund Earl [facility] (ROAD HOGGER OPERATOR) [address] [place] [address] 8 05/24/2019 18:32:26 05/25/2019 14:54:47 Routine care 840937762 Z34.82 -76q9s--gp thrombocyt openia, plts 145k at 1st visit--hx of elevated LFTs, resolved but will recheck CMP [id number] MD Edmund Earl [facility] (ROAD HOGGER OPERATOR) [address] [place] [address] 8 06/07/2019 10:25:24 06/09/2019 03:46:40 [id number] MD Edmund Earl [facility] (ROAD HOGGER OPERATOR) [address] [place] [address] 8 06/22/2019 14:58:27 06/23/2019 14:09:02 Routine care 149409079 Z34.83 -32x9r--ed thrombocyt openia, plts 145k at 1st visit and 166k at 24 weeks--hx of elevated LFTs, resolved and recheck CMP at 24wks wnl Low back p ain in 8053181472 106 O26.899 Active or passive immunization 930527229 Z23 [id number] MD Edmund Earl [facility] (ROAD HOGGER OPERATOR) [address] [place] [address] 8 07/10/2019 16:02:46 07/11/2019 09:40:36 Routine care 162816131 Z34.83 -85z8x--fa thrombocyt openia, plts 145k at 1st visit and 166k at 24 weeks--hx of elevated LFTs, resolved and recheck CMP at 24wks wnl [id number] MD Edmund Earl [facility] (ROAD HOGGER OPERATOR) [address] [place] [address] 8 07/27/2019 16:11:37 07/28/2019 15:45:32 Routine care 101105636 Z34.83 -68p9r--xz thrombocyt openia, plts 145k at 1st visit and 166k at 24 weeks--hx of elevated LFTs, resolved and recheck CMP at 24wks wnl [id number] MD Edmund Earl (ROAD HOGGER OPERATOR) [address] [place] [address] 8 08/10/2019 11:06:43 08/11/2019 11:31:16 Routine care 280475787 Z34.83 -98v4u--rs thrombocyt openia, plts 145k at 1st visit, 166k at 24 weeks and 168k at 33 weeks--hx of elevated LFTs, resolved and recheck CMP at 24wks wnl and 34wks wnl Maternal o besity complicating , childbirth and the puerperium, antepartum 6306644207 07 O99.695 [id number] MD [facility] (ROAD HOGGER OPERATOR) [address] [place] [address] 8 08/17/2019 12:20:14 08/18/2019 13:14:24 Routine care 567960234 Z34.83 -95b1t--xb thrombocyt openia, plts 145k at 1st visit, 166k at 24 weeks and 168k at 33 weeks--hx of elevated LFTs, resolved and recheck CMP at 24wks wnl and 34wks wnl--EFW per ultrasound 08/15/2019 shows possible reduced growth velocity-- to have repeat BPP/dopple rs in one week Maternal o besity complicating , childbirth and the puerperium, antepartum 6926453881 07 O99.071 [id number] MD Edmund Earl (ROAD HOGGER OPERATOR) [address] [place] [address] 08/23/2019 14:21:06 08/25/2019 08:49:48 Routine care 719959400 Z34.83 -87s0j--uu thrombocyt openia, plts 145k at 1st visit, 166k at 24 weeks and 168k at 33 weeks--hx of elevated LFTs, resolved and recheck CMP at 24wks wnl and 34wks wnl--EFW per ultrasound 08/15/2019 shows possible reduced growth velocity-- to have repeat BPP/dopple rs in one week-sched uled later today Maternal o besity complicating , childbirth and the puerperium, antepartum 8422059072 07 O99.205 [id number] Daniel Hubbard MD [facility] (ROAD HOGGER OPERATOR) [address] [place] [address] 8 08/28/2019 15:05:26 08/29/2019 12:44:05 Routine care 944566347 Z34.83 -53d5n--vm thrombocyt openia, plts 145k at 1st visit, 166k at 24 weeks and 168k at 33 weeks--hx of elevated LFTs, resolved and recheck CMP at 24wks wnl and 34wks wnl--EFW per ultrasound 08/15/2019 shows possible reduced growth velocity-- has repeat ultrasound on 08/30/2019 Maternal o besity complicating , childbirth and the puerperium, antepartum 3423960369 07 O99.345 [id number] Daniel Hubbard MD [facility] (ROAD HOGGER OPERATOR) [address] [place] [address] 8 09/06/2019 14:03:34 09/07/2019 09:09:16 Routine care 089297603 Z34.83 -32v9o--ni thrombocyt openia, plts 145k at 1st visit, 166k at 24 weeks and 168k at 33 weeks--hx of elevated LFTs, resolved and recheck CMP at 24wks wnl and 34wks wnl--EFW per ultrasound 08/15/2019 shows possible reduced growth velocity-- repeat ultrasound on 08/30/2019 AGA Maternal o besity complicating , childbirth and the puerperium, antepartum 7596211791 07 O99.201 [id number] DanielMD Edmund Anguiano (ROAD HOGGER OPERATOR) [address] [place] [address] 10/26/2019 10:26:32 10/27/2019 11:52:38 care 905842435 Z39.2 --6+ weeks , no complaints , normal exam, doing well but to have ultrasound for possible hip dysplasia Implantati on of subcutaneous contraceptive 241434827 Z30.017 --no menses since delivery, has been using condoms faithfully [id number] MD Edmund Earl (ROAD HOGGER OPERATOR) [address] [place] [address] 01/03/2021 14:05:27 01/08/2021 05:37:29 Gynecologic examination 97422858 Z01.419 --WWE --has primary for routine health issues/scr eenings Screening for malignant neoplasm of cervix 432246736 Z12.4 --last Pap ASCUS -hr HPV 11/22/17 so Pap indicated today Mastodynia of left breast 2924718577 9238910 N64.4 --intermit tent left lateral breast pain --negative exam Obesity 183661485 E66.9 --BMI 37.9 Contraception care 66858 5005 Z30.46 --Nexplano n inserted 10/26/2019 --consider ing , encouraged weight loss prior to - -she will call if she desires Nexplanon removal [id number] Charlotte Sidhu [facility] [address] [place] [address] 09/19/2024 11:03:03 09/19/2024 12:57:27 Body mass index 40+ - severely obese 114777273 Z68.41 Obesity 882135301 E66.9 Fatigue 29575189 R53.83 Diabetes m ellitus screening 001410744 Z13.1 Screening for cardiovascular system disease 195759474 Z13.6 Sinusitis 65912643 J32.9 Supraventr icular tachycardia 7006863 I47.10 Asthma 814120022 J45.90 9 Adult heal th examination 113029346 Z00.00 [id number] Charlotte Sidhu MD [facility] (Adult Med) [address] [place] [address] 12/01/2024 11:24:14 12/01/2024 12:49:51 Severe obesity 1273250063 9104 E66.01 [id number] Obese class II 007088211 1 51795 E66.812 2026207099 Neck pain 79382181 M54.2 [id number] MD Guillermo Flaherty (Adult Med) [address] [place] [address] 0 02/06/2025 15:09:44 02/06/2025 16:54:58 Obese class III 600824750 E66.813 7344641488 BMI 40 Vertigo 028216790 R42 50270 [id number] MD Guillermo Flaherty (Adult Med) [address] [place] [address] 0 05/04/2025 12:26:53 05/04/2025 13:16:45 Body mass index 30+ - obesity 047591878 E66.9 01204677 39.5 Vertigo 265048637 R42 20385 Influenza vaccination given 1429523789 9109 Z23 02414617 Health Concerns Section Related Observation LastModified by Organization Detai ls LastModified Time None Recorded Concern Status LastModified by Organization Details LastModified Time None Recorded Advance Directives Directive None Recorded Payers Insurance Date Sequence Insurance Name Policy Number Policy Valentin Covered Member ID Valentin Member ID Guarantor Name 05/02/2025 2 [place] [facility] Belinda Jimenez [id number] Belinda Jimenez 09/19/2024 1 [facility] PRIOR TO 03/02/2025 (MEDICAID REPLACEMENT - HMO) [id number] Belinda Jimenez [id number] Belinda Jimenez 07/19/2024 1 KALYN [id number] Belinda Jimenez [id number] Belinda Jimenez 06/07/2019 1 [facility] PRIOR TO 01/30/2021 (MEDICAID REPLACEMENT - HMO) Belinda Garibay [id number] Belinda Jimenez 07/19/2024 1 [place] [facility] Belinda Garibay [id number] Belinda Jimenez 11/29/2016 1 [facility] [id number] Belinda Phoenix [id number] Belinda Jimenez 11/29/2016 1 [place] [facility] [place] [facility] Belinda Phoenix [id number] Belinda Tony 11/22/2017 1 [facility] (MEDICAID O) Belinda Phoenix [id number] Belinda Jimenez 05/02/2025 1 [employer] (POS II) Babar Tony [id number] Belinda Jimenez Notes Date Note Type Note Provider Name and Address Organization Details Recorded Time 1 text/html Annual GYNReported by PatientGenitourinary symptomsFor urinary symptoms, patient reportsno hematuriaandno incontinence. For vulva, patient reportsno genital lesion. For vagina, patient reportsnormal vaginal discharge. For menstrual cycle, (no menses with nexplanon).Breast symptomsFor breast, patient reportsbreast painbut reportsno breast lumpandno nipple discharge(left lateral breast intermittently over 2 months).ContraceptionFor current contraception, patient reportssatisfied with current contraceptionandimplanon. Endocrine symptomsFor sexual complaints, patient reportsno sexual complaints,no pain during intercourse, andnormal libido. For menopausal symptoms, patient reportsno menopausal symptomsandnormal vaginal lubrication.Psychological symptomsFor psychological symptoms, patient reportsno depression,no anxiety, andno pmdd.Preventative measuresFor preventive measures, patient reportsencourage self breast examination,encourage regular exercise,encourage no tobacco use, andhistory of abnormal pap smear/cervical dysplasia. Breast PainReported by PatientHPIFor location, patient reportsleft. For onset/timing, patient reports>1 month(started 2 months ago). For duration, patient reportsrare(once every couple of weeks). For quality, patient reportsdull(can last a couple hours). For associated symptoms, patient reportsno fever,no chills,no skin redness,no nipple discharge,no sore nipples,breasts not full, sore, unable to express milk,no breast swelling,no arm pain,no arm swelling,no chest pain,no malaise, andno breast lump.ROS as noted in the HPI 35yo on Nexplanon now here for an annual exam. She complains of intermittent left lateral breast pain over the last 2 months--see below. Daniel Hubbard null, [facility] 01/03/2021 19:00:56 5 text/html 39-year-old comes in because of switching doctors history of [...] denies smoking drinking vaping she is a uegc-ye-ooya mom Charlotte Sidhu MD Attn: Accounting,[address] [facility], [place], [address], [facility] 10/22/2024 15:35:26 5 text/html Off and on pain for a week right side of neck that goes down into her fingertips no weakness wakes her up sometimes at night when she tosses and turns no specific injury to the neck has not really tried to take anything moderate pain Charlotte Sidhu MD Attn: Accounting,[address] [facility], [place], [address], [facility] 12/16/2024 22:09:42 5 text/html She continues to have intense vertigo worse when she rolls over particularly on her right side also when she breaks her horizontal gaze and looks straight up she has been seen by ENT they told her to use meclizine but not for more the a week she gets some nausea sometimes with it there is no headache or blurred vision OMERO Dupont, [facility] 02/09/2025 13:31:34 5 text/html Still has the vertigo Charlotte Sidhu MD Attn: Accounting,[address] , [place], [address], [place] [facility] 05/04/2025 15:14:50 OBGyn Episode Ob Episode Information Episode Created Date Number of Fetuses Patient Bloodtype Patient rh Status Prepregnancy Weight lbs Domestic Partner Domestic Partner Phone Father Name [employer] Supervisor Status 02/17/20 [address] [place] Fetus Data First Name Last Name Admitted to NICU Weight (g) Sex Living Outcome Pediatric Complications Fetus ID Race Codes Race Delivery Type Marcellus quezada Cross false 3231.84 3 F true Full Term 19425 2057-6 Afric an Ameri can Vaginal Problems Problem Notes Flu vaccine given 04/26/19, t dap given 06/22/19Prior to found to have low plts and increased liver fxn tests--resolved and was felt due to steroid or recent viral illness--plts on 02/16/19 new OB apt 145k and LFTs on 03/10/19 AST/ALT 20.2/27.7Delivering at [facility] Marcellus Problem Name Start Date End Date Resolution Snomed Code Note Thrombocytopenic disorder 016525823 lowest in 110s around , had been sick in September with URI/ear infections, Platelets 145k at 1st visit, 166k at 26wks and 168k at 33wks Maternal obesity complicating , childbirth and the puerperium, antepartum 9 955737455043 pre BM I 38.3--[facility] recommends repeat growth every 4 weeks but didn't schedule a f/u--repeat 08/15/2019 shows possible reduced growth velocity--to have repeat BPP/dopplers in one week 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 0 [id number] +GBS susceptible to clindamycin Common bile duct calculus 9 860942860 Prior cholecystectomy and prior common bile duct [...] in L&D care: poor obstetric history 9 740214040 History of chorioamnionitis in 1st /infant hospitalized x 8d--seen by [facility] this per their order after anatomy ultrasound done there--see consult notes Female sterilization 9 19036262 Considering PPTL--but likes no menses with Nexplanon--has [employer] insurance Rogelio Calculation Initial Rogelio Date Initial Exam Date Initial Exam Provider Initial Ultrasound Date Last Menstrual Period Date Ultra Sound Weeks Gestation 09/13/2019 02/16/2019 [email or web address] 01/24/2019 10/09/2018 6 Eighteen To Twenty Week [...] Weight in lbs Pre/Post Dialysis Refused Weight 207.295888915932 BP Diastolic BP Location Tested BP Systolic [...] She also c/o constipation and has increased J7N--fgam try increasing fiber. Exam completed 01/11/19 but labs done today. Will do NT ultrasound with aneuploidy screening with [facility]. Flowsheet Date 03/08/2019 Rose Score Blood Edema Fundus Height Fundus Units Glucose Ketones Leukocytes Nitrite Labor Signs Protein Cervic Dilation Cervic Effacement Cervic Station neg none none negative Other (see comments ) neg Type Weight in lbs Pre/Post Dialysis Refused Weight 209.935956789643 BP Diastolic BP Location Tested BP Systolic [...] Weight in lbs Pre/Post Dialysis Refused Weight 206.265194209844 BP Diastolic BP Location Tested BP Systolic [...] Weight in lbs Pre/Post Dialysis Refused Weight 205.317626865389 BP Diastolic BP Location Tested BP Systolic [...] Weight in lbs Pre/Post Dialysis Refused Weight 207.124738855249 BP Diastolic BP Location Tested BP Systolic BP Type 72 126 sitting Fetus Heart Rate Present A 152 Present Fetus Movement A Yes Comments Here for return OB visit: jimena aguirre good mvt, no ctxs/LOF/bleeding, too late to [...] Weight in lbs Pre/Post Dialysis Refused Weight 208.273512840106 BP Diastolic BP Location Tested BP Systolic BP Type 72 128 sitting Fetus Heart Rate Present A 156 Present Fetus Movement A Yes Comments Here for return OB visit: jimena aguirre good mvt, no ctxs/LOF/bleeding, only c/o is [...] Weight in lbs Pre/Post Dialysis Refused Weight 210.318231332753 BP Diastolic BP Location Tested BP Systolic [...] in lbs Pre/Post Dialysis Refused With clothes 213.323971322614 BP Diastolic BP Location Tested BP Systolic [...] Weight in lbs Pre/Post Dialysis Refused Weight 215.500929180889 BP Diastolic BP Location Tested BP Systolic [...] Weight in lbs Pre/Post Dialysis Refused Weight 215.909119230240 BP Diastolic BP Location Tested BP Systolic [...] Weight in lbs Pre/Post Dialysis Refused Weight 217.008006804700 BP Diastolic BP Location Tested BP Systolic [...] Weight in lbs Pre/Post Dialysis Refused Weight 218.877445100835 BP Diastolic BP Location Tested BP Systolic [...] Weight in lbs Pre/Post Dialysis Refused Weight 215.558209235551 BP Diastolic BP Location Tested BP Systolic [...] Weight in lbs Pre/Post Dialysis Refused Weight 201.593069449331 BP Diastolic BP Location Tested BP Systolic [...] At Estimated Date of Delivery false Thalassemia (Slovenian, Beninese, Mediterranean, Or Background): MCV < 80 false Neural Tube Defect (Meningom yelocele, Spina Bifida, Or Anencephaly) false Congenital Heart Defect false Down Syndrome false Morro-Sachs (eg, Islam, Cajun , Tongan-Highspire) false Derek Disease false Sickle Cell Disease Or Trait () false Hemophilia Or Other Blood Disorders false Muscular Dystrophy false Cystic Fibrosis false Mason's Chorea false Mental Retardation/Autism false Other Inherited [...] By 03/08/2019 Anticipated course o f care [facility] 03/08/2019 Alcohol [facility] 03/08/2019 Intimate partner violence de [facility] 03/08/2019 Environmental/work hazards d [facility] 03/08/2019 Screening for aneuploidy schedul ed for NT ultrasound with [facility] on 03/10/19 [facility] 03/08/2019 Nutrition counseling ; special diet; dietary precautions (mercury, listeriosis) [facility] 03/08/2019 Childbirth classes/h ospital facilities [facility] 03/08/2019 HIV and other routin e tests [facility] 03/08/2019 Risk factors identif ied by history [facility] 03/08/2019 Weight gain counseling david wright 03/08/2019 Exercise [facility] 03/08/2019 Teratogens [facility] 03/08/2019 Use of any medicatio ns (including supplements, vitamins, herbs, or OTC drugs) [facility] 03/08/2019 breast [facility] 03/08/2019 Sexual activity [facility] 03/08/2019 Tobacco/smoking cess ation counseling (ask, advise, assess, assist, and arrange) [facility] 03/08/2019 Illicit/recreational drugs d [facility] 03/08/2019 Dental care [facility] 03/08/2019 Travel [facility] 03/08/2019 Seat belt use [facility] 03/08/2019 Indications for ultrasonography [facility] 03/08/2019 Avoidance of saunas or hot tubs [facility] 03/08/2019 Toxoplasmosis precau tions (cats/raw meat) no cats [facility] Second Trimester Discussed Date Discussion Item Discussion Note Discuss ed By 06/22/2019 [address] a care provider Dr Morena fu 06/22/2019 family planning/tubal sterilization Nexplanon or BTL/vasectomy tank 06/22/2019 Depression screening (when indicated) no history tank 06/22/2019 Abnormal lab values discussed robert guerrero 06/22/2019 Signs and symptoms o f labor discussed tank 06/22/2019 Intimate partner violence denies stanley 06/22/2019 Tobacco/smoking cess ation counseling (ask, advise, assess, assist, and arrange) denies tank Third Trimester Discussed Date Discussion Item Discussion Note Discuss ed By 06/22/2019 Intimate partner violence denies stanley 06/22/2019 Anesthesia plans epidural tank 06/22/2019 movement monitoring discussed stanley 06/22/2019 breast tank 06/22/2019 Labor signs discussed [...] HG B and HCT Levels Bottle Nexplanon . Ob Episode Information Episode Created Date Number of Fetuses Patient Bloodtype Patient rh Status Prepregnancy Weight lbs Domestic Partner Domestic Partner Phone Father Name [employer] Supervisor Status 07/31/20 15 1 CLOSED Fetus Data First Name Last Name Admitted to NICU Weight (g) Sex Living Outcome Pediatric Complications Fetus ID Race Codes Race Delivery Type , Spontane ous [id number] Rogelio Calculation Initial Rogelio Date Initial Exam [...] Domestic Partner Domestic Partner Phone Father Name Tea And Spice Supervisor Status 07/31/20 15 1 CLOSED Fetus Data First Name Last Name Admitted to NICU Weight (g) Sex Living Outcome Pediatric Complications Fetus ID Race Codes Race Delivery Type , Spontane ous 27624 Rogelio Calculation Initial Rogelio Date Initial Exam [...] Domestic Partner Domestic Partner Phone Father Name Tea And Spice Supervisor Status 07/31/20 15 1 CLOSED Fetus Data First Name Last Name Admitted to NICU Weight (g) Sex Living Outcome Pediatric Complications Fetus ID Race Codes Race Delivery Type 3628.73 6 F Full Term 11173 Vaginal Rogelio Calculation Initial Roeglio Date Initial Exam Date Initial Exam Provider [...]
--- OUTSIDE RECORDS SUMMARY | 2025-05-15 19:13 | XMS_ITS | Clinical Summary ---
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
--- OUTSIDE RECORDS SUMMARY | 2025-05-15 19:13 | XMS_ITS | Data Portability ---
Author Organization [facility] Address [address] [place] [address] [place] [address] Assessment Encounter Date Assessment Date Assessment LastModified [...] libido, olive or coconut oil for lubrication [email or web address] Not available 02/18/2022 10:42:10 10/14/2022 10/14/2022 pt jacki well, f/u wwe [email or web address] Not available 10/14/2022 11:03:24 05/13/2023 05/13/2023 Annual gynecological exam performed. Patient will come back in a year unless there are new symptoms. [email or web address] Not available 05/13/2023 14:58:32 Plan of Treatment Reminders Order Date Submit Date Provider Last Modified By Organization Details Last Modified Time Details Appointments None recorded. Lab test, urine 2022 023 [facility], [address], [address], [place], [address], 03/15/202 3 10:52:54 Referral None recorded. Procedures None recorded. Surgeries None recorded. Imaging MAMMO, diagnostic, digital, bilateral 2022 023 [facility], [address], [place], [address], 3 12:11:49 US, breast, unilateral - left breast pain, bilateral fibrocystic breast 2022 023 [email or web address] [facility], [address], [place], [address], 4 15:07:31 US, pelvis 2021 022 [address], [address], [place], [address], 2 16:25:39 US, transvagina l 2021 [address], [address], [place], [address], 2 16:25:39 Medication Orders Nexplanon 68 mg subdermal implant 2022 023 [email or web address] 1 [id number], [address], [place], [place], [id number], 3 10:55:07 Patient TargetsNo targets recorded. Patient InstructionsNo instructions recorded. Reason for Referral None Reported. Results Created Date Observation Date Name Description Value Unit Range Abnormal Flag Note LastModifiedBy Organization Detail LastModifiedTime 09/01/19 22 09/01/2021 VAGIN ITIS/ VAGIN OSIS, DNA PROBE shabnam sp. detection, direct probe Negati ve negati ve Not Available [facility] (Lab) [address], [place], [address], 09/02/2021 19:21:28 09/01/19 22 09/01/2021 VAGIN ITIS/ VAGIN OSIS, DNA PROBE gardnerella vag. detection, direct probe Negati ve negati ve Not Available [facility] (Lab) [address], [place], [address], 09/02/2021 19:21:28 09/01/19 22 09/01/2021 VAGIN ITIS/ VAGIN OSIS, DNA PROBE trichomonas vag. detection, direct probe Negati ve negati ve Not Available [facility] (Lab) [address], [place], [address], 09/02/2021 19:21:28 02/19/20 22 02/18/2022 IMAGE GUIDE [...] franz nted. Not Available [facility] [address] [place], [address], 02/24/2022 11:23:59 02/19/20 22 02/18/2022 TRICH OMONA S VAGIN NASRIN (RRNA ) trichomonas vaginalis ribosomal RNA (rrna) Negati ve negati ve Not Available [facility] [address] [place], [address], 02/24/2022 11:24:00 02/19/20 22 02/18/2022 CT/GC (STEVIE) , THINP REP VIAL chlamydia trachomatis, PCR Negati ve negati ve Not Available [facility] [address] [place], [address], 02/24/2022 11:24:00 02/19/20 22 02/18/2022 CT/GC (STEVIE) , THINP REP VIAL neisseria gonorrhoeae, PCR Negati ve negati ve Not Available [facility] [address] [place] [address], [address], 02/24/2022 11:24:00 05/13/20 23 05/13/2023 IMAGE GUIDE [...] clini luis fernando franz nted. Not Available [facility] (Lab) [address], [place], [address], 05/18/2023 20:45:12 05/13/20 23 05/13/2023 TRICH OMONA S VAGIN NASRIN (RRNA ) trichomonas vaginalis ribosomal RNA (rrna) Negati ve negati ve Not Available [facility] (Lab) [address], [place], [address], 05/18/2023 20:45:12 05/13/20 23 05/13/2023 CT/GC (STEVIE) , THINP REP VIAL chlamydia trachomatis, PCR Negati ve negati ve Not Available [facility] (Lab) [address], [place], [address], 05/18/2023 20:45:13 05/13/20 23 05/13/2023 CT/GC (STEVIE) , THINP REP VIAL neisseria gonorrhoeae, PCR Negati ve negati ve Not Available [facility] (Lab) [address], [place], [address], 05/18/2023 20:45:13 09/25/19 22 09/25/2021 US, pelvi s No observ ation record ed. [email or web address] [facility] [address], [place], [address], 09/25/2021 11:43:53 09/25/19 22 09/25/2021 US, trans vagin al No observ ation record ed. [email or web address] [facility] [address], [place], [address], 09/25/2021 11:44:03 09/25/19 22 09/25/2021 US, pelvi s No observ ation record ed. [facility] [address], [place], [address], 09/29/2021 10:57:56 07/27/20 23 07/27/2023 MAMMO , diagn ostic , digit al, bilat eral No observ ation record ed. [email or web address] [address] [facility], [place], [address], 09/09/2023 14:24:38 Result Notes None recorded. Procedures Surgical History Date Name Laterality Status Provider Name and Address Organization Details Recorded Time 023 Control Implant Removal completed Stacy Lucero CNM [address], [place], [address], [facility] 10/14/2022 11:03:33 023 Control Implant Insertion completed [facility] 10/14/2022 10:42:59 022 Date of Last Pap Smear completed [facility] 02/18/2022 10:24:07 021 Unlisted px accessory sinus completed [facility] 09/01/2021 11:56:10 015 tonsilectomy/adeno ids completed [facility] 09/01/2021 11:55:57 013 catheter ablation of tissue of heart completed [facility] 09/01/2021 11:56:52 013 catheter ablation of tissue of heart completed [facility] 09/01/2021 11:56:56 012 Cholecystectomy completed [facility] 09/01/2021 11:55:52 007 Colposcopy completed [facility] 09/01/2021 12:00:57 007 Colposcopy completed [facility] 09/01/2021 12:03:11 Imaging Results None recorded. Procedure Notes None recorded. Medical Equipment None Reported. Allergies Allergen ID Allergen Name Allergen Category Reaction Reaction Severity Criticality Documentation Date Start Date Code Code System Note Provider Name and Address Organization Details Recorded Time 14543 sulfur medicatio n hives moderate Not available 09/01/2021 84781 RxNorm Esther Maldonado donis [facility] 11:51:32 50524 Penicilli n Not available hives moderate Not available 09/01/2021 46336 RxNorm Esther Ortizpascale dykes, [facility] 11:51:32 Medications Name Sig Start Date [...] Updated DateTime 10/14/2022 158.12 cm 39.2 kg/m2 39251.95 g 127/80 mm[Hg] Esther Maldonado [facility] 10/14/2022 10:31:26 Date Recorded Body height Body mass index (BMI) Body weight Systolic And Diastolic Provider Name and Address Organization Details Last Updated DateTime 02/18/2022 158.12 cm 38.8 kg/m2 77708.77 g 124/81 mm[Hg] Esther Maldonado [facility] 02/18/2022 10:22:12 Date Recorded Body height Body mass index (BMI) Body weight Systolic And Diastolic Provider Name and Address Organization Details Last Updated DateTime 05/13/2023 158.12 cm 40.3 kg/m2 180123.51 g 126/78 mm[Hg] Tasneem Griffin [facility] 05/13/2023 14:58:47 Social History Question Answer Notes LastModified by Organizat ion Details LastModified Time Tobacco Smoking Status Former Smoker Elza Anya dykes, [facility] 05/13/2023 14:49:20 Do You Have An Advance Directive? No [email or web address] Information n ot available 09/01/2021 Are You Blind Or Do You Have Difficulty Seeing? No [email or web address] Information n ot available 09/01/2021 What Is Your Level Of Caffeine Consumption? Moderate [email or web address] Information not available 09/01/2021 How Much Tobacco Do You Chew? None [email or web address] Information not available 09/01/2021 In The 14 Days Before Symptom Onset, Have You Had Close Contact With A Laboratory-confirm ed COVID-19 While That Case Was Ill? No Information n ot available 09/01/2021 In The 14 Days Before Symptom Onset, Have You Had Close Contact With A Person Who Is Under Investigation For COVID-19 While That Person Was Ill? No [email or web address] Information not available 09/01/2021 Have You Been To An Area Known To Be High Risk For COVID-19? Yes [email or web address] Information not available 09/01/2021 Are You Deaf Or Do You Have Serious Difficulty Hearing? No [email or web address] Information not available 09/01/2021 What Type Of Diet Are You Following? REGULAR [email or web address] Information n ot available 09/01/2021 What Is The Highest Grade Or Level Of School You Have Completed Or The Highest Degree You Have Received? RR28226-3 [email or web address] Information not available 09/01/2021 Are There Any Guns Present In Your Home? No [email or web address] Information not available 09/01/2021 Have You Ever Been Counseled For Unhealthy Alcohol Use? No [email or web address] Information not available 05/13/2023 Do You Use Protection During Sex? No [email or web address] Information not available 09/01/2021 Do You Use Your Seat Belt Or Car Seat Routinely? Yes [email or web address] Information not available 09/01/2021 Do You Have Smoke And Carbon Monoxide Detectors In Your Home? Yes [email or web address] Information not available 09/01/2021 At What Age Did You Start Smoking Tobacco? 22 [email or web address] Information not available 02/18/2022 How Much Tobacco Do You Smoke? No [email or web address] Information not available 09/01/2021 Do You Use Sunscreen Routinely? Yes [email or web address] Information not available 09/01/2021 Has Tobacco Cessation Counseling Been Provided? No [email or web address] Information not available 05/13/2023 How Many Years Have You Smoked Tobacco? 4 [email or web address] Information not available 02/18/2022 Have You Used IV Drugs? No [email or web address] Information not available 09/01/2021 Do You Have Difficulty Walking Or Climbing Stairs? No [email or web address] Information not available 05/13/2023 Sex: Unknown Functional Status Question Answer Note LastModified by Organizat ion Details LastModified Time Do you use any illicit or recreational drugs? No Information not available 09/01/2021 Do you or have you ever used any other forms of tobacco or nicotine? No [email or web address] Information not available 05/13/2023 What is your level of alcohol consumption? Occasional [email or web address] Information not available 09/01/2021 Are you able to walk independently without assistance or assistive devices? YESWOREST [email or web address] Information not available 09/01/2021 Are you able to care for yourself independently? 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 No [email or web address] Information not available 05/13/2023 What is your exercise level? Occasional [email or web address] Information not available 09/01/2021 Mental Status Question Answer Note LastModified by Organization D etails LastModified Time Do you feel stressed (tense, restless, nervous, or anxious, or unable to sleep at night)? [id number] [email or web address] Information not available 09/01/2021 Family History Relationship Description Onset Age of this Age Resolved Age Notes LastModified by Organization Details LastModified Time Maternal Aunt Endometrial carcinoma [email or web address] Not available 09/01 11:51:32 Maternal Grandmother Cerebrovascu lar accident [email or web address] Not available 11:51:32 Maternal Grandmother Aneurysm of cerebral artery Not available 2022 14:49:20 Mother Diabetes mellitus [email or web address] Not available 09/01 11:51:32 Mother Endometrial carcinoma [email or web address] Not available 09/01 11:51:32 Mother Depressive disorder Not available 09/01 11:51:32 Medical History Condition Response Allergies (Food, seasonal, environmental ) Y Other N Blood Transfusion N Breast Cancer N Drug/Latex Allergies/Reactions Y Lung Disease Y Dermatologic Disorders N Defects or Inherited Disease N Breast Problem N Gestational Diabetes N Hematologic disorders N Anesthesia Complications N History of STI N Deep Vein Thrombosis N Polycystic ovary syndrome N Anxiety Disorder N Autoimmune disease N Arthritis N Polyps Y Infertility N History of abnormal pap Y Acid Reflux (GERD) N Cancer N Varicosities N Stroke N Neurologic/Epilepsy [...] ICD10 Code Diagnosis IMO Codes Diagnosis Note [id number] Stacy Lucero CNM [facility] [address] [address] 09/01/2021 11:16:01 09/03/2021 11:30:45 Pain in pelvis 99184864 R10.2 plan wwe in december with nexplanon removal ? Family jovany nning education 751892526 Z30.02 [id number] Stacy Lucero CNM [facility] [address] [address] 10/14/2022 10:22:13 10/14/2022 11:13:06 Implantation of subcutaneous contraceptive 780556569 Z30.9 Screening procedure 2012 5006 Z13.9 [id number] Pietro Ulrich MD [facility] [address] [address] 09/17/2021 11:53:20 04/20/2025 14:11:06 [id number] Pietro Ulrich MD [place] [address],[facility] [place] [address] 09/25/2021 10:27:09 09/25/2021 11:47:20 Pain in pelvis 22282195 R10.2 N94.10 [id number] Stacy JaimeNancy Lucero CNM [facility] [address],[place] [address] 02/18/2022 09:57:35 02/18/2022 10:47:09 Gynecologic examination 59824928 Z01.419 [id number] SUGEY Luevano [place] [address],[place] [address] 05/13/2023 14:48:28 05/13/2023 15:40:30 Gynecologic examination 83570773 Z01.419 [facility], inserted 10/14/22hap py with nexplanon [...] today's plan if desired. Pain of breast 96092414 N64.4 Health Concerns Section Related Observation LastModified by Organization Detai ls LastModified Time None Recorded Concern Status LastModified by Organization Details LastModified Time None Recorded Advance Directives Directive N: Payers Insurance Date Sequence Insurance Name Policy Number Policy Valentin Covered Member ID Valentin Member ID Guarantor Name 05/12/2023 1 [facility] Babar Jimenez [id number] Belinda Jimenez 02/16/2022 1 [employer] [id number] Babra Jimenez [id number] Belinda Jimenez 10/14/2022 2 [place] [facility] Belinda [place] [id number] Belinda Jimenez 05/10/2023 1 [facility]-ID (PPO) [id number] Babar Jimenez [id number] Belinda Cross 05/10/2023 1 [facility]-ID - [employer] [facility] PRIOR TO 03/02/2025 (MEDICAID REPLACEMENT - HMO) [id number] Belinda Phoenix [id number] Belinda Cross Notes Date Note Type Note Provider Name and Address Organization Details Recorded Time 2 text/html Annual GYNReported by PatientGenitourinary symptomsFor menstrual cycle, patient reportsnormal menses. For urinary symptoms, patient reportsno hematuriaandno incontinence. For vulva, patient reportsno genital lesion. For vagina, patient reportsnormal vaginal discharge.Breast symptomsFor breast, patient reportsno breast pain,no breast lump, andno nipple discharge.Endocrine symptomsFor sexual complaints, patient reportsno sexual complaints,no pain during intercourse, andnormal libido. For menopausal symptoms, patient reportsno menopausal symptomsandnormal vaginal lubrication.Psychological symptomsFor psychological symptoms, patient reportsno depression,no anxiety, andno pmdd.Preventative measuresFor preventive measures, patient reportsencourage self breast examination,encourage regular exercise,encourage no tobacco use, andencourage regular mammograms starting age 40.requests std testing, discussed and pt has decided not to pursue, would like to keep nexplanon and replace in september. still having decreased libido and dryness, difficult to orgasmROS as noted in the HPI Stacy Lucero CNM [address], [place], [address], [facility] 02/18/2022 10:42:17 3 text/html ROS as noted in the HPI nexplanon removal and insertion, doing well, reviewed se risks and benefits UPT negative Stacy Lucero CNM [address], [place], [address], [facility] 10/14/2022 11:04:28 3 text/html Annual GYNReported by PatientGenitourinary symptomsFor menstrual cycle, patient reportsnormal menses. For urinary symptoms, patient reportsno hematuriaandno incontinence. For vulva, patient reportsno genital lesion. For vagina, patient reportsnormal vaginal discharge.Breast symptomsFor breast, patient reportsbreast painbut reportsno breast lumpandno nipple discharge(left breast pain x 2 weeks).ContraceptionFor current contraception, patient reportssatisfied with current contraceptionandsubdermal contraceptive implant(nexplanon, inserted 10/14/22).Endocrine symptomsFor sexual complaints, patient reportsno sexual complaints,no pain during intercourse, andnormal libido. For menopausal symptoms, patient reportsno menopausal symptomsandnormal vaginal lubrication.Psychological symptomsFor psychological symptoms, patient reportsno depression,no anxiety, andno pmdd.Preventative measuresFor preventive measures, patient reportsencourage self breast examination,encourage regular exercise,encourage no tobacco use, andencourage regular mammograms starting age 40.hx of abnormal pap in 2007normal paps since SUGEY Luevano [address], [place], [address], [facility] 05/13/2023 15:21:29 OBGyn Episode Ob Episode Information Episode Created Date Number of Fetuses Patient Bloodtype Patient rh Status Prepregnancy Weight lbs Domestic Partner Domestic Partner Phone Father Name Auth Specialist Status 09/01/19 22 1 CLOSED Fetus Data First Name Last Name Admitted to NICU Weight (g) Sex Living Outcome Pediatric Complications Fetus ID Race Codes Race Delivery Type , Spontane ous 38574 Rogelio Calculation Initial Rogelio Date Initial Exam [...] Domestic Partner Domestic Partner Phone Father Name Auth Specialist Status 09/01/19 22 1 CLOSED Fetus Data First Name Last Name Admitted to NICU Weight (g) Sex Living Outcome Pediatric Complications Fetus ID Race Codes Race Delivery Type 3628.73 6 F Full Term [address]851 Vaginal Delivery Rogelio Calculation Initial Rogelio Date [...] Domestic Partner Domestic Partner Phone Father Name Auth Specialist Status 09/01/19 22 1 CLOSED Fetus Data First Name Last Name Admitted to NICU Weight (g) Sex Living Outcome Pediatric Complications Fetus ID Race Codes Race Delivery Type 3175.14 4 F Full Term [address]1707 Vaginal Delivery Rogelio Calculation Initial Rogelio Date [...] Domestic Partner Domestic Partner Phone Father Name Auth Specialist Status 09/01/19 22 1 CLOSED Fetus Data First Name Last Name Admitted to NICU Weight (g) Sex Living Outcome Pediatric Complications Fetus ID Race Codes Race Delivery Type , Spontane ous 08170 Rogelio Calculation Initial Rogelio Date Initial Exam [...]
--- OUTSIDE RECORDS SUMMARY | 2025-05-15 19:13 | XMS_ITS | Clinical Summary ---
Author Organization [facility] al Address [address] [place] [address] Care Team Providers Care Nurse Monitoring Name Role Phone Darern Sidhu MD Primary Care Provider [phone] Allergies Active Allergy Reactions Criticality Noted Date Comments Sulfa (Sulfonamide Antibiotics) Active Problems Problem Noted Date Diagnosed Date Supraventricular tachycardia 03/22/2014 Encounters Date Type Department Care Team Description 04/17/2025 9:49 AM CDT - 04/17/2025 11:59 PM CDT Hospital Encounter [address] [address] Dizziness and giddiness Discharge Disposition: Discharge to home or self care from Last 3 Months Family History Medical History Relation Name Comments Hypertension Father Family history of hypertension - (Added by TW Conv) Relation Name Status Comments Father Social History Tobacco Use Types Packs/Day Years Used Date Smoking Tobacco: Former Comments No Sex and Gender Information Value Date Recorded Sex Assigned at Not on file 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 Gender Identity Not on file Sexual Orientation Not on file Obstetrics History Para Term AB IAB SAB Ectopic Multiple Livin g Live Births 4 2 2 Date Outcome GA Total Labor Labor/2nd/3rd Weight Sex Type Anes PTL Analia A1 A5 Name Clin Term Term Last Filed Vital Signs Vital Sign Reading Time Taken Comments Blood Pressure 106/59 09/08/2019 7:44 AM STOCKLAYER Pulse 78 09/08/2019 7:44 AM STOCKLAYER Temperature 36.7 C (98.1 F) 09/08/2019 7:44 AM STOCKLAYER Respiratory Rate - - Oxygen Saturation 98% 09/08/2019 7:44 AM STOCKLAYER Inhaled Oxygen Concentration - - Weight 97.5 kg (215 lb) 09/08/2019 7:44 AM STOCKLAYER Height 160 cm (5' 3) 09/08/2019 7:44 AM STOCKLAYER Body Mass Index 38.09 09/08/2019 7:44 AM STOCKLAYER Plan of Treatment Health Maintenance Due Date Last Done Comments Cervical Cancer Screening 1986 Depression Screening 1986 Hepatitis C Screening 1986 Hepatitis B Screening 2004 Regular Well Visit/Exam 18-64 2004 Pneumococcal vaccine <65 (1 of 2 - PCV) 2005 HPV Vaccines (1 - 3-dose SCD M series) 2013 Varicella Vaccines (2 of 2 - 13+ 2-dose series) 05/06/2016 04/08/2016 Influenza Vaccine (#1) 2025 , 05/31/2023, 05/21/2022, Additional history exists DTaP/Tdap/Td Vaccine (3 - Td or Tdap) 06/22/2029 06/22/2019, 04/08/2016 Covid-19 Vaccine Completed 06/09/2024, , 06/03/2022, Additional history exists Procedures Procedure Name Priority Date/Time Associated Diagnosis Comments MRI INTERNAL AUDITORY CANAL INCL BRAIN W WO CONTRAST Schedule Routine, Read Routine (OP Routine) 04/17/2025 11:31 AM CDT Dizziness and giddiness from Last 3 Months Results * MRI Internal Auditory Canal incl Brain W WO Contrast (04/17/2025 11:31 AM CDT) Anatomical Region Laterality Modality Head and Neck N/A Magnetic Resonan ce 04/17/2025 12:3 1 PM CDT Narrative 04/17/2025 6:05 PM CDT EXAM DESCRIPTION: MRI INTERNAL AUDITORY CANAL INCL BRAIN W WO CONTRAST REASON FOR STUDY: DIZZINESS AND GIDDINESS Vertigo for several months without improvement, no trauma or injury TECHNIQUE: Multiplanar imaging includes non-contrasted T1, T2, FLAIR, gradient echo/susceptibility-weighted images, diffusion with ADC map and post gadolinium contrast sequences. Additional thin slice images with and without gadolinium contrast acquired in the posterior fossa. Images stored on PACS. CONTRAST TYPE/DOSE: 20mL of GADOTERATE MEGLUMINE 0.5 MMOL/ML INTRAVENOUS SOLUTION (SO) injected via intravenous COMPARISON: No comparison. FINDINGS: IAC's: No vestibular schwannoma. Normal cerebellopontine angles. Visualized IAC's and CP angle cisterns appear normal. Visualized cochlea vestibule and semicircular canals are also unremarkable. CEREBRUM: No hemorrhage, edema, or mass effect. No abnormal enhancement. WHITE MATTER: Normal. Incidental mild prominence of perivascular spaces inferior basal ganglia. Minimal downward positioning POSTERIOR FOSSA: Minimal downward positioning of cerebellar tonsils at the foramen magnum. No pointing. No measurable ectopia. The brainstem and cerebellum otherwise appear unremarkable. No abnormal enhancement. DIFFUSION IMAGING: No recent infarction. EXTRAAXIAL SPACES: No hemorrhage. No mass or abnormal enhancement. BRAIN VOLUME: Within normal limits for age. PITUITARY: Unremarkable. VASCULATURE: No flow disturbance identified. ORBITS: No masses. Globes normal. PARANASAL SINUSES AND MASTOIDS: There is severe polypoid mucoperiosteal thickening throughout the bilateral paranasal sinuses. There is a opacification of ethmoid air cells bilaterally and there is a air-fluid level in the right maxillary antrum. Findings are concerning for acute superimposed on chronic sinusitis. There is also an air-fluid level in the frontal sinus concerning for acute left frontal sinusitis. OTHER: No other significant finding. IMPRESSION: 1. No abnormality of the IAC's or CP angle cisterns. 2. No acute infarction. No enhancing lesion. 3. Severe paranasal sinus disease with air-fluid levels in the right maxillary antrum and left frontal sinus concerning for acute superimposed on chronic sinusitis. Please correlate with clinical factors. 4. Minimal downward positioning of cerebellar tonsils at the foramen magnum. No measurable ectopia. THIS IS AN ELECTRONICALLY VERIFIED FINAL REPORT 04/17/2025 6:05 PM - Electronically signed by Jasmine Harrison M.D. LC: [place] Report ID: [id number] Reading Location: [id number] Procedure Note Annamarie Harrison MD - 04/17/2025 EXAM DESCRIPTION: MRI INTERNAL AUDITORY CANAL INCL BRAIN W WO CONTRAST REASON FOR STUDY: DIZZINESS AND GIDDINESS Vertigo for several months without improvement, no trauma or injury TECHNIQUE: Multiplanar imaging includes non-contrasted T1, T2, FLAIR,gradient echo/susceptibility-weighted images, diffusion with ADC map and post gadolinium contrast sequences. Additional thin slice images with andwithout gadolinium contrast acquired in the posterior fossa. Images stored onFantom. CONTRAST TYPE/DOSE: 20mL of GADOTERATE MEGLUMINE 0.5 MMOL/ML INTRAVENOUS SOLUTION (SO) injected via intravenous COMPARISON: No comparison. FINDINGS: IAC's: No vestibular schwannoma. Normal cerebellopontine angles.Visualized IAC's and CP angle cisterns appear normal. Visualized cochlea vestibuleand semicircular canals are also unremarkable. CEREBRUM: No hemorrhage, edema, or mass effect. No abnormal enhancement. WHITE MATTER: Normal. Incidental mild prominence of perivascular spaces inferior basal ganglia. Minimal downward positioning POSTERIOR FOSSA: Minimal downward positioning of cerebellar tonsils atthe foramen magnum. No pointing. No measurable ectopia. The brainstem and cerebellum otherwise appear unremarkable. No abnormal enhancement. DIFFUSION IMAGING: No recent infarction. EXTRAAXIAL SPACES: No hemorrhage. No mass or abnormal enhancement. BRAIN VOLUME: Within normal limits for age. PITUITARY: Unremarkable. VASCULATURE: No flow disturbance identified. ORBITS: No masses. Globes normal. PARANASAL SINUSES AND MASTOIDS: There is severe polypoid mucoperiosteal thickening throughout the bilateral paranasal sinuses. There is a opacification of ethmoid air cells bilaterally and there is a air-fluidlevel in the right maxillary antrum. Findings are concerning for acutesuperimposed on chronic sinusitis. There is also an air-fluid level in the frontalsinus concerning for acute left frontal sinusitis. OTHER: No other significant finding. IMPRESSION: 1. No abnormality of the IAC's or CP angle cisterns. 2. No acute infarction. No enhancing lesion. 3. Severe paranasal sinus disease with air-fluid levels in the right maxillary antrum and left frontal sinus concerning for acute superimposedon chronic sinusitis. Please correlate with clinical factors. 4. Minimal downward positioning of cerebellar tonsils at the foramenmagnum. No measurable ectopia. THIS IS AN ELECTRONICALLY VERIFIED FINAL REPORT 04/17/2025 6:05 PM - Electronically signed by Jasmine Harrison M.D. LC: [place] Report ID: [id number] Reading Location: [id number] Darren Sidhu MD IMG MRI PROCEDURES Final Res ult from Last 3 Months [facility] Care Teams Nurse Monitoring Relationship Specialty Start Date End Date Darren Sidhu MD PCP - General Internal Medicine 04/16/25
[2025-05-15 19:41] VITALS: BP 137/83; PULSE 82; RESP 16; TEMP 36.8; O2SAT 100
[2025-05-15 20:29] VITALS: O2SAT 99
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
[2025-05-15] MEDS: HYDROcodone/acetaminophen (*CRX) 5-325 MG TABLET 1 TAB PO (21:43)
[2025-05-15] MEDS: KETOROLAC (*BKC) 60 MG/2 ML VIAL IM (21:43)
[2025-05-15] MEDS: TETANUS,DIPHTHERIA,AC PERTUSSIS ADULT (0.5 ML) BOOSTRIX IM (22:46)
[2025-05-15 23:02] VITALS: BP 129/70; PULSE 79; RESP 18; O2SAT 100
== END 2025-05-15 23:03 | disposition home or self-care (01) ==
PROVIDERS: Emergency Provider Registered Nurse; PCP Internal Medicine
DX: T24.211A Burn of second degree of right thigh, initial encounter (principal); T25.112A Burn of first degree of left ankle, initial encounter; T31.0 Burns involving less than 10% of body surface; Z23 Encounter for immunization; F41.9 Anxiety disorder, unspecified; Z87.891 Personal history of nicotine dependence; X10.1XXA Contact with hot food, initial encounter; Z79.899 Other long term (current) drug therapy
CPT/HCPCS: 16020; 90471; 90715; 96372; 99283; A9270; J1885